=== PATIENT | female | born 1985 | race Caucasian/White ===

== ENCOUNTER 2023-02-14 18:57 | Outpatient (OUT) | payer OTHER, SELFPAY ==
--- NOTE | 2023-02-14 18:59 | US_ITS ---
[address] [address] Patient Name: HAYES MENCHACA MRN: [id number] date: 1985 Sex: F Assigned Patient Location: US Current Patient Location: Accession/Order Number: [id number] Exam Date: 02/14/2023 19:05 Report Date: 02/15/2023 17:46 At the request of: SUZIE ZEPEDA Procedure: US thyroid EXAMINATION: US thyroid HISTORY: THYROID NODULE E04.1 COMPARISON: 07/26/2022, 07/11/2021 TECHNIQUE: Sonographic images of the thyroid gland were obtained. FINDINGS: The right thyroid lobe measures 4.7 x 2.1 x 1.7 cm. Single nodule. Nodule 1:3.1 x 1.7 x 1.8 cm. Solid, isoechoic, wide, lobular margins, no calcifications. TR 4 The thyroid isthmus measures 2.9 mm. No focal nodule Left thyroid lobe measures 4.7 x 1.2 x 1.6 cm. Homogeneous echotexture with no focal nodule US/US thyroid IMPRESSION: Stable 3.1 cm right thyroid TR 4 nodule TI-RADS: The [employer] TI-RADS committee's white paper recommendations for thyroid lesions classified as TR4 (moderately suspicious) are listed below: > 1.0 cm. Follow-up ultrasound in 1, 2, 3, and 5 years. > 1.5 cm. FNA. J. Am Ayse Radiol 2017;14:[id number]. Electronically authenticated by: DIVYA COOL Date: 02/15/2023 17:46
== END 2023-02-14 18:58 | disposition home or self-care (01) ==
LOC: US 18:57
PROVIDERS: Visit Provider Otolaryngology
DX: E04.1 Nontoxic single thyroid nodule (principal)
CPT/HCPCS: 76536

== ENCOUNTER 2023-05-14 19:28 | Outpatient (REF) | payer OTHER, SELFPAY ==
[2023-05-20 15:08] LABS: Age Gdln ACOG Testing Note (.); HPV Aptima Negative (Negative); IGP, Aptima HPV, rfx 16/18,45 Note (.)
== END 2023-05-14 19:29 | disposition home or self-care (01) ==
LOC: LAB 19:28
PROVIDERS: Visit Provider Physician Assistant
DX: Z01.419 Encounter for gynecological examination (general) (routine) without abnormal findings (principal)
CPT/HCPCS: G0145

== ENCOUNTER 2023-08-19 18:45 | Outpatient (OUT) | payer OTHER, SELFPAY ==
--- OUTSIDE RECORDS SUMMARY | 2023-08-19 18:50 | XMS_ITS | CCD ---
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 Role Phone Sofia Salazar Unavailable ELVA ., DR DIEGO Attending Unavailable ELVA ., DR DIEGO Admitting Unavailable FURLONG, DR MANJU Garrett Primary Care Unavailable ELVA ., DR DIEGO Consulting Unavailable TIMMIS, DR LARSEN Admitting Unavailable TIMMIS, DR LARSEN Consulting Unavailable TIMMIS, DR LARSEN Attending Unavailable FURLONG, DR MANJU Garrett Primary Care Unavailable KIRVIN, DR DIVYA Tatum Consulting Unavailable KUNS, DR MELO Brown Consulting Unavailable KUNS, DR MELO Brown Attending Unavailable KUNS, DR MELO Brown Admitting Unavailable FURLONG, DR MANJU Garrett Primary Care Unavailable RADHA, MANUEL Admitting Unavailable RADHAGEORGEMANUEL Attending Unavailable FURLONG, DR MANJU Garrett Primary Care Unavailable TIMMIS, DR LARSEN Admitting Unavailable TIMMIS, DR LARSEN Consulting Unavailable TIMMIS, DR LARSEN Attending Unavailable FURLONG, DR MANJU Garrett Primary Care Unavailable NEFCYKIM Consulting Unavailable FURLONG, DR MANJU Garrett Primary Care Unavailable ELVA ., DR DIEGO Attending Unavailable ELVA ., DR DIEGO Admitting Unavailable PASQUALELITO Attending Unavailable Problems Active Problems Problem Classification Problem Date Documented Date Episodic/Chronic Genitourinary symptoms and ill-defined conditions (1 source) Dysuria; Translations: [Dysuria] Episodic Immunizations and screening for infectious disease (1 source) Encounter for screening for human papillomavirus (HPV); Translations: [ENC SCREENING HUMAN PAPILLOMAVIRUS] Onset: 05-17-2022 Episodic Other screening for suspected conditions (not mental disorders or infectious disease) (4 sources) Encounter for screening for malignant neoplasm of cervix; Translations: [ENC SCREENING MALIG NEOPLASM CERV] Onset: 05-14-2022 Episodic Thyroid disorders (4 sources) Nontoxic single thyroid nodule; Translations: [NONTOXIC SINGLE THYROID NODULE] Onset: 07-26-2022 Chronic Urinary tract infections (1 source) Lower urinary tract infectious disease; Translations: [UTI (lower urinary tract infection)] Episodic Past or Other Problems Problem Classification Problem Date Documented Da te Episodic/Chronic Other upper respiratory infections (2 sources) Acute pharyngitis, unspecified; Translations: [Acute upper respiratory infection, unspecified] Onset: 10-31-2021 Resolved: 10-31-2021 Episodic Results Test Name Value Interpretation Reference Range Facility LIPID PROFILEon 08-01-2022 CHOL-HDL RATIO NORM SEE BELOW Normal [facility] Comment on above: Result Comment: 3.3 - 4.4 LOW RISK 4.4 - 7.1 AVERAGE RISK 7.1 - 11.0 MODERATE RISK >11.0 HIGH RISK Performed By: #### L IPID, CMP #### [facility] [address] [address] [address] Kiarra Landry Cholesterol [Mass/Vol] 184 mg/dL Normal <=200 [facility] Comment on above: Performed By: #### L IPID, CMP #### [facility] [address] [address] [address] Kiarra Landry Cholesterol in HDL [Mass/Vol] 44 mg/dL Normal 40-60 [facility] Comment on above: Performed By: #### L IPID, CMP #### [facility] [address] [address] [address] Kiarra Landry Cholesterol in LDL [Mass/Vol] 115.0 mg/dL Normal [facility] Comment on above: Performed By: #### L IPID, CMP #### [facility] [address] [address] [address] Kiarra Landry Cholesterol.total/ Cholesterol in HDL [Mass ratio] 4.2 {ratio} Normal [facility] Comment on above: Performed By: #### L IPID, CMP #### [facility] [address] [address] [address] Kiarra Landry HDL NORMAL > or = 60 mg/dl - LO W CARDIOVASCULAR RISK <40 mg/dl - HIGH CARDIOVASCULAR RISK Normal [facility] Comment on above: Performed By: #### L IPID, CMP #### [facility] [address] [address] [address] Kiarra Landry LDL CALC NORMAL SEE BELOW Normal [facility] Comment on above: Result Comment: <100 mg/dl OPTIMAL 100 - 129 mg/dl NEAR OR ABOVE OPTIMAL 130 - 159 mg/dl BORDERLINE HIGH 160 - 189 mg/dl HIGH >190 mg/dl VERY HIGH Performed By: #### L IPID, CMP #### [facility] [address] [address] [address] Kiarra Landry Triglyceride [Mass/Vol] 125 mg/dL Normal <=150 [facility] Comment on above: Performed By: #### L IPID, CMP #### [facility] [address] [address] [address] Kiarra Landry VLDL CALC 25.0 mg/dL Normal [facility] Comment on above: Performed By: #### L IPID, CMP #### [facility] [address] [address] [address] Kiarra Landry PROF 14(COMP METB)on 023 Albumin [Mass/Vol] 4.0 g/dL Normal 3.4-5.0 [facility] Comment on above: Performed By: #### L IPID, CMP #### [facility] [address] [address] [address] Kiarra Landry Albumin/Globulin [Mass ratio] 1.2 {ratio} Normal [facility] Comment on above: Performed By: #### L IPID, CMP #### [facility] [address] [address] [address] Kiarra Landry ALP [Catalytic activity/Vol] 68 U/L Normal 46-116 [facility] Comment on above: Performed By: #### L IPID, CMP #### [facility] [address] [address] [address] Kiarra Landry ALT [Catalytic activity/Vol] 61 U/L Critically high 14-59 [facility] Comment on above: Performed By: #### L IPID, CMP #### [facility] [address] [address] [address] Kiarra Landry Anion gap [Moles/Vol] 10.6 mmol/L Normal [facility] Comment on above: Performed By: #### L IPID, CMP #### [facility] [address] [address] [address] Kiarra Landry AST [Catalytic activity/Vol] 28 U/L Normal 15-37 [facility] Comment on above: Performed By: #### L IPID, CMP #### [facility] [address] [address] [address] Kiarra Landry Bilirubin [Mass/Vol] 0.4 mg/dL Normal 0.2-1.0 [facility] Comment on above: Performed By: #### L IPID, CMP #### [facility] [address] [place] [address] Dr. Kiarra Landry Calcium [Mass/Vol] 8.6 mg/dL Normal 8.5-10.1 [facility] Comment on above: Performed By: #### L IPID, CMP #### [facility] [address] [address] [address] Kiarra Landry Chloride [Moles/Vol] 101 mmol/L Normal 98-107 [facility] Comment on above: Performed By: #### L IPID, CMP #### [facility] [address] [address] [address] Kiarra Landry CO2 [Moles/Vol] 27.9 mmol/L Normal 21.0-32.0 [facility] Comment on above: Performed By: #### L IPID, CMP #### [facility] [address] [address] [address] Kiarra Landry Creatinine [Mass/Vol] 0.80 mg/dL Normal 0.55-1.02 [facility] Comment on above: Performed By: #### L IPID, CMP #### [facility] [address] [address] [address] Kiarra Landry EGFR-AF CYPRIOT >60 Normal >=60 [facility] Comment on above: Performed By: #### L IPID, CMP #### [facility] [address] [address] [address] Kiarra Landry EGFR-NON AF CYPRIOT >60 Normal >=60 [facility] Comment on above: Performed By: #### L IPID, CMP #### [facility] [address] [address] [address] Kiarra Landry Globulin (S) [Mass/Vol] 3.3 g/dL Normal [facility] Comment on above: Performed By: #### L IPID, CMP #### [facility] [address] [address] [address] Kiarra Landry Glucose [Mass/Vol] 81 mg/dL Normal 74-106 [facility] Comment on above: Performed By: #### L IPID, CMP #### [facility] [address] [place] [address] Dr. Kiarra Landry Potassium [Moles/Vol] 3.5 mmol/L Normal 3.5-5.1 [facility] Comment on above: Performed By: #### L IPID, CMP #### [facility] [address] [address] [address] Kiarra Landry Protein [Mass/Vol] 7.3 g/dL Normal 6.4-8.2 [facility] Comment on above: Performed By: #### L IPID, CMP #### [facility] [address] [place] [address] Dr. Kiarra Landry Sodium [Moles/Vol] 136 mmol/L Normal 136-145 [facility] Comment on above: Performed By: #### L IPID, CMP #### [facility] [address] [address] [address] Kiarra Landry Urea nitrogen [Mass/Vol] 14.0 mg/dL Normal 7.0-18.0 [facility] Comment on above: Performed By: #### L IPID, CMP #### [facility] [address] [address] [address] Kiarra Landry Urea nitrogen/Creatinin e [Mass ratio] 17.5 mg/mg Normal [facility] Comment on above: Performed By: #### L IPID, CMP #### [facility] [address] [address] [address] Kiarra Landry US THYROIDon 07-26-2022 US THYROID EXAM: US THYROID HISTORY: Non-toxic uninodular goiter . Follow-up study. COMPARISON: 01/11/2022 TECHNIQUE: Multiple sonographic images of the thyroid gland were obtained, supplemented with Doppler. FINDINGS: The right lobe measures 4.6 x 1.9 x 1.7 cm. Homogeneous echoes are noted throughout. Along the inferior aspect there is a solid nodule measuring 3.0 x 1.7 x 1.6 cm. The left lobe measures 4.4 x 1.4 x 1.4 cm. Homogeneous echoes are noted throughout. No focal nodule is identified within. The isthmus measures 2 mm in thickness. There is no evidence of a focal mass or abnormal fluid collection. IMPRESSION: A nodule is seen in the inferior aspect of the right lobe. This is unchanged in size and appearance. No other nodule is identified. The nodule in the right lobe is considered TI RADS 4. Biopsy of this nodule was performed on 07/17/2021. A repeat biopsy is not recommended at this time. A follow-up study in 12 months recommended. Electronically authenticated by: KIM ENRIQUEZ Date: 2022-07-26 19:43 Normal [facility] PAP ACOG PANEL 2: 30 to 65on 05-21-2022 . . Normal [facility] Comment on above: Result Comment: Perf ormed at: WB Performed By: #### 4 [id number] #### [facility] [address] [place] [address] Dr. Kiarra Landry Age Gdln ACOG Testing 30-65 Normal [facility] Comment on above: Performed By: #### 4 [id number] #### [facility] [address] [address] [address] Kiarra Landry DIAGNOSIS: Comment Normal [facility] Comment on above: Result Comment: NEGA TIVE FOR INTRAEPITHELIAL LESION OR MALIGNANCY. Performed at: WB Performed By: #### 4 [id number] #### [facility] [address] [id number] Kiarra Landry HPV Aptima Negative Normal Negative [facility] Comment on above: Result Comment: This nucleic acid amplification test detects fourteen high-risk HPV types (16,18,31,33,35,39,45,51,52,56,58,59,66,68) without differentiation. Performed at: =G Performed By: #### 4 [id number] #### [facility] [address] [address] [address] Kiarra Landry HPV Genotype Reflex Comment Normal [facility] Comment on above: Result Comment: Crit eria not met, HPV Genotype not performed. Performed at: WB Performed By: #### 4 [id number] #### [facility] [address] [place] [address] Dr. Kiarra Landry Methodology: Comment Normal [facility] Comment on above: Result Comment: This liquid based ThinPrep(R) pap test was screened with the use of an image guided system. Performed at: WB Performed By: #### 4 [id number] #### [facility] [address] [place] [address] Dr. Kiarra Landry Note: Comment Normal [facility] Comment on above: Result Comment: The Pap smear is a screening test designed to aid in the detection of premalignant and malignant conditions of the uterine cervix. It is not a diagnostic procedure and should not be used as the sole means of detecting cervical cancer. Both false-positive and false-negative reports do occur. . Performed at: WB Performed By: #### 4 [id number] #### [facility] [address] [place] [address] Dr. Kiarra Landry Performed by: Comment Normal [facility] Comment on above: Result Comment: Norma Smith, Mortgage Banker (ASCP) Performed at: WB Performed By: #### 4 [id number] #### [facility] [address] [place] [address] Dr. Kiarra Landry Specimen adequacy: Comment Normal [facility] Comment on above: Result Comment: Sati sfactory for evaluation. Endocervical and/or squamous metaplastic cells (endocervical component) are present. Performed at: WB Performed By: #### 4 [id number] #### [facility] [address] [place] [address] Dr. Kiarra Landry US THYROIDon 01-12-2022 US THYROID EXAMINATION: US THYROID HISTORY: Non-toxic uninodular goiter COMPARISON: 07/17/2021, 07/11/2021 TECHNIQUE: Sonographic images of the thyroid gland were obtained. FINDINGS: The right thyroid lobe is stable in size, contour and echotexture measuring 4.8 x 2.0 x 1.8 cm. Single nodule. Nodule 1:2.8 x 1.7 x 1.7 cm. Solid, isoechoic, wide, lobular margins, no calcifications. TR 4 The thyroid isthmus measures 2 mm, normal. No focal nodule Left thyroid lobe is normal in size, contour and echotexture measuring 4.6 x 1.3 x 1.6 cm IMPRESSION: Stable 2.8 cm right TR 4 nodule, previously biopsied TI-RADS: The [employer] TI-RADS committee's white paper recommendations for thyroid lesions classified as TR4 (moderately suspicious) are listed below: > 1.0 cm. Follow-up ultrasound in 1, 2, 3, and 5 years. > 1.5 cm. FNA. J. Am Ayse Radiol 2017;14:587-595. Electronically authenticated by: DIVYA COOL Date: 2022-01-12 07:11 Normal [facility] Quick Strepon 10-31-2021 S. pyogenes Org specific cx Ql (Throat) Negative Skimbl Other Quick Strep Skimbl Other COMPREHENSIVE METABOLIC PANE [place] 07-05-2021 Albumin [Mass/Vol] 4.5 g/dL Normal 3.6-5.1 [facility] Comment on above: Performed By: #### 7 215, 19393, 58833 #### [facility] [address], [address] [place] [id number] Floral Arranger: Goyo Ivory MD Albumin/Globulin [Mass ratio] 1.8 {ratio} Normal 1.0-2.5 [facility] Comment on above: Performed By: #### 7 600, 14724, 10651 #### [facility] [address] [place], [place] [address] , [address] [place] [id number] Floral Arranger: Goyo Ivory MD ALP [Catalytic activity/Vol] 76 U/L Normal 31-125 [facility] Comment on above: Performed By: #### 7 600, 15185, 66146 #### [facility] of [address] [address] Floral Arranger: Goyo Ivory MD ALT [Catalytic activity/Vol] 41 U/L High 6-29 [facility] Comment on above: Performed By: #### 7 600, 67547, 66399 #### [facility] of [address] [address] Floral Arranger: Goyo Ivory MD AST [Catalytic activity/Vol] 24 U/L Normal 10-30 [facility] Comment on above: Performed By: #### 7 600, 38475, 97529 #### [facility] [address] [address] Floral Arranger: Goyo Ivory MD Bilirubin [Mass/Vol] 0.3 mg/dL Normal 0.2-1.2 [facility] Comment on above: Performed By: #### 7 600, 53906, 84299 #### [facility] [address] [address] Floral Arranger: Goyo Ivory MD BUN/CREATININE RATIO NOT APPLICABLE Normal 6-22 [facility] Comment on above: Performed By: #### 7 600, 55782, 04551 #### [facility] [address] [address] Floral Arranger: Goyo Ivory MD Calcium [Mass/Vol] 9.0 mg/dL Normal 8.6-10.2 [facility] Comment on above: Performed By: #### 7 600, 29186, 81674 #### [facility] of [address] [address] Floral Arranger: Goyo Ivory MD Chloride [Moles/Vol] 105 mmol/L Normal 98-110 [facility] Comment on above: Performed By: #### 7 600, 02881, 98357 #### [facility] of [address], [address] [place] [address] Floral Arranger: Goyo Ivory MD CO2 [Moles/Vol] 25 mmol/L Normal 20-32 [facility] Comment on above: Performed By: #### 7 600, 98145, 60120 #### [facility] [address], [address] [place] [address] Floral Arranger: Goyo Ivory MD Creatinine [Mass/Vol] 0.89 mg/dL Normal 0.50-1.10 [facility] Comment on above: Performed By: #### 7 600, 94622, 84399 #### [facility] [address], [address] [place] [address] Floral Arranger: Goyo Ivory MD eGFR NON-AFR. CYPRIOT 83 mL/min/1.73m2 Normal > OR = 60 [facility] Comment on above: Performed By: #### 7 600, 34659, 14542 #### [facility] [address], [address] [place] [address] Floral Arranger: Goyo Ivory MD GFR/1.73 sq M.predicted among blacks MDRD (S/P/Bld) [Vol rate/Area] 96 mL/min/{1.73_m2} Normal > OR = 60 [facility] Comment on above: Performed By: #### 7 600, 22984, 63365 #### [facility] [address], [address] [place] [address] Floral Arranger: Goyo Ivory MD Globulin (S) [Mass/Vol] 2.5 g/dL Normal 1.9-3.7 [facility] Comment on above: Performed By: #### 7 600, 63300, 63183 #### [facility] of [address] [address] Floral Arranger: Goyo Ivory MD Glucose [Mass/Vol] 77 mg/dL Normal 65-99 [facility] Comment on above: Result Comment: Fasting reference interval Performed By: #### 7 600, 35329, 41191 #### [facility] of [address], [address] [place] [address] Floral Arranger: Goyo Ivory MD Potassium [Moles/Vol] 4.0 mmol/L Normal 3.5-5.3 [facility] Comment on above: Performed By: #### 7 600, 85579, 83475 #### [facility] [address] [address] Floral Arranger: Goyo Ivory MD Protein [Mass/Vol] 7.0 g/dL Normal 6.1-8.1 [facility] Comment on above: Performed By: #### 7 600, 31083, 34923 #### [facility] [address] [place] [address] Floral Arranger: Goyo Ivory MD Sodium [Moles/Vol] 139 mmol/L Normal 135-146 [facility] Comment on above: Performed By: #### 7 600, 80389, 99251 #### [facility] [address] [place] [address] Floral Arranger: Goyo Ivory MD Urea nitrogen [Mass/Vol] 18 mg/dL Normal 7-25 [facility] Comment on above: Performed By: #### 7 600, 07609, 03019 #### [facility] [address] [place] [address] Floral Arranger: Goyo Ivory MD LIPID PANEL, [facility] 0 Cholesterol [Mass/Vol] 206 mg/dL High <200 [facility] Comment on above: Order Comment: FASTI NG:YES FASTING: YES Performed By: #### 7 600, 86732, 41699 #### [facility] of [address] [place] [address] Floral Arranger: Goyo Ivory MD Cholesterol in HDL [Mass/Vol] 45 mg/dL Low > OR = 50 [facility] Comment on above: Order Comment: FASTI NG:YES FASTING: YES Performed By: #### 7 600, 67803, 56886 #### [facility] [address] [address], [address] [place] [address] Floral Arranger: Goyo Ivory MD Cholesterol in LDL [Mass/Vol] 130 mg/dL High [facility] Comment on above: Order Comment: FASTI NG:YES FASTING: YES Result Comment: Refe rence range: <100 Desirable range <100 mg/dL for primary prevention; <70 mg/dL for patients with CHD or diabetic patients with > or = 2 CHD risk factors. LDL-C is now calculated using the Bessie calculation, which is a validated novel method providing better accuracy than the Friedewald equation in the estimation of LDL-C. Milton SS et al. CLARA. 2013;310(19): 5155-8696 (http://education.NOZA/faq/KMT297) Performed By: #### 7 600, 00731, 55472 #### [facility] [place] [address] Floral Arranger: Goyo Ivory MD Cholesterol.total/ Cholesterol in HDL [Mass ratio] 4.6 {ratio} Normal <5.0 [facility] Comment on above: Order Comment: FASTI NG:YES FASTING: YES Performed By: #### 7 600, 66221, 35799 #### [facility] [address] [place] [address] Floral Arranger: Goyo Ivory MD NON HDL CHOLESTEROL 161 mg/dL (calc) High <130 [facility] Comment on above: Order Comment: FASTI NG:YES FASTING: YES Result Comment: For patients with diabetes plus 1 major ASCVD risk factor, treating to a non-HDL-C goal of <100 mg/dL (LDL-C of <70 mg/dL) is considered a therapeutic option. Performed By: #### 7 600, 84905, 96470 #### [facility] [address] [place] [address] Floral Arranger: Goyo Ivory MD Triglyceride [Mass/Vol] 170 mg/dL High <150 [facility] Comment on above: Order Comment: FASTI NG:YES FASTING: YES Performed By: #### 7 600, 48828, 37546 #### [facility] [address], [address] [place] [address] Floral Arranger: Goyo Ivory MD TSH+FREE T4on 07-05-2021 Free T4 [Mass/Vol] 0.9 ng/dL Normal 0.8-1.8 [facility] Comment on above: Performed By: #### 7 600, 54503, 85434 #### [facility] [address], [address] [place] [address] Floral Arranger: Goyo Ivory MD TSH Qn 1.38 m[IU]/L Normal [facility] Comment on above: Result Comment: Refe rence Range > or = 20 Years 0.40-4.50 Ranges First trimester 0.26-2.66 Second trimester 0.55-2.73 Third trimester 0.43-2.91 Performed By: #### 7 600, 10775, 68039 #### [facility] [address], [address] [place] [address] Floral Arranger: Goyo Ivory MD Formson 05-08-2021 Forms [id number] .[id number]:127 Normal [facility] Formson 05-05-2021 Forms [id number] .[id number]:127 Normal [facility] Operative Reporton Operative Report [id number] .[id number]:127 Normal [facility] Ambulatory Clinical Summaryo n 05-03-2021 Ambulatory Clinical Summary {[id number]}CD:[id number] Normal [facility] General Surgery Office/Clini c Noteon 05-03-2021 General Surgery Office/Clinic Note Chief Complaint post operative follow up HPI Staff 7 day post operative follow up post lap cholecystectomy. Minimal discomfort, taking 600mg-800mg Ibuprofen daily. Denies bleeding or drainage from incision sites. History of Present Illness 1 week s/p LS cholecystectomy, doing well, mild soreness, no N/V; normal bms; no fevers; no drainage from incisions; pathology with chronic calculus cholecystitis; Review of Systems ROS - Provider Constitutional: no fever, no sweats, no weight loss. Eyes: no glasses, no blurred vision, no visual loss. ENMT: no dentures, no hoarseness, no swallowing difficulties, no hearing loss, no ear infection(s), no nose bleeds. Cardiovascular: normal blood pressure, no chest pain, regular heartbeat, no heart murmur. Respiratory: no shortness of breath, no cough, no asthma, no wheezing. Gastrointestinal: no nausea, no vomiting, no diarrhea, no constipation, no blood in stool, no change in bowel habits, no abdominal pain, no hepatitis. Genitourinary: no kidney stones, no urine infection, no dysuria. Musculoskeletal: no pain, no weakness. Skin: no changing moles, no rash, no skin lumps. Neurologic: no seizures, no epilepsy, no headache. Psychiatric: no emotional or psychiatric problem. Heme/Lymph: no bleeding problems, no anemia, no blood clots, no transfusions. Allergy/Immunologic: no swollen lymph nodes/glands, no IV drug abuse. Other: Additional ROS info: Except as noted in the above Review of Systems and in the History of Present Illness, all other systems have been reviewed and are negative or noncontributory. Physical Exam Vitals & Measurements T: 36.4 ?C(Temporal Artery) abd: obese, soft, normal bs, incisions healing well, no erythema or drainage. minimal resolving ecchymoses. Assessment/Plan 1. Chronic cholecystitis with calculus (K80.10: Calculus of gallbladder with chronic cholecystitis without obstruction) doing well, continue no lifting > 10 lbs for 3 weeks, call with problems/questions. Follow-up With When Contact Information MARCUS FOSS, DIVINA Araujo Only if needed [address] [place] [address]- Additional Instructions: Problem List/Past Medical History Ongoing Biliary colic BMI 38.0-38.9,adult Chronic cholecystitis with calculus Symptomatic cholelithiasis Historical No qualifying data Procedure/Surgical History Laparoscopic cholecystectomy (04/26/2021), Dilatation and curettage, Repair of left inguinal hernia, Repair of right inguinal hernia. Medications Multivitamins and Minerals, 1 tab(s), Oral, Daily Allergies No Known Allergies No Known Medication Allergies Social History Alcohol - Denies Alcohol Use, 02/07/2021 Substance Abuse - Denies Substance Abuse, 02/07/2021 Tobacco Never (less than 100 in lifetime) Tobacco Use:. Never Smokeless Tobacco Use:., 03/28/2021 Family History Family history is negative Normal [facility] Comment on above: Result Comment: Elec tronically Signed By: MARCUS FOSS, Chris Olguin\Date and Time Signed: 05/03/21 21:19 EST Pathology Noteon 05-02-2021 Pathology Note [id number] .00CD:127 Normal [facility] Lab Reportson 04-25-2021 Lab Reports [id number] .00CD:127 Normal [facility] Lab Reportson 04-19-2021 Lab Reports [id number] .00CD:127 Normal [facility] Consent for Procedure/Surger yon 04-10-2021 Consent for Procedure/Surgery [id number] .[id number]:127 Normal [facility] General Surgery Office/Clini c Noteon 04-02-2021 General Surgery Office/Clinic Note Chief Complaint re-evaluate RUQ pain HPI Staff Presents to follow up on RUQ pain. Last evaluation 02/07/21. Since last visit, she experienced two day episode of RUQ pain without nausea, vomiting or diarrhea. After pain resolved, she has been experiencing constant dull ache. History of Present Illness f/u for recurrent RUQ pain; last seen beginning of February; one episode of biliary colic at that time, was 9 weeks , wanted to hold off on surgery; now reports several episodes within last several weeks, as well as more constant ache; no N/V or bowel changes; no fevers or jaundice; only abdominal operations bilateral inguinal hernia repairs; no asa or NSAID use;no tobacco use. Review of Systems ROS - Provider Constitutional: no fever, no sweats, no weight loss. Eyes: no glasses, no blurred vision, no visual loss. ENMT: no dentures, no hoarseness, no swallowing difficulties, no hearing loss, no ear infection(s), no nose bleeds. Cardiovascular: normal blood pressure, no chest pain, regular heartbeat, no heart murmur. Respiratory: no shortness of breath, no cough, no asthma, no wheezing. Gastrointestinal: no nausea, no vomiting, no diarrhea, no constipation, no blood in stool, no change in bowel habits, no abdominal pain, no hepatitis. Genitourinary: no kidney stones, no urine infection, no dysuria. Musculoskeletal: no pain, no weakness. Skin: no changing moles, no rash, no skin lumps. Neurologic: no seizures, no epilepsy, no headache. Psychiatric: no emotional or psychiatric problem. Heme/Lymph: no bleeding problems, no anemia, no blood clots, no transfusions. Allergy/Immunologic: no swollen lymph nodes/glands, no IV drug abuse. Other: Additional ROS info: Except as noted in the above Review of Systems and in the History of Present Illness, all other systems have been reviewed and are negative or noncontributory. Physical Exam Vitals & Measurements T: 36.4 ?C (Temporal Artery) HR: 80(Peripheral) RR: 16 BP: 120/80 HT: 162.6 cm HT: 162.6 cm WT: 102.2 kg WT: 102.2 kg BMI: 38.66 HEENT: normal conjunctiva, sclera clear, no scleral icterus, EOM intact, PERRLA, oral mucosa moist without lesions. Neck: trachea midline, no mass, symmetric, no thyromegaly or nodules, no adenopathy Respiratory: lungs CTA, respirations non labored. Cardiovascular: regular rate and rhythm, no murmur, no pedal edema or varicosities. Gastrointestinal: obese, soft, non distended, mild tenderness, epigastrium and RUQ, no masses, no palpable hernias, diastasis recti no, no hepatosplenomegaly; normal bs Lymphatic: no cervical adenopathy, no axillary adenopathy, no inguinal adenopathy. Musculoskeletal: normal gait, digits and nails without infection, nodes, cyanosis, clubbing. Skin: no rashes, no lesions, no ulcers, no subcutaneous nodules, induration. Psychiatric/Neuro: oriented to time, place, person, judgement normal, affect appropriate for age, insight intact, no focal deficits. Tests: labs reviewed, x-rays reviewed, review of old records completed, _ surgical options, risks, and possible complications with patient. Assessment/Plan 1. Symptomatic cholelithiasis (K80.20: Calculus of gallbladder without cholecystitis without obstruction) plan laparoscopic cholecystectomy, possible intraoperative cholangiogram; informed consent obtained. unasyn 3 gms IV prior to OR SCDs 2. BMI 38.0-38.9,adult (Z68.38: Body mass index [BMI] 38.0-38.9, adult) recommend low fat diet and exercise. Follow-up No qualifying data available Problem List/Past Medical History Ongoing Biliary colic BMI 38.0-38.9,adult Symptomatic cholelithiasis Historical No qualifying data Procedure/Surgical History Dilatation and curettage, Repair of left inguinal hernia, Repair of right inguinal hernia. Medications Multivitamins and Minerals, 1 tab(s), Oral, Daily Allergies No Known Allergies No Known Medication Allergies Social History Alcohol - Denies Alcohol Use, 02/07/2021 Substance Abuse - Denies Substance Abuse, 02/07/2021 Tobacco Never (less than 100 in lifetime) Tobacco Use:. Never Smokeless Tobacco Use:., 03/28/2021 Family History Family history is negative Normal [facility] Comment on above: Result Comment: Elec tronically Signed By: MARCUS FOSS, Chris Cabral.george\Date and Time Signed: 04/02/21 20:40 EDT Patient Educationon 03-17-20 Patient Education Gastroenterology Laparoscopic Cholecystectomy Laparoscopic cholecystectomy is surgery to remove the gallbladder. The gallbladder is a pear-shaped organ that lies beneath the liver on the right side of the body. The gallbladder stores bile, which is a fluid that helps the body to digest fats. Cholecystectomy is often done for inflammation of the gallbladder (cholecystitis). This condition is usually caused by a buildup of gallstones (cholelithiasis) in the gallbladder. Gallstones can block the flow of bile, which can result in inflammation and pain. In severe cases, emergency surgery may be required. This procedure is done though small incisions in your abdomen (laparoscopic surgery). A thin scope with a camera (laparoscope) is inserted through one incision. Thin surgical instruments are inserted through the other incisions. In some cases, a laparoscopic procedure may be turned into a type of surgery that is done through a larger incision (open surgery). Tell a health care provider about: ? Any allergies you have. ? All medicines you are taking, including vitamins, herbs, eye drops, creams, and zubo-ynd-lkhcrkz medicines. ? Any problems you or family members have had with anesthetic medicines. ? Any blood disorders you have. ? Any surgeries you have had. ? Any medical conditions you have. ? Whether you are or may be . What are the risks? Generally, this is a safe procedure. However, problems may occur, including: ? Infection. ? Bleeding. ? Allergic reactions to medicines. ? Damage to other structures or organs. ? A stone remaining in the common bile duct. The common bile duct carries bile from the gallbladder into the small intestine. ? A bile leak from the cyst duct that is clipped when your gallbladder is removed. What happens before the procedure? Staying hydrated Follow instructions from your health care provider about hydration, which may include: ? Up to 2 hours before the procedure ? you may continue to drink clear liquids, such as water, clear fruit juice, black coffee, and plain tea. Eating and drinking restrictions Follow instructions from your health care provider about eating and drinking, which may include: ? 8 hours before the procedure ? stop eating heavy meals or foods such as meat, fried foods, or fatty foods. ? 6 hours before the procedure ? stop eating light meals or foods, such as toast or cereal. ? 6 hours before the procedure ? stop drinking milk or drinks that contain milk. ? 2 hours before the procedure ? stop drinking clear liquids. Medicines ? Ask your health care provider about: ? Changing or stopping your regular medicines. This is especially important if you are taking diabetes medicines or blood thinners. ? Taking medicines such as aspirin and ibuprofen. These medicines can thin your blood. Do not take these medicines before your procedure if your health care provider instructs you not to. ? You may be given antibiotic medicine to help prevent infection. General instructions ? Let your health care provider know if you develop a cold or an infection before surgery. ? Plan to have someone take you home from the hospital or clinic. ? Ask your health care provider how your surgical site will be marked or identified. What happens during the procedure? ? To reduce your risk of infection: ? Your health care team will wash or sanitize their hands. ? Your skin will be washed with soap. ? Hair may be removed from the surgical area. ? An IV tube may be inserted into one of your veins. ? You will be given one or more of the following: ? A medicine to help you relax (sedative). ? A medicine to make you fall asleep (general anesthetic). ? A breathing tube will be placed in your mouth. ? Your surgeon will make several small cuts (incisions) in your abdomen. ? The laparoscope will be inserted through one of the small incisions. The camera on the laparoscope will send images to a TV screen (monitor) in the operating room. This lets your surgeon see inside your abdomen. ? Air-like gas will be pumped into your abdomen. This will expand your abdomen to give the surgeon more room to perform the surgery. ? Other tools that are needed for the procedure will be inserted through the other incisions. The gallbladder will be removed through one of the incisions. ? Your common bile duct may be examined. If stones are found in the common bile duct, they may be removed. ? After your gallbladder has been removed, the incisions will be closed with stitches (sutures), silvestre, or skin glue. ? Your incisions may be covered with a bandage (dressing). The procedure may vary among health care providers and hospitals. What happens after the procedure? ? Your blood pressure, heart rate, breathing rate, and blood oxygen level will be monitored until the medicines you were given have worn off. ? You will be given medicines as needed to control your (more content not included)... Normal [facility] RAD - Ultrasound Reporton RAD - Ultrasound Report [id number] .00CD:127 Normal [facility] Ambulatory Clinical Summaryo n 02-07-2021 Ambulatory Clinical Summary {[id number]}CD:[id number] Normal [facility] ED Note-Physicianon 02-08-20 ED Note-Physician [id number] .00CD:127 Normal [facility] Vital Signs Date Time Vital Sign Value Performing Clinician Facility 10-31-2021 18:40-0400 Body height 162.56 cm Sofia Salazar Other [facility] Other 10-31-2021 18:40-0400 Body mass index (BMI) [Ratio] 39.48 kg/m2 Sofia Steelmond Other [facility] Other 10-31-2021 18:40-0400 Body temperature 98.2 [degF] Sofia Salazar Other [facility] Other 10-31-2021 18:40-0400 Body weight 104.33 kg Sofia Salazar Other [facility] Other 10-31-2021 18:40-0400 Respiratory rate 18 /min Sofia Salazar Other [facility] Other 10-31-2021 18:40-0400 SaO2% (BldA) [Mass fraction] 97 % Sofia Salazar Other [facility] Other Encounters Encounter Date Encounter Type Care Provider Facility Start: 05-14-2023 End: 05-14-2023 ambulatory LITO GIORDANO Not Available Start: 08-05-2022 Encounter for genera l adult medical examination with abnormal findings DR MELO YE [facility] Start: 08-01-2022 End: 08-02-[address] MELO YE Facility:[facility] Start: 08-01-2022 End: 08-02-2022 Encounter for general adult medical examination with abnormal findings DR MELO YE Facility:[facility] Start: 07-26-2022 End: 07-27-[address] SUZIE ZEPEDA Facility:[facility] Start: 05-14-2022 End: 05-14-[address] MANJU JONES Facility:[facility] Start: 05-10-2022 End: 05-10-[address] JOHNATHON STEVENSON . Facility:[facility] Start: 03-09-2022 ambulatory MANUEL RADHA Facility:[facility] Start: 01-11-2022 End: 01-12-[address] SUZIE ZEPEDA Facility:[facility] Start: 10-31-2021 End: 10-31-2021 ambulatory Sofia Salazar Other [facility] Other Start: 10-31-2021 Office outpatient vi sit 25 minutes Sofia Salazar [facility] Payers Date Payer Category Payer Unknown [id number] 2.16.84 [id number] 1985 Unknown [id number] 2.16.84 [id number] 1983 Unknown [id number] 2.16.84 [id number] 1983 Unknown [id number] 2.16.84 [id number] 1983 Unknown [id number] 2.16.84 [id number] 1983 Unknown [id number] 2.16.84 [id number] 1983 Unknown [id number] 1961 Self-pay 1961 Unknown [id number] 2.16.8 [id number] Social History Date Type Detail Facility Unknown if ever smoked [facility] Other Sex Assigned At Sex Assigned At Bir th [facility] Other Evaluation note 10-31-2021 Note Date & Type Note Facility 10-31-2021 Evaluation note Encounter Date Diagnosis Assessment Notes October, Sore throat (ICD-10 - J02.9) October, Viral upper respiratory infection (ICD-10 - J06.9) Drink plenty fluids, get plenty of rest. Take Tylenol or Motrin for aches pains or fevers. Consider taking Mucinex or Sudafed for your drainage. Follow-up with your family physician if no improvement in 2 to 3 days [facility] Other Clinical Note 03-17-2021 Note Date & Type Note Facility 03-17-2021 Note Chief Complaint consultation for abdominal pain HPI Staff 35 year old female presents on consultation from [facility] for abdominal pain. History of Present Illness 35 yo female, 9 weeks ; referred from ED for episode of upper abd pain; seen 2 days ago in ED at [facility] for sudden onset of upper abdominal pain, radiating to shoulder and back, some nausea, no emesis; occurred several hours after eating fatty food; seen in ED and pain gradually resolved with medications; no previous episodes or problems during the ; has been on low fat diet; recent US as outpatient with 1 stone, no gb wall thickening, normal cbd; no h/o jaundice or pancreatitis; abdominal operations significant for bilateral inguinal hernias; denies change in bms or blood in stools; no asa or NSAID use; no fmhx of biliary disease, GI malignancy or IBD. no tobacco use. Review of Systems PHQ Score Initial Depression Screen Score: 0 ROS - Provider Constitutional: no fever, no sweats, no weight loss. Eyes: no glasses, no blurred vision, no visual loss. ENMT: no dentures, no hoarseness, no swallowing difficulties, no hearing loss, no ear infection(s), no nose bleeds. Cardiovascular: normal blood pressure, no chest pain, regular heartbeat, no heart murmur. Respiratory: no shortness of breath, no cough, no asthma, no wheezing. Gastrointestinal: yes nausea, no vomiting, no diarrhea, no constipation, no blood in stool, no change in bowel habits, yes abdominal pain, no hepatitis. Genitourinary: no kidney stones, no urine infection, no dysuria. Musculoskeletal: no pain, no weakness. Skin: no changing moles, no rash, no skin lumps. Neurologic: no seizures, no epilepsy, no headache. Psychiatric: no emotional or psychiatric problem. Heme/Lymph: no bleeding problems, no anemia, no blood clots, no transfusions. Allergy/Immunologic: no swollen lymph nodes/glands, no IV drug abuse. Other: Additional ROS info: Except as noted in the above Review of Systems and in the History of Present Illness, all other systems have been reviewed and are negative or noncontributory. Physical Exam Vitals & Measurements T: 36.6 ?C (Temporal Artery) HR: 72(Peripheral) RR: 16 BP: 122/78 HT: 162.6 cm HT: 162.56 cm WT: 101.0 kg WT: 101 kg BMI: 38.22 HEENT: normal conjunctiva, sclera clear, no scleral icterus, EOM intact, PERRLA, oral mucosa moist without lesions. Neck: trachea midline, no mass, symmetric, no thyromegaly or nodules, no adenopathy Respiratory: lungs CTA, respirations non labored. Cardiovascular: regular rate and rhythm, no murmur, no pedal edema or varicosities. Gastrointestinal:obese, soft, non distended, no tenderness, no masses, no palpable hernias, diastasis recti no, no hepatosplenomegaly; normal bs Lymphatic: no cervical adenopathy, Musculoskeletal: normal gait, digits and nails without infection, nodes, cyanosis, clubbing. Skin: no rashes, no lesions, no ulcers, no subcutaneous nodules, induration. Psychiatric/Neuro: oriented to time, place, person, judgement normal, affect appropriate for age, insight intact, no focal deficits. Tests: labs reviewed, x-rays reviewed, review of old records completed, Discussed surgical options, risks, and possible complications with patient. Assessment/Plan 1. Biliary colic (K80.50: Calculus of bile duct without cholangitis or cholecystitis without obstruction) discussed possible development of cholecystitis or gallstone pancreatitis with subsequent attacks; with just one attack, patient wants to hold off on surgery at this time, will call if recurrent symptoms, or problems/questions. Follow-up No qualifying data available Patient Education Laparoscopic Cholecystectomy Cholelithiasis, Vyzj-kf-Wudy Problem List/Past Medical History Ongoing Biliary colic BMI 38.0-38.9,adult Historical No qualifying data Procedure/Surgical History Dilatation and curettage, Repair of left inguinal hernia, Repair of right inguinal hernia. Medications Multivitamins and Minerals, 1 tab(s), Oral, Daily Allergies No Known Allergies No Known Medication Allergies Social History Alcohol - Denies Alcohol Use, 02/07/2021 Substance Abuse - Denies Substance Abuse, 02/07/2021 Tobacco Never (less than 100 in lifetime) Tobacco Use:. Never Smokeless Tobacco Use:., 02/07/2021 Family History Family history is negative [facility] Comment on above: Result Comment: Elec tronically Signed By: MARCUS FOSS, Chris Olguin\Date and Time Signed: 03/17/21 15:37 EDT History general Narrative - Reported Note Date & Type Note Facility History general Narrative - Reported Type Surgical History hernia repair Surgical History t and a Surgical History D&C Surgical History cholecystectomy 04/23 Hospitalization History childbirth 2017 [facility] Other Summary Purpose Family History No Family History Records FoundNo Family History Records FoundNo Family History Records FoundNo Family History Records Found Advance Directives No Advanced Directives Records FoundNo Advanced Directives Records FoundNo Advanced Directives Records FoundNo Advanced Directives Records Found Additional Source Comments INFORMATION SOURCE (unrecogn ized section and content) DATE CREATED AUTHOR 07/05/2021 [facility] DATE CREATED AUTHOR AUTHOR'S ORGANIZ ATION 07/28/2021 [facility] DATE CREATED AUTHOR AUTHOR'S ORGANIZ ATION 08/07/2022 [facility] DATE CREATED AUTHOR AUTHOR'S ORGANIZ ATION 05/16/2023 [facility] EPIC REASON FOR VISIT (unrecogniz ed section and content) BLACK VAN, SORE THROAT X 5 D AYS FOR RECORDS PERTAINING TO PATIENTS WHO ARE OR HAVE BEEN ENROLLED IN A CHEMICAL DEPENDENCY/SUBSTANCEABUSE PROGRAM, SOME INFORMATION MAY BE OMITTED. This clinical summary was aggregated from multiple sources. Caution should be exercised in using it in the provision of clinical care. This summary normalizes information from multiple sources, and as a consequence, information in this document may materially change the coding, format and clinical context of patient data. In addition, data may be omitted in some cases. CLINICAL DECISIONS SHOULD BE BASED ON THE PRIMARY CLINICAL RECORDS. [email or web address] provides no warranty or guarantee of the accuracy or completeness of information in this document.
--- NOTE | 2023-08-19 18:53 | US_ITS ---
The [address] [address] Patient Name: HAYES MENCHACA MRN: [id number] date: 1985 Sex: F Assigned Patient Location: US Current Patient Location: US Accession/Order Number: [id number] Exam Date: 08/19/2023 19:00 Report Date: 08/19/2023 19:42 At the request of: SUZIE ZEPEDA Procedure: US thyroid EXAM: US thyroid HISTORY: THYROID NODULE E04.1 . Follow-up study. COMPARISON: 02/14/2023 TECHNIQUE: Multiple sonographic images of the thyroid gland were obtained, supplemented with Doppler. FINDINGS: The right lobe measures 4.9 x 2.1 x 1.9 cm. In the mid aspect there is a solid slightly hypoechoic lobulated nodule. This remains unchanged. No other nodule is identified on the right side. The left lobe measures 4.7 x 1.2 x 1.6 cm. No focal nodule is identified within. The isthmus measures 2 mm in thickness. There is no evidence of a focal mass or abnormal fluid collection surrounding the gland. Incidentally noted are nodules along the right side of the soft tissues of the neck, typical of lymph nodes, the largest measuring 2.3 x 0.9 x 1.6 cm. US/US thyroid IMPRESSION: The thyroid gland is not significantly enlarged. There is a stable appearance of the nodule seen in the mid right lobe. This nodule was biopsied on 07/17/2021. No new nodule is identified. TI RADS 4. Biopsy is not recommended at this time. A follow-up study in 2 years is recommended. Electronically authenticated by: KIM ENRIQUEZ Date: 08/19/2023 19:42
== END 2023-08-19 18:46 | disposition home or self-care (01) ==
LOC: US 18:46
PROVIDERS: Visit Provider Otolaryngology
DX: E04.1 Nontoxic single thyroid nodule (principal)
CPT/HCPCS: 76536

== ENCOUNTER 2024-02-20 20:38 | Outpatient (OUT) | payer OTHER, SELFPAY ==
--- NOTE | 2024-02-20 20:40 | US_ITS ---
The [address] [address] Patient Name: HAYES MENCHACA MRN: [id number] date: 1985 Sex: F Assigned Patient Location: US Current Patient Location: Accession/Order Number: [id number] Exam Date: 02/20/2024 20:45 Report Date: 02/24/2024 07:42 At the request of: SUZIE ZEPEDA Procedure: US thyroid EXAMINATION: US thyroid HISTORY: THYROID NODULE E04.1 COMPARISON: 08/19/2023, 01/11/2022 TECHNIQUE: Sonographic images of the thyroid gland were obtained. FINDINGS: The right thyroid lobe measures 4.7 x 2.0 x 2.1 cm. Single dominant nodule. Nodule 1:3.0 x 1.7 x 1.9 cm. Solid, hypoechoic, wide, smooth margins, no calcifications. TR 4 The thyroid isthmus measures 1.4 mm. No focal nodule. The left thyroid lobe measures 4.6 x 1.2 x 1.4 cm. Normal size, contour and echotexture with no focal nodules US/US thyroid IMPRESSION: Stable 3 cm right thyroid TR 4 nodule TI-RADS: The [place] TI-RADS committee's white paper recommendations for thyroid lesions classified as TR4 (moderately suspicious) are listed below: > 1.0 cm. Follow-up ultrasound in 1, 2, 3, and 5 years. > 1.5 cm. FNA. J. Am Ayse Radiol 2017;14:587-595. Electronically authenticated by: DIVYA COOL Date: 02/24/2024 07:42
--- OUTSIDE RECORDS SUMMARY | 2024-02-20 20:40 | XMS_ITS | CCD ---
Author Organization [facility] CliniSyar Care Team Providers Care Wet Room Worker Name Role Phone Sofia Salazar Unavailable ELVA ., DR DIEGO Attending Unavailable ELVA ., DR DIEGO Admitting Unavailable FURLONG, DR VINNY Garrett Primary Care Unavailable ELVA ., DR DIEGO Consulting Unavailable TIMMIS, DR LARSEN Admitting Unavailable TIMMIS, DR LARSEN Consulting Unavailable TIMMIS, DR LARSEN Attending Unavailable FURLONG, DR VINNY Garrett Primary Care Unavailable ASHVILLE, DR DIVYA Tatum Consulting Unavailable KUNS, DR MELO Brown Consulting Unavailable KUNS, DR MELO Brown Attending Unavailable KUNS, DR MELO Brown Admitting Unavailable FURLONG, DR VINNY Garrett Primary Care Unavailable RADHA, MANUEL Admitting Unavailable RADHAMANUEL Attending Unavailable FURLONG, DR VINNY Garrett Primary Care Unavailable TIMMIS, DR LARSEN Admitting Unavailable TIMMIS, DR LARSEN Consulting Unavailable TIMMIS, DR LARSEN Attending Unavailable FURLONG, DR VINNY Garrett Primary Care Unavailable NEFCYKIM Consulting Unavailable FURLONG, DR VINNY Garrett Primary Care Unavailable ELVA ., DR DIEGO Attending Unavailable ELVA ., DR DIEGO Admitting Unavailable TIMMIS, SUZIE H Attending Unavailable LITO GIORDANO Attending Unavailable Furlong Vinny LOZANO Primary Care Provider DO Vinny Schwab Primary Care Provider KATEY Prakash Attending Provider Shelli Prakash Attending Unavailable Shelli Prakash Admitting Unavailable Vinny Schwab Primary Care Unavailable Allergies Allergy Classification Reported Allergen(s) Allergy Type Date of Onset Reaction(s) Facility (1 source) Ciprofloxacin Drug Allergy 04-25-2022 [facility] Medications Current Medications Medication Drug Class(es) Dates Sig (Normalized) Sig (Original) calcipotriene 0.05 mg/ml topical cream (1 source) Vitamin D Analog Start: 04-25-20 calcipotriene (DOVONEX) 0.005 % cream Indications: Psoriasis Apply 1 application topically in the morning and 1 application before bedtime. 60 g 1 04/25/2022 Active ibuprofen 800 mg oral tablet (1 source) Nonsteroidal Anti-inflammatory Drug Start: 12-23-19 24 take 800 mg by mouth every eight hours Ibuprofen Active 800 MG PO Every 8 hours 15 5 December 23, 2023 12:00am omeprazole 20 mg delayed release oral capsule (1 source) Proton Pump Inhibitor Start: 07-11-19 take 1 capsule by mouth in the morning omeprazole (PriLOSEC) 20 mg capsule Indications: Gastroesophageal reflux disease without esophagitis Take 1 capsule (20 mg total) by mouth in the morning. 30 capsule 1 07/11/2022 Active Perfluorohexyloctane (Pf) (1 source) Start: 12-23-19 Perfluorohexyloctane (Pf) (Miebo) 100 % drops Active DROPS OPHTHALMIC December 23, 2023 12:00am triamcinolone acetonide 1 mg/ml topical cream (1 source) Corticosteroid Start: 03-25-20 triamcinolone (KENALOG) 0.1 % cream APPLY TO AFFECTED AREAS TOPICALLY TWICE DAILY NEEDED FOR ITCHING 0 03/25/2022 Active Completed/Discontinued Medications Medication Drug Class(es) Dates Sig (Normalized) Sig (Original) amoxicillin 875 mg / clavulanate 125 mg oral tablet (1 source) Penicillin-class Antibacterial Start: 08-20-2023 End: 12-23-2023 take 1 tablet by mouth twice daily Amoxicillin-Pot Clavulanate Discontinued 1 TAB PO Twice daily 22 03August 20, 2023 12:00am December 23, 2023 11:53am Problems Active Problems Problem Classification Problem Date Documented Date Episodic/Chronic Anxiety disorders (1 source) Anxiety; Translations: [Anxiety disorder, unspecified] Onset: 03-08-2022 03-08-2022 Chronic Genitourinary symptoms and ill-defined conditions (1 source) Dysuria; Translations: [Dysuria] Episodic Immunizations and screening for infectious disease (1 source) Encounter for screening for human papillomavirus (HPV); Translations: [ENC SCREENING HUMAN PAPILLOMAVIRUS] Onset: 05-17-2022 Episodic Other connective tissue disease (1 source) Foot pain; Translations: [Pain in left foot] 12-23-2023 Episodic Other connective tissue disease (2 sources) Pain in left foot; Translations: [Pain in limb] Onset: 12-23-2023 12-23-2023 Episodic Other inflammatory condition of skin (1 source) Psoriasis; Translations: [Psoriasis, unspecified] Onset: 07-11-2022 07-11-2022 Chronic Other nutritional; endocrine; and metabolic disorders (1 source) Obesity; Translations: [Obesity, unspecified] Onset: 03-08-2022 03-08-2022 Chronic Other nutritional; endocrine; and metabolic disorders (1 source) Body mass index 30+ - obesity; Translations: [Obesity, unspecified] Onset: 04-25-2022 04-25-2022 Chronic Other screening for suspected conditions (not mental disorders or infectious disease) (4 sources) Encounter for screening for malignant neoplasm of cervix; Translations: [ENC SCREENING MALIG NEOPLASM CERV] Onset: 05-14-2022 Episodic Thyroid disorders (6 sources) Nontoxic single thyroid nodule; Translations: [Thyroid nodule] Onset: 03-08-2022 Chronic Urinary tract infections (1 source) Lower urinary tract infectious disease; Translations: [UTI (lower urinary tract infection)] Episodic Past or Other Problems Problem Classification Problem Date Documented Date Episodic/Chronic Biliary tract disease (3 sources) Biliary colic; Translations: [Calculus of bile duct without cholangitis or cholecystitis without obstruction] Onset: 03-08-2022 03-08-2022 Episodic Mood disorders (1 source) Mood disorders Onset: 07-11-2022 07-11-2022 Other upper respiratory infections (2 sources) Acute pharyngitis, unspecified; Translations: [Acute upper respiratory infection, unspecified] Onset: 10-31-2021 Resolved: 10-31-2021 Episodic Sprains and strains (1 source) Strain of neck muscle; Translations: [Strain of muscle, fascia and tendon at neck level, initial encounter] Onset: 03-08-2022 03-08-2022 Episodic Results Test Name Value Interpretation Reference Range Facility XR foot LT min 3V*on 024 XR foot LT min 3V* [facility] [place] [address] XRay Report Signed Patient: Steph Rizo MR#: [id number] 22 : 1985 Acct:[id number] Age/Sex: 38 / F ADM Date: 12/23/23 Loc: [facility] Room: Type: [facility] Attending Dr: Shelli Prakash APRN Copies to: Shelli Prakash APRN Ordering Provider: Shelli Prakash APRN Date of Service: 12/23/23 XR/XR foot LT min 3V*: M79.672 - Pain in left foot LEFT FOOT - 3 views CLINICAL HISTORY: Patient rolled her left foot 2 months ago. Persistent pain. COMPARISON: None FINDINGS: No focal soft tissue abnormality or acute bony process. Plantar spurring. Joint spaces appear maintained. No bony erosions. XR/XR foot LT min 3V* IMPRESSION: NO ACUTE BONY PROCESS. PLANTAR SPURRING. Impression dictated by: Miguel Valdez Jr., CristhianOSamuel12/23/2023 12:27 PM Dictation Location: [place] [address] Transcribed By: [facility] 12/23/23 1227 Dictated By: Miguel Valdez Jr, DO 12/23/23 1225 Signed By: 12/23/23 1227 Normal [facility] LIPID PROFILEon 08-01-2022 CHOL-HDL RATIO NORM SEE BELOW Normal [facility] Comment on above: Result Comment: 3.3 - 4.4 LOW RISK 4.4 - 7.1 AVERAGE RISK 7.1 - 11.0 MODERATE RISK >11.0 HIGH RISK Performed By: #### L IPID, CMP #### [facility] [address] [address] [address] Kiarra Landry Cholesterol [Mass/Vol] 184 mg/dL Normal <=200 [facility] Comment on above: Performed By: #### L IPID, CMP #### [facility] [address] [address] [address] Kiarra Landry Cholesterol in HDL [Mass/Vol] 44 mg/dL Normal 40-60 [facility] Comment on above: Performed By: #### L IPID, CMP #### [facility] [address] [address] [address] Kiarra Landry Cholesterol in LDL [Mass/Vol] 115.0 mg/dL Normal [facility] Comment on above: Performed By: #### L IPID, CMP #### [facility] [address] [address] [address] Kiarra Landry Cholesterol.total/ Cholesterol in HDL [Mass ratio] 4.2 {ratio} Normal [facility] Comment on above: Performed By: #### L IPID, CMP #### [facility] [address] [place] [address] [address] Kiarra Landry HDL NORMAL > or = 60 mg/dl - LO W CARDIOVASCULAR RISK <40 mg/dl - HIGH CARDIOVASCULAR RISK Normal [facility] Comment on above: Performed By: #### L IPID, CMP #### [facility] [address] [place] [address] Dr. Kiarra Landry LDL CALC NORMAL SEE BELOW Normal [facility] Comment on above: Result Comment: <100 mg/dl OPTIMAL 100 - 129 mg/dl NEAR OR ABOVE OPTIMAL 130 - 159 mg/dl BORDERLINE HIGH 160 - 189 mg/dl HIGH >190 mg/dl VERY HIGH Performed By: #### L IPID, CMP #### [facility] [address] [place] [address] Dr. Kiarra Landry Triglyceride [Mass/Vol] 125 mg/dL Normal <=150 [facility] Comment on above: Performed By: #### L IPID, CMP #### [facility] [address] [place] [address] [address] Kiarra Landry VLDL CALC 25.0 mg/dL Normal [facility] Comment on above: Performed By: #### L IPID, CMP #### [facility] [address] [address] [address] Kiarra Landry PROF 14(COMP METB)on 023 Albumin [Mass/Vol] 4.0 g/dL Normal 3.4-5.0 [facility] Comment on above: Performed By: #### L IPID, CMP #### [facility] [address] [place] [address] Dr. Kiarra Landry Albumin/Globulin [Mass ratio] 1.2 {ratio} Normal [facility] Comment on above: Performed By: #### L IPID, CMP #### [facility] [address] [address] [address] Kiarra Landry ALP [Catalytic activity/Vol] 68 U/L Normal 46-116 [facility] Comment on above: Performed By: #### L IPID, CMP #### [facility] [address] [address] [address] Kiarra Landry ALT [Catalytic activity/Vol] 61 U/L Critically high 14-59 [facility] Comment on above: Performed By: #### L IPID, CMP #### [facility] [address] [address] [address] Kiarra Landry Anion gap [Moles/Vol] 10.6 mmol/L Normal [facility] Comment on above: Performed By: #### L IPID, CMP #### [facility] [address] [address] [address] Kiarra Landry AST [Catalytic activity/Vol] 28 U/L Normal 15-37 [facility] Comment on above: Performed By: #### L IPID, CMP #### [facility] [address] [address] [address] Kiarra Landry Bilirubin [Mass/Vol] 0.4 mg/dL Normal 0.2-1.0 [facility] Comment on above: Performed By: #### L IPID, CMP #### [facility] [address] [address] [address] Kiarra Landry Calcium [Mass/Vol] 8.6 mg/dL Normal 8.5-10.1 [facility] Comment on above: Performed By: #### L IPID, CMP #### [facility] [address] [address] [address] Kiarra Landry Chloride [Moles/Vol] 101 mmol/L Normal 98-107 [facility] Comment on above: Performed By: #### L IPID, CMP #### [facility] [address] [place] [address] Dr. Kiarra Landry CO2 [Moles/Vol] 27.9 mmol/L Normal 21.0-32.0 [facility] Comment on above: Performed By: #### L IPID, CMP #### [facility] [address] [address] [address] Kiarra Landry Creatinine [Mass/Vol] 0.80 mg/dL Normal 0.55-1.02 [facility] Comment on above: Performed By: #### L IPID, CMP #### [facility] [address] [place] [address] Dr. Kiarra Landry EGFR-AF FINNISH >60 Normal >=60 [facility] Comment on above: Performed By: #### L IPID, CMP #### [facility] [address] [place] [address] Dr. Kiarra Landry EGFR-NON AF FINNISH >60 Normal >=60 [facility] Comment on above: Performed By: #### L IPID, CMP #### [facility] [address] [address] [address] Kiarra Landry Globulin (S) [Mass/Vol] 3.3 g/dL Normal [facility] Comment on above: Performed By: #### L IPID, CMP #### [facility] [address] [place] [address] [address] Kiarra Landry Glucose [Mass/Vol] 81 mg/dL Normal 74-106 [facility] Comment on above: Performed By: #### L IPID, CMP #### [facility] [address] [address] [address] Kiarra Landry Potassium [Moles/Vol] 3.5 mmol/L Normal 3.5-5.1 [facility] Comment on above: Performed By: #### L IPID, CMP #### [facility] [address] [address] [address] Kiarra Landry Protein [Mass/Vol] 7.3 g/dL Normal 6.4-8.2 [facility] Comment on above: Performed By: #### L IPID, CMP #### [facility] [address] [address] [address] Kiarra Landry Sodium [Moles/Vol] 136 mmol/L Normal 136-145 [facility] Comment on above: Performed By: #### L IPID, CMP #### [facility] [address] [address] [address] Kiarra Landry Urea nitrogen [Mass/Vol] 14.0 mg/dL Normal 7.0-18.0 [facility] Comment on above: Performed By: #### L IPID, CMP #### [facility] [address] [address] [address] Kiarra Landry Urea nitrogen/Creatinin e [Mass ratio] 17.5 mg/mg Normal [facility] Comment on above: Performed By: #### L IPID, CMP #### [facility] [address] [place] [address] Dr. Kiarra Landry US THYROIDon 07-26-2022 US [...] by: KIM ENRIQUEZ Date: 2022-07-26 19:43 Normal [facility] PAP ACOG PANEL 2: 30 to 65on 05-21-2022 . . Normal [facility] Comment on above: Result Comment: Perf ormed at: WB Performed By: #### [id number] #### [facility] [address] [address] [address] Kiarra Landry Age Gdln ACOG Testing 30-65 Normal [facility] Comment on above: Performed By: #### [id number] #### [facility] [address] [address] [address] Kiarra Landry DIAGNOSIS: Comment Normal [facility] Comment on above: Result Comment: NEGA TIVE FOR INTRAEPITHELIAL LESION OR MALIGNANCY. Performed at: WB Performed By: #### [id number] #### [facility] [address] [address] [address] Kiarra Landry HPV Aptima Negative Normal Negative [facility] Comment on above: Result Comment: This nucleic acid amplification test detects fourteen high-risk HPV types (16,18,31,33,35,39,45,51,52,56,58,59,66,68) without differentiation. Performed at: =G Performed By: #### [id number] #### [facility] [address] [address] [address] Kiarra Landry HPV Genotype Reflex Comment Normal [facility] Comment on above: Result Comment: Crit eria not met, HPV Genotype not performed. Performed at: WB Performed By: #### [id number] #### [facility] [address] [place] [address] Dr. Kiarra Landry Methodology: Comment Normal [facility] Comment on above: Result Comment: This liquid based ThinPrep(R) pap test was screened with the use of an image guided system. Performed at: WB Performed By: #### [id number] #### [facility] [address] [address] [address] Kiarra Landry Note: Comment Normal [facility] Comment on above: Result Comment: The Pap smear is a screening test designed to aid in the detection of premalignant and malignant conditions of the uterine cervix. It is not a diagnostic procedure and should not be used as the sole means of detecting cervical cancer. Both false-positive and false-negative reports do occur. . Performed at: WB Performed By: #### [id number] #### [facility] [address] [place], [place] [address] Dr. Kiarra Landry Performed by: Comment Normal [facility] Comment on above: Result Comment: Norma Smith, Licensed Midwife (ASCP) Performed at: WB Performed By: #### [id number] #### [facility] [address] [place], [place] [address] Dr. Kiarra Landry Specimen adequacy: Comment Normal [facility] Comment on above: Result Comment: Sati sfactory for evaluation. Endocervical and/or squamous metaplastic cells (endocervical component) are present. Performed at: WB Performed By: #### [id number] #### [facility] [address] [address] [address] Kiarra Landry US THYROIDon 01-12-2022 US [...] TR 4 nodule, previously biopsied TI-RADS: [employer] TI-RADS committee's white paper recommendations for thyroid lesions classified as TR4 (moderately suspicious) are listed below: > 1.0 cm. Follow-up ultrasound in 1, 2, 3, and 5 years. > 1.5 cm. FNA. J. Am Ayse Radiol 2017;14:587-595. Electronically authenticated by: DIVYA COOL Date: 2022-01-12 07:11 Normal [facility] Quick Strepon 10-31-2021 S. pyogenes Org specific cx Ql (Throat) Negative [facility] Other Quick Strep [facility] Other [facility] 07-05-2021 Albumin [Mass/Vol] 4.5 g/dL Normal 3.6-5.1 [facility] Comment on above: Performed By: #### 7 600, 23616, [id number] #### [facility] of [address], [address] [place] [address] Master Carpenter: Goyo Ivory MD Albumin/Globulin [Mass ratio] 1.8 {ratio} Normal 1.0-2.5 [facility] Comment on above: Performed By: #### 7 600, 04588, [id number] #### [facility] of [address], [address] [place] [address] Master Carpenter: Goyo Ivory MD ALP [Catalytic activity/Vol] 76 U/L Normal 31-125 [facility] Comment on above: Performed By: #### 7 600, 19306, 96588 #### [facility] of [address], [address] [place] [address] Master Carpenter: Goyo Ivory MD ALT [Catalytic activity/Vol] 41 U/L High 6-29 [facility] Comment on above: Performed By: #### 7 600, 95355, 46074 #### [facility] of [place] [address] Master Carpenter: Goyo Ivory MD AST [Catalytic activity/Vol] 24 U/L Normal 10-30 [facility] Comment on above: Performed By: #### 7 600, 98210, 59539 #### [facility] of [place] [address] Master Carpenter: Goyo Ivory MD Bilirubin [Mass/Vol] 0.3 mg/dL Normal 0.2-1.2 [facility] Comment on above: Performed By: #### 7 600, 02054, 15527 #### [facility] of [place] [address] Master Carpenter: Goyo Ivory MD BUN/CREATININE RATIO NOT APPLICABLE Normal 6-22 [facility] Comment on above: Performed By: #### 7 600, 40277, 25968 #### [facility] of [address], [address] [place] [address] Master Carpenter: Goyo Ivory MD Calcium [Mass/Vol] 9.0 mg/dL Normal 8.6-10.2 [facility] Comment on above: Performed By: #### 7 600, 32525, 61409 #### [facility] of [address], [address] [place] [address] Master Carpenter: Goyo Ivory MD Chloride [Moles/Vol] 105 mmol/L Normal 98-110 [facility] Comment on above: Performed By: #### 7 600, 52270, 70875 #### [facility] of [place] [address] Master Carpenter: Goyo Ivory MD CO2 [Moles/Vol] 25 mmol/L Normal 20-32 [facility] Comment on above: Performed By: #### 7 600, 16672, 48148 #### [facility] of [address], [address] [place] [address] Master Carpenter: Goyo Ivory MD Creatinine [Mass/Vol] 0.89 mg/dL Normal 0.50-1.10 [facility] Comment on above: Performed By: #### 7 600, 36117, 09258 #### [facility] of [place] [address] Master Carpenter: Goyo Ivory MD eGFR NON-AFR. FINNISH 83 mL/min/1.73m2 Normal > OR = 60 [facility] Comment on above: Performed By: #### 7 600, 51325, 92971 #### [facility] of [place] [address] Master Carpenter: Goyo Ivory MD GFR/1.73 sq M.predicted among blacks MDRD (S/P/Bld) [Vol rate/Area] 96 mL/min/{1.73_m2} Normal > OR = 60 [facility] Comment on above: Performed By: #### 7 600, 96811, 37530 #### [facility] of [address], [address] [place] [address] Master Carpenter: Goyo Ivory MD Globulin (S) [Mass/Vol] 2.5 g/dL Normal 1.9-3.7 [facility] Comment on above: Performed By: #### 7 600, 53654, 80327 #### [facility] of [address], [address] [place] [address] Master Carpenter: Goyo Ivory MD Glucose [Mass/Vol] 77 mg/dL Normal 65-99 [facility] Comment on above: Result Comment: Fasting reference interval Performed By: #### 7 600, 14026, 54197 #### [facility] of [place] [address] Master Carpenter: Goyo Ivory MD Potassium [Moles/Vol] 4.0 mmol/L Normal 3.5-5.3 [facility] Comment on above: Performed By: #### 7 600, 32172, 19032 #### [facility] of [place] [address] Master Carpenter: Goyo Ivory MD Protein [Mass/Vol] 7.0 g/dL Normal 6.1-8.1 [facility] Comment on above: Performed By: #### 7 600, 02160, 06673 #### [facility] of [place] [address] Master Carpenter: Goyo Ivory MD Sodium [Moles/Vol] 139 mmol/L Normal 135-146 [facility] Comment on above: Performed By: #### 7 600, 66309, 37238 #### [facility] of [place] [address] Master Carpenter: Goyo Ivory MD Urea nitrogen [Mass/Vol] 18 mg/dL Normal 7-25 [facility] Comment on above: Performed By: #### 7 600, 28367, 62540 #### [facility] of [address], [address] [place] [address] Master Carpenter: Goyo Ivory MD LIPID PANEL, [facility] Cholesterol [Mass/Vol] 206 mg/dL High <200 [facility] Comment on above: Order Comment: FASTI NG:YES FASTING: YES Performed By: #### 7 600, 82509, 74779 #### [facility] [address], [address] [place] [address] Master Carpenter: Goyo Ivory MD Cholesterol in HDL [Mass/Vol] 45 mg/dL Low > OR = 50 [facility] Comment on above: Order Comment: FASTI NG:YES FASTING: YES Performed By: #### 7 600, 33915, 39537 #### [facility] [address], [address] [place] [address] Master Carpenter: Goyo Ivory MD Cholesterol in LDL [Mass/Vol] 130 mg/dL High [facility] Comment on above: Order Comment: FASTI NG:YES FASTING: YES Result Comment: Refe rence range: <100 Desirable range <100 mg/dL for primary prevention; <70 mg/dL for patients with CHD or diabetic patients with > or = 2 CHD risk factors. LDL-C is now calculated using the Milton-Uma calculation, which is a validated novel method providing better accuracy than the Friedewald equation in the estimation of LDL-C. Milton INMAN et al. CLARA. 2013;310(19): 1675-1422 (http://education.[employer] [place].Zoodles/faq/XBY270) Performed By: #### 7 600, 40831, 81859 #### [facility] [address], [address] [place] [address] Master Carpenter: Goyo Ivory MD Cholesterol.total/ Cholesterol in HDL [Mass ratio] 4.6 {ratio} Normal <5.0 [facility] Comment on above: Order Comment: FASTI NG:YES FASTING: YES Performed By: #### 7 600, 98029, 45270 #### [facility] [address], [address] [place] [address] Master Carpenter: Goyo Ivory MD NON HDL CHOLESTEROL 161 mg/dL (calc) High <130 [facility] Comment on above: Order Comment: FASTI NG:YES FASTING: YES Result Comment: For patients with diabetes plus 1 major ASCVD risk factor, treating to a non-HDL-C goal of <100 mg/dL (LDL-C of <70 mg/dL) is considered a therapeutic option. Performed By: #### 7 600, 63112, 71265 #### [facility] [address], [address] [place] [address] Master Carpenter: Goyo Ivory MD Triglyceride [Mass/Vol] 170 mg/dL High <150 [facility] Comment on above: Order Comment: FASTI NG:YES FASTING: YES Performed By: #### 7 600, 71295, 27846 #### [facility] [place] [address] Master Carpenter: Goyo Ivory MD TSH+FREE T4on 07-05-2021 Free T4 [Mass/Vol] 0.9 ng/dL Normal 0.8-1.8 [facility] Comment on above: Performed By: #### 7 600, 99345, 06087 #### [facility] [place] [address] Master Carpenter: Goyo Ivory MD TSH Qn 1.38 m[IU]/L Normal [facility] Comment on above: Result Comment: Refe rence Range > or = 20 Years 0.40-4.50 Ranges First trimester 0.26-2.66 Second trimester 0.55-2.73 Third trimester 0.43-2.91 Performed By: #### 7 600, 07485, [id number] #### [facility] [address], [address] [place] [address] Master Carpenter: Goyo Ivory MD [employer] 05-08-2021 Forms [id number] .00CD:127 Normal [facility] [employer] 05-05-2021 Forms [id number] .00CD:127 Normal [facility] Operative Reporton Operative Report [id number] .00CD:127 Normal [facility] Ambulatory Clinical Summaryo n 05-03-2021 Ambulatory Clinical Summary {[id number]}CD:[id number] Normal [facility] General Surgery Office/Clini c Noteon 05-03-2021 General [...] Follow-up With When Contact Information MARCUS FOSS, Chris Brown, DIVINA Only if needed [address] [place] [address]- Additional Instructions: Problem List/Past Medical History Ongoing [...] 03/28/2021 Family History Family history is negative [facility] Comment on above: Result Comment: Elec tronically Signed By: MARCUS FOSS, Chris Brown\.br\Date and Time Signed: 05/03/21 21:19 EST Pathology Noteon 05-02-2021 Pathology Note [id number] .00CD:127 Normal [facility] Lab Reportson 04-25-2021 Lab Reports [id number] .00CD:127 Normal [facility] Lab Reportson 04-19-2021 Lab Reports [id number] .00CD:127 [facility] Consent for Procedure/Surger yon 04-10-2021 Consent for Procedure/Surgery [id number] .00CD:127 [facility] General Surgery Office/Clini c Noteon 04-02-2021 [...] Family History Family history is negative Normal [facility] Comment on above: Result Comment: Elec tronically Signed By: Chris VELAZQUEZ MD.george\Date and Time Signed: 04/02/21 20:40 EDT Patient [...] including vitamins, herbs, eye drops, creams, and wpiw-suz-jwsqwgw medicines. ? Any problems you or family [...] to control your (more content not included)... [facility] RAD - Ultrasound Reporton RAD - Ultrasound Report [id number] .00CD:127 [facility] Ambulatory Clinical Summaryo n 02-07-2021 Ambulatory Clinical Summary {[id number]}CD:[id number] [facility] ED Note-Physicianon 02-08-20 ED Note-Physician [id number] .00CD:127 [facility] Vital Signs Date Time Vital Sign Value Performing Clinician Facility 12-23-2023 11:55-0400 Body height 162.56 cm DO [facility]. Work Phone: [facility] 12-23-2023 11:55-0400 Body mass index (BMI) [Ratio] 41 kg/m2 DO Vinny NoFlolong Work Phone: [facility] 12-23-2023 11:55-0400 Body temperature 98 [degF] DO Vinny NoFlolong Work Phone: [facility] 12-23-2023 11:55-0400 Body weight 108.4 kg DO Vinny NoFlolong Work Phone: [facility] 12-23-2023 11:55-0400 Diastolic blood pressure 79 mm[Hg] DO Vinny Furlong Work Phone: [facility] 12-23-2023 11:55-0400 Heart rate 84 /min DO Vinny NoFlolong Work Phone: [facility] 12-23-2023 11:55-0400 Respiratory rate 18 /min DO Vinny NoFlolong Work Phone: [facility] 12-23-2023 11:55-0400 SaO2% (BldA) [Mass fraction] 97 % [facility]: [facility] 12-23-2023 11:55-0400 Systolic blood pressure 109 mm[Hg] DO Vinny Ayalang Work Phone: [facility] 10-31-2021 18:40-0400 Body height 162.56 cm Sofia Salazar Other [facility] Other 10-31-2021 18:40-0400 Body mass index (BMI) [Ratio] 39.48 kg/m2 Sofia Steelmond Other [facility] Other 10-31-2021 18:40-0400 Body temperature 98.2 [degF] Sofia Salazar Other [facility] Other 10-31-2021 18:40-0400 Body weight 104.33 kg Sofia Salazar Other [facility] Other 10-31-2021 18:40-0400 Respiratory rate 18 /min Sofia Salazar Other [facility] Other 10-31-2021 18:40-0400 SaO2% (BldA) [Mass fraction] 97 % Sofia Steelmond Other [facility] Other Encounters Encounter Date Encounter Type Care Provider Facility Start: 12-23-2023 End: 12-23-2023 ambulatory DO Vinny Schawb Work Phone: [facility] Work Phone: Start: 12-23-2023 End: 12-23-2023 Patient encounter procedure DO Vinny Ayalang Work Phone: [facility] Work Phone: Start: 08-28-2023 End: 08-28-2023 ambulatory SUZIE ZEPEDA Not Available Start: 08-26-2023 Telephone encounter Vinny Rao michaelamichelle DO Work Phone: [facility] Start: 05-14-2023 End: 05-14-2023 ambulatory LITO GIORDANO Not Available Start: 08-05-2022 Encounter for genera l adult medical examination with abnormal findings DR MELO YE [facility] Start: 08-01-2022 End: 08-02-[address] MELO YE Facility:[facility] Start: 08-01-2022 End: 08-02-2022 Encounter for general adult medical examination with abnormal findings DR MELO YE Facility:[facility] Start: 07-26-2022 End: 07-27-[address] SUZIE ZEPEDA Facility:[facility] Start: 05-14-2022 End: 05-14-[address] VINNY SCHWAB Facility:[facility] Start: 05-10-2022 End: 05-10-[address] JOHNATHON STEVENSON . Facility:[facility] Start: 03-09-2022 ambulatory MANUEL GARCIA Facility:[facility] Start: 01-11-2022 End: 01-12-[address] SUZIE ZEPEDA Facility:[facility] Start: 10-31-2021 End: 10-31-2021 ambulatory Sofia Salazar Other [facility] Other Start: 10-31-2021 Office outpatient vi sit 25 minutes Sofia Salazar [facility] Procedures Date Procedure Procedure Detail Performing Clinician Start: 12-23-2023 X-ray of left foot DO D keerthigaetano Schwab Work Phone: Start: 07-11-2022 Adult depression scr eening assessment Vinny Schwab DO Work Phone: Start: 05-03-2022 Microscopic observat ion [Identifier] in Cervix by Cyto stain Vinny Schwab [facility] Work Phone: Plan of Treatment Date Care Activity Detail Author Start: 05-03-2025 Screening for malign ant neoplasm of cervix Pap Smear [facility] Start: 02-02-2024 Influenza vaccination Influenza Vacc ine [facility] Start: 07-11-2023 Adult BMI Screening Adult BMI Screen ing [facility] Start: 07-11-2023 Depression Screening Depression Scre ening [facility] Start: 07-11-2023 Tobacco Screening Tobacco Screening [facility] Start: 12-20-2002 DTaP,Tdap and Td Vaccines (1 - Tdap) DTaP,Tdap and Td Vaccines (1 - Tdap) [facility] Immunizations Immunization Date Immunization Notes Care Provider Fa cili 03-15-2021 influenza, high dose seasonal, preservative-free Ivnny Furlong DO Work Phone: [facility] 03-15-2021 influenza virus vaccine, unspecified formulation Vinny Furlong DO Work Phone: [facility] 04-14-2020 influenza, high dose seasonal, preservative-free Vinny Furlong DO Work Phone: [facility] 05-15-2019 influenza, seasonal, injectable Vinny Furlong DO Work Phone: [facility] Payers Date Payer Category Payer Unknown [employer] [id number] 2020-Present [phone] [address] [place] [address] [id number] 1983 Unknown [id number] 1983 Unknown [id number] 1983 Unknown [id number] 1983 Unknown [id number] 1983 Unknown [id number] 1983 Unknown [id number] 1983 Unknown [id number] 9 1983 Unknown [id number] 9 1959 Self-pay 1961 Unknown [id number] Unknown [id number] Social History Date Type Detail Facility Unknown if ever smoked [facility] Other Start: 07-14-2020 End: 07-11-2022 Sex Assigned At [facility] [employer] Start: 04-25-2022 End: 12-23-2023 Tobacco smoking status NHIS Never smoked tobacco [facility] Start: 04-25-2022 Tobacco use and exposure Smokeless tobacco non-user [facility] Start: 07-11-2022 Alcohol intake Ex-drinker (finding) [facility] Start: 07-14-2020 End: 07-11-2022 History of Social function [facility] Adolescent depressio n screening assessment 0 [facility] Start: 1985 Sex Assigned At Not on file P [facility] Start: 1985 Sex Assigned At Female F [facility] Note 08-26-2023 Telephone Encounter - Sue Alves - 08/26/2023 11:11 AM EDT Note Date & Type Note Facility 08-26-2023 Miscellaneous Notes Formattin g of this note might be different from the original. ----- Message from Vinny Schwab DO sent at 08/22/2023 12:36 PM EDT ----- Regarding: Wellness Please set up. She usually sees [employer] documented in this encounter [facility] Telephone encounter Note 08-26-2023 Telephone Encounter - Sue Alves - 08/26/2023 11:11 AM EDT Note Date & Type Note Facility 08-26-2023 Telephone encount er Note ----- Message from Vinny Schwab DO sent at 08/22/2023 12:36 PM EDT ----- Regarding: Wellness Please set up. She usually sees [employer] Evaluation note 10-31-2021 Note Date & Type [...] no improvement in 2 to 3 days [facility] Other Clinical Note 03-17-2021 Note Date & Type Note Facility 03-17-2021 Note Chief Complaint consultation for abdominal pain HPI Staff 35 year old female presents on consultation from [facility] for abdominal pain. History of Present Illness 35 yo female, 9 weeks ; referred from ED for episode of upper abd pain; seen 2 days ago in ED at [facility] for sudden onset of upper abdominal [...] data available Patient Education Laparoscopic Cholecystectomy Cholelithiasis, [id number] Problem List/Past Medical History Ongoing Biliary colic [...] 02/07/2021 Family History Family history is negative [facility] Comment on above: Result Comment: Elec tronically Signed By: MARCUS FOSS, Chris Cabral.george\Date and Time Signed: 03/17/21 15:37 EDT Evaluation note Note Date & Type Note Facility Evaluation note Diagnosis Onset Date Left foot pain acute [facility] Work Phone: History general Narrative - Reported Note Date & Type Note Facility History general Narrative - Reported Type Surgical History hernia repair Surgical History t and a Surgical History D&C Surgical History cholecystectomy 04/23 Hospitalization History childbirth 2017 [facility] Other Instructions Note Date & Type Note Facility Instructions Not on filedocumented in this en counter [facility] Summary Purpose Family History No Family History Records FoundNo Family History Records FoundNo Family History Records FoundNo Family History Records FoundNo Family History Records Found Advance Directives No Advanced Directives Records Found Advance Directive Response Recorded Date/ Time Advance Directives No June 08, 2019 1:56pm Chief Complaint and Reason for Visit Chief Complaint left ankle/foot pain w fall from 1month M79.672 - Pain in left foot Reason for Visit Left foot pain Additional Source Comments INFORMATION SOURCE (unrecogn ized section and content) DATE CREATED AUTHOR 07/05/2021 [facility] DATE CREATED AUTHOR AUTHOR'S ORGANIZ ATION 07/28/2021 [facility] DATE CREATED AUTHOR AUTHOR'S ORGANIZ ATION 08/07/2022 [facility] DATE CREATED AUTHOR AUTHOR'S ORGANIZ ATION 08/30/2023 [facility] EPIC DATE CREATED AUTHOR AUTHOR'S ORGANIZ ATION 12/25/2023 [facility] REASON FOR VISIT (unrecogniz ed section and content) BLACK VAN, SORE THROAT X 5 D AYS Care Teams (unrecognized sec tion and content) 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 Specialty Start Date End Date Vinny Schwab DO [address] [facility], [place] [address] PCP - General Family Medicine 07/26/20 Team Status: Active Member Role Status Dates Vinny Schwab DO Primary Care Provider Active Team Status: Inactive Member Role Status Dates Vinny Schwab DO Primary Care Provider Active Start: December 23, 2023 End: December 23, 2023 Shelli Prakash APRN Attending Provider Active S tart: December 23, 2023 End: December 23, 2023 Goals (unrecognized section and content) Goals may be documented in a n alternate section FOR RECORDS PERTAINING TO PATIENTS WHO ARE [...] BE BASED ON THE PRIMARY CLINICAL RECORDS. [employer] [facility] provides no warranty or guarantee of the accuracy or completeness of information in this document.
== END 2024-02-20 20:39 | disposition home or self-care (01) ==
LOC: US 20:39
PROVIDERS: Visit Provider Otolaryngology
DX: E04.1 Nontoxic single thyroid nodule (principal)
CPT/HCPCS: 76536

== ENCOUNTER 2024-05-18 21:43 | Outpatient (REF) | payer OTHER, SELFPAY ==
--- OUTSIDE RECORDS SUMMARY | 2024-05-18 21:47 | XMS_ITS | CCD ---
Author Organization [facility] CliniSyar Care Team Providers Care Shank Piece Tacker Name Role Phone oSfia Salazar Unavailable ELVA ., DR DIEGO Attending Unavailable ELVA ., DR DIEGO Admitting Unavailable FURLONG, DR VINNY Garrett Primary Care Unavailable ELVA ., DR DIEGO Consulting Unavailable TIMMIS, DR LARSEN Admitting Unavailable TIMMIS, DR LARSEN Consulting Unavailable TIMMIS, DR LARSEN Attending Unavailable FURLONG, DR VINNY Garrett Primary Care Unavailable PARIS, DR DIVYA Tatum Consulting Unavailable KUNS, DR [...] Unavailable Furlong Vinny LOZANO Primary Care Provider [phone] DO Vinny Schwab Primary Care Provider KATEY Prakash Attending Provider Shelli Prakash Attending Unavailable Shelli Prakash Admitting Unavailable Vinny Schwab Primary Care Unavailable Allergies Allergy Classification Reported Allergen(s) Allergy Type Date of Onset Reaction(s) Facility (1 source) Ciprofloxacin Drug Allergy 04-25-2022 [facility] Medications Current Medications Medication Drug Class(es) Dates [...] 3V*on 024 XR foot LT min 3V* [facility] [place] [address] XRay Report Signed Patient: Steph Rizo MR#: [id number] 22 : 1985 Acct:[id number] Age/Sex: 38 / F ADM Date: 12/23/23 Loc: [facility] Room: Type: [facility] Attending Dr: Shelli Prakash APRN Copies to: [...] Valdez Jr., CristhianOSamuel12/23/2023 12:27 PM Dictation Location: [place] [address] Transcribed By: [facility] 12/23/23 1227 Dictated By: Miguel Valdez Jr, DO 12/23/23 1225 Signed By: 12/23/23 1227 Normal [facility] LIPID PROFILEon 08-01-2022 CHOL-HDL RATIO NORM SEE BELOW Normal [facility] Comment on above: Result Comment: 3.3 - 4.4 LOW RISK 4.4 - 7.1 AVERAGE RISK 7.1 - 11.0 MODERATE RISK >11.0 HIGH RISK Performed By: #### L IPID, CMP #### [facility] [address] [address] [address] Kiarra Landry Cholesterol [Mass/Vol] 184 mg/dL Normal <=200 [facility] Comment on above: Performed By: #### L IPID, CMP #### [facility] [address] [address] [address] Kiarra Landry Cholesterol in HDL [Mass/Vol] 44 mg/dL Normal 40-60 [facility] Comment on above: Performed By: #### L IPID, CMP #### [facility] [address] [address] [address] Kiarra Landry Cholesterol in LDL [Mass/Vol] 115.0 mg/dL Normal [facility] Comment on above: Performed By: #### L IPID, CMP #### [facility] [address] [address] [address] Kiarra Landry Cholesterol.total/ Cholesterol in HDL [Mass ratio] 4.2 {ratio} Normal [facility] Comment on above: Performed By: #### L IPID, CMP #### [facility] [address] [address] [address] Kiarra Landry HDL NORMAL > or = 60 mg/dl - LO W CARDIOVASCULAR RISK <40 mg/dl - HIGH CARDIOVASCULAR RISK Normal [facility] Comment on above: Performed By: #### L IPID, CMP #### [facility] [address] [place] [address] Dr. Kiarra Landry LDL CALC NORMAL SEE BELOW Normal [facility] Comment on above: Result Comment: <100 mg/dl OPTIMAL 100 - 129 mg/dl NEAR OR ABOVE OPTIMAL 130 - 159 mg/dl BORDERLINE HIGH 160 - 189 mg/dl HIGH >190 mg/dl VERY HIGH Performed By: #### L IPID, CMP #### [facility] [address] [place] [address] Dr. Kiarra Landry Triglyceride [Mass/Vol] 125 mg/dL Normal <=150 [facility] Comment on above: Performed By: #### L IPID, CMP #### [facility] [address] [address] [address] Kiarra Landry VLDL CALC 25.0 mg/dL Normal [facility] Comment on above: Performed By: #### L IPID, CMP #### [facility] [address] [address] [address] Kiarra Landry PROF 14(COMP METB)on 023 Albumin [Mass/Vol] 4.0 g/dL Normal 3.4-5.0 [facility] Comment on above: Performed By: #### L IPID, CMP #### [facility] [address] [place] [address] Dr. Kiarra Landry Albumin/Globulin [Mass ratio] 1.2 {ratio} Normal [facility] Comment on above: Performed By: #### L IPID, CMP #### [facility] [address] [address] [address] Kiarra Landry ALP [Catalytic activity/Vol] 68 U/L Normal 46-116 [facility] Comment on above: Performed By: #### L IPID, CMP #### [facility] [address] [address] [address] Kiarra Landry ALT [Catalytic activity/Vol] 61 U/L Critically high 14-59 [facility] Comment on above: Performed By: #### L IPID, CMP #### [facility] [address] [address] [address] Kiarra Landry Anion gap [Moles/Vol] 10.6 mmol/L Normal [facility] Comment on above: Performed By: #### L IPID, CMP #### [facility] [address] [address] [address] Kiarra Landry AST [Catalytic activity/Vol] 28 U/L Normal 15-37 [facility] Comment on above: Performed By: #### L IPID, CMP #### [facility] [address] [address] [address] Kiarra Landry Bilirubin [Mass/Vol] 0.4 mg/dL Normal 0.2-1.0 [facility] Comment on above: Performed By: #### L IPID, CMP #### [facility] [address] [address] [address] Kiarra Landry Calcium [Mass/Vol] 8.6 mg/dL Normal 8.5-10.1 [facility] Comment on above: Performed By: #### L IPID, CMP #### [facility] [address] [address] [address] Kiarra Landry Chloride [Moles/Vol] 101 mmol/L Normal 98-107 [facility] Comment on above: Performed By: #### L IPID, CMP #### [facility] [address] [place] [address] Dr. Kiarra Landry CO2 [Moles/Vol] 27.9 mmol/L Normal 21.0-32.[address] [facility] Comment on above: Performed By: #### L IPID, CMP #### [facility] [address] [address] [address] Kiarra Landry Creatinine [Mass/Vol] 0.80 mg/dL Normal 0.55-1.02 [facility] Comment on above: Performed By: #### L IPID, CMP #### [facility] [address] [place] [address] Dr. Kiarra Landry EGFR-AF CITIZEN OF [place] >60 Normal >=[address] [facility] Comment on above: Performed By: #### L IPID, CMP #### [facility] [address] [place] [address] Dr. Kiarra Landry EGFR-NON AF CITIZEN OF [place] >60 Normal >=60 [facility] Comment on above: Performed By: #### L IPID, CMP #### [facility] [address] [address] [address] Kiarra Landry Globulin (S) [Mass/Vol] 3.3 g/dL Normal [facility] Comment on above: Performed By: #### L IPID, CMP #### [facility] [address] [address] [address] Kiarra Landry Glucose [Mass/Vol] 81 mg/dL Normal 74-106 [facility] Comment on above: Performed By: #### L IPID, CMP #### [facility] [address] [address] [address] Kiarra Landry Potassium [Moles/Vol] 3.5 mmol/L Normal 3.5-5.1 [facility] Comment on above: Performed By: #### L IPID, CMP #### [facility] [address] [address] [address] Kiarra Landry Protein [Mass/Vol] 7.3 g/dL Normal 6.4-8.2 [facility] Comment on above: Performed By: #### L IPID, CMP #### [facility] [address] [address] [address] Kiarra Landry Sodium [Moles/Vol] 136 mmol/L Normal 136-145 [facility] Comment on above: Performed By: #### L IPID, CMP #### [facility] [address] [address] [address] Kiarra Landry Urea nitrogen [Mass/Vol] 14.0 mg/dL Normal 7.0-18.0 [facility] Comment on above: Performed By: #### L IPID, CMP #### [facility] [address] [address] [address] Kiarra Landry Urea nitrogen/Creatinin e [Mass ratio] 17.5 mg/mg Normal [facility] Comment on above: Performed By: #### L IPID, CMP #### [facility] [address] [place] [address] Dr. Kiarra Landry US THYROIDon 07-26-2022 US [...] by: KIM ENRIQUEZ Date: 2022-07-26 19:43 Normal [facility] PAP ACOG PANEL 2: 30 to 65on 05-21-2022 . . Normal [facility] Comment on above: Result Comment: Perf ormed at: WB Performed By: #### [id number] #### [facility] [address] [address] [address] Kiarra Landry Age Gdln ACOG Testing 30-65 Normal [facility] Comment on above: Performed By: #### 4 [id number] #### [facility] [address] [address] [address] Kiarra Landry DIAGNOSIS: Comment Normal [facility] Comment on above: Result Comment: NEGA TIVE FOR INTRAEPITHELIAL LESION OR MALIGNANCY. Performed at: WB Performed By: #### 4 [id number] #### [facility] [address] [address] [address] Kiarra Landry HPV Aptima Negative Normal Negative [facility] Comment on above: Result Comment: This nucleic acid amplification test detects fourteen high-risk HPV types (16,18,31,33,35,39,45,51,52,56,58,59,66,68) without differentiation. Performed at: =G Performed By: #### 4 [id number] #### [facility] [address] [address] [address] Kiarra Landry HPV Genotype Reflex Comment Normal [facility] Comment on above: Result Comment: Crit eria not met, HPV Genotype not performed. Performed at: WB Performed By: #### [id number] #### [facility] [address] [place] [address] Dr. Kiarra Landry Methodology: Comment Normal [facility] Comment on above: Result Comment: This liquid based ThinPrep(R) pap test was screened with the use of an image guided system. Performed at: WB Performed By: #### 4 [id number] #### [facility] [address] [address] [address] Kiarra Landry Note: Comment Normal [facility] Comment on above: Result Comment: The Pap smear is a screening test designed to aid in the detection of premalignant and malignant conditions of the uterine cervix. It is not a diagnostic procedure and should not be used as the sole means of detecting cervical cancer. Both false-positive and false-negative reports do occur. . Performed at: WB Performed By: #### 4 [id number] #### [facility] [address] [place], [place] [address] Dr. Kiarra Landry Performed by: Comment Normal [facility] Comment on above: Result Comment: Norma Smith, Escrow Officer (ASCP) Performed at: WB Performed By: #### 4 [id number] #### [facility] [address] [place], [place] [address] Dr. Kiarra Landry Specimen adequacy: Comment Normal [facility] Comment on above: Result Comment: Sati sfactory for evaluation. Endocervical and/or squamous metaplastic cells (endocervical component) are present. Performed at: WB Performed By: #### 4 [id number] #### [facility] [address] [address] [address] Kiarra Ladnry US THYROIDon 01-12-2022 US THYROID EXAMINATION: US [...] TR 4 nodule, previously biopsied TI-RADS: The [employer] TI-RADS committee's white paper recommendations for thyroid lesions classified as TR4 (moderately suspicious) are listed below: > 1.0 cm. Follow-up ultrasound in 1, 2, 3, and 5 years. > 1.5 cm. FNA. J. Am Ayse Radiol 2017;14:587-595. Electronically authenticated by: DIVYA COOL Date: 2022-01-12 07:11 Normal [facility] Quick Strepon 10-31-2021 S. pyogenes Org specific cx Ql (Throat) Negative [employer] Other Quick Strep [employer] Other [facility] 07-05-2021 Albumin [Mass/Vol] 4.5 g/dL Normal 3.6-5.1 [facility] Comment on above: Performed By: #### 7 600, 01148, 01656 #### [facility] of [address], [address] [place] [address] Blacksmith Apprentice: Goyo Ivory MD Albumin/Globulin [Mass ratio] 1.8 {ratio} Normal 1.0-2.5 [facility] Comment on above: Performed By: #### 7 600, 38410, 30538 #### [facility] of [address], [address] [place] [address] Blacksmith Apprentice: Goyo Ivory MD ALP [Catalytic activity/Vol] 76 U/L Normal 31-125 [facility] Comment on above: Performed By: #### 7 600, 31491, 65426 #### [facility] of [address], [address] [place] [address] Blacksmith Apprentice: Goyo Ivory MD ALT [Catalytic activity/Vol] 41 U/L High 6-29 [facility] Comment on above: Performed By: #### 7 600, 55186, 42082 #### [facility] of [place] [address] Blacksmith Apprentice: Goyo Ivory MD AST [Catalytic activity/Vol] 24 U/L Normal 10-30 [facility] Comment on above: Performed By: #### 7 600, 42947, 52170 #### [facility] of [place] [address] Blacksmith Apprentice: Goyo Ivory MD Bilirubin [Mass/Vol] 0.3 mg/dL Normal 0.2-1.2 [facility] Comment on above: Performed By: #### 7 600, 20197, 21024 #### [facility] of [place] [address] Blacksmith Apprentice: Goyo Ivory MD BUN/CREATININE RATIO NOT APPLICABLE Normal 6-22 [facility] Comment on above: Performed By: #### 7 600, 37217, 24148 #### [facility] of [address], [address] [place] [address] Blacksmith Apprentice: Goyo Ivory MD Calcium [Mass/Vol] 9.0 mg/dL Normal 8.6-10.2 [facility] Comment on above: Performed By: #### 7 600, 58747, 40419 #### [facility] of [address], [address] [place] [address] Blacksmith Apprentice: Goyo Ivory MD Chloride [Moles/Vol] 105 mmol/L Normal 98-110 [facility] Comment on above: Performed By: #### 7 600, 22348, 98733 #### [facility] of [place] [address] Blacksmith Apprentice: Goyo Ivory MD CO2 [Moles/Vol] 25 mmol/L Normal 20-32 [facility] Comment on above: Performed By: #### 7 600, 31732, 66551 #### [facility] of [address], [address] [place] [address] Blacksmith Apprentice: Goyo Ivory MD Creatinine [Mass/Vol] 0.89 mg/dL Normal 0.50-1.10 [facility] Comment on above: Performed By: #### 7 600, 05791, 79744 #### [facility] of [place] [address] Blacksmith Apprentice: Goyo Ivory MD eGFR NON-AFR. CITIZEN OF [place] 83 mL/min/1.73m2 Normal > OR = 60 [facility] Comment on above: Performed By: #### 7 600, 34574, 58143 #### [facility] of [place] [address] Blacksmith Apprentice: Goyo Ivory MD GFR/1.73 sq M.predicted among blacks MDRD (S/P/Bld) [Vol rate/Area] 96 mL/min/{1.73_m2} Normal > OR = 60 [facility] Comment on above: Performed By: #### 7 600, 43845, 33924 #### [facility] of [address], [address] [place] [address] Blacksmith Apprentice: Goyo Ivory MD Globulin (S) [Mass/Vol] 2.5 g/dL Normal 1.9-3.7 [facility] Comment on above: Performed By: #### 7 600, 90227, 46245 #### [facility] of [address], [address] [place] [address] Blacksmith Apprentice: Goyo Ivory MD Glucose [Mass/Vol] 77 mg/dL Normal 65-99 [facility] Comment on above: Result Comment: Fasting reference interval Performed By: #### 7 600, 67390, 05929 #### [facility] of [place] [address] Blacksmith Apprentice: Goyo Ivory MD Potassium [Moles/Vol] 4.0 mmol/L Normal 3.5-5.3 [facility] Comment on above: Performed By: #### 7 600, 82780, 35449 #### [facility] of [place] [address] Blacksmith Apprentice: Goyo Ivory MD Protein [Mass/Vol] 7.0 g/dL Normal 6.1-8.1 [facility] Comment on above: Performed By: #### 7 600, 18951, 76813 #### [facility] of [place] [address] Blacksmith Apprentice: Goyo Ivory MD Sodium [Moles/Vol] 139 mmol/L Normal 135-146 [facility] Comment on above: Performed By: #### 7 600, 63139, 15240 #### [facility] of [place] [address] Blacksmith Apprentice: Goyo Ivory MD Urea nitrogen [Mass/Vol] 18 mg/dL Normal 7-25 [facility] Comment on above: Performed By: #### 7 600, 96781, 66723 #### [facility] of [address], [address] [place] [address] Blacksmith Apprentice: Goyo Ivory MD LIPID PANEL, [facility] Cholesterol [Mass/Vol] 206 mg/dL High <200 [facility] Comment on above: Order Comment: FASTI NG:YES FASTING: YES Performed By: #### 7 600, 89175, 73727 #### [facility] [address], [address] [place] [address] Blacksmith Apprentice: Goyo Ivory MD Cholesterol in HDL [Mass/Vol] 45 mg/dL Low > OR = 50 [facility] Comment on above: Order Comment: FASTI NG:YES FASTING: YES Performed By: #### 7 600, 48119, 02990 #### [facility] [address], [address] [place] [address] Blacksmith Apprentice: Goyo Ivory MD Cholesterol in LDL [Mass/Vol] [...] LDL-C. Milton INMAN et al. CLARA. 2013;310(19): 9908-7156 (http://education.Superplayer.[employer]/faq/NNT234) Performed By: #### 7 600, 92208, 15104 #### [facility] [address], [address] [place] [address] Blacksmith Apprentice: Goyo Ivory MD Cholesterol.total/ Cholesterol in HDL [Mass ratio] 4.6 {ratio} Normal <5.0 [facility] Comment on above: Order Comment: FASTI NG:YES FASTING: YES Performed By: #### 7 600, 78016, 29542 #### [facility] [address], [address] [place] [address] Blacksmith Apprentice: Goyo Ivory MD NON HDL CHOLESTEROL 161 mg/dL (calc) High <130 [facility] Comment on above: Order Comment: FASTI NG:YES FASTING: YES Result Comment: For patients with diabetes plus 1 major ASCVD risk factor, treating to a non-HDL-C goal of <100 mg/dL (LDL-C of <70 mg/dL) is considered a therapeutic option. Performed By: #### 7 600, 96230, 97074 #### [facility] [address], [address] [place] [address] Blacksmith Apprentice: Goyo Ivory MD Triglyceride [Mass/Vol] 170 mg/dL High <150 [facility] Comment on above: Order Comment: FASTI NG:YES FASTING: YES Performed By: #### 7 600, 00858, 60121 #### [facility] [place] [address] Blacksmith Apprentice: Goyo Ivory MD TSH+FREE T4on 07-05-2021 Free T4 [Mass/Vol] 0.9 ng/dL Normal 0.8-1.8 [facility] Comment on above: Performed By: #### 7 600, 15357, 28951 #### [facility] [place] [address] Blacksmith Apprentice: Goyo Ivory MD TSH Qn 1.38 m[IU]/L Normal [facility] Comment on above: Result Comment: Refe rence Range > or = 20 Years 0.40-4.50 Ranges First trimester 0.26-2.66 Second trimester 0.55-2.73 Third trimester 0.43-2.91 Performed By: #### 7 600, 92006, 90084 #### [facility] [address], [address] [place] [address] Blacksmith Apprentice: Goyo Ivory MD [employer] 05-08-2021 Forms [id number] .00CD:127 Normal [facility] [employer] 05-05-2021 Forms [id number] .00CD:127 Normal [facility] Operative Reporton Operative Report [id number] .00CD:127 Normal [facility] Ambulatory Clinical Summaryo n 05-03-2021 Ambulatory Clinical Summary {[id number] Normal [facility] General Surgery Office/Clini c Noteon [...] DIVINA Only if needed [address] [place] [address]- Additional Instructions: Problem List/Past Medical History Ongoing [...] 03/28/2021 Family History Family history is negative [facility] Comment on above: Result Comment: Elec tronically Signed By: MARCUS FOSS, Chris Brown\.br\Date and Time Signed: 05/03/21 21:19 EST Pathology Noteon 05-02-2021 Pathology Note [id number] .00CD:127 Normal [facility] Lab Reportson 04-25-2021 Lab Reports [id number] .00CD:127 Normal [facility] Lab Reportson 04-19-2021 Lab Reports [id number] .00CD:127 [facility] Consent for Procedure/Surger yon 04-10-2021 Consent for Procedure/Surgery [id number] .00CD:127 [facility] General Surgery Office/Clini c Noteon 04-02-2021 [...] Family History Family history is negative Normal [facility] Comment on above: Result Comment: [...] including vitamins, herbs, eye drops, creams, and cslx-gjy-whatbqc medicines. ? Any problems you or family [...] to control your (more content not included)... [facility] RAD - Ultrasound Reporton RAD - Ultrasound Report [id number] .00CD:127 [facility] Ambulatory Clinical Summaryo n 02-07-2021 Ambulatory Clinical Summary {[id number] [facility] ED Note-Physicianon 02-08-20 ED Note-Physician [id number] .00CD:127 [facility] Vital Signs Date Time Vital Sign Value Performing Clinician Facility 12-23-2023 11:55-0400 Body height 162.56 cm DO tsumobi Work Phone: [facility] 12-23-2023 11:55-0400 Body mass index (BMI) [Ratio] 41 kg/m2 DO Vinny Sparq [employer] Work Phone: [facility] 12-23-2023 11:55-0400 Body temperature 98 [degF] DO Vinny Sparq [employer] Work Phone: [facility] 12-23-2023 11:55-0400 Body weight 108.4 kg DO Vinny Sparq [employer] Work Phone: [facility] 12-23-2023 11:55-0400 Diastolic blood pressure 79 mm[Hg] DO Vinny Furlong Work Phone: [facility] 12-23-2023 11:55-0400 Heart rate 84 /min DO Vinny Sparq [employer] Work Phone: [facility] 12-23-2023 11:55-0400 Respiratory rate 18 /min DO Vinny Sparq [employer] Work Phone: [facility] 12-23-2023 11:55-0400 SaO2% (BldA) [Mass fraction] 97 % DO Vinny Dupree[employer]TechPhoto Work Phone: [facility] 12-23-2023 11:55-0400 Systolic blood pressure 109 mm[Hg] DO Vinny Ayalang Work Phone: [facility] 10-31-2021 18:40-0400 Body height 162.56 cm Sofia Salazar Other [employer] Other 10-31-2021 18:40-0400 Body mass index (BMI) [Ratio] 39.48 kg/m2 Sofia Steelmond Other [employer] Other 10-31-2021 18:40-0400 Body temperature 98.2 [degF] Sofia Salazar Other [employer] Other 10-31-2021 18:40-0400 Body weight 104.33 kg Sofia Salazar Other [employer] Other 10-31-2021 18:40-0400 Respiratory rate 18 /min Sofia Salazar Other [employer] Other 10-31-2021 18:40-0400 SaO2% (BldA) [Mass fraction] 97 % Sofia Steelmond Other [employer] Other Encounters Encounter Date Encounter Type Care Provider Facility Start: 12-23-2023 End: 12-23-2023 ambulatory DO Vinny Schwab Work Phone: [facility] Work Phone: Start: 12-23-2023 End: 12-23-2023 Patient encounter procedure DO Vinny Ayalang Work Phone: [facility] Work Phone: Start: 08-28-2023 End: 08-28-2023 ambulatory SUZIE ZEPEDA Not Available Start: 08-26-2023 Telephone encounter Vinny Rao michaelamichelle DO Work Phone: [facility] Start: 05-14-2023 End: 05-14-2023 ambulatory LITO GIORDANO Not Available Start: 08-05-2022 Encounter for genera l adult medical examination with abnormal findings DR MELO YE [facility] Start: 08-01-2022 End: 08-02-[address] [...] 10-31-2021 End: 10-31-2021 ambulatory Sofia Salazar Other [employer] Other Start: 10-31-2021 Office outpatient vi sit 25 minutes Sofia Salazar [facility] Procedures Date Procedure Procedure Detail Performing Clinician Start: 12-23-2023 X-ray of left foot DO D keerthigaetano Schwab Work Phone: Start: 07-11-2022 Adult depression scr eening assessment Vinny Schwab DO Work Phone: Start: 05-03-2022 Microscopic observat ion [Identifier] in Cervix by Cyto stain Vinny Schwab [employer] Work Phone: Plan of Treatment Date Care Activity Detail Author Start: 05-03-2025 Screening for malign ant neoplasm of cervix Pap Smear [facility] Start: 02-02-2024 Influenza vaccination Influenza Vacc ine [facility] Start: 07-11-2023 Adult BMI Screening Adult BMI Screen ing [facility] Start: 07-11-2023 Depression Screening Depression Scre ening [facility] Start: 07-11-2023 Tobacco Screening Tobacco Screening [facility] Start: 12-20-2002 DTaP,Tdap and Td Vaccines (1 - Tdap) DTaP,Tdap and Td Vaccines (1 - Tdap) [facility] Immunizations Immunization Date Immunization Notes Care Provider Fa cili 03-15-2021 influenza, high dose seasonal, preservative-free Vinny Furlong DO Work Phone: [facility] 03-15-2021 influenza virus vaccine, unspecified formulation Vinny Furlong DO Work Phone: [facility] 04-14-2020 influenza, high dose seasonal, preservative-free Vinny Furlong DO Work Phone: [facility] 05-15-2019 influenza, seasonal, injectable Vinny Furlong DO Work Phone: [facility] Payers Date Payer Category Payer Unknown [employer] [id number] 2020-Present [phone] [address] [place] [address] [id number] 1983 Unknown [id number] 1983 Unknown [id number] 1983 Unknown [id number] 1983 Unknown [id number] 2..[id number] 1983 Unknown [id number] [id number] 1983 Unknown [id number] 1983 Unknown [id number] 9 1983 Unknown [id number] 9 1959 Self-pay 1961 Unknown [id number] Unknown [id number] Social History Date Type Detail Facility Unknown if ever smoked [employer] Other Start: 07-14-2020 End: 07-11-2022 Sex Assigned At [facility] [employer] Start: 04-25-2022 End: 12-23-2023 Tobacco smoking status NHIS Never smoked tobacco [facility] Start: 04-25-2022 Tobacco use and exposure Smokeless tobacco non-user [facility] Start: 07-11-2022 Alcohol intake Ex-drinker (finding) [facility] Start: 07-14-2020 End: 07-11-2022 History of Social function [facility] Adolescent depressio n screening assessment 0 [facility] Start: 1985 Sex Assigned At Not on file P [facility] Start: 1985 Sex Assigned At Female [facility] Note 08-26-2023 Telephone Encounter - Sue Alves - 08/26/2023 11:11 AM EDT Note Date & Type Note Facility 08-26-2023 Miscellaneous Notes Formattin g of this note might be different from the original. ----- Message from Vinny Schwab DO sent at 08/22/2023 12:36 PM EDT ----- Regarding: Wellness Please set up. She usually sees RADIOPHARMACIST documented in this encounter [facility] Telephone encounter Note 08-26-2023 Telephone Encounter - Sue Alves - 08/26/2023 11:11 AM EDT Note Date & Type Note Facility 08-26-2023 Telephone encount er Note ----- Message from Vinny Schwab DO sent at 08/22/2023 12:36 PM EDT ----- Regarding: Wellness Please set up. She usually sees RADIOPHARMACIST [facility] Evaluation note 10-31-2021 Note Date & Type [...] no improvement in 2 to 3 days [employer] [employer] Other Clinical Note 03-17-2021 Note Date & Type Note Facility 03-17-2021 Note Chief Complaint consultation for abdominal pain HPI Staff 35 year old female presents on consultation from [facility] for abdominal pain. History of Present Illness 35 yo female, 9 weeks ; referred from ED for episode of upper abd pain; seen 2 days ago in ED at [facility] for sudden onset of upper abdominal pain, [...] data available Patient Education Laparoscopic Cholecystectomy Cholelithiasis, [id number] Problem List/Past Medical History Ongoing Biliary colic [...] 02/07/2021 Family History Family history is negative [facility] Comment on above: Result Comment: Elec tronically Signed By: MARCUS FOSS, Chris Cabral.[email or web address]\Date and Time Signed: 03/17/21 15:37 EDT Evaluation note Note Date & Type Note Facility Evaluation note Diagnosis Onset Date Left foot pain acute [facility] Work Phone: History general Narrative - Reported Note Date & Type Note Facility History general Narrative - Reported Type Surgical History hernia repair Surgical History t and a Surgical History D&C Surgical History cholecystectomy 04/23 Hospitalization History childbirth 2017 [employer] [employer] Other Instructions Note Date & Type Note [...] CREATED AUTHOR AUTHOR'S ORGANIZ ATION 07/28/[address] [facility] DATE CREATED AUTHOR AUTHOR'S ORGANIZ ATION 08/07/2022 [facility] DATE CREATED AUTHOR AUTHOR'S ORGANIZ ATION 08/30/2023 [facility] EPIC DATE CREATED AUTHOR AUTHOR'S ORGANIZ ATION 12/25/2023 [facility] REASON FOR VISIT (unrecogniz ed section and content) BLACK VAN, SORE THROAT X 5 D AYS Care Teams (unrecognized sec tion and content) [employer] Relationship Specialty Start Date End Date Vinny Schwab DO [address] [facility], [place] [address] PCP - General Family Medicine 07/26/20 Team [...] BE BASED ON THE PRIMARY CLINICAL RECORDS. [facility]. provides no warranty or guarantee of the accuracy or completeness of information in this document.
== END 2024-05-18 21:44 | disposition home or self-care (01) ==
LOC: LAB 21:43
PROVIDERS: Visit Provider Obstetrics & Gynecology
DX: Z01.419 Encounter for gynecological examination (general) (routine) without abnormal findings (principal)
CPT/HCPCS: 87624; 88175

== ENCOUNTER 2024-06-17 08:48 | Outpatient (OUT) | payer OTHER, SELFPAY ==
--- NOTE | 2024-06-17 09:04 | MM_ITS ---
Patient Name: HAYES MENCHACA MR#: [id number] : 1985 Exam Date: 06/17/2024 Ordering Doctor: DR Harry Perez . RADIOLOGY REPORT PROCEDURE: MM TOMOSYNTHESIS SCREENING BI COMPARISON: None. INDICATIONS: Screening Calculator Name NCI Breast Cancer Risk Assessment Tool 5 Year Breast Cancer Risk 0.80% Lifetime Breast Cancer Risk 13.60% Personal Breast Cancer No Personal Ovarian Cancer No Treatments None Family Cancers None LOCATION: [facility] BREAST COMPOSITION: There are scattered areas of fibroglandular density. FINDINGS: DIAGNOSTIC CATEGORY 1--NEGATIVE. Scattered benign-appearing lymph nodes are present. RIGHT BREAST: No significant suspicious finding. LEFT BREAST: No significant suspicious finding. RECOMMENDATIONS: ROUTINE MAMMOGRAM AND CLINICAL EVALUATION IN 12 MONTHS. PLEASE NOTE: A NORMAL MAMMOGRAM DOES NOT EXCLUDE THE POSSIBILITY OF BREAST CANCER. A CLINICALLY SUSPICIOUS PALPABLE LUMP SHOULD BE BIOPSIED. Dictated by: Marlo Mckee MD on 06/17/2024 at 11:15 Approved by: Marlo Mckee MD on 06/17/2024 at 11:16
--- NOTE | 2024-06-17 09:04 | US_ITS ---
The [address] [address] Patient Name: HAYES MENCHACA MRN: [id number] date: 1985 Sex: F Assigned Patient Location: MAMMO Current Patient Location: MAMMO Accession/Order Number: [id number] Exam Date: 06/17/2024 09:08 Report Date: 06/17/2024 11:08 At the request of: JOHNATHON STEVENSON Procedure: US pelvis w/ transvaginal EXAMINATION: US pelvis w/ transvaginal HISTORY: Pelvic Pain, Menorrhagia COMPARISON: No relevant comparison available. FINDINGS: Transabdominal and transvaginal images The uterus is normal in size, contour and echotexture measuring 8.2 x 5.4 x 4.3 cm. Anteverted. No focal myometrial mass. Endometrium measures 8.1 mm, normal The right ovary is normal measuring 3.6 x 2.2 x 2.4 cm. Normal color Doppler flow The left ovary is normal measuring 3.3 x 2.0 x 2.0 cm. Normal color Doppler flow No free fluid US/US pelvis w/ transvaginal IMPRESSION: No acute abnormality Electronically authenticated by: DIVYA COOL Date: 06/17/2024 11:08
[2024-06-17 09:06] LABS: Basophils Percent Auto 0.7 % (0.2-2.0); Eosinophils Absolute Auto 0.1 10^3/uL (0.0-0.7); Eosinophils Percent Auto 1.7 % (0.9-7.0); Hematocrit 40.2 % (36.0-48.0); Hemoglobin 13.2 g/dL (12.0-16.0); Lymphocytes Absolute Auto 2.6 10^3/uL (1.2-3.8); Lymphocytes Percent Auto 47.4 % (20.5-60.0); Mean Corpuscular HGB Conc 32.8 g/dL (29.9-35.2); Mean Corpuscular Hemoglobin 29.1 pg (26.7-34.0); Mean Corpuscular Volume 88.5 fL (81.0-99.0); Monocytes Absolute Auto 0.2 10^3/uL (0.3-0.8); Monocytes Percent Auto 4.4 % (1.7-12.0); Neutrophils Absolute Auto 2.5 10^3/uL (1.4-6.5); Neutrophils Percent Auto 45.8 % (43.0-75.0); Platelet Count 268 10^3/uL (150-450); Red Blood Count 4.54 10^6/uL (4.20-5.40); Red Cell Distribution Width 12.4 % (11.0-15.0); White Blood Count 5.4 10^3/uL (4.0-11.0)
--- OUTSIDE RECORDS SUMMARY | 2024-06-17 09:07 | XMS_ITS | CCD ---
Author Organization [facility] CliniSyhi Care Team Providers Care Laborer Pipeline Name Role Phone Sofia Salazar Unavailable ANA ., DR DIEGO Attending Unavailable ANA ., DR DIEGO Admitting Unavailable FURLONG, DR VINNY Garrett Primary Care Unavailable ANA ., DR DIEGO Consulting Unavailable TIMMIS, DR LARSEN Admitting Unavailable TIMMIS, DR LARSEN Consulting Unavailable TIMMIS, DR LARSEN Attending Unavailable FURLONG, DR VINNY Garrett Primary Care Unavailable PITTSBUR[place], DR DIVYA Tatum Consulting Unavailable KUNS, DR MELO Brown Consulting Unavailable KUNS, DR MELO Brown Attending Unavailable KUNS, DR MELO Brown Admitting Unavailable FURLONG, DR VINNY Garrett Primary Care Unavailable RADHA, MANUEL Admitting Unavailable RADHA, MANUEL Attending Unavailable FURLONG, DR VINNY Garrett Primary Care Unavailable TIMMIS, DR LARSEN Admitting Unavailable TIMMIS, DR LARSEN Consulting Unavailable TIMMIS, DR LARSEN Attending Unavailable FURLONG, DR VINNY Garrett Primary Care Unavailable NEFCY, KIM Consulting Unavailable FURLONG, DR VINNY Garrett Primary Care Unavailable ANA ., DR DIEGO Attending Unavailable ANA ., DR DIEGO Admitting Unavailable Furlong Vinny LOZANO Primary Care Provider DO Vinny Schwab Primary Care Provider KATEY Prakash Attending Provider Shelli Prakash Attending Unavailable Shelli Prakash Admitting Unavailable Furlong, Vinny Primary Care Unavailable Furlong Vinny FOSS Primary Care Provider FLOWER ZEPEDA Attending Unavailable TIMMISFLOWER Attending Unavailable ANAJOHNATHON Attending Unavailable Allergies Allergy Classification Reported Allergen(s) Allergy Type Date of Onset Reaction(s) Facility (8 sources) Ciprofloxacin Drug Allergy 04-25-2022 [facility] Medications Current Medications Medication Drug Class(es) Dates Sig (Normalized) Sig (Original) calcipotriene 0.05 mg/ml topical cream (1 source) Vitamin D Analog Start: 04-25-20 calcipotriene (DOVONEX) 0.005 % cream Indications: Psoriasis Apply 1 application topically in the morning and 1 application before bedtime. 60 g 1 04/25/2022 Active ibuprofen 800 mg oral tablet (1 source) Nonsteroidal Anti-inflammato ry Drug Start: 12-23-19 take 800 mg by mouth every eight hours Ibuprofen Active 800 MG PO Every 8 hours 15 5 December 23, 2023 12:00am omeprazole 20 mg delayed release oral capsule (8 sources) Proton Pump Inhibitor Start: 07-11-19 take 1 capsule by mouth in the morning omeprazole (PriLOSEC) [address] capsule Take 20 mg by mouth in the morning. 07/11/2022 Active Perfluorohexyloctane (Pf) (1 source) Start: 12-23-19 Perfluorohexyloctane (Pf) (Miebo) 100 % drops Active DROPS OPHTHALMIC December 23, 2023 12:00am Completed/Discontinued Medications Medication Drug Class(es) Dates Sig (Normalized) Sig (Original) amoxicillin 875 mg / clavulanate 125 mg oral tablet (1 source) Penicillin-class Antibacterial Start: 08-20-2023 End: 12-23-2023 take 1 tablet by mouth twice daily Amoxicillin-Pot Clavulanate Discontinued 1 TAB PO Twice daily 22 03August 20, 2023 12:00am December 23, 2023 11:53am Ethinyl Estradiol / Ferrous fumarate / Norethindrone (6 sources) Estrogen Start: 05-14-2023 End: 05-18-2024 norethindrone-ethi nyl estradiol (06/22) 1-20 MG-MCG tablet Indications: control counseling Take 1 tablet by mouth in the morning. 28 tablet 11 05/14/2023 05/18/2024 Discontinued Start: 05-14-2023 norethindrone- ethinyl estradiol (06/22) 1-20 MG-MCG tablet Indications: control counseling Take 1 tablet by mouth in the morning. 28 tablet 11 05/14/2023 Active Start: 05-14-2023 End: 05-13-2024 norethindrone-ethinyl estrad iol (06/22) 1-20 MG-MCG tablet Indications: control counseling Take 1 tablet by mouth in the morning. 28 tablet 11 05/14/2023 05/13/2024 Active triamcinolone acetonide 1 mg/ml topical cream (7 sources) Corticosteroid Start: 07-02-2022 End: 05-18-2024 triamcinolone (Kenalog) 0.1 % cream Apply 1 application topically in the morning and 1 application before bedtime. 07/02/2022 05/18/2024 Discontinued Start: 03-25-2022 triamcinolone (KENALOG) 0.1 % cream APPLY TO AFFECTED AREAS TOPICALLY TWICE DAILY NEEDED FOR ITCHING 0 03/25/2022 Active Problems Active Problems Problem Classification Problem Date Documented Date Episodic/Chronic Anxiety disorders (1 source) Anxiety; Translations: [Anxiety disorder, unspecified] Onset: 03-08-2022 03-08-2022 Chronic Contraceptive and procreative management (2 sources) Sterilization requested; Translations: [Encounter for sterilization] 05-18-2024 Episodic Genitourinary symptoms and ill-defined conditions (3 sources) Dysuria; Translations: [Dysuria] 05-18-2024 Episodic Immunizations and screening for infectious disease (1 source) Encounter for screening for human papillomavirus (HPV); Translations: [ENC SCREENING HUMAN PAPILLOMAVIRUS] Onset: 05-17-2022 Episodic Menstrual disorders (2 sources) Menorrhagia; Translations: [Excessive and frequent menstruation with regular cycle] 05-18-2024 Chronic Other connective tissue disease (1 source) Foot pain; Translations: [Pain in left foot] 12-23-2023 Episodic Other connective tissue disease (2 sources) Pain in left foot; Translations: [Pain in limb] Onset: 12-23-2023 12-23-2023 Episodic Other endocrine disorders (2 sources) Polycystic ovary syndrome; Translations: [Polycystic ovarian syndrome] 05-18-2024 Chronic Other endocrine disorders (2 sources) Disorder of endocrine system; Translations: [Endocrine disorder, unspecified] 05-18-2024 Episodic Other inflammatory condition of skin (1 source) Psoriasis; Translations: [Psoriasis, unspecified] Onset: 07-11-2022 07-11-2022 Chronic Other inflammatory condition of skin (7 sources) Guttate psoriasis; 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 02-11-2023 Chronic Other nutritional; endocrine; and metabolic disorders (1 source) Obesity; Translations: [Obesity, unspecified] Onset: 03-08-2022 03-08-2022 Chronic Other nutritional; endocrine; and metabolic disorders (1 source) Body mass index 30+ - obesity; Translations: [Obesity, unspecified] Onset: 04-25-2022 04-25-2022 Chronic Other screening for suspected conditions (not mental disorders or infectious disease) (6 sources) Encounter for screening for malignant neoplasm of cervix; Translations: [Patient encounter status] Onset: 05-14-2022 Episodic Thyroid disorders (20 sources) Nontoxic single thyroid nodule; Translations: [Thyroid [...] source) Mood disorders Onset: 07-11-2022 07-11-2022 Other skin disorders (7 sources) Eruption; Translations: [Rash and other nonspecific skin eruption] Onset: 02-11-2023 02-11-2023 Episodic Other upper respiratory infections (2 sources) Acute pharyngitis, unspecified; Translations: [Acute upper respiratory infection, unspecified] Onset: 10-31-2021 Resolved: 10-31-2021 Episodic Sprains and strains (1 source) Strain of neck muscle; Translations: [Strain of muscle, fascia and tendon at neck level, initial encounter] Onset: 03-08-2022 03-08-2022 Episodic Results Test Name Value Interpretation Reference Range Facility IGP,APTIMA HPV,AGE GDLNon AGE GDLN ACOG TESTING Note . [facility] Comment on above: TESTS RESULT FLAG UN ITS REF RANGE LAB Clinician Provided Cytology Information Source.............Cervix;Endocervix No. of containers..01 ThinPrep Vial Age Angyo ACOG Olivia... FLAG LEGEND: L-Low Normal,H-High Normal,LL-Alert Low,HH-Alert High <-Panic Low,>-Panic High,A-Abnormal,AA-Critical Abnormal Performed at: 01 =G [address] [id number] Shanita Iqbal MD, HPV APTIMA Negative Negative [facility] e Comment on above: This nucleic acid am plification test detects fourteen high- risk HPV types (16,18,31,33,35,39,45,51,52,56,58,59,66,68) without differentiation. Performed at: = - [address] [id number] Lock Expert: Shanita Iqbal MD, Phone: [phone] Performed at: - [address] [id number] Lock Expert: Shanita Iqbal MD, Phone: [phone] IGP, APTIMA HPV, RFX 16/18,45 Note . [facility] Comment on above: TESTS RESULT FLAG ITS REF RANGE LAB DIAGNOSIS: 02 UNSATISFACTORY FOR EVALUATION. SPECIMEN REPROCESSED FOR INTERPRETATION USING GLACIAL ACETIC ACID (GAA). MENSTRUAL SMEAR PATTERN IS PRESENT. Recommendation: 02 Suggest follow up as clinically appropriate. Specimen adequacy: 02 Specimen processed and examined but unsatisfactory for evaluation of epithelial abnormality because of obscuring blood. Performed by: 02 Dakota Salazar, Financial Sales Professional ([facility]) QC reviewed by: 02 Meenu Rodriguez, Supervisory Financial Sales Professional ([facility]) . 02 Note: Note 02 The Pap smear is a screening test designed to aid in the detection of premalignant and malignant conditions of the uterine cervix. It is not a diagnostic procedure and should not be used as the sole means of detecting cervical cancer. Both false-positive and false-negative reports do occur. Test Methodology: Note 02 This liquid based ThinPrep(R) pap test was screened with the use of an image guided system. HPV Genotype Reflex Note 02 Criteria not met, HPV Genotype not performed. FLAG LEGEND: L-Low Normal,H-High Normal,LL-Alert Low,HH-Alert High <-Panic Low,>-Panic High,A-Abnormal,AA-Critical Abnormal Performed at: [address] [id number] Shanita Iqbal MD, BRUSH-SPATULA CERVIX ENDOCERVIX [facility] e Urinalysis macro (dipstick) panel (U)on 05-18-2024 Bilirubin, UA Negative Negative - 4(70) +++ mg/dL [facility] Blood, UA Positive Negative - 50 Darin/mcL [facility] Comment on above: large Clarity, UA Clear [facility] re Color, UA Yellow [facility] Glucose, UA Negative Negative - 1999(110) ++++ mg/dL [facility] Interpretation and review of laboratory results Abnormal [facility] Ketones, UA Negative Negative - 160(16) ++++ mg/dL [facility] Leukocytes, UA Negative Negative - 500+++ Ok/mcL [facility] Nitrite, UA Negative Negative - Positive [facility] pH, UA 6 5 - 9 [facility] Protein, UA Negative Negative - 1999(20) ++++ mg/dL [facility] Spec Grav, UA 1.02 1 - 1.[address] [facility] Urobilinogen, UA 0.2 0.2 - 12 mg/dL [facility] XR foot LT min 3V*on 024 XR foot LT min 3V* [facility] [place] [address] XRay Report Signed Patient: Steph Rizo MR#: [id number] 22 : 1985 Acct:[id number] Age/Sex: 38 / F ADM Date: 12/23/23 Loc: [facility] Room: Type: [facility] Attending Dr: Shelli Prakash APRN Copies to: [...] SPURRING. Impression dictated by: Miguel Valdez Jr., D.O.12/23/2023 12:27 PM Dictation Location: [place] [address] Transcribed By: [facility] 12/23/23 1227 Dictated By: Miguel Valdez Jr, DO 12/23/23 1225 Signed By: 12/23/23 1227 Normal [facility] Cytology Cervical or vaginal smear or scraping studyOrdered By: Carmela Vogel on 05-14-2023 [facility] e LIPID PROFILEon 08-01-2022 CHOL-HDL RATIO NORM SEE BELOW Normal [facility] Comment on above: Result Comment: 3.3 - 4.4 LOW RISK 4.4 - 7.1 AVERAGE RISK 7.1 - 11.0 MODERATE RISK >11.0 HIGH RISK Performed By: #### L IPID, CMP #### [facility] [address] [address] [address] Kiarra Landry Cholesterol [Mass/Vol] 184 mg/dL Normal <=200 [facility] Comment on above: Performed By: #### L IPID, CMP #### [facility] [address] [address] [address] Kiarra Landry Cholesterol in HDL [Mass/Vol] 44 mg/dL Normal 40-60 [facility] Comment on above: Performed By: #### L IPID, CMP #### [facility] [address] [address] [address] Kiarra Landry Cholesterol in LDL [Mass/Vol] 115.0 mg/dL Normal [facility] Comment on above: Performed By: #### L IPID, CMP #### [facility] [address] [address] [address] Kiarra Landry Cholesterol.total/C holesterol in HDL [Mass ratio] 4.2 {ratio} Normal [facility] Comment on above: Performed By: #### L IPID, CMP #### [facility] [address] [address] [address] Kiarra Landry HDL NORMAL > or = 60 mg/dl - LO W CARDIOVASCULAR RISK <40 mg/dl - HIGH CARDIOVASCULAR RISK Normal [facility] Comment on above: Performed By: #### L IPID, CMP #### [facility] [address] [address] [address] Kiarra Landry LDL CALC NORMAL SEE BELOW Normal [facility] Comment on above: Result Comment: <100 mg/dl OPTIMAL 100 - 129 mg/dl NEAR OR ABOVE OPTIMAL 130 - 159 mg/dl BORDERLINE HIGH 160 - 189 mg/dl HIGH >190 mg/dl VERY HIGH Performed By: #### L IPID, CMP #### [facility] [address] [place] [address] Dr. Kiarra Landry Triglyceride [Mass/Vol] 125 mg/dL Normal <=150 [facility] Comment on above: Performed By: #### L IPID, CMP #### [facility] [address] [place] [address] Dr. Kiarra Landry VLDL CALC 25.0 mg/dL Normal [facility] Comment on above: Performed By: #### L IPID, CMP #### [facility] [address] [place] [address] Dr. Kiarra Landry PROF 14(COMP METB)on 023 Albumin [Mass/Vol] 4.0 g/dL Normal 3.4-5.0 [facility] Comment on above: Performed By: #### L IPID, CMP #### [facility] [address] [place] [address] Dr. Kiarra Landry Albumin/Globulin [Mass ratio] 1.2 {ratio} Normal [facility] Comment on above: Performed By: #### L IPID, CMP #### [facility] [address] [place] [address] Dr. Kiarra Landry ALP [Catalytic activity/Vol] 68 U/L Normal 46-116 [facility] Comment on above: Performed By: #### L IPID, CMP #### [facility] [address] [place] [address] Dr. Kiarra Landry ALT [Catalytic activity/Vol] 61 U/L Critically high 14-59 [facility] Comment on above: Performed By: #### L IPID, CMP #### [facility] [address] [place] [address] Dr. Kiarra Landry Anion gap [Moles/Vol] 10.6 mmol/L Normal [facility] Comment on above: Performed By: #### L IPID, CMP #### [facility] [address] [place] [address] Dr. Kiarra Landry AST [Catalytic activity/Vol] 28 U/L Normal 15-37 [facility] Comment on above: Performed By: #### L IPID, CMP #### [facility] [address] [place] [address] Dr. Kiarra Landry Bilirubin [Mass/Vol] 0.4 mg/dL Normal 0.2-1.0 [facility] Comment on above: Performed By: #### L IPID, CMP #### [facility] [address] [place] [address] Dr. Kiarra Landry Calcium [Mass/Vol] 8.6 mg/dL Normal 8.5-10.1 [facility] Comment on above: Performed By: #### L IPID, CMP #### [facility] [address] [place] [address] Dr. Kiarra Landry Chloride [Moles/Vol] 101 mmol/L Normal 98-107 [facility] Comment on above: Performed By: #### L IPID, CMP #### [facility] [address] [place] [address] Dr. Kiarra Landry CO2 [Moles/Vol] 27.9 mmol/L Normal 21.0-32.0 [facility] Comment on above: Performed By: #### L IPID, CMP #### [facility] [address] [place] [address] Dr. Kiarra Landry Creatinine [Mass/Vol] 0.80 mg/dL Normal 0.55-1.02 [facility] Comment on above: Performed By: #### L IPID, CMP #### [facility] [address] [place] [address] Dr. Kiarra Landry EGFR-AF SINGAPOREAN >60 Normal >=60 [facility] Comment on above: Performed By: #### L IPID, CMP #### [facility] [address] [place] [address] Dr. Kiarra Landry EGFR-NON AF SINGAPOREAN >60 Normal >=60 [facility] Comment on above: Performed By: #### L IPID, CMP #### [facility] [address] [place] [address] Dr. Kiarra Landry Globulin (S) [Mass/Vol] 3.3 g/dL Normal [facility] Comment on above: Performed By: #### L IPID, CMP #### [facility] [address] [address] [address] Kiarra Landry Glucose [Mass/Vol] 81 mg/dL Normal 74-106 [facility] Comment on above: Performed By: #### L IPID, CMP #### [facility] [address] [place] [address] Dr. Kiarra Landry Potassium [Moles/Vol] 3.5 mmol/L Normal 3.5-5.1 [facility] Comment on above: Performed By: #### L IPID, CMP #### [facility] [address] [place] [address] Dr. Kiarra Landry Protein [Mass/Vol] 7.3 g/dL Normal 6.4-8.2 [facility] Comment on above: Performed By: #### L IPID, CMP #### [facility] [address] [place] [address] Dr. Kiarra Landry Sodium [Moles/Vol] 136 mmol/L Normal 136-145 [facility] Comment on above: Performed By: #### L IPID, CMP #### [facility] [address] [place] [address] Dr. Kiarra Landry Urea nitrogen [Mass/Vol] 14.0 mg/dL Normal 7.0-18.0 [facility] Comment on above: Performed By: #### L IPID, CMP #### [facility] [address] [place] [address] Dr. Kiarra Landry Urea nitrogen/Creatinine [Mass ratio] 17.5 mg/mg Normal [facility] Comment on above: Performed By: #### L IPID, CMP #### [facility] [address] [place] [address] Dr. Kiarra Landry US THYROIDon 07-26-2022 US [...] by: KIM ENRIQUEZ Date: 2022-07-26 19:43 Normal [facility] PAP ACOG PANEL 2: 30 to 65on 05-21-2022 . . Normal [facility] Comment on above: Result Comment: Perf ormed at: WB Performed By: #### [id number] #### [facility] [address] [address] [address] Kiarra Landry Age Gdln ACOG Testing 30-65 Normal [facility] Comment on above: Performed By: #### [id number] #### [facility] [address] [address] [address] Kiarra Landry DIAGNOSIS: Comment Normal [facility] Comment on above: Result Comment: NEGA TIVE FOR INTRAEPITHELIAL LESION OR MALIGNANCY. Performed at: WB Performed By: #### [id number] #### [facility] [address] [address] [address] Kiarra Landry HPV Aptima Negative Normal Negative [facility] Comment on above: Result Comment: This nucleic acid amplification test detects fourteen high-risk HPV types (16,18,31,33,35,39,45,51,52,56,58,59,66,68) without differentiation. Performed at: =G Performed By: #### [id number] #### [facility] [address] [place] [address] Dr. Kiarra Landry HPV Genotype Reflex Comment Normal [facility] Comment on above: Result Comment: Crit eria not met, HPV Genotype not performed. Performed at: WB Performed By: #### [id number] #### [facility] [address] [place] [address] Dr. Kiarra Landry Methodology: Comment Normal [facility] Comment on above: Result Comment: This liquid based ThinPrep(R) pap test was screened with the use of an image guided system. Performed at: WB Performed By: #### [id number] #### [facility] [address] [place] [address] Dr. Kiarra Landry Note: Comment Normal [facility] Comment on above: Result Comment: The Pap smear is a screening test designed to aid in the detection of premalignant and malignant conditions of the uterine cervix. It is not a diagnostic procedure and should not be used as the sole means of detecting cervical cancer. Both false-positive and false-negative reports do occur. . Performed at: WB Performed By: #### [id number] #### [facility] [address] [place] [address] Dr. Kiarra Landry Performed by: Comment Normal [facility] Comment on above: Result Comment: Norma Smith, Financial Sales Professional (ASCP) Performed at: WB Performed By: #### [id number] #### [facility] [address] [place] [address] Dr. Kiarra Landry Specimen adequacy: Comment Normal [facility] Comment on above: Result Comment: Sati sfactory for evaluation. Endocervical and/or squamous metaplastic cells (endocervical component) are present. Performed at: WB Performed By: #### [id number] #### [facility] [address] [place] [address] Dr. Kiarra Landry US THYROIDon 01-12-2022 US [...] TR 4 nodule, previously biopsied TI-RADS: The [employer] TI-RADS committee's white paper recommendations for thyroid lesions classified as TR4 (moderately suspicious) are listed below: > 1.0 cm. Follow-up ultrasound in 1, 2, 3, and 5 years. > 1.5 cm. FNA. J. Am Ayse Radiol 2017;14:587-595. Electronically authenticated by: DIVYA COOL Date: 2022-01-12 07:11 Normal [facility] Quick Strepon 10-31-2021 S. pyogenes Org specific cx Ql (Throat) Negative [employer] Other Quick Strep [employer] Other COMPREHENSIVE METABOLIC PANE [place] 07-05-2021 Albumin [Mass/Vol] 4.5 g/dL Normal 3.6-5.1 [facility] Comment on above: Performed By: #### 7 600, 32524, [id number] #### [facility] [address], [address] [place] [address] Distribution Analyst: Goyo Ivory MD Albumin/Globulin [Mass ratio] 1.8 {ratio} Normal 1.0-2.5 [facility] Comment on above: Performed By: #### 7 600, 10300, 18378 #### [facility] [address], [address] [place] [address] Distribution Analyst: Goyo Ivory MD ALP [Catalytic activity/Vol] 76 U/L Normal 31-125 [facility] Comment on above: Performed By: #### 7 600, 48039, 39009 #### [facility] [address], [address] [place] [address] Distribution Analyst: Goyo Ivory MD ALT [Catalytic activity/Vol] 41 U/L High 6-29 [facility] Comment on above: Performed By: #### 7 600, 69391, 09342 #### [facility] of [place] [address] Distribution Analyst: Goyo Ivory MD AST [Catalytic activity/Vol] 24 U/L Normal 10-30 [facility] Comment on above: Performed By: #### 7 600, 21166, 17421 #### [facility] of [address], [address] [place] [address] Distribution Analyst: Goyo Ivory MD Bilirubin [Mass/Vol] 0.3 mg/dL Normal 0.2-1.2 [facility] Comment on above: Performed By: #### 7 600, 81845, 36805 #### [facility] of [place] [address] Distribution Analyst: Goyo Ivory MD BUN/CREATININE RATIO NOT APPLICABLE Normal 6-22 [facility] Comment on above: Performed By: #### 7 600, 36284, 71193 #### [facility] of [place] [address] Distribution Analyst: Goyo Ivory MD Calcium [Mass/Vol] 9.0 mg/dL Normal 8.6-10.2 [facility] Comment on above: Performed By: #### 7 600, 24567, 21934 #### [facility] [place] [address] Distribution Analyst: Goyo Ivory MD Chloride [Moles/Vol] 105 mmol/L Normal 98-110 [facility] Comment on above: Performed By: #### 7 600, 24565, 70090 #### [facility] [place] [address] Distribution Analyst: Goyo Ivory MD CO2 [Moles/Vol] 25 mmol/L Normal 20-32 [facility] Comment on above: Performed By: #### 7 600, 67717, 95539 #### [facility] [place] [address] Distribution Analyst: Goyo Ivory MD Creatinine [Mass/Vol] 0.89 mg/dL Normal 0.50-1.10 [facility] Comment on above: Performed By: #### 7 600, 65513, 53374 #### [facility] [place] [address] Distribution Analyst: Goyo Ivory MD eGFR NON-AFR. SINGAPOREAN 83 mL/min/1.73m2 Normal > OR = 60 [facility] Comment on above: Performed By: #### 7 600, 57340, 77549 #### [facility] of [place] [address] Distribution Analyst: Goyo Ivory MD GFR/1.73 sq M.predicted among blacks MDRD (S/P/Bld) [Vol rate/Area] 96 mL/min/{1.73_m2} Normal > OR = 60 [facility] Comment on above: Performed By: #### 7 600, 02273, 17038 #### [facility] [place] [address] Distribution Analyst: Goyo Ivory MD Globulin (S) [Mass/Vol] 2.5 g/dL Normal 1.9-3.7 [facility] Comment on above: Performed By: #### 7 600, 39895, 08325 #### [facility] [place] [address] Distribution Analyst: Goyo Ivory MD Glucose [Mass/Vol] 77 mg/dL Normal 65-99 [facility] Comment on above: Result Comment: Fasting reference interval Performed By: #### 7 600, 55027, 77304 #### [facility] of [place] [address] Distribution Analyst: Goyo Ivory MD Potassium [Moles/Vol] 4.0 mmol/L Normal 3.5-5.3 [facility] Comment on above: Performed By: #### 7 600, 81712, 38826 #### [facility] of [address], [address] [place] [address] Distribution Analyst: Goyo Ivory MD Protein [Mass/Vol] 7.0 g/dL Normal 6.1-8.1 [facility] Comment on above: Performed By: #### 7 600, 22952, 33960 #### [facility] of [address], [address] [place] [address] Distribution Analyst: Goyo Ivory MD Sodium [Moles/Vol] 139 mmol/L Normal 135-146 [facility] Comment on above: Performed By: #### 7 600, 51355, 29586 #### [facility] [place] [address] Distribution Analyst: Goyo Ivory MD Urea nitrogen [Mass/Vol] 18 mg/dL Normal 7-25 [facility] Comment on above: Performed By: #### 7 600, 31242, 20408 #### [facility] [place] [address] Distribution Analyst: Goyo Ivory MD LIPID PANEL, [facility] 0 Cholesterol [Mass/Vol] 206 mg/dL High <200 [facility] Comment on above: Order Comment: FASTI NG:YES FASTING: YES Performed By: #### 7 600, 97206, 88671 #### [facility] [place] [address] Distribution Analyst: Goyo Ivory MD Cholesterol in HDL [Mass/Vol] 45 mg/dL Low > OR = 50 [facility] Comment on above: Order Comment: FASTI NG:YES FASTING: YES Performed By: #### 7 600, 42642, 48300 #### [facility] [place] [address] Distribution Analyst: Goyo Ivory MD Cholesterol in LDL [Mass/Vol] [...] LDL-C. Milton INMAN et al. CLARA. 2013;310(19): 2516-8298 (http://[email or web address].[email or web address]/faq/[email or web address]) Performed By: #### 7 600, 72629, 16373 #### [facility] [address], [address] [place] [address] Distribution Analyst: Goyo Ivory MD Cholesterol.total/C holesterol in HDL [Mass ratio] 4.6 {ratio} Normal <5.0 [facility] Comment on above: Order Comment: FASTI NG:YES FASTING: YES Performed By: #### 7 600, 67232, 14166 #### [facility] [address], [address] [place] [address] Distribution Analyst: Goyo Ivory MD NON HDL CHOLESTEROL 161 mg/dL (calc) High <130 [facility] Comment on above: Order Comment: FASTI NG:YES FASTING: YES Result Comment: For patients with diabetes plus 1 major ASCVD risk factor, treating to a non-HDL-C goal of <100 mg/dL (LDL-C of <70 mg/dL) is considered a therapeutic option. Performed By: #### 7 600, 31834, 81047 #### [facility] [address], [address] [place] [address] Distribution Analyst: Goyo Ivory MD Triglyceride [Mass/Vol] 170 mg/dL High <150 [facility] Comment on above: Order Comment: FASTI NG:YES FASTING: YES Performed By: #### 7 600, 06625, 93004 #### [facility] [place] [address] Distribution Analyst: Goyo Ivory MD TSH+FREE T4on 07-05-2021 Free T4 [Mass/Vol] 0.9 ng/dL Normal 0.8-1.8 [facility] Comment on above: Performed By: #### 7 600, 45339, 08250 #### [facility] [place] [address]25 [facility], [address] [place], [place] [id number] Distribution Analyst: Goyo Ivory MD TSH Qn 1.38 m[IU]/L Normal [facility] Comment on above: Result Comment: Refe rence Range > or = 20 Years 0.40-4.50 Ranges First trimester 0.26-2.66 Second trimester 0.55-2.73 Third trimester 0.43-2.91 Performed By: #### 7 600, 01836, 05135 #### [facility] [place] [address] [facility], [address] [place], [place] [id number] Distribution Analyst: Goyo Ivory MD [employer] 05-08-2021 Forms [id number] .00CD:127 Normal [facility] Formson 05-05-2021 Forms [id number] .00CD:127 Normal [facility] Operative Reporton Operative Report [id number] .00CD:127 Normal [facility] Ambulatory Clinical Summaryo n 05-03-2021 Ambulatory Clinical Summary {[id number]}CD:[id number] Normal [facility] General Surgery [...] MARCUS FOSS, DIVINA Araujo Only if [place] [address]- Additional Instructions: Problem List/Past Medical [...] [facility] Comment on above: Result Comment: Marcy rosenbergally Signed By: MARCUS FOSS, Chris Olguin\Date and Time Signed: 05/03/21 21:19 EST Pathology Noteon 05-02-2021 Pathology Note [id number] .00CD:127 Normal [facility] Lab Reportson 04-25-2021 Lab Reports [id number] .00CD:127 Normal [facility] Lab Reportson 04-19-2021 Lab Reports [id number] .00CD:127 Normal [facility] Consent for Procedure/Surger yon 04-10-2021 Consent for Procedure/Surgery [id number] .00CD:127 Normal [facility] General Surgery [...] including vitamins, herbs, eye drops, creams, and vhdj-cro-sronodg medicines. ? Any problems you or family [...] control your (more content not included)... Normal [facility] RAD - Ultrasound Reporton RAD - Ultrasound Report [id number] .00CD:127 [facility] Ambulatory Clinical Summaryo 02-07-2021 Ambulatory Clinical Summary {[id number]}CD:[id number] [facility] ED Note-Physicianon 02-08-20 ED Note-Physician [id number] .00CD:127 [facility] Vital Signs Date Time Vital Sign Value Performing Clinician Facility 05-18-2024 08:48-0500 Body mass index (BMI) [Ratio] 41.26 kg/m2 Johnathon Ana DO Work Phone: [facility] 05-18-2024 08:48-0500 Body weight 109.05 kg Johnathon Ana DO Work Phone: [facility] 05-18-2024 08:48-0500 Diastolic blood pressure 82 mm[Hg] Johnathon Ana DO Work Phone: [facility] 05-18-2024 08:48-0500 Systolic blood pressure 120 mm[Hg] Johnathon Ana DO Work Phone: [facility] 02-26-2024 16:00-0400 Body height 162.6 cm Flower Zepeda MD Work Phone: [facility] 02-26-2024 16:00-0400 Body mass index (BMI) [Ratio] 41.71 kg/m2 Flower Zepeda MD Work Phone: [facility] 02-26-2024 16:00-0400 Body weight 110.22 kg Flower Zepeda MD Work Phone: [facility] 02-26-2024 16:00-0400 Diastolic blood pressure 74 mm[Hg] Flower Zpeeda MD Work Phone: [facility] 02-26-2024 16:00-0400 Systolic blood pressure 129 mm[Hg] Flower Zepeda MD Work Phone: [facility] 12-23-2023 11:55-0400 Body height 162.56 cm DO Vinny Furlong Work Phone: [facility] 12-23-2023 11:55-0400 Body mass index (BMI) [Ratio] 41 kg/m2 DO Vinny Furlong Work Phone: [facility] 12-23-2023 11:55-0400 Body temperature 98 [degF] DO Vinny Furlong Work Phone: [facility] 12-23-2023 11:55-0400 Body weight 108.4 kg DO Vinny Furlong Work Phone: [facility] 12-23-2023 11:55-0400 Diastolic blood pressure 79 mm[Hg] DO Vinny Furlong Work Phone: [facility] 12-23-2023 11:55-0400 Heart rate 84 /min DO Vinny Furlong Work Phone: [facility] 12-23-2023 11:55-0400 Respiratory rate 18 /min DO Vinny Furlong Work Phone: [facility] 12-23-2023 11:55-0400 SaO2% (BldA) [Mass fraction] 97 % DO Vinny Furlong Work Phone: [facility] 12-23-2023 11:55-0400 Systolic blood pressure 109 mm[Hg] DO Vinny Furlong Work Phone: [facility] 10-31-2021 18:40-0400 Body height 162.56 cm Sofia Marie Other [facility] Other 10-31-2021 18:40-0400 Body mass index (BMI) [Ratio] 39.48 kg/m2 Sofia Marie Other [facility] Other 10-31-2021 18:40-0400 Body temperature 98.2 [degF] Sofia Marie Other [facility] Other 10-31-2021 18:40-0400 Body weight 104.33 kg Sofia Marie Other [facility] Other 10-31-2021 18:40-0400 Respiratory rate 18 /min Sofia Marie Other [facility] Other 10-31-2021 18:40-0400 SaO2% (BldA) [Mass fraction] 97 % Sofia Marie Other [facility] Other Encounters Encounter Date Encounter Type Care Provider Facility Start: 05-18-2024 End: 05-18-2024 Bamboo flowsheet Johnathon Ana DO Work Phone: [facility] Start: 05-18-2024 End: 05-29-2024 Bamboo flowsheet Johnathon Ana DO Work Phone: [facility] Start: 05-18-2024 End: 05-29-2024 Clinisync Result Encounter Johnathon Ana DO Work Phone: [facility] Unsolicited Start: 05-18-2024 End: 05-18-2024 Patient encounter procedure Johnathon Ana DO Work Phone: [facility] Work Phone: Start: 05-18-2024 End: 05-18-2024 Periodic preventive med est patient 40-64yrs Johnathon Ana DO Work Phone: [facility] Comment on above: Well woman exam with routine gynecological exam; Breast cancer screening by mammogram; UTI symptoms; Menorrhagia with regular cycle; Request for sterilization; PCOS (polycystic ovarian syndrome); Hormone imbalance Start: 05-18-2024 End: 05-18-2024 ambulatory JOHNATHON ANA Not Available Start: 02-26-2024 End: 02-26-2024 ambulatory FLOWER ZEPEDA Not Available Start: 02-26-2024 End: 02-26-2024 Office outpatient visit 15 minutes Flower Zepeda MD Work Phone: [facility] Comment on above: Nontoxic single thyr oid nodule (CMS/HCC) (Primary Dx) Start: 02-26-2024 End: 02-26-2024 Bamboo flowsheet Flower Zepeda MD Work Phone: [facility] Start: 02-26-2024 End: 02-26-2024 Bamboo flowsheet Flower Zepeda MD Work Phone: [facility] Start: 12-23-2023 End: 12-23-2023 ambulatory DO Vinny Schwab Work Phone: [facility] Work Phone: Start: 12-23-2023 End: 12-23-2023 Patient encounter procedure DO Vinny Schwab Work Phone: [facility] Work Phone: Start: 08-28-2023 End: 08-28-2023 ambulatory FLOWER ZEPEDA Not Available Start: 08-26-2023 Telephone encounter Vinny Gerry jenningsmichelle DO Work Phone: [facility] Start: 08-05-2022 Encounter for genera l adult medical examination with abnormal findings DR MELO YE [facility] Start: 08-01-2022 End: 08-02-[address] MELO YE Facility:[facility] Start: 08-01-2022 End: 08-02-2022 Encounter for general adult medical examination with abnormal findings DR MELO YE Facility:[facility] Start: 07-26-2022 End: 07-27-[address] FLOWER ZEPEDA Facility:[facility] Start: 05-14-2022 End: 05-14-[address] VINNY SCHWAB Facility:[facility] Start: 05-10-2022 End: 05-10-[address] JOHNATHON PEREZ . Facility:[facility] Start: 03-09-2022 ambulatory MANUEL GARCIA Facility:[facility] Start: 01-11-2022 End: 01-12-[address] FLOWER ZEPEDA Facility:[facility] Start: 10-31-2021 End: 10-31-2021 ambulatory Sofia Salazar Other [facility] Other Start: 10-31-2021 Office outpatient vi sit 25 minutes Sofia Salazar [facility] Procedures Date Procedure Procedure Detail Performing Clinician Start: 05-18-2024 Urnls dip stick/tabl et rgnt non-auto w/o micrscp Johnathon Perez DO Work Phone: Start: 05-18-2024 IGP,APTIMA HPV,AGE GDLN Johnathon Perez DO Work Phone: Start: 12-23-2023 X-ray of left foot DO D keerthi [employer] Phone: Start: 05-14-2023 Cytp cerv/vag auto t hin layer prep mnl screen Brooke Simpson PA Work Phone: Start: 07-11-2022 Adult depression scr eening assessment Vinyn Schwab Behalf Work Phone: Start: 05-03-2022 Microscopic observat ion [Identifier] in Cervix by Cyto stain Vinny Schwab Behalf Work Phone: Plan of Treatment Date Care Activity Detail Author Start: 05-03-2025 Screening for malign ant neoplasm of cervix Pap Smear [facility] Start: 06-24-2024 End: 06-24-2024 Patient encounter procedure 06/24/2024 3:30 PM EST Procedure Visit [facility] [address] [place] [id number] Ana, Johnathon, DO [address] [place] [address] [facility] Start: 05-18-2024 End: 05-18-2025 aPTT in Blood by Coagulation assay APTT Lab Routine Menorrhagia with regular cycle Expected: 05/18/2024 (Approximate), Expires: 05/18/2025 [facility] Comment on above: Expected: 05/18/2024 (Approximate), Expires: 05/18/2025 Start: 05-18-2024 End: 05-18-2025 DHEA DHEA Lab Routine PCOS (polycystic ovarian syndrome) Expected: 05/18/2024 (Approximate), Expires: 05/18/2025 [facility] Comment on above: Expected: 05/18/2024 (Approximate), Expires: 05/18/2025 Start: 05-18-2024 End: 07-19-2025 MG Breast - bilateral Screening Bilateral screening mammogram Imaging Routine Breast cancer screening by mammogram Expected: 05/18/2024 (Approximate), Expires: 07/19/2025 [facility] Work Phone: Comment on above: Expected: 05/18/2024 (Approximate), Expires: 07/19/2025 Start: 05-18-2024 End: 05-18-2025 US for US PELVIS-TRANSVAG IF INDICATED Imaging Routine Menorrhagia with regular cycle Expected: 05/18/2024 (Approximate), Expires: 05/18/2025 [facility] Comment on above: Expected: 05/18/2024 (Approximate), Expires: 05/18/2025 Start: 05-18-2024 End: 05-18-2024 Patient encounter procedure [facility] Comment on above: Arrived Start: 02-02-2024 Influenza vaccination Influenza Vacc ine [facility] Start: 07-11-2023 Adult BMI Screening Adult BMI Screen ing [facility] Start: 07-11-2023 Depression Screening Depression Scre ening [facility] Start: 07-11-2023 Tobacco Screening Tobacco Screening [facility] Start: 12-20-2002 DTaP,Tdap and Td Vaccines (1 - Tdap) DTaP,Tdap and Td Vaccines (1 - Tdap) [facility] CBC W Auto Different ial panel - Blood CBC and differential Lab Routine Menorrhagia with regular cycle Ordered: 05/18/2024 [facility] Comment on above: Ordered: 05/18/2024 DHEA-sulfate DHEA-sulfate Lab Routine PCOS (polycystic ovarian syndrome) Ordered: 05/18/2024 [facility] Comment on above: Ordered: 05/18/2024 Estradiol Estradiol Lab Ro utine Menorrhagia with regular cycle Hormone imbalance Ordered: 05/18/2024 [facility] Comment on above: Ordered: 05/18/2024 Follicle stimulating hormone Follicle stimulating hormone Lab Routine PCOS (polycystic ovarian syndrome) Ordered: 05/18/2024 [facility] Comment on above: Ordered: 05/18/2024 hCG, quantitative, hCG, quantitative, Lab Routine Menorrhagia with regular cycle Ordered: 05/18/2024 [facility] Comment on above: Ordered: 05/18/2024 Hemoglobin A1c/Hemoglobin.total in Blood Hemoglobin A1c Lab Routine Menorrhagia with regular cycle Ordered: 05/18/2024 [facility] Comment on above: Ordered: 05/18/2024 Luteinizing hormone Luteinizing hormone Lab Routine PCOS (polycystic ovarian syndrome) Ordered: 05/18/2024 [facility] Comment on above: Ordered: 05/18/2024 Progesterone Progesterone Lab Routine Menorrhagia with regular cycle Hormone imbalance Ordered: 05/18/2024 [facility] Comment on above: Ordered: 05/18/2024 Prothrombin time (PT ) in Blood by Coagulation assay Protime-INR Lab Routine Menorrhagia with regular cycle Ordered: 05/18/2024 [facility] Comment on above: Ordered: 05/18/2024 THIN PREP TIS PAP AN D HR HPV DNA THIN PREP TIS PAP AND HR HPV DNA Pathology and Cytology Routine Well woman exam with routine gynecological exam Ordered: 05/18/2024 [facility] Comment on above: Ordered: 05/18/2024 Thyrotropin [Units/volume] in Serum or Plasma TSH Lab Routine Menorrhagia with regular cycle Ordered: 05/18/2024 [facility] Comment on above: Ordered: 05/18/2024 Thyroxine (T4) free [Mass/volume] in Serum or Plasma T4, free Lab Routine Menorrhagia with regular cycle Ordered: 05/18/2024 [facility] Comment on above: Ordered: 05/18/2024 Immunizations Immunization Date Immunization Notes Care Provider Manny andrews 03-15-2021 influenza, high dose seasonal, preservative-free Vinny Furlong DO Work Phone: [facility] 03-15-2021 influenza virus vaccine, unspecified formulation Vinny Furlong DO Work Phone: [facility] 04-14-2020 influenza, high dose seasonal, preservative-free Vinny Furlong DO Work Phone: [facility] 05-15-2019 influenza, seasonal, injectable Vinny Furlong DO Work Phone: [facility] Payers Date Payer Category Payer Private Health Insurance [employer] [id number] 2020 Unknown [id number] 1983 Unknown [id number] .2.593 1983 Unknown [id number] .2.593 1983 Unknown [id number] [id number] .2.593 1983 Unknown [id number] .2.593 1983 Unknown [id number] [id number] .2.593 1983 Unknown [id number] [id number] .2.593 1983 Unknown [id number] [id number] .2.1259 1983 Unknown [id number] [id number] .2.1259 1983 Unknown [id number] [id number] .2.1259 1959 Self-pay 1961 Unknown [id number] Unknown [id number] [id number] .2.531 Social History Date Type Detail Facility Unknown if ever smoked [facility] Other Start: 07-11-2022 End: 02-26-2024 [facility] Start: 04-25-2022 End: 02-11-2023 Tobacco smoking status NHIS [facility] Start: 04-25-2022 End: 02-11-2023 Tobacco use and exposure Smokeless tobacco [facility]-user [facility] Start: 07-11-2022 End: 05-18-2024 Alcohol intake [facility]-drinker (finding) [facility] Start: 07-11-2022 End: 02-26-2024 History of [facility] function [facility] Adolescent depressio n screening assessment 0 [facility] Start: 1985 [facility] Start: 1985 Sex Assigned At Female F [facility] How often to you hav e a drink containing alcohol? Monthly or less [facility] How many standard drinks containing alcohol do you have on a typical day? 1 or 2 [facility] How often do you hav e 6 or more drinks on 1 occasion? Never [facility] Start: 08-27-2023 Alcohol Comment caffeine intak e: 1-2 cups per day [facility] Clinical Notes 03-17-2021 to 05-18-2024 Dolores Mobley LPN - 05/18/2024 8:30 AM Karla Zepeda MD - 02/26/2024 3:50 PM EDTTelephone Encounter - Sue Alves - 08/26/2023 11:11 AM EDT Note Date & Type Note Facility 05-18-2024 History of Presen t illness Narrative Reason for Appointment: Patient ID: Steph Rizo is a 38 y.o. female who presents for Well Women Visit Patient presents today for Annual Exam. 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 Nontoxic single thyroid nodule (CMS/HCC) 02/11/2023 Rash 02/11/2023 Thyroid nodule (CMS/HCC) 02/11/2023 Resolved Ambulatory Problems Diagnosis Date Noted No Resolved Ambulatory Problems Past Medical History: Diagnosis Date Anxiety COVID-19 PCOS (polycystic ovarian syndrome) Psoriasis (CMS/HCC) HISTORY PAST MEDICAL HISTORY SOCIAL HISTORY Past Medical History: Diagnosis Date Anxiety COVID-19 2019 and Jul 2021 Nontoxic single thyroid nodule (CMS/HCC) PCOS (polycystic ovarian syndrome) Psoriasis (CMS/HCC) since the age of 28, mostly on the elbows Social History Tobacco Use Smoking status: Never Smokeless tobacco: Never Substance Use Topics Alcohol use: Not Currently Comment: caffeine intake: 1-2 cups per day Drug use: Never FAMILY HISTORY Family History Problem Relation Name Age of Onset No Known Problems Mother No Known Problems Father Diabetes Maternal Grandmother Cancer Maternal Grandfather skin Psoriasis Neg Hx SURGICAL HISTORY Past Surgical History: Procedure Laterality Date ADENOIDECTOMY DILATION AND CURETTAGE OF UTERUS 2019 FNA W IMAGING GUIDANCE 07/17/2021 thyroid HERNIA REPAIR 1998 TONSILLECTOMY REVIEW OF SYSTEMS Review of Systems: Review of Systems Constitutional: Negative. HENT: Negative. Eyes: Negative. Respiratory: Negative. Cardiovascular: Negative. Gastrointestinal: Negative. Genitourinary: Negative. Musculoskeletal: Negative. Skin: Negative. Neurological: Negative. All other systems reviewed and are negative. Hematological: Negative. Endocrine: Negative. Allergic/Immunologic: Negative. OBJECTIVE Objective: Physical Exam Constitutional: Appearance: Normal appearance. She is well-developed. Genitourinary: Vulva normal. Breasts: Breasts are soft. Right: Normal. Left: Normal. Cardiovascular: Rate and Rhythm: Normal rate and regular rhythm. Pulmonary: Effort: Pulmonary effort is normal. Breath sounds: Normal breath sounds. Abdominal: General: Bowel sounds are normal. There is no distension. Palpations: Abdomen is soft. Tenderness: There is no abdominal tenderness. There is no guarding or rebound. Musculoskeletal: General: No swelling. Normal range of motion. Right lower leg: No edema. Left lower leg: No edema. Neurological: Mental Status: She is alert and oriented to person, place, and time. Skin: General: Skin is warm and dry. Psychiatric: Mood and Affect: Mood normal. Behavior: Behavior normal. Vitals and nursing note reviewed. Exam conducted with a puttier present. Vitals: Estimated body mass index is 41.26 kg/m as calculated from the following: Height as of 02/26/24: 5' 4 . Weight as of this encounter: 240 lb 6.4 oz. BP: 120/82 Patient's last menstrual period was 05/16/2024. ASSESSMENT & PLAN ICD-10-CM 1. Well woman exam with routine gynecological exam Z01.419 THIN PREP TIS PAP AND HR HPV DNA 2. Breast cancer screening by mammogram Z12.31 Bilateral screening mammogram Bilateral screening mammogram 3. UTI symptoms R39.9 POCT urinalysis dipstick manually resulted 4. Menorrhagia with regular cycle N92.0 5. Request for sterilization Z30.2 Annual: Patient presents today for an annual exam. Patient states she is doing well and has complaints of heavy periods and request for sterilization. Pt given labs and ultrasound orders to have obtained. Pt has shoulder pain and indentations from bra from large breasts. Pap was obtained without difficulty and patient given mammogram order to have scheduled/obtained. Orders Placed This Encounter Procedures Bilateral screening mammogram POCT urinalysis dipstick manually resulted Follow Up: Patient is to return in one year for annual. Pt to return for preop/embx for endometrial ablation with bilateral salpingectomy. Documented by Dolores Mobley LPN on behalf of: Johnathon Perez DO documented in this encounter [facility] 02-26-2024 History of Presen t illness Narrative Subjective Patient ID: Steph Rizo is a 38 y.o. 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 Nontoxic single thyroid nodule (CMS/HCC) 02/11/2023 Rash 02/11/2023 Thyroid nodule (CMS/HCC) 02/11/2023 Resolved Ambulatory Problems Diagnosis Date Noted No Resolved Ambulatory Problems Past Medical History: Diagnosis Date Anxiety COVID-19 PCOS (polycystic ovarian syndrome) Psoriasis (CMS/HCC) Past Surgical History: Procedure Laterality Date ADENOIDECTOMY DILATION AND CURETTAGE OF UTERUS 2019 FNA W IMAGING GUIDANCE 07/17/2021 thyroid HERNIA REPAIR 1998 TONSILLECTOMY Allergies Allergen Reactions Ciprofloxacin Headache Other reaction(s): headaches Current Outpatient Medications on File Prior to Visit Medication Sig Dispense Refill norethindrone-ethinyl estradiol (06/22) 1-20 MG-MCG tablet Take 1 tablet by mouth in the morning. 28 tablet 11 omeprazole (PriLOSEC) [address] capsule Take 20 mg by mouth in the morning. triamcinolone (Kenalog) 0.1 % cream Apply 1 application topically in the morning and 1 application before bedtime. No current facility-administered medications on file prior to visit. Objective Last Recorded Vitals Vitals: 02/26/24 1600 BP: 129/74 ENT Physical Exam Constitutional Appearance: patient appears well-developed, well-nourished and well-groomed, Communication/Voice: communication appropriate for developmental age; vocal quality normal; Assessment/Plan Diagnoses and all orders for this visit: Nontoxic single thyroid nodule (CMS/HCC) Stable thyroid nodule for almost 3 years. FNA in 2021 benign. Repeat US one year and then PRN if still stable documented in this encounter [facility] 08-26-2023 Miscellaneous Notes Formattin g of this note might be different from the original. ----- Message from Vinny Schwab DO sent at 08/22/2023 12:36 PM EDT ----- Regarding: Wellness Please set up. She usually sees PAEDIATRIC THORACIC PHYSICIAN documented in this encounter [facility] 08-26-2023 Telephone encount er Note ----- Message from Vinny Schwab DO sent at 08/22/2023 12:36 PM EDT ----- Regarding: Wellness Please set up. She usually sees PAEDIATRIC THORACIC PHYSICIAN [facility] 10-31-2021 Evaluation note Encounter Date Diagnosis Assessment Notes October, Sore throat (ICD-10 - J02.9) October, Viral upper respiratory infection (ICD-10 - J06.9) Drink plenty fluids, get plenty of rest. Take Tylenol or Motrin for aches pains or fevers. Consider taking Mucinex or Sudafed for your drainage. Follow-up with your family physician if no improvement in 2 to 3 days [facility] Other 10-15-2021 NoteChief Complaint consultation for abdominal pain HPI Staff 35 year old female presents on consultation from [facility] for abdominal pain. History of Present Illness 35 yo female, 9 weeks ; referred from ED for episode of upper abd pain; seen 2 days ago in ED at [facility] for sudden onset of upper abdominal [...] swallowing difficulties, no hearing loss, no ear infection(s),no nose bleeds. Cardiovascular: normal blood pressure, no [...] data available Patient Education Laparoscopic Cholecystectomy Cholelithiasis, [id number] Problem List/Past Medical History Ongoing Biliary colic [...] Use:., 02/07/2021 Family History [facility] history is [facility] HospitalComment on above:Result Comment: Electronically Signed By: MARCUS FOSS, Chris Olguin\Date and Time Signed: 03/17/21 15:37 EDTEvaluation note* Diagnosis Onset Date Resolution Status Left foot pain acute [facility] Work Phone: Evaluation note* Diagnosis Well woman exam with routine gynecological exam Routine gynecological examination Breast cancer screening by mammogram UTI symptoms Menorrhagia with regular cycle Request for sterilization PCOS (polycystic ovarian syndrome) Polycystic ovaries Hormone imbalance [facility] Diagnosis Nontoxic single thyroid nodule (CMS/HCC)- Primary Nontoxic uninodular goiter [facility] N[facility]ative - Reported* Type Description Date Surgical History hernia repair Surgical History t and a Surgical History D&C Surgical History cholecystectomy 04/23 Hospitalization History childbirth 2017 [facility] Other InstructionsNot on filedocumented in this encounter [facility] Summary Purpose Family History No Family History Records FoundNo Family History Records FoundNo Family History Records FoundNo Family History Records FoundNo Family History Records Found Advance Directives Advance Directive Response Recorded Date/ Time Advance [...] DATE CREATED AUTHOR AUTHOR'S ORGANIZ ATION 07/28/2021 [facility] DATE CREATED AUTHOR AUTHOR'S ORGANIZ ATION 08/07/2022 [facility] DATE CREATED AUTHOR AUTHOR'S ORGANIZ ATION 12/25/2023 [facility] DATE CREATED AUTHOR AUTHOR'S ORGANIZ ATION 05/19/2024 [facility] EPIC REASON FOR VISIT (unrecogniz ed section and content) Reason Comments Well Women Visit Reason Comments Thyroid Nodule 6 mo follow up with ultrasound, [facility] 02/20/24 Care Teams (unrecognized sec tion and content) [employer] Relationship Specialty Start Date End Date Vinny Schwab DO [address] [place] [address] PCP - General Family Medicine 07/26/20 Team Status: Active Member Role Status Dates Vinny Schwab DO Primary Care Provider Active Team Status: Inactive Member Role Status Dates Vinny Schwab DO Primary Care Provider Active Start: December 23, 2023 End: December 23, 2023 Shelli Prakash APRN Attending Provider Active S tart: December 23, 2023 End: December 23, 2023 [employer] Relationship Specialty Start Date End Date Vinny Schwab MD [address] [place] [address] PCP - General Family Medicine 01/11/23 [employer] Relationship Specialty Start Date End Date Vinny Schwab MD [address] [place] [address] PCP - General Family Medicine 01/11/23 [employer] Relationship Specialty Start Date End Date Vinny Schwab MD [address] [place] [address] PCP - General Family Medicine 01/11/23 [employer] Relationship Specialty Start Date End Date Vinny Schwab MD [address] [place] [address] PCP - General Family Medicine 01/11/23 Goals (unrecognized section and content) Goals may [...] BE BASED ON THE PRIMARY CLINICAL RECORDS. [facility] [employer] [facility]. provides no warranty or guarantee of the accuracy or completeness of information in this document.
[2024-06-17 09:19] LABS: Estimated Average Glucose 117 mg/dL; Glycohemoglobin A1C 5.7 % (4.5-6.2)
[2024-06-17 09:32] LABS: INR 0.99; Partial Thromboplastin Time 37.5 sec (22.3-36.2); Prothrombin Time 10.5 sec (9.0-11.6)
[2024-06-17 09:36] LABS: Free T4 0.89 ng/dL (0.76-1.46)
[2024-06-17 09:41] LABS: HCG Quantitative <1 mIU/mL; Thyroid Stimulating Hormone 2.002 uIU/mL (0.358-3.740)
[2024-06-18 08:12] LABS: FSH 5.9 mIU/mL (.); Luteinizing Hormone(LH) 6.6 mIU/mL (.)
[2024-06-22 05:10] LABS: DHEA, Serum 180 ng/dL (31-701)
== END 2024-06-17 08:49 | disposition home or self-care (01) ==
LOC: MAMMO 08:48
PROVIDERS: Visit Provider Obstetrics & Gynecology
DX: E28.2 Polycystic ovarian syndrome (principal); N92.0 Excessive and frequent menstruation with regular cycle; Z12.31 Encounter for screening mammogram for malignant neoplasm of breast
CPT/HCPCS: 36415; 76830; 76856; 77063; 77067; 82626; 82627; 83001; 83002; 83036; 84439; 84443; 84702; 85025; 85610; 85730

== ENCOUNTER 2024-06-24 15:34 | Outpatient (REF) | payer OTHER, SELFPAY ==
--- OUTSIDE RECORDS SUMMARY | 2024-07-06 15:42 | XMS_ITS | CCD ---
Author Organization [facility] Care Team Providers Care Skidder Loader Name Role Phone Sofia Salazar Unavailable ANA ., DR DIEGO Attending Unavailable ANA ., DR DIEGO Admitting Unavailable FURLONG, DR VINNY Garrett Primary Care Unavailable ANA ., DR DIEGO Consulting Unavailable TIMMIS, DR LARSEN Admitting Unavailable TIMMIS, DR LARSEN Consulting Unavailable TIMMIS, DR LARSEN Attending Unavailable FURLONG, DR VINNY Garrett Primary Care Unavailable STUART, DR DIVYA Tatum Consulting Unavailable KUNS, DR [...] DR VINNY Garrett Primary Care Unavailable NEFCY, PETER Consulting Unavailable FURLONG, DR VINNY Garrett Primary Care Unavailable ANA ., DR DIEGO Attending Unavailable ANA ., DR DIEGO Admitting Unavailable Furlong Vinny LOZANO Primary Care Provider DO Vinny Schwab Primary Care Provider KATEY Prakash Attending Provider Vinny Schwab MD Primary Care Provider [phone] JOHNATHON PEREZ Attending Unavailable TIMMISFLOWER Attending Unavailable TIMMIS, FLOWER Conner Attending Unavailable JOHNATHON PEREZ Attending Unavailable Furlong Vinny LOZANO Primary Care Provider Johnathon Perez DO Attending Provider Johnathon Perez Admitting Unavailable Vinny Schwab Primary Care Unavailable Johnathon Perez Attending Unavailable Shelli Prakash Attending Unavailable Shelli Prakash Admitting Unavailable Vinny Schwab Primary Care Unavailable Allergies Allergy Classification Reported Allergen(s) Allergy Type Date of Onset Reaction(s) Facility (10 sources) Ciprofloxacin Drug Allergy 04-25-2022 Headache [facility] Medications Current Medications Medication Drug Class(es) Dates Sig (Normalized) Sig (Original) calcipotriene 0.05 mg/ml topical cream (1 source) Vitamin D Analog Start: 04-25-20 calcipotriene (DOVONEX) 0.005 % cream Indications: Psoriasis Apply 1 application topically in the morning and 1 application before bedtime. 60 g 1 04/25/2022 Active ibuprofen 800 mg oral tablet (2 sources) Nonsteroidal Anti-inflammato ry Drug Start: 12-23-19 24 take 1 tablet by mouth every eight hours as needed for pain Ibuprofen 800 mg tablet Active 800 MG PO Every 8 hours as needed for pain 15 December 22, 2023 11:00pm omeprazole 20 mg delayed release oral capsule (10 sources) Proton Pump Inhibitor Start: 07-11-19 take 1 capsule by mouth in the morning omeprazole (PriLOSEC) [address] capsule Take 20 mg by mouth in the morning. 07/11/2022 Active Perfluorohexyloctane (Pf) (2 sources) Start: 12-23-19 Perfluorohexyloctane (Pf) (Miebo) 100 % drops Active DROPS OPHTHALMIC December 22, 2023 11:00pm Start: 12-23-2023 Perfluorohexyl octane (Pf) (Miebo) 100 % drops Active DROPS OPHTHALMIC December 23, 2023 12:00am Completed/Discontinued Medications Medication Drug Class(es) Dates Sig (Normalized) Sig (Original) amoxicillin 875 mg / clavulanate 125 mg oral tablet (2 sources) Penicillin-class Antibacterial Start: 08-20-2023 End: 12-23-2023 take 1 tablet by mouth twice daily Amoxicillin-Pot Clavulanate 875-125 mg tablet Discontinued 1 TAB PO Twice daily 20 August 19, 2023 11:00pm December 23, 2023 10:53am Ethinyl Estradiol / Ferrous fumarate / Norethindrone [...] by mouth in the morning. 28 tablet 05/14/2023 05/13/2024 Active triamcinolone acetonide 1 mg/ml [...] Problem Classification Problem Date Documented Date Episodic/Chronic Abdominal pain (2 sources) Pain in female pelvis; Translations: [Pelvic and perineal pain] Onset: 06-24-2024 06-24-2024 Episodic Anxiety disorders (1 source) Anxiety; Translations: [Anxiety disorder, unspecified] Onset: 03-08-2022 03-08-2022 Chronic Contraceptive and procreative management (4 sources) Sterilization requested; Translations: [Encounter for sterilization] Onset: 06-24-2024 05-18-2024 Episodic Genitourinary symptoms and ill-defined conditions (3 sources) Dysuria; Translations: [Dysuria] 05-18-2024 Episodic Immunizations and screening for infectious disease (1 source) Encounter for screening for human papillomavirus (HPV); Translations: [ENC SCREENING HUMAN PAPILLOMAVIRUS] Onset: 05-17-2022 Episodic Menstrual disorders (4 sources) Menorrhagia; Translations: [Excessive and frequent menstruation with regular cycle] Onset: 06-24-2024 05-18-2024 Chronic Other connective tissue disease (2 sources) Foot pain; Translations: [Pain in left foot] 12-23-2023 Episodic Other endocrine disorders (2 sources) Polycystic ovary syndrome; Translations: [Polycystic ovarian syndrome] 05-18-2024 Chronic Other endocrine disorders (2 sources) Disorder of endocrine system; Translations: [Endocrine disorder, unspecified] 05-18-2024 Episodic Other female genital disorders (2 sources) Abnormal uterine bleeding; Translations: [Abnormal uterine and vaginal bleeding, unspecified] Onset: 06-24-2024 06-24-2024 Chronic Other inflammatory condition of skin (1 source) Psoriasis; Translations: [Psoriasis, unspecified] Onset: 07-11-2022 07-11-2022 Chronic Other inflammatory condition of skin (9 sources) Guttate psoriasis; 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0 % [facility] Eosinophils/100 WBC (Bld) 1.7 % 0.9 - 7.0 % [facility] Erythrocyte distribution width (RBC) [Ratio] 12.4 % 11.0 - 15.0 % [facility] Hematocrit (Bld) [Volume fraction] 40.2 % 36.0 - 48.0 % [facility] e Hemoglobin (Bld) [Mass/Vol] 13.2 g/dL 12.0 - 16.0 g/dL [facility] IMMATURE GRANULOCYTES ABS AUTO 0 [facility] Immature granulocytes/100 WBC (Bld) 0 % 0.0 - 0.5 % [facility] Interpretation and review of laboratory results Abnormal [facility] re LYMPHOCYTES ABSOLUTE AUTO 2.6 [facility] Lymphocytes/100 WBC (Bld) 47.4 % 20.5 - 60.0 % [facility] MCH (RBC) [Entitic mass] 29.1 pg 26.7 - 34.0 pg [facility] MCHC (RBC) [Mass/Vol] 32.8 g/dL 29.9 - 35.2 g/dL [facility] MCV (RBC) [Entitic vol] 88.5 fL 81.0 - 99.0 fL [facility] MONOCYTES ABSOLUTE AUTO 0.2 Low [facility] Monocytes/100 WBC (Bld) 4.4 % 1.7 - 12.0 % [facility] NEUTROPHILS ABSOLUTE AUTO 2.5 [facility] Neutrophils/100 WBC (Bld) 45.8 % 43.0 - 75.0 % [facility] Platelet mean volume (Bld) [Entitic vol] 9 fL Low 9.5 - 13.5 fL [facility] TBH EO # 0.1 [facility] PLT 268 [facility] RBC 4.54 [facility] WBC 5.4 [facility] IGP,APTIMA HPV,AGE GDLNon AGE GDLN ACOG TESTING Note . [facility] Comment on above: TESTS RESULT FLAG UN ITS REF RANGE LAB Clinician Provided Cytology Information Source.............Cervix;Endocervix No. of containers..01 ThinPrep Vial Age Algo ACOG Olivia... 30-65 01 FLAG LEGEND: L-Low Normal,H-High Normal,LL-Alert Low,HH-Alert High <-Panic Low,>-Panic High,A-Abnormal,AA-Critical Abnormal Performed at: 01 =[facility] [place] [address] Shanita Iqbal MD, HPV APTIMA Negative Negative [facility] Comment on above: This nucleic acid am plification test detects fourteen high- risk HPV types (16,18,31,33,35,39,45,51,52,56,58,59,66,68) without differentiation. Performed at: =G - [facility] [id number] Raker Buffing Wheel: Shanita Iqbal MD, Phone: [phone] Performed at: - [facility], [place] [id number] [employer] Wheel: Shanita Iqbal MD, Phone: [phone] IGP, APTIMA HPV, RFX 16/18,45 Note . [facility] Comment on above: TESTS RESULT FLAG UN ITS REF RANGE LAB DIAGNOSIS: 02 UNSATISFACTORY FOR EVALUATION. SPECIMEN REPROCESSED FOR INTERPRETATION USING GLACIAL ACETIC ACID (GAA). MENSTRUAL SMEAR PATTERN IS PRESENT. Recommendation: 02 Suggest follow up as clinically appropriate. Specimen adequacy: 02 Specimen processed and examined but unsatisfactory for evaluation of epithelial abnormality because of obscuring blood. Performed by: 02 Dakota Salazar, Child Protective Services Specialist (ASC) QC reviewed by: 02 Meenu Rodriguez, Supervisory Child Protective Services Specialist (ASCP) . 02 Note: Note 02 The Pap [...] <-Panic Low,>-Panic High,A-Abnormal,AA-Critical Abnormal Performed at: [address] [facility] [address] [address] Shanita Iqbal MD, BRUSH-SPATULA CERVIX ENDOCERVIX [facility] Urinalysis macro (dipstick) panel (U)on 05-18-2024 Bilirubin, UA Negative Negative - 4(70) +++ mg/dL [facility] Blood, UA Positive Negative - 50 Darin/mcL [facility] Comment on above: large Clarity, UA Clear [facility] Color, UA Yellow [facility] Glucose, UA Negative Negative - 1999(110) ++++ mg/dL [facility] Interpretation and review of laboratory results Abnormal [facility] Ketones, UA Negative Negative - 160(16) ++++ mg/dL [facility] Leukocytes, UA Negative Negative - 500+++ Ok/mcL [facility] Nitrite, UA Negative Negative - Positive [facility] pH, UA 6 5 - 9 [facility] Protein, UA Negative Negative - 1999(20) ++++ mg/dL [facility] Spec Grav, UA 1.02 1 - 1.03 [facility] Urobilinogen, UA 0.2 0.2 - 12 mg/dL [facility] XR foot LT min 3V*on 024 XR foot LT min 3V* [facility] [address] [place] [id number] XRay Report Signed Patient: Steph Rizo MR#: [id number] 22 : 1985 Acct:[id number] Age/Sex: 38 / F ADM Date: 12/23/23 Loc: XDUCLY Room: Type: [facility] CLI Attending Dr: Shellizen Prakash APRN Copies to: Shelli Prakash APRN [...] SPURRING. Impression dictated by: Miguel Valdez Jr., D.OSamuel12/23/2023 12:27 PM Dictation Location: [place] [address] Transcribed By: [facility] 12/23/23 1227 Dictated By: Miguel Valdez Jr, DO 12/23/23 1225 Signed By: 12/23/23 1227 Normal [facility] Cytology Cervical or vaginal smear or scraping studyOrdered By: Carmela Vogel on 05-14-2023 [facility] LIPID PROFILEon 08-01-2022 CHOL-HDL RATIO NORM SEE BELOW Normal [facility] Comment on above: Result Comment: 3.3 - 4.4 LOW RISK 4.4 - 7.1 AVERAGE RISK 7.1 - 11.0 MODERATE RISK >11.0 HIGH RISK Performed By: #### L IPID, CMP #### [facility] [address] [place] [address] [address] Kiarra Landry Cholesterol [Mass/Vol] 184 mg/dL Normal <=200 [facility] Comment on above: Performed By: #### L IPID, CMP #### [facility] [address] [place], [place] [address] Dr. Kiarra Landry Cholesterol in HDL [Mass/Vol] 44 mg/dL Normal 40-60 [facility] Comment on above: Performed By: #### L IPID, CMP #### [facility] [address] [place], [place] [address] Dr. Kiarra Landry Cholesterol in LDL [Mass/Vol] 115.0 mg/dL Normal [facility] Comment on above: Performed By: #### L IPID, CMP #### [facility] [address] [place] [address] [address] Kiarra Landry Cholesterol.total/C holesterol in HDL [Mass ratio] 4.2 {ratio} Normal [facility] Comment on above: Performed By: #### L IPID, CMP #### [facility] [address] [place] [address] [address] Kiarra Landry HDL NORMAL > or = 60 mg/dl - LO W CARDIOVASCULAR RISK <40 mg/dl - HIGH CARDIOVASCULAR RISK Normal [facility] Comment on above: Performed By: #### L IPID, CMP #### [facility] [address] [place] [address] [address] Kiarra Landry LDL CALC NORMAL SEE BELOW Normal [facility] Comment on above: Result Comment: <100 mg/dl OPTIMAL 100 - 129 mg/dl NEAR OR ABOVE OPTIMAL 130 - 159 mg/dl BORDERLINE HIGH 160 - 189 mg/dl HIGH >190 mg/dl VERY HIGH Performed By: #### L IPID, CMP #### [facility] [address] [place] [address] Dr. Kiarra Landry Triglyceride [Mass/Vol] 125 mg/dL Normal <=150 [facility] Comment on above: Performed By: #### L IPID, CMP #### [facility] [address] [place] [address] Dr. Kiarra Landry VLDL CALC 25.0 mg/dL Normal [facility] Comment on above: Performed By: #### L IPID, CMP #### [facility] [address] [place] [address] [address] Kiarra Landry PROF 14(COMP METB)on 023 Albumin [Mass/Vol] 4.0 g/dL Normal 3.4-5.0 [facility] Comment on above: Performed By: #### L IPID, CMP #### [facility] [address] [place] [address] Dr. Kiarra Landry Albumin/Globulin [Mass ratio] 1.2 {ratio} Normal [facility] Comment on above: Performed By: #### L IPID, CMP #### [facility] [address] [place] [address] [address] Kiarra Landry ALP [Catalytic activity/Vol] 68 U/L Normal 46-116 [facility] Comment on above: Performed By: #### L IPID, CMP #### [facility] [address] [place] [address] [address] Kiarra Landry ALT [Catalytic activity/Vol] 61 U/L Critically high 14-59 [facility] Comment on above: Performed By: #### L IPID, CMP #### [facility] [address] [place] [address] [address] Kiarra Landry Anion gap [Moles/Vol] 10.6 mmol/L Normal [facility] Comment on above: Performed By: #### L IPID, CMP #### [facility] [address] [place] [address] [address] Kiarra Landry AST [Catalytic activity/Vol] 28 U/L Normal 15-37 [facility] Comment on above: Performed By: #### L IPID, CMP #### [facility] [address] [place] [address] [address] Kiarra Landry Bilirubin [Mass/Vol] 0.4 mg/dL Normal 0.2-1.0 [facility] Comment on above: Performed By: #### L IPID, CMP #### [facility] [address] [place] [address] [address] Kiarra Landry Calcium [Mass/Vol] 8.6 mg/dL Normal 8.5-10.1 [facility] Comment on above: Performed By: #### L IPID, CMP #### [facility] [address] [place] [address] [address] Kiarra Landry Chloride [Moles/Vol] 101 mmol/L Normal 98-107 [facility] Comment on above: Performed By: #### L IPID, CMP #### [facility] [address] [place] [address] [address] Kiarra Landry CO2 [Moles/Vol] 27.9 mmol/L Normal 21.0-32.0 [facility] Comment on above: Performed By: #### L IPID, CMP #### [facility] [address] [place] [address] [address] Kiarra Landry Creatinine [Mass/Vol] 0.80 mg/dL Normal 0.55-1.02 [facility] Comment on above: Performed By: #### L IPID, CMP #### [facility] [address] [place] [address] [address] Kiarra Landry EGFR-AF BURMESE >60 Normal >=60 [facility] Comment on above: Performed By: #### L IPID, CMP #### [facility] [address] [place] [address] [address] Kiarra Landry EGFR-NON AF BURMESE >60 Normal >=60 [facility] Comment on above: Performed By: #### L IPID, CMP #### [facility] [address] [place] [address] [address] Kiarra Landry Globulin (S) [Mass/Vol] 3.3 g/dL Normal [facility] Comment on above: Performed By: #### L IPID, CMP #### [facility] [address] [place] [address] [address] Kiarra Landry Glucose [Mass/Vol] 81 mg/dL Normal 74-106 [facility] Comment on above: Performed By: #### L IPID, CMP #### [facility] [address] [place] [address] [address] Kiarra Landry Potassium [Moles/Vol] 3.5 mmol/L Normal 3.5-5.1 [facility] Comment on above: Performed By: #### L IPID, CMP #### [facility] [address] [place] [address] [address] Kiarra Landry Protein [Mass/Vol] 7.3 g/dL Normal 6.4-8.2 [facility] Comment on above: Performed By: #### L IPID, CMP #### [facility] [address] [place] [address] [address] Kiarra Landry Sodium [Moles/Vol] 136 mmol/L Normal 136-145 [facility] Comment on above: Performed By: #### L IPID, CMP #### [facility] [address] [place], [place] [address] Dr. Kiarra Landry Urea nitrogen [Mass/Vol] 14.0 mg/dL Normal 7.0-18.0 [facility] Comment on above: Performed By: #### L IPID, CMP #### [facility] [address] [place], [place] [address] Dr. Kiarra Landry Urea nitrogen/Creatinine [Mass ratio] 17.5 mg/mg Normal [facility] Comment on above: Performed By: #### L IPID, CMP #### [facility] [address] [place], [place] [address] Dr. Kiarra Landry US THYROIDon 07-26-2022 US [...] by: KIM ENRIQUEZ Date: 2022-07-26 19:43 Normal [facility] PAP ACOG PANEL 2: 30 to 65on 05-21-2022 . . Normal [facility] Comment on above: Result Comment: Perf ormed at: WB Performed By: #### [id number] #### [facility] [address] [place] [address] [address] Kiarra Landry Age Gdln ACOG Testing 30-65 Normal [facility] Comment on above: Performed By: #### [id number] #### [facility] [address] [place] [address] [address] Kiarra Landry DIAGNOSIS: Comment Normal [facility] Comment on above: Result Comment: NEGA TIVE FOR INTRAEPITHELIAL LESION OR MALIGNANCY. Performed at: WB Performed By: #### [id number] #### [facility] [address] [place] [address] [address] Kiarra Landry HPV Aptima Negative Normal Negative [facility] Comment on above: Result Comment: This nucleic acid amplification test detects fourteen high-risk HPV types (16,18,31,33,35,39,45,51,52,56,58,59,66,68) without differentiation. Performed at: =G Performed By: #### [id number] #### [facility] [address] [place] [address] Dr. Kiarra Landry HPV Genotype Reflex Comment Normal [facility] Comment on above: Result Comment: Crit eria not met, HPV Genotype not performed. Performed at: WB Performed By: #### [id number] #### [facility] [address] [place] [address] Dr. Kiarra Landry Methodology: Comment Normal [facility] Comment on above: Result Comment: This liquid based ThinPrep(R) pap test was screened with the use of an image guided system. Performed at: WB Performed By: #### [id number] #### [facility] [address] [place] [address] Dr. Kiarra Landry Note: Comment Normal [facility] Comment on above: Result Comment: The Pap smear is a screening test designed to aid in the detection of premalignant and malignant conditions of the uterine cervix. It is not a diagnostic procedure and should not be used as the sole means of detecting cervical cancer. Both false-positive and false-negative reports do occur. . Performed at: WB Performed By: #### [id number] #### [facility] [address] [place] [address] Dr. Kiarra Landry Performed by: Comment Normal [facility] Comment on above: Result Comment: Norma Smith, Child Protective Services Specialist (ASCP) Performed at: WB Performed By: #### [id number] #### [facility] [address] [place] [address] [address] Kiarra Landry Specimen adequacy: Comment Normal [facility] Comment on above: Result Comment: Sati sfactory for evaluation. Endocervical and/or squamous metaplastic cells (endocervical component) are present. Performed at: WB Performed By: #### [id number] #### [facility] [address] [place] [address] [address] Kiarra Landry US THYROIDon 01-12-2022 US [...] TR 4 nodule, previously biopsied TI-RADS: The [employer] TI-RADS committee's white paper recommendations for thyroid lesions classified as TR4 (moderately suspicious) are listed below: > 1.0 cm. Follow-up ultrasound in 1, 2, 3, and 5 years. > 1.5 cm. FNA. J. Am Ayse Radiol 2017;14:587-595. Electronically authenticated by: DIVYA COOL Date: 2022-01-12 07:11 Normal [facility] Quick Strepon 10-31-2021 S. pyogenes Org specific cx Ql (Throat) Negative [employer] Other Quick Strep [employer] Other COMPREHENSIVE METABOLIC PANE Soto 07-05-2021 Albumin [Mass/Vol] 4.5 g/dL Normal 3.6-5.1 [facility] Comment on above: Performed By: #### 7 600, [id number], [id number] #### [facility] of [address], [address] [place] [address] Heat Treatment Technician: Goyo Ivory MD Albumin/Globulin [Mass ratio] 1.8 {ratio} Normal 1.0-2.5 [facility] Comment on above: Performed By: #### 7 600, 20122, 57510 #### [facility] of [address], [address] [place] [address] Heat Treatment Technician: Goyo Ivory MD ALP [Catalytic activity/Vol] 76 U/L Normal 31-125 [facility] Comment on above: Performed By: #### 7 600, 28461, 16757 #### [facility] of [address], [address] [place] [address] Heat Treatment Technician: Goyo Ivory MD ALT [Catalytic activity/Vol] 41 U/L High 6-29 [facility] Comment on above: Performed By: #### 7 600, 51729, 90531 #### [facility] of [address], [address] [place] [address] Heat Treatment Technician: Goyo Ivory MD AST [Catalytic activity/Vol] 24 U/L Normal 10-30 [facility] Comment on above: Performed By: #### 7 600, 12380, 13938 #### [facility] of [address], [address] [place] [address] Heat Treatment Technician: Goyo Ivory MD Bilirubin [Mass/Vol] 0.3 mg/dL Normal 0.2-1.2 [facility] Comment on above: Performed By: #### 7 600, 95211, 72617 #### [facility] of [address], [address] [place] [address] Heat Treatment Technician: Goyo Ivory MD BUN/CREATININE RATIO NOT APPLICABLE Normal 6-22 [facility] Comment on above: Performed By: #### 7 600, 27497, 62628 #### [facility] of [address], [address] [place] [address] Heat Treatment Technician: Goyo Ivory MD Calcium [Mass/Vol] 9.0 mg/dL Normal 8.6-10.2 [facility] Comment on above: Performed By: #### 7 600, 15107, 87325 #### [facility] [place] [address] Heat Treatment Technician: Goyo Ivory MD Chloride [Moles/Vol] 105 mmol/L Normal 98-110 [facility] Comment on above: Performed By: #### 7 600, 88215, 49336 #### [facility] of [place] [address] Heat Treatment Technician: Goyo Ivory MD CO2 [Moles/Vol] 25 mmol/L Normal 20-32 [facility] Comment on above: Performed By: #### 7 600, 40036, 62197 #### [facility] [place] [address] Heat Treatment Technician: Goyo Ivory MD Creatinine [Mass/Vol] 0.89 mg/dL Normal 0.50-1.10 [facility] Comment on above: Performed By: #### 7 600, 13539, 02321 #### [facility] [place] [address] Heat Treatment Technician: Goyo Ivory MD eGFR NON-AFR. BURMESE 83 mL/min/1.73m2 Normal > OR = 60 [facility] Comment on above: Performed By: #### 7 600, 87538, 39051 #### [facility] of [place] [address] Heat Treatment Technician: Goyo Ivory MD GFR/1.73 sq M.predicted among blacks MDRD (S/P/Bld) [Vol rate/Area] 96 mL/min/{1.73_m2} Normal > OR = 60 [facility] Comment on above: Performed By: #### 7 600, 94726, 11228 #### [facility] of [place] [address] Heat Treatment Technician: Goyo Ivory MD Globulin (S) [Mass/Vol] 2.5 g/dL Normal 1.9-3.7 [facility] Comment on above: Performed By: #### 7 600, 88247, 40269 #### [facility] [place] [address] Heat Treatment Technician: Goyo Ivory MD Glucose [Mass/Vol] 77 mg/dL Normal 65-99 [facility] Diagnostics Comment on above: Result Comment: Fasting reference interval Performed By: #### 7 600, 37978, 77481 #### [facility] [place] [address] Heat Treatment Technician: Goyo Ivory MD Potassium [Moles/Vol] 4.0 mmol/L Normal 3.5-5.3 [facility] Comment on above: Performed By: #### 7 600, 41151, 71614 #### [facility] [place] [address] Heat Treatment Technician: Goyo Ivory MD Protein [Mass/Vol] 7.0 g/dL Normal 6.1-8.1 [facility] Comment on above: Performed By: #### 7 600, 50770, 36780 #### [facility] [place] [address] Heat Treatment Technician: Goyo Ivory MD Sodium [Moles/Vol] 139 mmol/L Normal 135-146 [facility] Comment on above: Performed By: #### 7 600, 55940, 78912 #### [facility] [place] [address] Heat Treatment Technician: Goyo Ivory MD Urea nitrogen [Mass/Vol] 18 mg/dL Normal 7-25 [facility] Comment on above: Performed By: #### 7 600, 63882, 73791 #### [facility] [place] [address] Heat Treatment Technician: Goyo Ivory MD LIPID PANEL, STANDARD Cholesterol [Mass/Vol] 206 mg/dL High <200 [facility] Comment on above: Order Comment: FASTI NG:YES FASTING: YES Performed By: #### 7 600, 05237, 72692 #### [facility] [address], [address] [place] [address] Heat Treatment Technician: Goyo Ivory MD Cholesterol in HDL [Mass/Vol] 45 mg/dL Low > OR = 50 [facility] Comment on above: Order Comment: FASTI NG:YES FASTING: YES Performed By: #### 7 600, 72365, 36161 #### [facility] [address], [address] [place] [address] Heat Treatment Technician: Goyo Ivory MD Cholesterol in LDL [Mass/Vol] [...] LDL-C. Milton INMAN et al. CLARA. 2013;310(19): 2354-6341 (http://education.[employer]/faq/RDR884) Performed By: #### 7 600, 51828, 89508 #### [facility] [address], [address] [place] [address] Heat Treatment Technician: Goyo Ivory MD Cholesterol.total/C holesterol in HDL [Mass ratio] 4.6 {ratio} Normal <5.0 [facility] Comment on above: Order Comment: FASTI NG:YES FASTING: YES Performed By: #### 7 600, 48920, 86121 #### [facility] [address], [address] [place] [address] Heat Treatment Technician: Goyo Ivory MD NON HDL CHOLESTEROL 161 mg/dL (calc) High <130 [facility] Comment on above: Order Comment: FASTI NG:YES FASTING: YES Result Comment: For patients with diabetes plus 1 major ASCVD risk factor, treating to a non-HDL-C goal of <100 mg/dL (LDL-C of <70 mg/dL) is considered a therapeutic option. Performed By: #### 7 600, 06112, 46404 #### [facility] [place] [address] Heat Treatment Technician: Goyo Ivory MD Triglyceride [Mass/Vol] 170 mg/dL High <150 [facility] Comment on above: Order Comment: FASTI NG:YES FASTING: YES Performed By: #### 7 600, 28025, 20498 #### [facility] [address], [address] [place] [address] Heat Treatment Technician: Goyo Ivory MD TSH+FREE T4on 07-05-2021 Free T4 [Mass/Vol] 0.9 ng/dL Normal 0.8-1.8 [facility] Comment on above: Performed By: #### 7 600, 79008, 62632 #### [facility] [place] [address] Heat Treatment Technician: Goyo Ivory MD TSH Qn 1.38 m[IU]/L Normal [facility] Comment on above: Result Comment: Refe rence Range > or = 20 Years 0.40-4.50 Ranges First trimester 0.26-2.66 Second trimester 0.55-2.73 Third trimester 0.43-2.91 Performed By: #### 7 600, 12677, 38270 #### [facility] [place] [address] Heat Treatment Technician: Goyo Ivory MD [employer] 05-08-2021 Forms [id number] .[id number]:127 Normal [facility] [employer] 05-05-2021 Forms [id number] .[id number]:127 Normal [facility] Operative Reporton Operative Report [id number] .00CD:127 Normal [facility] Ambulatory Clinical Summaryo n 05-03-2021 Ambulatory Clinical Summary {[id number] Normal [facility] General Surgery Office/Clini c Noteon 05-03-2021 General [...] DIVINA Only if needed [address] [place] [address]- Additional Instructions: Problem List/Past Medical History Ongoing [...] 03/28/2021 Family History Family history is negative [facility] Comment on above: Result Comment: Elec tronically Signed By: MARCUS FOSS, Chris Brown\.br\Date and Time Signed: 05/03/21 21:19 EST Pathology Noteon 05-02-2021 Pathology Note [id number] .[id number]:127 Normal [facility] Lab Reportson 04-25-2021 Lab Reports [id number] .00CD:127 Normal [facility] Lab Reportson 04-19-2021 Lab Reports [id number] .[id number]:127 Normal [facility] Consent for Procedure/Surger yon 04-10-2021 Consent for Procedure/Surgery [id number] .[id number]:127 Normal [facility] General Surgery Office/Clini c Noteon 04-02-2021 General [...] Family History Family history is negative Normal [facility] Comment on above: Result Comment: Elec tronically Signed By: MARCUS FOSS, Chris Olguin\Date and Time Signed: 04/02/21 20:40 EDT Patient [...] including vitamins, herbs, eye drops, creams, and jlag-urm-uekguoa medicines. ? Any problems you or family [...] control your (more content not included)... Normal [facility] RAD - Ultrasound Reporton RAD - Ultrasound Report [id number] .00CD:127 Normal [facility] Ambulatory Clinical Summaryo n 02-07-2021 Ambulatory Clinical Summary {[id number]}CD:[id number] Normal [facility] ED Note-Physicianon 02-08-20 ED Note-Physician [id number] .00CD:127 [facility] Vital Signs Date Time Vital Sign Value Performing Clinician Facility 06-24-2024 16:32-0500 Body mass index (BMI) [Ratio] 41.02 kg/m2 Johnathon Ana DO Work Phone: [facility] 06-24-2024 16:32-0500 Body weight 108.41 kg Johnathon Ana DO Work Phone: [facility] 06-24-2024 16:32-0500 Diastolic blood pressure 84 mm[Hg] Johnathon Ana DO Work Phone: [facility] 06-24-2024 16:32-0500 Systolic blood pressure 124 mm[Hg] Johnathon Ana DO Work Phone: [facility] 05-18-2024 08:48-0500 Body mass index (BMI) [Ratio] 41.26 kg/m2 Johnathon Ana DO Work Phone: [facility] 05-18-2024 08:48-0500 Body weight 109.05 kg Johnathon Ana DO Work Phone: [facility] 05-18-2024 08:48-0500 Diastolic blood pressure 82 mm[Hg] Johnathon Ana DO Work Phone: [facility] 05-18-2024 08:48-0500 Systolic blood pressure 120 mm[Hg] Johnathon Ana DO Work Phone: [facility] 02-26-2024 16:00-0400 Body height 162.6 cm Flower Zepeda MD Work Phone: [facility] 02-26-2024 16:00-0400 Body mass index (BMI) [Ratio] 41.71 kg/m2 Flower Zepeda MD Work Phone: [facility] 02-26-2024 16:00-0400 Body weight 110.22 kg Flower Zepeda MD Work Phone: [facility] 02-26-2024 16:00-0400 Diastolic blood pressure 74 mm[Hg] Flower Zepeda MD Work Phone: [facility] 02-26-2024 16:00-0400 Systolic blood pressure 129 mm[Hg] Flower Zepeda MD Work Phone: [facility] 12-23-2023 11:55-0400 Body height 162.56 cm DO Vinny Curislong Work Phone: [facility] 12-23-2023 11:55-0400 Body mass index (BMI) [Ratio] 41 kg/m2 DO Vinny Furlong Work Phone: [facility] 12-23-2023 11:55-0400 Body temperature 98 [degF] DO Vinny Curislong Work Phone: [facility] 12-23-2023 11:55-0400 Body weight 108.4 kg DO Vinny Furlong Work Phone: [facility] 12-23-2023 11:55-0400 Diastolic blood pressure 79 mm[Hg] DO Vinny Furlong Work Phone: [facility] 12-23-2023 11:55-0400 Heart rate 84 /min DO Vinny Furlong Work Phone: [facility] 12-23-2023 11:55-0400 Respiratory rate 18 /min DO Vinny Furlong Work Phone: [facility] 12-23-2023 11:55-0400 SaO2% (BldA) [Mass fraction] 97 % DO Vinny Furlong Work Phone: [facility] 12-23-2023 11:55-0400 Systolic blood pressure 109 mm[Hg] DO Vinny Schwab Work Phone: [facility] 10-31-2021 18:40-0400 Body height 162.56 cm Sofia Salazar Other [employer] Other 10-31-2021 18:40-0400 Body mass index (BMI) [Ratio] 39.48 kg/m2 Sofia Salazar Other [employer] Other 10-31-2021 18:40-0400 Body temperature 98.2 [degF] Sofia Salazar Other [employer] Other 10-31-2021 18:40-0400 Body weight 104.33 kg Sofia Salazar Other [employer] Other 10-31-2021 18:40-0400 Respiratory rate 18 /min Sofia Salazar Other [employer] Other 10-31-2021 18:40-0400 SaO2% (BldA) [Mass fraction] 97 % Sofia Steelmond Other [employer] Other Encounters Encounter Date Encounter Type Care Provider Facility Start: 06-24-2024 End: 06-24-2024 Departed Referred Vinny Schwab DO Work Phone: [facility] Start: 06-24-2024 End: 06-24-2024 ambulatory JOHNATHON [facility] Work Phone: Start: 06-24-2024 End: 06-24-2024 Patient encounter procedure Johnathon Ana DO Work Phone: [facility] Comment on above: Pre-op examination; Request for sterilization; Menorrhagia with regular cycle; Abnormal uterine bleeding; Pelvic pain in female Start: 06-24-2024 End: 06-24-2024 Preprocedural examination done Johnathon Ana DO Work Phone: [facility] Start: 06-17-2024 End: 06-17-2024 Clinisync Result Encounter Johnathon Ana DO Work Phone: [facility] External Department Unsolicited Start: 06-17-2024 End: 06-17-2024 Clinisync Result Encounter Johnathon Ana DO Work Phone: [facility] External Department Unsolicited Start: 05-18-2024 End: 05-18-2024 Bamboo flowsheet Johnathon Ana DO Work Phone: [facility] Start: 05-18-2024 End: 05-29-2024 Bamboo flowsheet Johnathon Ana DO Work Phone: [facility] Start: 05-18-2024 End: 05-29-2024 Clinisync Result Encounter Johnathon Ana DO Work Phone: [facility] External Department Unsolicited Start: 05-18-2024 End: 05-18-2024 Patient encounter procedure Johnathon Ana DO Work Phone: [facility] Work Phone: Start: 05-18-2024 End: 05-18-2024 Periodic preventive med est patient 40-64yrs Johnathon Ana DO Work Phone: [facility] Comment on above: Well woman exam with routine gynecological exam; Breast cancer screening by mammogram; UTI symptoms; Menorrhagia with regular cycle; Request for sterilization; PCOS (polycystic ovarian syndrome); Hormone imbalance Start: 05-18-2024 End: 05-18-2024 ambulatory JOHNATHON ANA Not Available Start: 02-26-2024 End: 02-26-2024 ambulatory FLOWER CHOUS Not Available Start: 02-26-2024 End: 02-26-2024 Office [...] 12-23-2023 ambulatory DO Vinny Schwab Work Phone: [facility] Work Phone: Start: 12-23-2023 End: 12-23-2023 Patient encounter procedure DO Vinny Ayalang Work Phone: [facility] Work Phone: Start: 08-28-2023 End: 08-28-2023 ambulatory FLOWER ZEPEDA Not Available Start: 08-26-2023 Telephone encounter Vinny roberson DO Work Phone: [facility] Start: 08-05-2022 Encounter for genera l adult medical examination with abnormal findings DR MELO YE [facility] Start: 08-01-2022 End: 08-02-[address] MELO [...] 10-31-2021 End: 10-31-2021 ambulatory Sofia Salazar Other [place] [email or web address] Other Start: 10-31-2021 Office outpatient vi sit 25 minutes Sofia Salazar [facility] Procedures Date Procedure Procedure Detail Performing Clinician Start: 06-24-2024 Urine test visual color cmprsn meths [employer] Work Phone: Start: 06-17-2024 ALL CBC WITH AUTO DIFF [employer] Work Phone: Start: 05-18-2024 Urnls dip stick/tabl et rgnt non-auto w/o micrscp [employer] Work Phone: Start: 05-18-2024 IGP,APTIMA HPV,AGE GDLN [employer] Work Phone: Start: 12-23-2023 X-ray of left foot DO D [facility] [employer] Work Phone: Start: 05-14-2023 Cytp cerv/vag auto t hin layer prep mnl screen Brooke MARTIN Work Phone: Start: 07-11-2022 Adult depression scr eening assessment [employer] Phone: Start: 05-03-2022 Microscopic observat ion [Identifier] in Cervix by Cyto stain [employer] Work Phone: Plan of Treatment Date Care Activity Detail Author Start: 05-03-2025 Screening for malign ant neoplasm of cervix [facility] Start: 06-24-2024 End: 06-24-2024 Patient encounter procedure 06/24/2024 3:30 PM EST Procedure Visit [facility] [address] [place] [address] Johnathon Perez, DO [address] [place] [address] [facility] Start: 05-18-2024 End: 05-18-2025 aPTT in Blood by Coagulation assay APTT Lab Routine Menorrhagia with regular cycle Expected: 05/18/2024 (Approximate), Expires: 05/18/2025 [facility] Comment on above: Expected: 05/18/2024 (Approximate), Expires: 05/18/2025 Start: 05-18-2024 End: 05-18-2025 DHEA DHEA Lab Routine PCOS (polycystic ovarian syndrome) Expected: 05/18/2024 (Approximate), Expires: 05/18/2025 [facility] Comment on above: Expected: 05/18/2024 (Approximate), Expires: 05/18/2025 Start: 05-18-2024 End: 07-19-2025 MG Breast - bilateral Screening Bilateral screening mammogram Imaging Routine Breast cancer screening by mammogram Expected: 05/18/2024 (Approximate), Expires: 07/19/2025 [facility] Work Phone: Comment on above: Expected: 05/18/2024 (Approximate), Expires: 07/19/2025 Start: 05-18-2024 End: 05-18-2025 US for US PELVIS-TRANSVAG IF INDICATED Imaging Routine Menorrhagia with regular cycle Expected: 05/18/2024 (Approximate), Expires: 05/18/2025 [facility] Comment on above: Expected: 05/18/2024 (Approximate), Expires: 05/18/2025 Start: 05-18-2024 End: 05-18-2024 Patient encounter procedure [facility] Comment on above: Arrived Start: 02-02-2024 Influenza vaccination Influenza Vacc ine [facility] Start: 07-11-2023 Adult BMI Screening Adult BMI Screen ing [facility] Start: 07-11-2023 Depression Screening Depression Scre ening [facility] Start: 07-11-2023 Tobacco Screening Tobacco Screening [facility] Start: 12-20-2002 DTaP,Tdap and Td Vaccines (1 - Tdap) DTaP,Tdap and Td Vaccines (1 - Tdap) [facility] CBC W Auto Different ial panel - Blood CBC and differential Lab Routine Menorrhagia with regular cycle Ordered: 05/18/2024 [facility] Comment on above: Ordered: 05/18/2024 DHEA-sulfate DHEA-sulfate Lab Routine PCOS (polycystic ovarian syndrome) Ordered: 05/18/2024 [facility] Comment on above: Ordered: 05/18/2024 Estradiol Estradiol Lab Ro utine Menorrhagia with regular cycle Hormone imbalance Ordered: 05/18/2024 [facility] Comment on above: Ordered: 05/18/2024 Follicle stimulating hormone Follicle stimulating hormone Lab Routine PCOS (polycystic ovarian syndrome) Ordered: 05/18/2024 [facility] Comment on above: Ordered: 05/18/2024 hCG, quantitative, hCG, quantitative, Lab Routine Menorrhagia with regular cycle Ordered: 05/18/2024 [facility] Comment on above: Ordered: 05/18/2024 Hemoglobin A1c/Hemoglobin.total in Blood Hemoglobin A1c Lab Routine Menorrhagia with regular cycle Ordered: 05/18/2024 [facility] Comment on above: Ordered: 05/18/2024 Luteinizing hormone Luteinizing hormone Lab Routine PCOS (polycystic ovarian syndrome) Ordered: 05/18/2024 [facility] Comment on above: Ordered: 05/18/2024 Progesterone Progesterone Lab Routine Menorrhagia with regular cycle Hormone imbalance Ordered: 05/18/2024 [facility] Comment on above: Ordered: 05/18/2024 Prothrombin time (PT ) in Blood by Coagulation assay Protime-INR Lab Routine Menorrhagia with regular cycle Ordered: 05/18/2024 [facility] Comment on above: Ordered: 05/18/2024 THIN PREP TIS PAP AN D HR HPV DNA THIN PREP TIS PAP AND HR HPV DNA Pathology and Cytology Routine Well woman exam with routine gynecological exam Ordered: 05/18/2024 [facility] Comment on above: Ordered: 05/18/2024 Thyrotropin [Units/volume] in Serum or Plasma TSH Lab Routine Menorrhagia with regular cycle Ordered: 05/18/2024 [facility] Comment on above: Ordered: 05/18/2024 Thyroxine (T4) free [Mass/volume] in Serum or Plasma T4, free Lab Routine Menorrhagia with regular cycle Ordered: 05/18/2024 [facility] Comment on above: Ordered: 05/18/2024 Tissue exam Tissue exam Path ology and Cytology Routine Menorrhagia with regular cycle Ordered: 06/24/2024 [facility] Work Phone: Comment on above: Ordered: 06/24/2024 Immunizations Immunization Date Immunization Notes Care Provider Manny andrews 03-15-2021 influenza, high dose seasonal, preservative-free Vinny Furlong DO Work Phone: [facility] [employer] [facility] 03-15-2021 influenza virus vaccine, unspecified formulation Vinny Furlong DO Work Phone: [facility] [employer] [facility] 04-14-2020 influenza, high dose seasonal, preservative-free Vinny Furlong DO Work Phone: [facility] [employer] [facility] 05-15-2019 influenza, seasonal, injectable Vinny Furlong DO Work Phone: [facility] Payers Date Payer Category Payer Private Health Insurance [employer] [id number] 2020 Unknown [id number] 1983 Unknown [id number] [id number] .2.593 1983 Unknown [id number] 2.16.840.1.885233.3.579 .2.593 1983 Unknown [id number] 2.16.840.1.396050.3.579 .2.593 1983 Unknown [id number] 2.16.840.1.257045.3.579 .2.593 1983 Unknown [id number] 2.16.840.1.663845.3.579 .2.593 1983 Unknown [id number] 2.16.840.1.043721.3.579 .2.593 1983 Unknown [id number] 2.16.840.1.183965.3.579 .2.1259 1983 Unknown [id number] 2.16.840.1.886229.3.579 .2.1259 1983 Unknown [id number] 2.16.840.1.063077.3.579 .2.9 1983 Unknown [id number] 2.16.840.1.710849.3.579 .2.1259 1959 Self-pay 1959 Unknown [id number] Unknown [id number] 2.16.840.1.374282.3.579 .2.531 Unknown [id number] 2.16.840.1.386240.3.579 .2.531 Social History Date Type Detail Facility Unknown if ever smoked [employer] Other Start: 07-11-2022 End: 02-26-2024 Sex Assigned At [facility] [employer] [facility] Start: 04-25-2022 End: 02-11-2023 Tobacco smoking status NHIS Never smoked tobacco [facility] Start: 04-25-2022 End: 02-11-2023 Tobacco use and exposure Smokeless tobacco non-user [facility] Start: 07-11-2022 End: 05-18-2024 Alcohol intake Ex-drinker (finding) [facility] [employer] [facility] Start: 07-11-2022 End: 02-26-2024 History of Social function [facility] Adolescent depressio n screening assessment 0 [facility] Start: 1985 Sex Assigned At Not on file [facility] [employer] Start: 1985 Sex Assigned At Female F [facility] How often to you hav [...] e: 1-2 cups per day [facility] Start: 06-26-2024 Sex Patient sex un known (finding) [facility] Clinical Notes 03-17-2021 to 06-24-2024 Laney Trevinowilver - 06/24/2024 3:30 PM Gurpreet Mobley LPN - 05/18/2024 8:30 AM Karla Zepeda MD - 02/26/2024 3:50 PM EDTTelephone Encounter - Sue Alves - 08/26/2023 11:11 AM EDT Note Date & Type Note Facility 06-24-2024 History of Presen t illness Narrative Reason for Appointment: Patient ID: Steph Rizo is a 38 y.o. female who presents for Pre-op Visit and EMBX Patient presents today for Pre Op/Endometrial Biopsy appointment. Patient is scheduled to undergo Da Kadie assisted Bilateral Laparoscopic Salpingectomy and Endometrial Ablation with Liana on 07/24/[address] Perez at [facility]. MEDICATIONS Current Outpatient Medications Medication Instructions omeprazole [...] W IMAGING GUIDANCE 07/17/2021 thyroid HERNIA REPAIR 1999 TONSILLECTOMY REVIEW OF SYSTEMS Review of Systems: Review of Systems Constitutional: Negative. HENT: Negative. Eyes: Negative. Respiratory: Negative. Cardiovascular: Negative. Gastrointestinal: Negative. Genitourinary: Positive for menstrual problem and pelvic pain. Musculoskeletal: Negative. Skin: Negative. Neurological: Negative. All other systems reviewed and are negative. Hematological: Negative. Endocrine: Negative. Allergic/Immunologic: Negative. OBJECTIVE Objective: Physical Exam Constitutional: Appearance: Normal appearance. She is well-developed. Genitourinary: Vulva normal. Cardiovascular: Rate and Rhythm: Normal rate and [...] nursing note reviewed. Exam conducted with a textile artist present. Vitals: Estimated body mass index is 41.26 kg/m as calculated from the following: Height as of 02/26/24: 5' 4 . Weight as of 05/18/24: 240 lb 6.4 oz. BP: No LMP recorded. ASSESSMENT & PLAN ICD-10-CM 1. Pre-op examination Z01.818 2. Request for sterilization Z30.2 3. Menorrhagia with regular cycle N92.0 POCT , urine manually resulted Tissue exam 4. Abnormal uterine bleeding N93.9 5. Pelvic pain in female R10.2 EMBX: Patient was placed in dorsal lithotomy position with feet in stirrups. A sterile speculum was placed into the vagina and the cervix was visualized. The cervix was grasped with a single tooth tenaculum. The endometrial pipette was placed through the cervix into the uterus, endometrial curettage was performed and sampling was obtained, endometrial curettings were placed in formalin, and single tooth tenaculum was removed. Excellent hemostasis was assured. All instruments were removed from vagina. Pre Op: Patient is doing well but has desire for sterilization and has complaints of bleeding and pelvic pain. Patient has tried hormone therapy in the past but all attempts to subside patients issues of bleeding have failed. I have discussed conservative management vs. surgical management with the patient in detail and patient desires surgical management at this time. Patient has voiced understanding that a Bilateral Salpingectomy is considered to be permanent and patient will undergo Da Kadie assisted Bilateral Laparoscopic Salpingectomy & Endometrial Ablation with Liana on 07/24/2024. Surgical consents were signed, mmc was reviewed, and patient is to proceed to [facility] OR. Follow Up: Patient is to follow up between 1-2 weeks post op to assess proper healing and recovery from procedure. Documented by Laney Lamar on behalf of: Johnathon Perez DO documented in this encounter [facility] 05-18-2024 History of Presen t illness Narrative [...] nursing note reviewed. Exam conducted with a textile artist present. Vitals: Estimated body mass index is [...] Johnathon Perez DO documented in this encounter [facility] 02-26-2024 History of Presen t illness Narrative Subjective Patient ID: Steph Rizo is a 38 y.o. female who presents for Thyroid Nodule (6 mo follow up with ultrasound, [facility] 02/20/24) Thyroid US shows a [id number] RT TR4 nodule compared to [id number] in early 2021 Family History Problem Relation [...] if still stable [facility] Systems 08-26-2023 Miscellaneous Notes Formattin g of this note might be different from the original. ----- Message from Vinny Schwab DO sent at 08/22/2023 12:36 PM EDT ----- Regarding: Wellness Please set up. She usually sees [facility] documented in this encounter [facility] 08-26-2023 Telephone encount er Note ----- Message from Vinny Schwab DO sent at 08/22/2023 12:36 PM EDT ----- Regarding: Wellness Please set up. She usually sees [facility] 10-31-2021 Evaluation note Encounter Date Diagnosis Assessment Notes October, Sore throat (ICD-10 - J02.9) October, Viral upper respiratory infection (ICD-10 - J06.9) Drink plenty fluids, get plenty of rest. Take Tylenol or Motrin for aches pains or fevers. Consider taking Mucinex or Sudafed for your drainage. Follow-up with your family physician if no improvement in 2 to 3 days [facility] Other 10-15-2021 NoteChief Complaint consultation for abdominal pain HPI Staff 35 year old female presents on consultation from [facility] for abdominal pain. History of Present Illness 35 yo female, 9 weeks ; referred from ED for episode of upper abd pain; seen 2 days ago in ED at [facility] for sudden onset of upper abdominal [...] data available Patient Education Laparoscopic Cholecystectomy Cholelithiasis, [id number] Problem List/Past Medical History Ongoing Biliary colic [...] Use:., 02/07/2021 Family History Family history is negativeBlanch[facility] SystemComment on above:Result Comment: Electronically Signed By: MARCUS FOSS, Chris Olguin\Date and Time Signed: 03/17/21 15:37 EDTEvaluation note* Diagnosis Onset Date Resolution Status Left foot pain acute [facility] Work Phone: Evaluation note* Diagnosis Well woman exam with routine gynecological exam Routine gynecological examination Breast cancer screening by mammogram UTI symptoms Menorrhagia with regular cycle Request for sterilization PCOS (polycystic ovarian syndrome) Polycystic ovaries Hormone imbalance [facility]* Diagnosis Nontoxic single thyroid nodule (CMS/HCC)- Primary Nontoxic uninodular goiter documented [facility] noteNo assessment information [facility] Work Phone: Evaluation note* Diagnosis Pre-op examination Request for sterilization Menorrhagia with regular cycle Abnormal uterine bleeding Unspecified disorder of menstruation and other abnormal bleeding from female genital tract Pelvic pain in female Unspecified symptom associated with female genital organs documented [facility] this [facility] Narrative - Reported* Type Description Date Surgical History hernia repair Surgical History t and a Surgical History D&C Surgical History cholecystectomy 04/23 Hospitalization History childbirth 2017 [facility] Other InstructionsNot on filedocumented in this encounter [facility] Summary Purpose Family History No Family History Records FoundNo Family History Records FoundNo Family History Records FoundNo Family History Records FoundNo Family History Records Found Advance Directives Advance Directive Response Recorded Date/ Time Advance Directives No June 08, 2019 1:56pm Advance Directive Response Recorded Date/ Time Advance Directives No June 08, 2019 12:56pm Chief Complaint and Reason for Visit Chief Complaint left ankle/foot pain w fall from 1month M79.672 - Pain in left foot Reason for Visit Left foot pain Chief Complaint Admit Date Unknown June 24, 2024 4 :06pm Additional Source Comments INFORMATION SOURCE (unrecogn ized section and content) DATE CREATED AUTHOR 07/05/2021 [facility] DATE CREATED AUTHOR AUTHOR'S ORGANIZ ATION 07/28/2021 [facility] DATE CREATED AUTHOR AUTHOR'S ORGANIZ ATION 08/07/2022 [facility] DATE CREATED AUTHOR AUTHOR'S ORGANIZ ATION 06/26/2024 [facility] DATE CREATED AUTHOR AUTHOR'S ORGANIZ ATION 06/27/2024 [facility] REASON FOR VISIT (unrecogniz ed section and content) Reason Comments Well Women Visit Reason Comments Thyroid Nodule 6 mo follow up with ultrasound, [facility] 02/20/24 Reason Comments Pre-op Visit [facility] Care Teams (unrecognized sec tion and content) Skidder Loader Relationship Specialty Start Date End Date Vinny Schwab DO [address] [place] [address] PCP - General Family Medicine 07/26/20 Team Status: Active Member Role Status Dates Vinny Schwab DO Primary Care Provider Active Team Status: Inactive Member Role Status Dates Vinny Schwab DO Primary Care Provider Active Start: December 23, 2023 End: December 23, 2023 Shelli Prakash APRN Attending Provider Active S tart: December 23, 2023 End: December 23, 2023 Skidder Loader Relationship Specialty Start Date End Date Vinny Schwab MD [address], [place] [address] PCP - General Family Medicine 01/11/23 Skidder Loader Relationship Specialty Start Date End Date Vinny Schwab MD [address], [place] [address] PCP - General Family Medicine 01/11/23 Skidder Loader Relationship Specialty Start Date End Date Vinny Schwab MD [address], [place] [address] PCP - General Family Medicine 01/11/23 Skidder Loader Relationship Specialty Start Date End Date Vinny Schwab MD [address], [facility] [address] PCP - General Family Medicine 01/11/23 Team Status: Inactive Member Role Status Dates Vinny Schwab DO Primary Care Provider Active Start: June 24, 2024 End: June 24, 2024 Johnathon Perez DO Attending Provider Active Start : June 24, 2024 End: June 24, 2024 Skidder Loader Relationship Specialty Start Date End Date Vinny Schwab MD [address], [facility] [address] PCP - General Family Medicine 01/11/23 Goals [...] BE BASED ON THE PRIMARY CLINICAL RECORDS. [employer] [facility]. provides no warranty or guarantee of the accuracy or completeness of information in this document.
== END 2024-06-24 15:35 | disposition home or self-care (01) ==
LOC: LAB 15:34
PROVIDERS: Visit Provider Obstetrics & Gynecology
DX: N92.0 Excessive and frequent menstruation with regular cycle (principal)
CPT/HCPCS: 88305

== ENCOUNTER 2024-07-28 14:26 | Outpatient (OUT) | payer OTHER, SELFPAY ==
--- NOTE | 2024-07-28 14:51 | PM.PRESUREVA ---
History of Present Illness History of Present Illness Chief complaint: Request sterilization, menorrhagia, AUB, Pelvic Pa Narrative: Patient presents for presurgical testing. The patient requests sterilization and also complains of heavy painful periods. The patient denies any fever, dysuria, hematuria, or any other complaints. Review of Systems ROS Narrative REVIEW OF SYSTEMS: Negative except as stated in HPI, ten or more systems reviewed. Constitutional: No fever, chills, weakness ENT: No sore throat or epistaxis Cardiovascular: No edema, chest pain, palpitations, or activity intolerance Respiratory: No shortness of breath, cough, or wheezing Musculoskeletal: No joint pain or swelling Gastrointestinal: No constipation, diarrhea, or vomiting Genitourinary: No dysuria or hematuria Neurological: No numbness, tingling, weakness, or headache Psychiatric: No mood changes PFSH PFS Medical History (Updated 07/28/24 @ 14:41 by Adry Felix NP) Low iron ?E61.1 - Iron deficiency (ICD-10) Headache ?R51.9 - Headache, unspecified (ICD-10) PCOS (polycystic ovarian syndrome) ?E28.2 - Polycystic ovarian syndrome (ICD-10) COVID-19 ?U07.1 - COVID-19 (ICD-10) Anxiety ?F41.9 - Anxiety disorder, unspecified (ICD-10) Thyroid nodule ?E04.1 - Nontoxic single thyroid nodule (ICD-10) Psoriasis ?L40.9 - Psoriasis, unspecified (ICD-10) Pelvic pain ?R10.2 - Pelvic and perineal pain (ICD-10) Abnormal uterine bleeding (AUB) ?N93.9 - Abnormal uterine and vaginal bleeding, unspecified (ICD-10) Menorrhagia ?N92.0 - Excessive and frequent menstruation with regular cycle (ICD-10) Request for sterilization ?Z30.2 - Encounter for sterilization (ICD-10) Surgical History (Updated 07/28/24 @ 14:38 by Adry Felix NP) History of cholecystectomy ?Z90.49 - Acquired absence of other specified parts of digestive tract (ICD-10) S/P tonsillectomy and adenoidectomy ?Z90.89 - Acquired absence of other organs (ICD-10) History of hernia repair ?Z98.890 - Other specified postprocedural states (ICD-10) ?Z87.19 - Personal history of other diseases of the digestive system (ICD-10) S/P thyroid biopsy ?Z98.890 - Other specified postprocedural states (ICD-10) H/O dilation and curettage ?Z98.890 - Other specified postprocedural states (ICD-10) Family History (Updated 07/28/24 @ 14:41 by Adry Felix NP) Other Family history of diabetes mellitus Family history of skin cancer Family history of stroke Social History (Updated 07/28/24 @ 14:37 by Adry Felix NP) Within the past year, how often did you have a drink containing alcohol: monthly or less Smoking status: Never smoker Non-prescribed substance use: denies use 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 Highest level of school completed/degree received: Bachelor's degree Meds Home Medications and Allergies Home Medications ?Medication ?Instructions ?Recorded ?Confirmed ?Type perfluorohexyloctane (PF) 100 % 1 drp ophthalmic (eye) DAILY 07/28/24 07/28/24 History eye drops (Miebo (PF)) Allergies Allergy/AdvReac Type Severity Reaction Status Date / Time ciprofloxacin AdvReac Headache Verified 07/28/24 14:35 Exam Narrative Exam Narrative: Constitutional: Awake, alert, comfortable, well-appearing, nontoxic, interactive, vital signs as charted Head: Normocephalic, atraumatic Neck: Supple, normal appearance, normal range of motion, no meningeal signs, no lymphadenopathy Respiratory: No respiratory distress, breath sounds clear Cardiovascular: Regular rate and rhythm, strong and regular heart tones Abdomen: Nontender, normal bowel sounds, soft, no CVA tenderness Musculoskeletal: Normal gait, no swelling or edema Skin: No rashes or induration, no lesions, only visible skin inspected Neuro: No neurological deficits, normal sensation Psychiatric: Oriented ?3, normal affect Assessment and Plan Assessment and Plan (1) Request for sterilization: (2) Menorrhagia: (3) Abnormal uterine bleeding (AUB): (4) Pelvic pain: Plan Robot-assisted bilateral laparoscopic salpingectomy and endometrial ablation/Liana scheduled with Dr. Perez August 07, 2024.
== END 2024-07-28 14:27 | disposition home or self-care (01) ==
LOC: PST 14:26
PROVIDERS: Visit Provider Obstetrics & Gynecology
DX: Z01.818 Encounter for other preprocedural examination (principal); N92.0 Excessive and frequent menstruation with regular cycle; N93.9 Abnormal uterine and vaginal bleeding, unspecified; R10.2 Pelvic and perineal pain
CPT/HCPCS: G0463

== ENCOUNTER 2024-08-07 06:56 | Day surgery (SDC) | payer OTHER, SELFPAY ==
[2024-07-28 14:49] VITALS: BP 122/86; PULSE 92; TEMP 36.4; O2SAT 98; BMI 41.3
[2024-08-07] VITALS (12 sets, daily range): BP systolic 115–134; BP diastolic 68–81; PULSE 73–109; TEMP 36–36.3; O2SAT 97–100; BMI 40.3
--- OUTSIDE RECORDS SUMMARY | 2024-08-07 06:59 | XMS_ITS | CCD ---
Author Organization [facility] Care Team Providers Care Professional Tutor Name Role Phone Sofia Salazar Unavailable ANA ., DR DIEGO Attending Unavailable ANA ., DR DIEGO Admitting Unavailable FURLONG, DR VINNY Garrett Primary Care Unavailable ANA ., DR DIEGO Consulting Unavailable TIMMIS, DR LARSEN Admitting Unavailable TIMMIS, DR LARSEN Consulting Unavailable TIMMIS, DR LARSEN Attending Unavailable FURLONG, DR VINNY Garrett Primary Care Unavailable APULIA STATION, DR DIVYA Tatum Consulting Unavailable KUNS, DR [...] Unavailable ANA ., DR DIEGO Admitting Unavailable Furlong, DO Casillas Primary Care Provider KATEY Prakash Attending Provider [phone] Vinny Schwab MD Primary Care Provider JOHNATHON PEREZ Attending Unavailable TIMMISFLOWER Attending Unavailable TIMMISFLOWER Attending Unavailable JOHNATHON PEREZ Attending Unavailable Furlong Vinny LOZANO Primary Care Provider [phone] Johnathon Perez DO Attending Provider [phone] Johnathon Perez Admitting Unavailable FurloVinny william Primary Care Unavailable Johnathon Perez Attending Unavailable Shelli Prakash Attending Unavailable Shelli Prakash Admitting Unavailable Vinny Schwab Primary Care Unavailable Vinny Schwab DO Primary Care Provider Allergies Allergy Classification Reported Allergen(s) Allergy Type Date of Onset Reaction(s) Facility (11 sources) Ciprofloxacin Drug Allergy 04-25-2022 Headache [facility] Work Phone: Medications Current Medications Medication Drug Class(es) Dates Sig (Normalized) Sig (Original) calcipotriene 0.05 mg/ml topical cream (2 sources) Vitamin D Analog Start: 04-25-20 calcipotriene (DOVONEX) [...] omeprazole 20 mg delayed release oral capsule (11 sources) Proton Pump Inhibitor Start: 07-11-19 23 take 1 capsule by mouth in the morning omeprazole (PriLOSEC) [address] capsule Take 20 mg by mouth in the morning. 07/11/2022 Active Perfluorohexyloctane (Pf) (2 sources) Start: 12-23-19 24 Perfluorohexyloctane (Pf) (Miebo) 100 % drops Active [...] tablet Discontinued 1 TAB PO Twice daily 22 03August 19, 2023 11:00pm December 23, 2023 10:53am [...] Active triamcinolone acetonide 1 mg/ml topical cream (8 sources) Corticosteroid Start: 07-02-2022 End: 05-18-2024 triamcinolone (Kenalog) 0.1 % cream Apply 1 application topically in the morning and 1 application before bedtime. 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 02-11-2023 Chronic Other inflammatory condition of skin (2 sources) Psoriasis; Translations: [Psoriasis, unspecified] Onset: 07-11-2022 07-11-2022 Chronic Other nutritional; endocrine; and metabolic disorders (2 sources) Obesity; Translations: [Obesity, unspecified] Onset: 03-08-2022 03-08-2022 Chronic Other nutritional; endocrine; and metabolic disorders (2 sources) Body mass index 30+ - obesity; Translations: [Obesity, unspecified] Onset: 04-25-2022 04-25-2022 Chronic Other screening for suspected conditions (not mental disorders or infectious disease) (6 sources) Encounter for screening for malignant neoplasm of cervix; Translations: [Patient encounter status] Onset: 05-14-2022 Episodic Thyroid disorders (20 sources) Nontoxic single thyroid nodule; Translations: [Non-toxic uninodular goiter] Onset: 03-08-2022 Chronic Urinary tract infections (1 source) Lower urinary tract infectious disease; Translations: [UTI (lower urinary tract infection)] Episodic Past or Other Problems Problem Classification Problem Date Documented Date Episodic/Chronic Biliary tract disease (6 sources) Biliary colic; Translations: [Calculus of bile duct without cholangitis or cholecystitis without obstruction] Onset: 03-08-2022 03-08-2022 Episodic Mood disorders (2 sources) Mood disorders Onset: 07-11-2022 07-11-2022 Other connective tissue disease (2 sources) Pain in left foot; Translations: [Pain in limb] Onset: 12-23-2023 12-23-2023 Episodic Other skin disorders (9 sources) Eruption; Translations: [Rash and other nonspecific skin eruption] Onset: 02-11-2023 02-11-2023 Episodic Other upper respiratory infections (2 sources) Acute pharyngitis, unspecified; Translations: [Acute upper respiratory infection, unspecified] Onset: 10-31-2021 Resolved: 10-31-2021 Episodic Sprains and strains (2 sources) Strain of neck muscle; Translations: [Strain of muscle, fascia and tendon at neck level, initial encounter] Onset: 03-08-2022 03-08-2022 Episodic Results Test Name Value Interpretation Reference Range Facility HCG ( test) Ql (U)o n 06-24-2024 Interpretation and review of laboratory results Normal [facility] re Preg Test, Ur Negative Negative [facility] e ALL CBC WITH AUTO DIFFon BASOPHILS ABSOLUTE AUTO 0 [facility] Basophils/100 WBC (Bld) 0.7 % 0.2 - 2.0 % [facility] Eosinophils/100 WBC (Bld) 1.7 % 0.9 - 7.0 % [facility] Erythrocyte distribution width (RBC) [Ratio] 12.4 % 11.0 - 15.0 % [facility] Hematocrit (Bld) [Volume fraction] 40.2 % 36.0 - 48.0 % Located within [facility] e Hemoglobin (Bld) [Mass/Vol] 13.2 g/dL 12.0 - 16.0 g/dL [facility] IMMATURE GRANULOCYTES ABS AUTO 0 [facility] Immature granulocytes/100 WBC (Bld) 0 % 0.0 - 0.5 % [facility] Interpretation and review of laboratory results Abnormal [facility] re LYMPHOCYTES ABSOLUTE AUTO 2.6 [facility] Lymphocytes/100 WBC (Bld) 47.4 % 20.5 - 60.0 % [facility] MCH (RBC) [Entitic mass] 29.1 pg 26.7 - 34.0 pg [facility] MCHC (RBC) [Mass/Vol] 32.8 g/dL 29.9 - 35.2 g/dL [facility] MCV (RBC) [Entitic vol] 88.5 fL 81.0 - 99.0 fL [facility] MONOCYTES ABSOLUTE AUTO 0.2 Low [facility] Monocytes/100 WBC (Bld) 4.4 % 1.7 - 12.0 % [facility] NEUTROPHILS ABSOLUTE AUTO 2.5 [facility] Neutrophils/100 WBC (Bld) 45.8 % 43.0 - 75.0 % [facility] Platelet mean volume (Bld) [Entitic vol] 9 fL Low 9.5 - 13.5 fL [facility] TBH EO # 0.1 [facility] Health[facility] TBH PLT 268 [facility] RBC 4.54 [facility] WBC 5.4 [facility] [employer]car e IGP,APTIMA HPV,AGE GDLNon AGE GDLN ACOG TESTING Note . [facility] Comment on above: TESTS RESULT FLAG UN ITS REF RANGE LAB Clinician Provided Cytology Information Source.............Cervix;Endocervix No. of containers..01 ThinPrep Vial Age Algo ACOG Olivia... 30-65 01 FLAG LEGEND: L-Low Normal,H-High Normal,LL-Alert Low,HH-Alert High <-Panic Low,>-Panic High,A-Abnormal,AA-Critical Abnormal Performed at: 01 =G [address] [address] Shanita Iqbal MD, HPV APTIMA Negative Negative Located within [facility] e Comment on above: This nucleic acid am plification test detects fourteen high- risk HPV types (16,18,31,33,35,39,45,51,52,56,58,59,66,68) without differentiation. Performed at: =G - [facility] [id number] [employer] Driver: Shanita Iqbal MD, Phone: [phone] Performed at: - [facility] [address] [facility], [place] [id number] [employer] Driver: Shanita Iqbal MD, Phone: [phone] IGP, APTIMA HPV, RFX 16/18,45 Note . [facility] Comment on above: TESTS RESULT FLAG U NITS REF RANGE LAB DIAGNOSIS: 02 UNSATISFACTORY FOR EVALUATION. SPECIMEN REPROCESSED FOR INTERPRETATION USING GLACIAL ACETIC ACID (GAA). MENSTRUAL SMEAR PATTERN IS PRESENT. Recommendation: 02 Suggest follow up as clinically appropriate. Specimen adequacy: 02 Specimen processed and examined but unsatisfactory for evaluation of epithelial abnormality because of obscuring blood. Performed by: 02 Dakota Salazar, Final Inspection Supervisor (ASC) QC reviewed by: 02 Meenu Rodriguez, Supervisory Final Inspection Supervisor (ASC) . 02 Note: Note 02 The Pap [...] Low,>-Panic High,A-Abnormal,AA-Critical Abnormal Performed at: 02 WB [facility] [address] [place] [address] Shanita Iqbal MD, BRUSH-SPATULA CERVIX ENDOCERVIX [facility] Urinalysis macro (dipstick) panel (U)on 05-18-2024 Bilirubin, UA Negative Negative - 4(70) +++ mg/dL [facility] Blood, UA Positive Negative - 50 Darin/mcL [facility] Comment on above: large Clarity, UA Clear [facility] Color, UA Yellow [facility] [employer] Glucose, UA Negative Negative - 1999(110) ++++ mg/dL [facility] Interpretation and review of laboratory results Abnormal [facility] Ketones, UA Negative Negative - 160(16) ++++ mg/dL [facility] Leukocytes, UA Negative Negative - 500+++ Ok/mcL [facility] Nitrite, UA Negative Negative - Positive [facility] pH, UA 6 5 - 9 [facility] Protein, UA Negative Negative - 1999(20) ++++ mg/dL [facility] Spec Grav, UA 1.02 1 - 1.03 [facility] care Urobilinogen, UA 0.2 0.2 - 12 mg/dL [facility] XR foot LT min 3V*on 024 XR foot LT min 3V* [facility] Main [address] [address] XRay Report Signed Patient: Steph Rizo MR#: [id number] 22 : 1985 Acct:[id number] Age/Sex: 38 / F ADM Date: 12/23/23 Loc: XDUCLY Room: Type: [facility] Attending Dr: Shelli Prakash APRN Copies to: [...] SPURRING. Impression dictated by: Miguel Valdez Jr., DSamuelOSamuel12/23/2023 12:27 PM Dictation Location: [place] [address] Transcribed By: [facility] 12/23/23 1227 Dictated By: Miguel Valdez Jr, DO 12/23/23 1225 Signed By: 12/23/23 1227 Normal [facility] Cytology Cervical or vaginal smear or scraping studyOrdered By: Carmela Vogel on 05-14-2023 [facility] LIPID PROFILEon 08-01-2022 CHOL-HDL RATIO NORM SEE BELOW Normal [facility] Comment on above: Result Comment: 3.3 - 4.4 LOW RISK 4.4 - 7.1 AVERAGE RISK 7.1 - 11.0 MODERATE RISK >11.0 HIGH RISK Performed By: #### L IPID, CMP #### [facility] [address] [address] [address] Kiarra Landry Cholesterol [Mass/Vol] 184 mg/dL Normal <=200 [facility] Comment on above: Performed By: #### L IPID, CMP #### [facility] [address] [address] [address] Kiarra Landry Cholesterol in HDL [Mass/Vol] 44 mg/dL Normal 40-60 [facility] Comment on above: Performed By: #### L IPID, CMP #### [facility] [address] [place] [address] [address] Kiarra Landry Cholesterol in LDL [Mass/Vol] 115.0 mg/dL Normal [facility] Comment on above: Performed By: #### L IPID, CMP #### [facility] [address] [address] [address] Kiarra Landry Cholesterol.total/C holesterol in HDL [Mass ratio] 4.2 {ratio} Normal [facility] Comment on above: Performed By: #### L IPID, CMP #### [facility] [address] [address] [address] Kiarra Landry HDL NORMAL > or = 60 mg/dl - LO W CARDIOVASCULAR RISK <40 mg/dl - HIGH CARDIOVASCULAR RISK Normal [facility] Comment on above: Performed By: #### L IPID, CMP #### [facility] [address] [place] [address] Dr. Kiarra Landry LDL CALC NORMAL SEE BELOW Normal [facility] Comment on above: Result Comment: <100 mg/dl OPTIMAL 100 - 129 mg/dl NEAR OR ABOVE OPTIMAL 130 - 159 mg/dl BORDERLINE HIGH 160 - 189 mg/dl HIGH >190 mg/dl VERY HIGH Performed By: #### L IPID, CMP #### [facility] [address] [place] [address] Dr. Kiarra Landry Triglyceride [Mass/Vol] 125 mg/dL Normal <=150 [facility] Comment on above: Performed By: #### L IPID, CMP #### [facility] [address] [place] [address] Dr. Kiarra Landry VLDL CALC 25.0 mg/dL Normal [facility] Comment on above: Performed By: #### L IPID, CMP #### [facility] [address] [place] [address] Dr. Kiarra Landry PROF 14(COMP METB)on 023 Albumin [Mass/Vol] 4.0 g/dL Normal 3.4-5.0 [facility] Comment on above: Performed By: #### L IPID, CMP #### [facility] [address] [place] [address] Dr. Kiarra Landry Albumin/Globulin [Mass ratio] 1.2 {ratio} Normal [facility] Comment on above: Performed By: #### L IPID, CMP #### [facility] [address] [address] [address] Kiarra Landry ALP [Catalytic activity/Vol] 68 U/L Normal 46-116 [facility] Comment on above: Performed By: #### L IPID, CMP #### [facility] [address] [place] [address] [address] Kiarra Landry ALT [Catalytic activity/Vol] 61 U/L Critically high 14-59 [facility] Comment on above: Performed By: #### L IPID, CMP #### [facility] [address] [place] [address] [address] Kiarra Landry Anion gap [Moles/Vol] 10.6 mmol/L Normal [facility] Comment on above: Performed By: #### L IPID, CMP #### [facility] [address] [place] [address] Dr. Kiarra Landry AST [Catalytic activity/Vol] 28 U/L Normal 15-37 [facility] Comment on above: Performed By: #### L IPID, CMP #### [facility] [address] [address] [address] Kiarra Landry Bilirubin [Mass/Vol] 0.4 mg/dL Normal 0.2-1.0 [facility] Comment on above: Performed By: #### L IPID, CMP #### [facility] [address] [place] [address] [address] Kiarra Landry Calcium [Mass/Vol] 8.6 mg/dL Normal 8.5-10.1 [facility] Comment on above: Performed By: #### L IPID, CMP #### [facility] [address] [place] [address] [address] Kiarra Landry Chloride [Moles/Vol] 101 mmol/L Normal 98-107 [facility] Comment on above: Performed By: #### L IPID, CMP #### [facility] [address] [place] [address] [address] Kiarra Landry CO2 [Moles/Vol] 27.9 mmol/L Normal 21.0-32.0 [facility] Comment on above: Performed By: #### L IPID, CMP #### [facility] [address] [address] [address] Kiarra Landry Creatinine [Mass/Vol] 0.80 mg/dL Normal 0.55-1.02 [facility] Comment on above: Performed By: #### L IPID, CMP #### [facility] [address] [address] [address] Kiarra Landry EGFR-AF [place] >60 Normal >=60 [facility] Comment on above: Performed By: #### L IPID, CMP #### [facility] [address] [address] [address] Kiarra Landry EGFR-NON AF [place] >60 Normal >=60 [facility] Comment on above: Performed By: #### L IPID, CMP #### [facility] [address] [address] [address] Kiarra Landry Globulin (S) [Mass/Vol] 3.3 g/dL Normal [facility] Comment on above: Performed By: #### L IPID, CMP #### [facility] [address] [place] [address] [address] Kiarra Landry Glucose [Mass/Vol] 81 mg/dL Normal 74-106 [facility] Comment on above: Performed By: #### L IPID, CMP #### [facility] [address] [place] [address] [address] Kiarra Landry Potassium [Moles/Vol] 3.5 mmol/L Normal 3.5-5.1 [facility] Comment on above: Performed By: #### L IPID, CMP #### [facility] [address] [place] [address] [address] Kiarra Landry Protein [Mass/Vol] 7.3 g/dL Normal 6.4-8.2 [facility] Comment on above: Performed By: #### L IPID, CMP #### [facility] [address] [address] [address] Kiarra Landry Sodium [Moles/Vol] 136 mmol/L Normal 136-145 [facility] Comment on above: Performed By: #### L IPID, CMP #### [facility] [address] [place], [place] [address] Dr. Kiarra Landry Urea nitrogen [Mass/Vol] 14.0 mg/dL Normal 7.0-18.0 [facility] Comment on above: Performed By: #### L IPID, CMP #### [facility] [address] [id number] [address] Kiarra Landry Urea nitrogen/Creatinine [Mass ratio] 17.5 mg/mg Normal [facility] Comment on above: Performed By: #### L IPID, CMP #### [facility] [address] [id number] [address] Kiarra Landry US THYROIDon 07-26-2022 US [...] by: KIM ENRIQUEZ Date: 2022-07-26 19:43 Normal [facility] PAP ACOG PANEL 2: 30 to 65on 05-21-2022 . . Normal [facility] Comment on above: Result Comment: Perf ormed at: WB Performed By: #### [id number] #### [facility] [address] [address] [address] Kiarra Landry Age Gdln ACOG Testing 30-65 Normal [facility] Comment on above: Performed By: #### [id number] #### [facility] [address] [place] [address] Dr. Kiarra Landry DIAGNOSIS: Comment Normal [facility] Comment on above: Result Comment: NEGA TIVE FOR INTRAEPITHELIAL LESION OR MALIGNANCY. Performed at: WB Performed By: #### 4 [id number] #### [facility] [address] [place] [address] [address] Kiarra Landry HPV Aptima Negative Normal Negative [facility] Comment on above: Result Comment: This nucleic acid amplification test detects fourteen high-risk HPV types (16,18,31,33,35,39,45,51,52,56,58,59,66,68) without differentiation. Performed at: =G Performed By: #### 4 [id number] #### [facility] [address] [place] [address] Dr. Kiarra Landry HPV Genotype Reflex Comment Normal [facility] Comment on above: Result Comment: Crit eria not met, HPV Genotype not performed. Performed at: WB Performed By: #### 4 [id number] #### [facility] [address] [place] [address] Dr. Kiarra Landry Methodology: Comment Normal [facility] Comment on above: Result Comment: This liquid based ThinPrep(R) pap test was screened with the use of an image guided system. Performed at: WB Performed By: #### 4 [id number] #### [facility] [address] [place] [address] Dr. Kiarra Landry Note: Comment Normal [facility] Comment on above: Result Comment: The Pap smear is a screening test designed to aid in the detection of premalignant and malignant conditions of the uterine cervix. It is not a diagnostic procedure and should not be used as the sole means of detecting cervical cancer. Both false-positive and false-negative reports do occur. . Performed at: WB Performed By: #### 4 [id number] #### [facility] [address] [place] [address] Dr. Kiarra Landry Performed by: Comment Normal [facility] Comment on above: Result Comment: Norma Smith, Final Inspection Supervisor (ASCP) Performed at: WB Performed By: #### 4 [id number] #### [facility] [address] [address] [address] Kiarra Landry Specimen adequacy: Comment Normal [facility] Comment on above: Result Comment: Sati sfactory for evaluation. Endocervical and/or squamous metaplastic cells (endocervical component) are present. Performed at: WB Performed By: #### 4 [id number] #### [facility] [address] [address] [address] Kiarra Landry US THYROIDon 01-12-2022 US [...] TR 4 nodule, previously biopsied TI-RADS: The [employer] [place] [employer] TI-RADS committee's white paper recommendations for thyroid lesions classified as TR4 (moderately suspicious) are listed below: > 1.0 cm. Follow-up ultrasound in 1, 2, 3, and 5 years. > 1.5 cm. FNA. J. Am Ayse Radiol 2017;14:587-595. Electronically authenticated by: DIVYA COOL Date: 2022-01-12 07:11 Normal [facility] Quick Strepon 10-31-2021 S. pyogenes Org specific cx Ql (Throat) Negative [employer] Other Quick Strep [employer] Other COMPREHENSIVE METABOLIC PANE [place] 07-05-2021 Albumin [Mass/Vol] 4.5 g/dL Normal 3.6-5.1 [facility] Comment on above: Performed By: #### 7 600, 86017, 22051 #### [facility] of [address], [address] [place] [address] Digital Media Designer: Goyo Ivory MD Albumin/Globulin [Mass ratio] 1.8 {ratio} Normal 1.0-2.5 [facility] Comment on above: Performed By: #### 7 600, 93802, 37096 #### [facility] of [address], [address] [place] [address] Digital Media Designer: Goyo Ivory MD ALP [Catalytic activity/Vol] 76 U/L Normal 31-125 [facility] Comment on above: Performed By: #### 7 600, 40754, 57908 #### [facility] of [address], [address] [place] [address] Digital Media Designer: Goyo Ivory MD ALT [Catalytic activity/Vol] 41 U/L High 6-29 [facility] Comment on above: Performed By: #### 7 600, 30616, 63788 #### [facility] of [address], [address] [place] [address] Digital Media Designer: Goyo Ivory MD AST [Catalytic activity/Vol] 24 U/L Normal 10-30 [facility] Comment on above: Performed By: #### 7 600, 32381, 91175 #### [facility] of [address], [address] [place] [address] Digital Media Designer: Goyo Ivory MD Bilirubin [Mass/Vol] 0.3 mg/dL Normal 0.2-1.2 [facility] Comment on above: Performed By: #### 7 600, 04100, 36792 #### [facility] of [place] [address] Digital Media Designer: Goyo Ivory MD BUN/CREATININE RATIO NOT APPLICABLE Normal 6-22 [facility] Comment on above: Performed By: #### 7 600, 54964, 78965 #### [facility] of [address], [address] [place] [address] Digital Media Designer: Goyo Ivory MD Calcium [Mass/Vol] 9.0 mg/dL Normal 8.6-10.2 [facility] Comment on above: Performed By: #### 7 600, 70711, 02231 #### [facility] of [address], [address] [place] [address] Digital Media Designer: Goyo Ivory MD Chloride [Moles/Vol] 105 mmol/L Normal 98-110 [facility] Comment on above: Performed By: #### 7 600, 84804, 80097 #### [facility] of [address], [address] [place] [address] Digital Media Designer: Goyo Ivory MD CO2 [Moles/Vol] 25 mmol/L Normal 20-32 [facility] Comment on above: Performed By: #### 7 600, 49313, 21121 #### [facility] of [place] [address] Digital Media Designer: Goyo Ivory MD Creatinine [Mass/Vol] 0.89 mg/dL Normal 0.50-1.10 [facility] Comment on above: Performed By: #### 7 600, 80018, 41032 #### [facility] of [place] [address] Digital Media Designer: Goyo Ivory MD eGFR NON-AFR. [place] 83 mL/min/1.73m2 Normal > OR = 60 [facility] Comment on above: Performed By: #### 7 600, 26443, 05414 #### [facility] of [place] [address] Digital Media Designer: Goyo Ivory MD GFR/1.73 sq M.predicted among blacks MDRD (S/P/Bld) [Vol rate/Area] 96 mL/min/{1.73_m2} Normal > OR = 60 [facility] Comment on above: Performed By: #### 7 600, 22770, 09519 #### [facility] of [address], [address] [place] [address] Digital Media Designer: Goyo Ivory MD Globulin (S) [Mass/Vol] 2.5 g/dL Normal 1.9-3.7 [facility] Comment on above: Performed By: #### 7 600, 45192, 57356 #### [facility] [place] [address] Digital Media Designer: Goyo Ivory MD Glucose [Mass/Vol] 77 mg/dL Normal 65-99 [facility] Comment on above: Result Comment: Fasting reference interval Performed By: #### 7 600, 98591, 86205 #### [facility] [place] [address] Digital Media Designer: Goyo Ivory MD Potassium [Moles/Vol] 4.0 mmol/L Normal 3.5-5.3 [facility] Comment on above: Performed By: #### 7 600, 57829, 48200 #### [facility] [place] [address] Digital Media Designer: Goyo Ivory MD Protein [Mass/Vol] 7.0 g/dL Normal 6.1-8.1 [facility] Comment on above: Performed By: #### 7 600, 27645, 28017 #### [facility] [place] [address] Digital Media Designer: Goyo Ivory MD Sodium [Moles/Vol] 139 mmol/L Normal 135-146 [facility] Comment on above: Performed By: #### 7 600, 22766, 33709 #### [facility] [place] [address] Digital Media Designer: Goyo Ivory MD Urea nitrogen [Mass/Vol] 18 mg/dL Normal 7-25 [facility] Comment on above: Performed By: #### 7 600, 99078, 30502 #### [facility] [place] [address] Digital Media Designer: Goyo Ivory MD LIPID PANEL, [facility] Cholesterol [Mass/Vol] 206 mg/dL High <200 [facility] Comment on above: Order Comment: FASTI NG:YES FASTING: YES Performed By: #### 7 600, 78884, 65561 #### [facility] [address], [address] [place] [address] Digital Media Designer: Goyo Ivory MD Cholesterol in HDL [Mass/Vol] 45 mg/dL Low > OR = 50 [facility] Comment on above: Order Comment: FASTI NG:YES FASTING: YES Performed By: #### 7 600, 77329, 04133 #### [facility] [address], [address] [place] [address] Digital Media Designer: Goyo Ivory MD Cholesterol in LDL [Mass/Vol] [...] LDL-C. Milton SS et al. CLARA. 2013;310(19): 8825-5856 (http://education.Rise Art/faq/AUN296) Performed By: #### 7 600, 70238, 26244 #### [facility] [address], [address] [place] [address] Digital Media Designer: Goyo Ivory MD Cholesterol.total/C holesterol in HDL [Mass ratio] 4.6 {ratio} Normal <5.0 [facility] Comment on above: Order Comment: FASTI NG:YES FASTING: YES Performed By: #### 7 600, 16634, 08782 #### [facility] [address], [address] [place] [address] Digital Media Designer: Goyo Ivory MD NON HDL CHOLESTEROL 161 mg/dL (calc) High <130 [facility] Comment on above: Order Comment: FASTI NG:YES FASTING: YES Result Comment: For patients with diabetes plus 1 major ASCVD risk factor, treating to a non-HDL-C goal of <100 mg/dL (LDL-C of <70 mg/dL) is considered a therapeutic option. Performed By: #### 7 600, 03579, 60796 #### [facility] [address], [address] [place] [address] Digital Media Designer: Goyo Ivory MD Triglyceride [Mass/Vol] 170 mg/dL High <150 [facility] Comment on above: Order Comment: FASTI NG:YES FASTING: YES Performed By: #### 7 600, 92546, 71177 #### [facility] [address], [address] [place] [address] Digital Media Designer: Goyo Ivory MD TSH+FREE T4on 07-05-2021 Free T4 [Mass/Vol] 0.9 ng/dL Normal 0.8-1.8 [facility] Comment on above: Performed By: #### 7 600, 61267, 05863 #### [facility] [address], [address] [place] [address] Digital Media Designer: Goyo Ivory MD TSH Qn 1.38 m[IU]/L Normal [facility] Comment on above: Result Comment: Refe rence Range > or = 20 Years 0.40-4.50 Ranges First trimester 0.26-2.66 Second trimester 0.55-2.73 Third trimester 0.43-2.91 Performed By: #### 7 600, 86363, 61850 #### [facility] [address], [address] [place] [address] Digital Media Designer: Goyo Ivory MD [employer] 05-08-2021 Forms [id number] .00CD:127 Normal [facility] [employer] 05-05-2021 Forms [id number] .[id number]:127 Normal [facility] Operative Reporton Operative Report [id number] .00CD:127 Normal [facility] Ambulatory Clinical Summaryo n 05-03-2021 Ambulatory Clinical Summary {[id number]}CD:[id number] Normal [facility] General Surgery Office/Clini c Noteon [...] Chris Brown, DIVINA Only if needed [address] [place] [address]- Additional Instructions: Problem List/Past Medical History Ongoing [...] 03/28/2021 Family History Family history is negative [facility] Comment on above: Result Comment: Elec tronically Signed By: MARCUS FOSS, Chris Brown\.br\Date and Time Signed: 05/03/21 21:19 EST Pathology Noteon 05-02-2021 Pathology Note [id number] .00CD:127 Normal [facility] Lab Reportson 04-25-2021 Lab Reports [id number] .00CD:127 [facility] Lab Reportson 04-19-2021 Lab Reports [id number] .00CD:127 [facility] Consent for Procedure/Surger yon 04-10-2021 Consent for Procedure/Surgery [id number] .00CD:127 [facility] General Surgery Office/Clini c Noteon 04-02-2021 [...] Family History Family history is negative Normal [facility] Comment on above: Result Comment: [...] including vitamins, herbs, eye drops, creams, and incq-iwl-dpnwjyx medicines. ? Any problems you or family [...] to control your (more content not included)... [facility] RAD - Ultrasound Reporton RAD - Ultrasound Report [id number] .00CD:127 [facility] Ambulatory Clinical Summaryo n 02-07-2021 Ambulatory Clinical Summary {[id number]}CD:[id number] [facility] ED Note-Physicianon 02-08-20 ED Note-Physician [id number] .00CD:127 [facility] Vital Signs Date Time Vital Sign Value Performing Clinician Facility 06-24-2024 16:32-0500 Body mass index (BMI) [Ratio] 41.02 kg/m2 Johnathon Ana DO Work Phone: [facility] 06-24-2024 16:32-0500 Body weight 108.41 kg Johnathon Ana DO Work Phone: [facility] 06-24-2024 16:32-0500 Diastolic blood pressure 84 mm[Hg] Johnathon Ana DO Work Phone: [facility] 06-24-2024 16:32-0500 Systolic blood pressure 124 mm[Hg] Johnathon Ana DO Work Phone: [facility] 05-18-2024 08:48-0500 Body mass index (BMI) [Ratio] 41.26 kg/m2 Johnathon Ana DO Work Phone: [facility] 05-18-2024 08:48-0500 Body weight 109.05 kg Johnathon Ana DO Work Phone: [facility] 05-18-2024 08:48-0500 Diastolic blood pressure 82 mm[Hg] Johnathon Ana DO Work Phone: [facility] 05-18-2024 08:48-0500 Systolic blood pressure 120 mm[Hg] Johnathon Ana DO Work Phone: [facility] 02-26-2024 16:00-0400 Body height 162.6 cm Flower Zepeda MD Work Phone: [facility] 02-26-2024 16:00-0400 Body mass index (BMI) [Ratio] 41.71 kg/m2 Flower Zepeda MD Work Phone: [facility] 02-26-2024 16:00-0400 Body weight 110.22 kg Flower Zepeda MD Work Phone: [facility] 02-26-2024 16:00-0400 Diastolic blood pressure 74 mm[Hg] Flower Zepeda MD Work Phone: [facility] 02-26-2024 16:00-0400 Systolic blood pressure 129 mm[Hg] Flower Zepeda MD Work Phone: [facility] 12-23-2023 11:55-0400 Body height 162.56 cm DO Vinny Furlong Work Phone: [facility] 12-23-2023 11:55-0400 Body mass index (BMI) [Ratio] 41 kg/m2 DO Vinny Furlong Work Phone: [facility] 12-23-2023 11:55-0400 Body temperature 98 [degF] DO Vinny Furlong Work Phone: [facility] 12-23-2023 11:55-0400 Body weight 108.4 kg DO Vinny Furlong Work Phone: [facility] 12-23-2023 11:55-0400 Diastolic blood pressure 79 mm[Hg] DO Vinny Furlong Work Phone: [facility] 12-23-2023 11:55-0400 Heart rate 84 /min DO Vinny Furlong Work Phone: [facility] 12-23-2023 11:55-0400 Respiratory rate 18 /min DO Vinny Furlong Work Phone: [facility] 12-23-2023 11:55-0400 SaO2% (BldA) [Mass fraction] 97 % DO Vinny Schwab Work Phone: [facility] 12-23-2023 11:55-0400 Systolic blood pressure 109 mm[Hg] DO Vinny Schwab Work Phone: [facility] 10-31-2021 18:40-0400 Body height 162.56 cm Sofia Salazar Other [employer] [facility] [employer] Other 10-31-2021 18:40-0400 Body mass index (BMI) [Ratio] 39.48 kg/m2 Sofia Steelmond Other [employer] Other 10-31-2021 18:40-0400 Body temperature 98.2 [degF] Sofia Steelmond Other [employer] Other 10-31-2021 18:40-0400 Body weight 104.33 kg Sofia Salazar Other [employer] Other 10-31-2021 18:40-0400 Respiratory rate 18 /min Sofia Salazar Other [employer] Other 10-31-2021 18:40-0400 SaO2% (BldA) [Mass fraction] 97 % Sofia Steelmond Other [employer] Other Encounters Encounter Date Encounter Type Care Provider Facility Start: 06-24-2024 End: 06-24-2024 Departed Referred Vinny Schwab DO Work Phone: [facility] Start: 06-24-2024 End: 06-24-2024 ambulatory JOHNATHON [facility] Work Phone: Start: 06-24-2024 End: 06-24-2024 Patient encounter procedure Johnathon Ana DO Work Phone: [facility] Comment on above: Pre-op examination; Request for sterilization; Menorrhagia with regular cycle; Abnormal uterine bleeding; Pelvic pain in female Start: 06-24-2024 End: 06-24-2024 Preprocedural examination done Johnathon Ana DO Work Phone: [facility] Start: 06-17-2024 End: 06-17-2024 Clinisync Result Encounter Johnathon Ana DO Work Phone: [facility] Unsolicited Start: 06-17-2024 End: 06-17-2024 [...] Available Start: 02-26-2024 End: 02-26-2024 ambulatory FLOWER H TIMMIS Not Available Start: 02-26-2024 End: 02-26-2024 Office [...] Start: 12-23-2023 End: 12-23-2023 ambulatory DO Vinny Dupreelong Work Phone: [facility] Work Phone: Start: 12-23-2023 End: 12-23-2023 Patient encounter procedure DO Vinny Dupreelong Work Phone: [facility] Work Phone: Start: 12-02-2023 End: 12-11-2023 Telephone encounter Vinny Schwab DO Work Phone: [facility] Start: 08-28-2023 End: 08-28-2023 ambulatory FLOWER ZEPEDA Not Available Start: 08-26-2023 Telephone encounter Vinny roberson DO Work Phone: [facility] Start: 08-05-2022 Encounter for genera l adult medical examination with abnormal findings DR MELO YE [facility] Start: 08-01-2022 End: 08-02-[address] [...] 10-31-2021 End: 10-31-2021 ambulatory Sofia Salazar Other [employer] Other Start: 10-31-2021 Office outpatient vi sit 25 minutes Sofia Salazar [facility] Procedures Date Procedure Procedure Detail Performing Clinician Start: 06-24-2024 Urine test visual color cmprsn meths Johnathon Ana DO Work Phone: Start: 06-17-2024 ALL CBC WITH AUTO DIFF Telensiuso DO Work Phone: Start: 05-18-2024 Urnls dip stick/tabl et rgnt non-auto w/o micrscp Johnathon Ana DO Work Phone: Start: 05-18-2024 IGP,APTIMA HPV,AGE GDLN [employer] DO Work Phone: Start: 12-23-2023 X-ray of left foot DO D keerthigaetano Schwab Work Phone: Start: 05-14-2023 Cytp cerv/vag auto t hin layer prep mnl screen Brooke MARTIN Work Phone: Start: 07-11-2022 Adult depression scr eening assessment Vinny Joonmichelle [employer] Work Phone: Start: 05-03-2022 Microscopic observat ion [Identifier] in Cervix by Cyto stain Vinny Schwab DO Work Phone: Plan of Treatment Date Care Activity Detail Author Start: 05-03-2025 Screening for malign ant neoplasm of cervix Pap Smear [facility] [employer] [facility] Start: 06-24-2024 End: 06-24-2024 Patient encounter procedure 06/24/2024 3:30 PM EST Procedure Visit [facility] [address] [place] [address] Johnathon Perez DO [address] [place] [address] [facility] Start: 05-18-2024 End: 05-18-2025 aPTT in Blood by Coagulation assay APTT Lab Routine Menorrhagia with regular cycle Expected: 05/18/2024 (Approximate), Expires: 05/18/2025 [facility] Comment on above: Expected: 05/18/2024 (Approximate), Expires: 05/18/2025 Start: 05-18-2024 End: 05-18-2025 DHEA DHEA Lab Routine PCOS (polycystic ovarian syndrome) Expected: 05/18/2024 (Approximate), Expires: 05/18/2025 [facility] Comment on above: Expected: 05/18/2024 (Approximate), Expires: 05/18/2025 Start: 05-18-2024 End: 07-19-2025 MG Breast - bilateral Screening Bilateral screening mammogram Imaging Routine Breast cancer screening by mammogram Expected: 05/18/2024 (Approximate), Expires: 07/19/2025 [facility] Work Phone: Comment on above: Expected: 05/18/2024 (Approximate), Expires: 07/19/2025 Start: 05-18-2024 End: 05-18-2025 US for US PELVIS-TRANSVAG IF INDICATED Imaging Routine Menorrhagia with regular cycle Expected: 05/18/2024 (Approximate), Expires: 05/18/2025 [facility] Comment on above: Expected: 05/18/2024 (Approximate), Expires: 05/18/2025 Start: 05-18-2024 End: 05-18-2024 Patient encounter procedure [facility] Comment on above: Arrived Start: 02-02-2024 Influenza vaccination Influenza Vacc ine [facility] Start: 07-11-2023 Adult BMI Screening Adult BMI Screen ing [facility] Start: 07-11-2023 Depression Screening Depression Scre ening [facility] Start: 07-11-2023 Tobacco Screening Tobacco Screening [facility] Start: 12-20-2002 DTaP,Tdap and Td Vaccines (1 - Tdap) DTaP,Tdap and Td Vaccines (1 - Tdap) [facility] CBC W Auto Different ial panel - Blood CBC and differential Lab Routine Menorrhagia with regular cycle Ordered: 05/18/2024 [facility] Comment on above: Ordered: 05/18/2024 DHEA-sulfate DHEA-sulfate Lab Routine PCOS (polycystic ovarian syndrome) Ordered: 05/18/2024 [facility] Comment on above: Ordered: 05/18/2024 Estradiol Estradiol Lab Ro utine Menorrhagia with regular cycle Hormone imbalance Ordered: 05/18/2024 [facility] Comment on above: Ordered: 05/18/2024 Follicle stimulating hormone Follicle stimulating hormone Lab Routine PCOS (polycystic ovarian syndrome) Ordered: 05/18/2024 [facility] Comment on above: Ordered: 05/18/2024 hCG, quantitative, hCG, quantitative, Lab Routine Menorrhagia with regular cycle Ordered: 05/18/2024 [facility] Comment on above: Ordered: 05/18/2024 Hemoglobin A1c/Hemoglobin.total in Blood Hemoglobin A1c Lab Routine Menorrhagia with regular cycle Ordered: 05/18/2024 [facility] Comment on above: Ordered: 05/18/2024 Luteinizing hormone Luteinizing hormone Lab Routine PCOS (polycystic ovarian syndrome) Ordered: 05/18/2024 [facility] Comment on above: Ordered: 05/18/2024 Progesterone Progesterone Lab Routine Menorrhagia with regular cycle Hormone imbalance Ordered: 05/18/2024 [facility] Comment on above: Ordered: 05/18/2024 Prothrombin time (PT ) in Blood by Coagulation assay Protime-INR Lab Routine Menorrhagia with regular cycle Ordered: 05/18/2024 [facility] Comment on above: Ordered: 05/18/2024 THIN PREP TIS PAP AN D HR HPV DNA THIN PREP TIS PAP AND HR HPV DNA Pathology and Cytology Routine Well woman exam with routine gynecological exam Ordered: 05/18/2024 [facility] Comment on above: Ordered: 05/18/2024 Thyrotropin [Units/volume] in Serum or Plasma TSH Lab Routine Menorrhagia with regular cycle Ordered: 05/18/2024 [facility] Comment on above: Ordered: 05/18/2024 Thyroxine (T4) free [Mass/volume] in Serum or Plasma T4, free Lab Routine Menorrhagia with regular cycle Ordered: 05/18/2024 [facility] Comment on above: Ordered: 05/18/2024 Tissue exam Tissue exam Path ology and Cytology Routine Menorrhagia with regular cycle Ordered: 06/24/2024 [facility] Work Phone: Comment on above: Ordered: 06/24/2024 Immunizations Immunization Date Immunization Notes Care Provider [facility] 03-15-2021 influenza, high dose seasonal, preservative-free Vinny Furlong DO Work Phone: [facility] [employer] [facility] 03-15-2021 influenza virus vaccine, unspecified formulation Vinny Furlong DO Work Phone: [facility] [employer] 04-14-2020 influenza, high dose seasonal, preservative-free Vinny Furlong DO Work Phone: [facility] [employer] [facility] 05-15-2019 influenza, seasonal, injectable Vinny Furlong DO Work Phone: [facility] [employer] [facility] Payers Date Payer Category Payer Private Health Insurance [employer] [id number] 2020 Unknown [id number] 1983 Unknown [id number] [id number] .2.593 1983 Unknown [id number] [id number] .2.593 1983 Unknown [id number] [id number] .2.593 1983 Unknown [id number] [id number] .2.593 1983 Unknown [id number] [id number] .2.593 1983 Unknown [id number] [id number] .2.593 1983 Unknown [id number] 2.16.840.1.645158.3.579 .2.1259 1983 Unknown [id number] [id number] .2.1259 1983 Unknown [id number] [id number] .2.1259 1983 Unknown [id number] [id number] .2.1259 1959 Self-pay 1959 Unknown [id number] [id number] Unknown [id number] [id number] .2.531 Unknown [id number] .2.531 Social History Date Type Detail Facility Unknown if ever smoked [employer] Other Start: 07-14-2020 End: 08-27-2023 Sex Assigned At [facility] Start: 04-25-2022 End: 12-23-2023 Tobacco smoking status NHIS Never smoked tobacco (finding) [facility] Start: 1985 Sex Assigned At Female F [facility] Start: 04-25-2022 End: 02-11-2023 Tobacco use and exposure Smokeless tobacco non-user [facility] Start: 07-11-2022 End: 02-26-2024 Alcoholic beverage intake Ex-drinker (finding) [facility] Start: 07-14-2020 End: 08-27-2023 History of Social function [facility] How often to you hav e a drink containing alcohol? Monthly or less [facility] How many standard drinks containing alcohol do you have on a typical day? 1 or 2 [facility] How often do you hav e 6 or more drinks on 1 occasion? Never [facility] Start: 08-27-2023 Alcohol Comment caffeine intak e: 1-2 cups per day [facility] Start: 1985 Sex assigned at [facility] Start: 06-26-2024 Sex Patient sex un known (finding) [facility] Adolescent depressio n screening assessment 0 [facility] Clinical Notes 03-17-2021 to 06-24-2024 Laney Lamar - 06/24/2024 3:30 PM Gurpreet Mobley LPN - 05/18/2024 8:30 AM Karla Zepeda MD - 02/26/2024 3:50 PM EDTTelephone Encounter - Priscila Fatou - 12/02/2023 3:31 PM EDT Note Date & Type Note Facility [...] on 07/24/[address] Perez at [facility]. MEDICATIONS Current Outpatient Medications Medication Instructions omeprazole [...] nursing note reviewed. Exam conducted with a wood calker present. Vitals: Estimated body mass index is [...] reviewed, and patient is to proceed to [facility] OR. Follow Up: Patient is to follow up between 1-2 weeks post op to assess proper healing and recovery from procedure. Documented by Laney Lamar on behalf of: Johnathon Perez DO documented in this encounter [facility] 05-18-2024 History of Presen t illness Narrative [...] nursing note reviewed. Exam conducted with a wood calker present. Vitals: Estimated body mass index is [...] Johnathon Perez DO documented in this encounter [facility] 02-26-2024 History of Presen t illness Narrative Subjective Patient ID: Steph Rizo is a 38 y.o. female who presents for Thyroid Nodule (6 mo follow up with ultrasound, [facility] 02/20/24) Thyroid US shows a [id number] RT TR4 nodule compared to [id number] in early 2021 Family History Problem Relation [...] if still stable documented in this encounter [facility] 12-02-2023 Miscellaneous Notes Formattin g of this note might be different from the original. ----- Message from Dr. Vinny Schwab DO sent at 11/29/2023 7:48 PM EDT ----- Regarding: FW: wellness ----- Message ----- From: Vinny Schwab DO Sent: 11/27/2023 12:00 AM EDT To: Vinny Schwab DO Subject: wellness Please set up at her convenience after age 38 Lm on VM LM on VM Sending letter documented in this encounter [facility] 12-02-2023 Telephone encount er Note ----- Message from Dr. Vinny Schwab DO sent at 11/29/2023 7:48 PM EDT ----- Regarding: FW: wellness ----- Message ----- From: Vinny Schwab DO Sent: 11/27/2023 12:00 AM EDT To: Vinny Schwab DO Subject: wellness Please set up at her convenience after age 38 [facility] 12-02-2023 Telephone encount er Note Lm on VM [facility] 12-02-2023 Telephone encount er Note LM on VM [facility] 12-02-2023 Telephone encount er Note Sending letter [facility] 08-26-2023 Miscellaneous Notes Formattin g of this note might be different from the original. ----- Message from Vinny Schwab DO sent at 08/22/2023 12:36 PM EDT ----- Regarding: Wellness Please set up. She usually sees ENVIRONMENTAL REMEDIATION SPECIALIST documented in this encounter [facility] 08-26-2023 Telephone encount er Note ----- Message from Vinny Schwab DO sent at 08/22/2023 12:36 PM EDT ----- Regarding: Wellness Please set up. She usually sees ENVIRONMENTAL REMEDIATION SPECIALIST [employer] 10-31-2021 Evaluation note Encounter Date Diagnosis Assessment Notes October, Sore throat (ICD-10 - J02.9) October, Viral upper respiratory infection (ICD-10 - J06.9) Drink plenty fluids, get plenty of rest. Take Tylenol or Motrin for aches pains or fevers. Consider taking Mucinex or Sudafed for your drainage. Follow-up with your family physician if no improvement in 2 to 3 days [employer] Other 10-15-2021 NoteChief Complaint consultation for abdominal pain HPI Staff 35 year old female presents on consultation from [facility] for abdominal pain. History of Present Illness 35 yo female, 9 weeks ; referred from ED for episode of upper abd pain; seen 2 days ago in ED at [facility] for sudden onset of upper abdominal pain, [...] data available Patient Education Laparoscopic Cholecystectomy Cholelithiasis, Rwvr-[id number]-[id number] Problem List/Past Medical History Ongoing Biliary colic [...] Use:., 02/07/2021 Family History [facility]:Result Comment: Electronically Signed By: MARCUS FOSS, Chris Olguin\Date and Time Signed: 03/17/21 15:37 EDTEvaluation note* Diagnosis Onset Date Resolution Status Left foot pain [facility] Work Phone: Evaluation note* Diagnosis [...] this [facility] noteNo assessment [facility] Work Phone: Evaluation note* Diagnosis Pre-op [...] History cholecystectomy 04/23 Hospitalization History childbirth 2017 [employer] Other InstructionsNot on filedocumented in this encounter [facility] SystemInstructionsNot on filedocumented in this encounter [facility] Summary Purpose Family History No Family [...] DATE CREATED AUTHOR AUTHOR'S ORGANIZ ATION 07/28/2021 [facility] DATE CREATED AUTHOR AUTHOR'S ORGANIZ ATION 08/07/2022 [facility] DATE CREATED AUTHOR AUTHOR'S ORGANIZ ATION 06/26/2024 [facility] EPIC DATE CREATED AUTHOR AUTHOR'S ORGANIZ ATION 06/27/2024 [facility] REASON FOR VISIT (unrecogniz ed section and content) Reason Comments Well Women Visit Reason Comments Thyroid Nodule 6 mo follow up with ultrasound, [facility] 02/20/24 Reason Comments Pre-op Visit [facility] Care Teams (unrecognized sec tion and content) Team Status: Active Member Role Status Dates Vinny Schwab DO Primary Care Provider Active Team Status: Inactive Member Role Status Dates Vinny Schwab DO Primary Care Provider Active Start: December 23, 2023 End: December 23, 2023 Shelli Prakash APRN Attending Provider Active S tart: December 23, 2023 End: December 23, 2023 Professional Tutor Relationship Specialty Start Date End Date Vinny Schwab MD [address], [facility] [place] [address] PCP - General Family Medicine 01/11/23 Professional Tutor Relationship Specialty Start Date End Date Vinny Schwab MD [address], [facility] [place] [address] PCP - General Family Medicine 01/11/23 Professional Tutor Relationship Specialty Start Date End Date Vinny Schwab MD [address], [place] [address] PCP - General Family Medicine 01/11/23 Professional Tutor Relationship Specialty Start Date End Date Vinny Schwab MD [address], [place] [address] PCP - General Family Medicine 01/11/23 Team Status: Inactive Member Role Status Dates Vinny Schwab DO Primary Care Provider Active Start: June 24, 2024 End: June 24, 2024 Johnathon Perez DO Attending Provider Active Start : June 24, 2024 End: June 24, 2024 Professional Tutor Relationship Specialty Start Date End Date Vinny Schwab MD [address], [place] [address] PCP - General Family Medicine 01/11/23 Professional Tutor Relationship Specialty Start Date End Date Vinny Schwab DO [address], [place] [address] PCP - General Family Medicine 07/26/20 Professional Tutor Relationship Specialty Start Date End Date Vinny Schwab DO [address], [place] [address] PCP - General Family Medicine 07/26/20 Goals (unrecognized section and content) Goals may [...] BE BASED ON THE PRIMARY CLINICAL RECORDS. [facility] [employer] [facility]. provides no warranty or guarantee of the accuracy or completeness of information in this document.
[2024-08-07 07:07] LABS: Basophils Percent Auto 0.4 % (0.2-2.0); Eosinophils Absolute Auto 0.1 10^3/uL (0.0-0.7); Eosinophils Percent Auto 1.3 % (0.9-7.0); Hematocrit 40.3 % (36.0-48.0); Hemoglobin 13.5 g/dL (12.0-16.0); Immature Granulocytes Abs Auto 0.01 10^3/uL (0.00-0.03); Immature Granulocytes Pct Auto 0.1 % (0.0-0.5); Lymphocytes Absolute Auto 2.8 10^3/uL (1.2-3.8); Lymphocytes Percent Auto 39.1 % (20.5-60.0); Mean Corpuscular HGB Conc 33.5 g/dL (29.9-35.2); Mean Corpuscular Hemoglobin 29.5 pg (26.7-34.0); Mean Corpuscular Volume 88.2 fL (81.0-99.0); Mean Platelet Volume 9.1 fL (9.5-13.5); Monocytes Absolute Auto 0.3 10^3/uL (0.3-0.8); Monocytes Percent Auto 4.5 % (1.7-12.0); Neutrophils Absolute Auto 3.9 10^3/uL (1.4-6.5); Neutrophils Percent Auto 54.6 % (43.0-75.0); Platelet Count 266 10^3/uL (150-450); Red Blood Count 4.57 10^6/uL (4.20-5.40); Red Cell Distribution Width 12.6 % (11.0-15.0); White Blood Count 7.2 10^3/uL (4.0-11.0)
[2024-08-07] MEDS: LACTATED RINGER'S SOLUTION 1,000 ML 50 ML IV ×2 (07:30→11:35)
[2024-08-07 07:31] LABS: HCG Quantitative <1 mIU/mL
--- NOTE | 2024-08-07 09:25 | PM.ONB ---
Brief Operative Note Date of procedure: 08/07/24 Pre-op diagnosis general: desires permanent sterilization Post-op diagnosis: same as pre-op Procedure: NAME OF PROCEDURE: robotic assisted bilateral laparoscopic salpingectomy PROCEDURE: The patient was taken back to the Operating Room where she was given general anesthesia without difficulty. She was then prepped and draped in the normal sterile fashion after being placed in a dorsal lithotomy position. A wet sponge stick was placed into the patient's vagina. Attention was then turned to the patient's abdomen, where a scalpel was used to make a small infraumbilical incision. The S retractors were then used to dissect the underlying layers until the fascia could be seen. The fascia was then grasped with Fabricio clamps and tented up. A knife was then used to make a small incision to the fascia. The muscle was identified, at that time two sutures of #0 Vicryl on a GI needle was then used and placed through the fascia. the peritoneum was then identified and entered bluntly. The 10-4 Wisam was then placed into the patient's abdomen. This was confirmed with direct visualization of the bowel, using the laparoscope. The patient's abdomen was then insufflated using approximately 4 liters of CO2 gas. Survey of the patient's abdomen demonstrated ovaries were normal in appearance as well as both tubes and uterus. A second and third rt and lt lateral robotic ports which were 8 mm in size, was then placed after the skin incision was made under direct visualization . the robotic arms were engaged. The patient's tube on the patient's right side was identified and tented up using a grasper, the ligasure apparatus was then used to come across the mesosalpingx from the fimbriated end to the insertion site at the uterus, the tube was then amputated and removed in its entirety. This was done on the contralateral side. The tubes were the removed from the patients abdomen. Excellent hemostasis was noted. The lateral ports were then moved under direct visualization with excellent hemostasis. All instruments were removed from the patient's abdomen. The fascia was closed using the #0 Vicryl on GI needle. The skin was closed using 4-0 Vicryl subcuticularly. All instruments were removed from the patient's vagina as well. The patient was taken out of the dorsal lithotomy position and placed in the supine position and taken to recovery in stable condition. Sponge, lap and needle counts were correct x2. Anesthesia: SAMANTA Surgeon: Harry Perez Produce Assistant: Renata Wyman Estimated blood loss (mL): 5 Pathology: other (bilateral tubes) Condition: stable Disposition: PACU Urinary Catheter Management Urinary Catheter Management Urethral: Cath placed during this visit: no
[2024-08-07] MEDS: LACTATED RINGER'S SOLUTION 1,000 ML 1000 ML IV (09:56)
[2024-08-07] MEDS: HYDROMORPHONE HCL 0.5 MG/0.5 ML SYRINGE IV (10:28)
--- NOTE | 2024-08-07 10:35 | PC.NURSE ---
Medicated with Dilaudid for pain; peripad dry
--- NOTE | 2024-08-07 10:57 | PC.NURSE ---
Peripad dry; denies SOB; SKIN WARM, DRY AND PINK
== END 2024-08-07 12:21 | disposition home or self-care (01) ==
PROVIDERS: PCP Family Medicine; Visit Provider Obstetrics & Gynecology
PROC: (CPT 840; principal; 2024-08-07 08:25)
DX: Z30.2 Encounter for sterilization (principal); N92.0 Excessive and frequent menstruation with regular cycle; N93.9 Abnormal uterine and vaginal bleeding, unspecified; R10.2 Pelvic and perineal pain; Z90.49 Acquired absence of other specified parts of digestive tract; E66.01 Morbid (severe) obesity due to excess calories; Z68.41 Body mass index [BMI] 40.0-44.9, adult
CPT/HCPCS: 58661; 36415; 84702; 85025; 88302; J1100; J1171; J1885; J2250; J2371; J2405; J2704; J3010

== ENCOUNTER 2025-02-20 13:00 | Outpatient (OUT) | payer OTHER, SELFPAY ==
--- NOTE | 2025-02-20 13:01 | US_ITS ---
[address] [address] Patient Name: HAYES MENCHACA MRN: [id number] date: 1985 Sex: F Assigned Patient Location: [place] Current Patient Location: [place] Accession/Order Number: [id number] Exam Date: 02/20/2025 13:08 Report Date: 02/20/2025 15:35 At the request of: SUZIE ZEPEDA MD Procedure: US thyroid Ultrasound thyroid gland INDICATION: Follow-up nodule Comparison 02/20/2024 FINDINGS: Right thyroid lobe 4.2 x 1.7 x 1.7 cm. Left thyroid lobe 4.4 x 1.0 x 1.2 cm in size. Thyroid isthmus measures 1.3 cm. Redemonstration of the dominant nodule within the right thyroid lobe there is 3.0 x 1.5 x 2.4 cm size with TI-RADS score of 4 US/US thyroid IMPRESSION: Stable appearance of the moderately suspicious TI-RADS 4 nodule right lower lobe 3 cm in size. Impression dictated by: Bolivar Workman M.D. 02/20/2025 3:35 PM Dictation Location: [place] [address] Electronically authenticated by: [id number] Y Date: 02/20/2025 15:35
--- OUTSIDE RECORDS SUMMARY | 2025-02-20 13:02 | XMS_ITS | CCD ---
Author Organization [facility] Care Team Providers Care Cuff Knitter Name Role Phone Sofia Salazar Unavailable ANA ., DR DIEGO Attending Unavailable ANA ., DR DIEGO Admitting Unavailable FURLONG, DR VINNY Garrett Primary Care Unavailable ANA ., DR DIEGO Consulting Unavailable TIMMIS, DR LARSEN Admitting Unavailable TIMMIS, DR LARSEN Consulting Unavailable TIMMIS, DR LARSEN Attending Unavailable FURLONG, DR VINNY Garrett Primary Care Unavailable AVON, DR DIVYA Tatum Consulting Unavailable KUNS, DR [...] Unavailable Furlong, DO Casillas Primary Care Provider [phone] KATEY Prakash Attending Provider Vinny Schwab MD Primary Care Provider Vinny Schwab DO Primary Care Provider [phone] Johnathon Perez DO Attending Provider [phone] Vinny Schwab DO Primary Care Provider [phone] Johnathon Perez Admitting Unavailable Johnathon Perez Attending Unavailable Josselin, Vinny Primary Care Unavailable Johnathon Perez Admitting Unavailable Johnathon Perez Attending Unavailable Vinny Schwab Primary Care Unavailable Shelli Prakash Admitting Unavailable Shelli Prakash Attending Unavailable Vinny Schwab DO Primary Care Provider [phone] Johnathon Perez DO Attending Provider [phone] JOHNATHON PEREZ Attending Unavailable BROOKE GIORDANO Attending Unavailable FLOWER ZEPEDA Attending Unavailable FLOWER ZEPEDA Attending Unavailable JOHNATHON PEREZ Attending Unavailable Allergies Allergy Classification Reported Allergen(s) Allergy Type Date of Onset Reaction(s) Facility (14 sources) Ciprofloxacin Drug Allergy 04-25-2022 Headache [facility] Work Phone: Medications Current Medications Medication Drug Class(es) Dates Sig (Normalized) Sig (Original) acetaminophen 325 mg / HYDROcodone bitartrate 5 mg oral tablet (2 sources) Opioid Agonist Start: 08-08-19 25 take 1 tablet by mouth every four hours HYDROcodone-acetaminoph en ([place]) 5-325 MG tablet TAKE 1 TABLET BY MOUTH EVERY 4 HOURS 08/07/2024 Active calcipotriene 0.05 mg/ml topical cream (2 sources) Vitamin D Analog Start: 04-25-20 22 calcipotriene (DOVONEX) 0.005 % cream Indications: Psoriasis Apply 1 application topically in the morning and 1 application before bedtime. 60 g 1 04/25/2022 Active cycloSPORINE (Restasis) 0.05 % ophthalmic emulsion (2 sources) Start: 07-31-19 25 take 1 drop(s) into the eye(s) twice daily cycloSPORINE (Restasis) 0.05 % ophthalmic emulsion instill 1 DROP IN BOTH EYES TWICE DAILY 07/31/2024 Active ibuprofen 800 mg oral tablet (5 sources) Nonsteroidal Anti-inflammato ry Drug Start: 12-23-19 24 take 1 tablet by mouth every eight hours ibuprofen 800 MG tablet Take 800 mg by mouth every 8 (eight) hours 08/07/2024 Active Miebo 1.338 GM/ML solution (2 sources) Start: 08-03-19 25 Miebo 1.338 GM/ML solution 08/02/2024 Active omeprazole 20 mg delayed release oral capsule (14 sources) Proton Pump Inhibitor Start: 07-11-19 23 take 1 capsule by mouth in the morning omeprazole (PriLOSEC) [address] capsule Take 20 mg by mouth in the morning. 07/11/2022 Active Perfluorohexyloctane (Pf) (3 sources) Start: 12-23-19 Perfluorohexyloctane (Pf) (Miebo) 100 % drops Active DROPS OPHTHALMIC December 22, 2023 11:00pm Start: 12-23-2023 Perfluorohexyl octane (Pf) (Miebo) 100 % drops Active DROPS OPHTHALMIC December 23, 2023 12:00am Completed/Discontinued Medications Medication Drug Class(es) Dates Sig (Normalized) Sig (Original) amoxicillin 875 mg / clavulanate 125 mg oral tablet (3 sources) Penicillin-class Antibacterial Start: 08-20-2023 End: 12-23-2023 [...] mouth in the morning. 28 tablet 05/14/2023 05/18/2024 Discontinued Start: 05-14-2023 norethindrone- ethinyl estradiol (06/22) 1-20 MG-MCG tablet Indications: control counseling Take 1 tablet by mouth in the morning. 28 tablet 05/14/2023 Active Start: 05-14-2023 End: 05-13-2024 norethindrone-ethinyl [...] Problem Date Documented Date Episodic/Chronic Abdominal pain (5 sources) Pain in female pelvis; Translations: [Pelvic and perineal pain] Onset: 06-24-2024 06-24-2024 Episodic Anxiety disorders (2 sources) Anxiety; Translations: [Anxiety disorder, unspecified] Onset: 03-08-2022 03-08-2022 Chronic Contraceptive and procreative management (7 sources) Sterilization requested; Translations: [Encounter for sterilization] Onset: 06-24-2024 05-18-2024 Episodic Genitourinary symptoms and ill-defined conditions (3 sources) Dysuria; Translations: [Dysuria] 05-18-2024 Episodic Immunizations and screening for infectious disease (1 source) Encounter for screening for human papillomavirus (HPV); Translations: [ENC SCREENING HUMAN PAPILLOMAVIRUS] Onset: 05-17-2022 Episodic Menstrual disorders (7 sources) Menorrhagia; Translations: [Excessive and frequent menstruation with regular cycle] Onset: 06-24-2024 05-18-2024 Chronic Other aftercare (2 sources) Postoperative visit; Translations: [Encounter for other specified surgical aftercare] 08-13-2024 Episodic Other connective tissue disease (3 sources) Foot pain; Translations: [Pain in left foot] 12-23-2023 Episodic Other endocrine disorders (2 sources) Polycystic ovary syndrome; Translations: [Polycystic ovarian syndrome] 05-18-2024 Chronic Other endocrine disorders (2 sources) Disorder of endocrine system; Translations: [Endocrine disorder, unspecified] 05-18-2024 Episodic Other female genital disorders (5 sources) Abnormal uterine bleeding; Translations: [Abnormal uterine and vaginal bleeding, unspecified] Onset: 06-24-2024 06-24-2024 Chronic Other inflammatory condition of skin (12 sources) Guttate psoriasis; 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 02-11-2023 Chronic Other inflammatory condition of skin (2 sources) Psoriasis; Translations: [Psoriasis, unspecified] Onset: 07-11-2022 3 Chronic Other nutritional; endocrine; and metabolic disorders [...] Onset: 12-23-2023 12-23-2023 Episodic Other skin disorders (12 sources) Eruption; Translations: [Rash and other nonspecific [...] Test Name Value Interpretation Reference Range Facility Pathology study report docum entOrdered By: Zahira Landry on 08-10-2024 Pathology study [facility] Other [place] 08-07-2024 L - -------- Specimen: [id number] Received: 08/07/24 Status: LAUAR Henley Num: [id number] Spec Type: Surgical Subm Dr: Johnathon Perez Tissues: A Fallopian Tube - Sterilization (BILATERAL FALLOPIAN TUBES) Procedures: HE/2, Yasmin/[place] L2 -------- Age/ Patient Sex Location Account Attending Physician -------- Steph Rizo 38/F [facility] [id number] Johnathon Perez -------- SPEC NUM: [id number] RECD: 08/07/24 STATUS: LAURA HENLEY NUM: [id number] NED: 08/07/24- SUBM : Johnathon Perez ENTERED: 08/07/[address] [facility] DR: Donnie,Lab SPEC TYPE: Surgical DEPT: BRENDAN MURCIA ORDERED: HE/2, Gross/Micro L2 ORDERED: HE/2, Gross/Micro L2 Pathological Diagnosis Bilateral fallopian tubes, bilateral salpingectomy: -Bilateral fimbriated fallopian tubes without significant histopathological changes, except occasional intermediate sized paratubal cysts in both tubes without atypia Clinical Information Request for sterilization, menorrhagia, pelvic pain Gross Description Part A is received in formalin labeled with the patients name, date of , and bilateral fallopian tubes are bilateral, unoriented fallopian tubes with fimbriated distal ends, 7.7 x 0.7 cm, and 8 x 0.7 cm. The serosa is silvestre-purple, smooth and glistening with paratubal cysts, 0.8 cm in greatest dimension. Serial sections reveal pinpoint lumen within each segment. Cassettes: A1 Longitudinally bisected distal end and credit resolution representative cross-sections from shorter tube (to include paratubal cysts) A2 Longitudinally bisected distal end and credit resolution representative cross-sections from longer tube (to include paratubal cysts) (2, , [id number] A)JG -------- Specimen: [id number] Received: 08/07/24 Status: LAURA Henley Num: [id number] Spec Type: Surgical Subm Dr: Johnathon Perez Tissues: A Fallopian Tube - Sterilization (BILATERAL FALLOPIAN TUBES) Procedures: HE/2, Gross/Micro L2 -------- Patient: Steph Rizo [id number] (Continued) -------- Specimen: [id number] Received: 08/07/24 (Continued) Signed (signature on file) Zahira Landry MD 08/10/24 1606 -------- Specimen: [id number] Received: 08/07/24 Status: LAURA Henley Num: [id number] Spec Type: Surgical Subm Dr: Johnathon Perez Tissues: A Fallopian Tube - Sterilization (BILATERAL FALLOPIAN TUBES) Procedures: MATTIE/Yasmin Lara/[place] L2 -------- Patient: Steph Rizo [id number] (Continued) -------- Specimen: [id number] Received: 08/07/24 (Continued) Microscopic Description Microscopic examinations are performed supporting the above interpretation CPT Codes 18856 -------- -------- Specimen: [id number] Received: 08/07/24 Status: LAURA Lory Num: [id number] Spec Type: Surgical Subm Dr: Johnathon Perez Tissues: A Fallopian Tube - Sterilization (BILATERAL FALLOPIAN TUBES) Procedures: MATTIE/Yasmin Lara/[place] L2 -------- Patient: Steph Rizo [id number] (Continued) -------- Signed (signature on file) Zahira Landry MD 08/10/24 1606 Normal [facility] HCG ( test) Ql (U)o n 06-24-2024 Interpretation and review of laboratory results Normal [facility] Test, Ur Negative Negative [facility] [place] 06-24-2024 L - -------- Specimen: [id number] Received: 06/25/24 Status: LAURA Henley Num: [id number] Spec Type: Surgical Subm Dr: Johnathon Perez Tissues: A Endometrium - Biopsy (ENDOMETRIAL) Procedures: MATTIE/Yasmin Lara/[place] Torres -------- Age/ Patient Sex Location Account Attending Physician -------- Steph Rizo 38/F [facility] [id number] Johnathon Perez -------- SPEC NUM: [id number] RECD: 06/25/24 STATUS: LAURA HENLEY NUM: [id number] NED: 06/24/24- SUBM DR: Johnathon Perez ENTERED: 06/25/[address] [facility] [address]: SPEC TYPE: Surgical DEPT: S ENTERED BY: [id number] RECV BY: [id number] ORDERED: HE/2, Gross/Micro L4 ORDERED: HE/2, Gross/Micro L4 Pathological Diagnosis Endometrial biopsy: = Multiple strips of slightly disordered proliferative endometrium of the early to mid phase type, including rare foci of slightly enlarged and / or slightly irregularly crowded glands in at least 2 separate strips, otherwise without hyperplasia or atypia identified Clinical Information Menorrhagia Gross Description Part A is received in formalin labeled with the patients name, and date of are devi- pink, focally erythematous, delicate tissue fragments, 1.7 x 1.1 x 0.2 cm in aggregate. The specimen is filtered and entirely submitted in a single cassette. (1, ns, [id number]) Microscopic Description Microscopic examinations are performed supporting the above interpretation -------- Specimen: [id number] Received: 06/25/24 Status: LAURA Henley Num: [id number] Spec Type: Surgical Subm Dr: Johnathon Perez Tissues: A Endometrium - Biopsy (ENDOMETRIAL) Procedures: HE/2, Gross/Micro L4 -------- Patient: Steph Rizo [id number] (Continued) -------- Specimen: [id number] Received: 06/25/24 (Continued) Signed (signature on file) Zahira Landry MD 06/27/24 1429 -------- Specimen: [id number] Received: 06/25/24 Status: LAURA Henley Num: [id number] Spec Type: Surgical Subm Dr: Johnathon Perez Tissues: A Endometrium - Biopsy (ENDOMETRIAL) Procedures: Yasmin HAMILTON/[place] L4 -------- Patient: Steph Rizo [id number] (Continued) -------- Specimen: [id number] Received: 06/25/24 (Continued) CPT Codes 30655 -------- -------- Specimen: [id number] Received: 06/25/24 Status: LAURA Henley Num: [id number] Spec Type: Surgical Subm Dr: Johnathon Perez Tissues: A Endometrium - Biopsy (ENDOMETRIAL) Procedures: MATTIE/Yasmin Lara/[place] L4 -------- Patient: Steph Rizo [id number] (Continued) -------- Signed (signature on file) Walt-Ian Landry MD 06/27/24 1429 Normal [facility] ALL CBC WITH AUTO DIFFon BASOPHILS ABSOLUTE AUTO 0 [facility] Basophils/100 WBC (Bld) 0.7 % 0.2 - 2.0 % [facility] Eosinophils/100 WBC (Bld) 1.7 % 0.9 - 7.0 % [facility] Erythrocyte distribution width (RBC) [Ratio] 12.4 % 11.0 - 15.0 % [facility] Hematocrit (Bld) [Volume fraction] 40.2 % 36.0 - 48.0 % [facility] Hemoglobin (Bld) [Mass/Vol] 13.2 g/dL 12.0 - 16.0 g/dL [facility] IMMATURE GRANULOCYTES ABS AUTO 0 [facility] Immature granulocytes/100 WBC (Bld) 0 % 0.0 - 0.5 % [facility] Interpretation and review of laboratory results Abnormal [facility] LYMPHOCYTES ABSOLUTE AUTO 2.6 [facility] Lymphocytes/100 WBC (Bld) 47.4 % 20.5 - 60.0 % [facility] MCH (RBC) [Entitic mass] 29.1 pg 26.7 - 34.0 pg [facility] MCHC (RBC) [Mass/Vol] 32.8 g/dL 29.9 - 35.2 g/dL [facility] MCV (RBC) [Entitic vol] 88.5 fL 81.0 - 99.0 fL [facility] MONOCYTES ABSOLUTE AUTO 0.2 Low [facility] Monocytes/100 WBC (Bld) 4.4 % 1.7 - 12.0 % [facility] NEUTROPHILS ABSOLUTE AUTO 2.5 [facility] Neutrophils/100 WBC (Bld) 45.8 % 43.0 - 75.0 % [facility] Platelet mean volume (Bld) [Entitic vol] 9 fL Low 9.5 - 13.5 fL [facility] TBH EO # 0.1 [facility] PLT 268 [facility] RBC 4.54 [facility] WBC 5.4 [facility] IGP,APTIMA HPV,AGE GDLNon AGE GDLN ACOG TESTING Note . [facility] Comment on above: TESTS RESULT FLAG UN ITS REF RANGE LAB Clinician Provided Cytology Information Source.............Cervix;Endocervix No. of containers..01 ThinPrep Vial Age Algo ACOG Olivia... 28 FLAG LEGEND: L-Low Normal,H-High Normal,LL-Alert Low,HH-Alert High <-Panic Low,>-Panic High,A-Abnormal,AA-Critical Abnormal Performed at: 01 =[address] [address] Shanita Iqbal MD, HPV APTIMA Negative Negative [facility] [employer] Comment on above: This nucleic acid am plification test detects fourteen high- risk HPV types (16,18,31,33,35,39,45,51,52,56,58,59,66,68) without differentiation. Performed at: =[address] [id number] Lead Application Architect: Shanita Iqbal MD, Phone: [phone] Performed at: [address] [id number] Lead Application Architect: Shanita Iqbal MD, Phone: [phone] IGP, APTIMA HPV, RFX 16/18,45 Note . [facility] Comment on above: TESTS RESULT FLAG U NITS REF RANGE LAB DIAGNOSIS: 02 UNSATISFACTORY FOR EVALUATION. SPECIMEN REPROCESSED FOR INTERPRETATION USING GLACIAL ACETIC ACID (GAA). MENSTRUAL SMEAR PATTERN IS PRESENT. Recommendation: 02 Suggest follow up as clinically appropriate. Specimen adequacy: 02 Specimen processed and examined but unsatisfactory for evaluation of epithelial abnormality because of obscuring blood. Performed by: 02 Dakota Salazar, Handbag Frames Inspector ([facility]) QC reviewed by: 02 Meenu Rodriguez, Supervisory Handbag Frames Inspector ([facility]) . 02 Note: Note 02 The Pap [...] High,A-Abnormal,AA-Critical Abnormal Performed at: 02 [facility] [address] [place] [address] Shanita Iqbal MD, BRUSH-SPATULA CERVIX ENDOCERVIX [facility] Urinalysis macro (dipstick) panel (U)on 05-18-2024 Bilirubin, UA Negative Negative - 4(70) +++ mg/dL [facility] Blood, UA Positive Negative - 50 Darin/mcL [facility] Comment on above: large Clarity, UA Clear [facility] Color, UA Yellow [facility] Glucose, UA Negative Negative - 1999(110) ++++ mg/dL [facility] Interpretation and review of laboratory results Abnormal [facility] [employer] Ketones, UA Negative Negative - 160(16) ++++ mg/dL [facility] Leukocytes, UA Negative Negative - 500+++ Ok/mcL [facility] Nitrite, UA Negative Negative - Positive [facility] pH, UA 6 5 - [address] [facility] [employer] Protein, UA Negative Negative - 1999(20) ++++ mg/dL [facility] Spec Grav, UA 1.02 1 - 1.03 [facility] Urobilinogen, UA 0.2 0.2 - 12 mg/dL [facility] XR foot LT min 3V*on 024 XR foot LT min 3V* [facility] [place] [address] XRay Report Signed Patient: Steph Rizo MR#: [id number] [birth year] : 1985 Acct:[id number] Age/Sex: 38 / F ADM Date: 12/23/23 Loc: [facility] Room: Type: [facility] [address] Attending Dr: Shelli Prakash APRN Copies to: [...] Valdez Jr., D.OSamuel12/23/2023 12:27 PM Dictation Location: [facility]-15 Transcribed By: [facility] 12/23/23 1227 Dictated By: Miguel Valdez Jr, DO 12/23/23 1225 Signed By: 12/23/23 1227 Normal [facility] Cytology Cervical or vaginal smear or scraping studyOrdered By: Carmela Vogel on 05-14-2023 [facility] LIPID PROFILEon 08-01-2022 CHOL-HDL RATIO NORM SEE BELOW Normal [facility] Comment on above: Result Comment: 3.3 - 4.4 LOW RISK 4.4 - 7.1 AVERAGE RISK 7.1 - 11.0 MODERATE RISK >11.0 HIGH RISK Performed By: #### L IPID, CMP #### [facility] [address] [address] [address] Kiarra Landry Cholesterol [Mass/Vol] 184 mg/dL Normal <=200 [facility] Comment on above: Performed By: #### L IPID, CMP #### [facility] [address] [address] [address] Kiarra Landry Cholesterol in HDL [Mass/Vol] 44 mg/dL Normal 40-60 [facility] Comment on above: Performed By: #### L IPID, CMP #### [facility] [address] [address] [address] Kiarra Landry Cholesterol in LDL [Mass/Vol] 115.0 mg/dL Normal [facility] Comment on above: Performed By: #### L IPID, CMP #### [facility] [address] [address] [address] Kiarra Landry Cholesterol.total/C holesterol in HDL [Mass ratio] 4.2 {ratio} Normal [facility] Comment on above: Performed By: #### L IPID, CMP #### [facility] [address] [address] [address] Kiarra Landry HDL NORMAL > or = 60 mg/dl - LO W CARDIOVASCULAR RISK <40 mg/dl - HIGH CARDIOVASCULAR RISK Normal [facility] Comment on above: Performed By: #### L IPID, CMP #### [facility] [address] [address] [address] Kiarra Landry LDL CALC NORMAL SEE BELOW Normal [facility] Comment on above: Result Comment: <100 mg/dl OPTIMAL 100 - 129 mg/dl NEAR OR ABOVE OPTIMAL 130 - 159 mg/dl BORDERLINE HIGH 160 - 189 mg/dl HIGH >190 mg/dl VERY HIGH Performed By: #### L IPID, CMP #### [facility] [address] [address] [address] Kiarra Landry Triglyceride [Mass/Vol] 125 mg/dL Normal <=150 [facility] Comment on above: Performed By: #### L IPID, CMP #### [facility] [address] [address] [address] Kiarra Landry VLDL CALC 25.0 mg/dL Normal [facility] Comment on above: Performed By: #### L IPID, CMP #### [facility] [address] [place] [address] Dr. Kiarra Landry PROF 14(COMP METB)on 023 Albumin [Mass/Vol] 4.0 g/dL Normal 3.4-5.0 [facility] Comment on above: Performed By: #### L IPID, CMP #### [facility] [address] [address] [address] Kiarra Landry Albumin/Globulin [Mass ratio] 1.2 {ratio} Normal [facility] Comment on above: Performed By: #### L IPID, CMP #### [facility] [address] [address] [address] Kiarra Landry ALP [Catalytic activity/Vol] 68 U/L Normal 46-116 [facility] Comment on above: Performed By: #### L IPID, CMP #### [facility] [address] [address] [address] Kiarra Landry ALT [Catalytic activity/Vol] 61 U/L Critically high 14-59 [facility] Comment on above: Performed By: #### L IPID, CMP #### [facility] [address] [address] [address] Kiarra Landry Anion gap [Moles/Vol] 10.6 mmol/L Normal [facility] Comment on above: Performed By: #### L IPID, CMP #### [facility] [address] [address] [address] Kiarra aLndry AST [Catalytic activity/Vol] 28 U/L Normal 15-37 [facility] Comment on above: Performed By: #### L IPID, CMP #### [facility] [address] [place] [address] Dr. Kiarra Landry Bilirubin [Mass/Vol] 0.4 mg/dL Normal 0.2-1.0 [facility] Comment on above: Performed By: #### L IPID, CMP #### [facility] [address] [place] [address] Dr. Kiarra Landry Calcium [Mass/Vol] 8.6 mg/dL Normal 8.5-10.1 [facility] Comment on above: Performed By: #### L IPID, CMP #### [facility] [address] [place] [address] Dr. Kiarra Landry Chloride [Moles/Vol] 101 mmol/L Normal 98-107 [facility] Comment on above: Performed By: #### L IPID, CMP #### [facility] [address] [place] [address] Dr. Kiarra Landry CO2 [Moles/Vol] 27.9 mmol/L Normal 21.0-32.0 [facility] Comment on above: Performed By: #### L IPID, CMP #### [facility] [address] [place] [address] Dr. Kiarra Landry Creatinine [Mass/Vol] 0.80 mg/dL Normal 0.55-1.02 [facility] Comment on above: Performed By: #### L IPID, CMP #### [facility] [address] [place] [address] Dr. Kiarra Landry EGFR-AF SWISS >60 Normal >=60 [facility] Comment on above: Performed By: #### L IPID, CMP #### [facility] [address] [place] [address] Dr. Kiarra Landry EGFR-NON AF SWISS >60 Normal >=60 [facility] Comment on above: Performed By: #### L IPID, CMP #### [facility] [address] [address] [address] Kiarra Landry Globulin (S) [Mass/Vol] 3.3 g/dL Normal [facility] Comment on above: Performed By: #### L IPID, CMP #### [facility] [address] [place] [address] Dr. Kiarra Landry Glucose [Mass/Vol] 81 mg/dL Normal 74-106 [facility] Comment on above: Performed By: #### L IPID, CMP #### [facility] [address] [place] [address] Dr. Kiarra Landry Potassium [Moles/Vol] 3.5 mmol/L Normal 3.5-5.1 [facility] Comment on above: Performed By: #### L IPID, CMP #### [facility] [address] [place] [address] Dr. Kiarra Landry Protein [Mass/Vol] 7.3 g/dL Normal 6.4-8.2 [facility] Comment on above: Performed By: #### L IPID, CMP #### [facility] [address] [place] [address] Dr. Kiarra Landry Sodium [Moles/Vol] 136 mmol/L Normal 136-145 [facility] Comment on above: Performed By: #### L IPID, CMP #### [facility] [address] [place] [address] Dr. Kiarra Landry Urea nitrogen [Mass/Vol] 14.0 mg/dL Normal 7.0-18.0 [facility] Comment on above: Performed By: #### L IPID, CMP #### [facility] [address] [place] [address] Dr. Kiarra Landry Urea nitrogen/Creatinine [Mass ratio] 17.5 mg/mg Normal [facility] Comment on above: Performed By: #### L IPID, CMP #### [facility] [address] [place] [address] Dr. Kiarra Landry US THYROIDon 07-26-2022 US [...] by: KIM ENRIQUEZ Date: 2022-07-26 19:43 Normal [facility] PAP ACOG PANEL 2: 30 to 65on 05-21-2022 . . Normal [facility] Comment on above: Result Comment: Perf ormed at: WB Performed By: #### [id number] #### [facility] [address] [place] [address] Dr. Kiarra Landry Age Gdln ACOG Testing 30-65 Normal [facility] Comment on above: Performed By: #### [id number] #### [facility] [address] [place] [address] Dr. Kiarra Landry DIAGNOSIS: Comment Normal [facility] Comment on above: Result Comment: NEGA TIVE FOR INTRAEPITHELIAL LESION OR MALIGNANCY. Performed at: [facility] Performed By: #### [id number] #### [facility] [address] [place] [address] Dr. Kiarra Landry HPV Aptima Negative Normal Negative [facility] Comment on above: Result Comment: This nucleic acid amplification test detects fourteen high-risk HPV types (16,18,31,33,35,39,45,51,52,56,58,59,66,68) without differentiation. Performed at: =G Performed By: #### [id number] #### [facility] [address] [place] [address] Dr. Kiarra Landry HPV Genotype Reflex Comment Normal [facility] Comment on above: Result Comment: Crit erlance not met, HPV Genotype not performed. Performed at: WB Performed By: #### [id number] #### [facility] [address] [place] [address] Dr. Kiarra Landry Methodology: Comment Normal [facility] Comment on above: Result Comment: This liquid based ThinPrep(R) pap test was screened with the use of an image guided system. Performed at: WB Performed By: #### [id number] #### [facility] [address] [place] [address] Dr. Kiarra Landry Note: Comment Normal [facility] Comment on above: Result Comment: The Pap smear is a screening test designed to aid in the detection of premalignant and malignant conditions of the uterine cervix. It is not a diagnostic procedure and should not be used as the sole means of detecting cervical cancer. Both false-positive and false-negative reports do occur. . Performed at: WB Performed By: #### [id number] #### [facility] [address] [place] [address] Dr. Kiarra Landry Performed by: Comment Normal [facility] Comment on above: Result Comment: Norma Smith, Handbag Frames Inspector (ASCP) Performed at: WB Performed By: #### [id number] #### [facility] [address] [place] [address] Dr. Kiarra Landry Specimen adequacy: Comment Normal [facility] Comment on above: Result Comment: Sati sfactory for evaluation. Endocervical and/or squamous metaplastic cells (endocervical component) are present. Performed at: WB Performed By: #### [id number] #### [facility] [address] [place] [address] Dr. Kiarra Landry US THYROIDon 01-12-2022 US [...] TR 4 nodule, previously biopsied TI-RADS: [employer] TI-RADS committee's white paper recommendations for thyroid lesions classified as TR4 (moderately suspicious) are listed below: > 1.0 cm. Follow-up ultrasound in 1, 2, 3, and 5 years. > 1.5 cm. FNA. J. Am Ned Radiol 2017;14:587-595. Electronically authenticated by: DIVYA COOL Date: 2022-01-12 07:11 Normal [facility] Quick Strepon 10-31-2021 S. pyogenes Org specific cx Ql (Throat) Negative [facility] Other Quick Strep [facility] Other COMPREHENSIVE METABOLIC PANE [place] 07-05-2021 Albumin [Mass/Vol] 4.5 g/dL Normal 3.6-5.1 [facility] Comment on above: Performed By: #### 7 981, 27487, 42076 #### [facility] [address] [address] Deliverer Outside: Goyo Ivory MD Albumin/Globulin [Mass ratio] 1.8 {ratio} Normal 1.0-2.5 [facility] Comment on above: Performed By: #### 7 600, 54247, 68010 #### [facility] [address] [address] Deliverer Outside: Goyo Ivory MD ALP [Catalytic activity/Vol] 76 U/L Normal 31-125 [facility] Comment on above: Performed By: #### 7 600, 60611, 07877 #### [facility] of [address], [address] [place] [address] Deliverer Outside: Goyo Ivory MD ALT [Catalytic activity/Vol] 41 U/L High 6-29 [facility] Comment on above: Performed By: #### 7 600, 63904, 09896 #### [facility] of [address], [address] [place] [address] Deliverer Outside: Goyo Ivory MD AST [Catalytic activity/Vol] 24 U/L Normal 10-30 [facility] Comment on above: Performed By: #### 7 600, 17068, 78402 #### [facility] of [address], [address] [place] [address] Deliverer Outside: Goyo Ivory MD Bilirubin [Mass/Vol] 0.3 mg/dL Normal 0.2-1.2 [facility] Comment on above: Performed By: #### 7 600, 98196, 92872 #### [facility] of [place] [address] Deliverer Outside: Goyo Ivory MD BUN/CREATININE RATIO NOT APPLICABLE Normal 6- [facility] Comment on above: Performed By: #### 7 600, 59404, 93174 #### [facility] of [place] [address] Deliverer Outside: Goyo Ivory MD Calcium [Mass/Vol] 9.0 mg/dL Normal 8.6-10.2 [facility] Comment on above: Performed By: #### 7 600, 93790, 14673 #### [facility] of [place] [address] Deliverer Outside: Goyo Ivory MD Chloride [Moles/Vol] 105 mmol/L Normal 98-110 [facility] Comment on above: Performed By: #### 7 600, 82685, 73683 #### [facility] of [place] [address] Deliverer Outside: Goyo Ivory MD CO2 [Moles/Vol] 25 mmol/L Normal 20-32 [facility] Comment on above: Performed By: #### 7 600, 78833, 42484 #### [facility] of [address], [address] [place] [address] Deliverer Outside: Goyo Ivory MD Creatinine [Mass/Vol] 0.89 mg/dL Normal 0.50-1.10 [facility] Comment on above: Performed By: #### 7 600, 18978, 99365 #### [facility] of [address], [address] [place] [address] Deliverer Outside: Goyo Ivory MD eGFR NON-AFR. SWISS 83 mL/min/1.73m2 Normal > OR = 60 [facility] Comment on above: Performed By: #### 7 600, 47324, 58920 #### [facility] of [address], [address] [place] [address] Deliverer Outside: Goyo Ivory MD GFR/1.73 sq M.predicted among blacks MDRD (S/P/Bld) [Vol rate/Area] 96 mL/min/{1.73_m2} Normal > OR = 60 [facility] Comment on above: Performed By: #### 7 600, 65181, 53033 #### [facility] [address], [address] [place] [address] Deliverer Outside: Goyo Ivory MD Globulin (S) [Mass/Vol] 2.5 g/dL Normal 1.9-3.7 [facility] Comment on above: Performed By: #### 7 600, 69701, 50534 #### [facility] of [address], [address] [place] [address] Deliverer Outside: Goyo Ivory MD Glucose [Mass/Vol] 77 mg/dL Normal 65-99 [facility] Comment on above: Result Comment: Fasting reference interval Performed By: #### 7 600, 33511, 76301 #### [facility] of [address], [address] [place] [address] Deliverer Outside: Goyo Ivory MD Potassium [Moles/Vol] 4.0 mmol/L Normal 3.5-5.3 [facility] Comment on above: Performed By: #### 7 600, 90793, 29353 #### [facility] of [address], [address] [place] [address] Deliverer Outside: Goyo Ivory MD Protein [Mass/Vol] 7.0 g/dL Normal 6.1-8.1 [facility] Comment on above: Performed By: #### 7 600, 31028, 42427 #### [facility] of [address], [address] [place] [address] Deliverer Outside: Goyo Ivory MD Sodium [Moles/Vol] 139 mmol/L Normal 135-146 [facility] Comment on above: Performed By: #### 7 600, 10529, 64094 #### [facility] of [address], [address] [place] [address] Deliverer Outside: Goyo Ivory MD Urea nitrogen [Mass/Vol] 18 mg/dL Normal 7-25 [facility] Comment on above: Performed By: #### 7 600, 72128, 05280 #### [facility] of [place] [address] Deliverer Outside: Goyo Ivory MD LIPID PANEL, STANDARD 02-0 Cholesterol [Mass/Vol] 206 mg/dL High <200 [facility] Comment on above: Order Comment: FASTI NG:YES FASTING: YES Performed By: #### 7 600, 19808, 14657 #### [facility] of [address], [address] [place] [address] Deliverer Outside: Goyo Ivory MD Cholesterol in HDL [Mass/Vol] 45 mg/dL Low > OR = 50 [facility] Comment on above: Order Comment: FASTI NG:YES FASTING: YES Performed By: #### 7 600, 56592, 41047 #### [facility] of [place] [address] Deliverer Outside: Goyo Ivory MD Cholesterol in LDL [Mass/Vol] [...] LDL-C. Milton SS et al. CLARA. 2013;310(19): 9512-6669 (http://education.[employer]/faq/HVM211) Performed By: #### 7 600, 08995, 10067 #### [facility] [address], [address] [place] [address] Deliverer Outside: Goyo Ivory MD Cholesterol.total/C holesterol in HDL [Mass ratio] 4.6 {ratio} Normal <5.0 [facility] Comment on above: Order Comment: FASTI NG:YES FASTING: YES Performed By: #### 7 600, 17260, 00401 #### [facility] [address], [address] [place] [address] Deliverer Outside: Goyo Ivory MD NON HDL CHOLESTEROL 161 mg/dL (calc) High <130 [facility] Comment on above: Order Comment: FASTI NG:YES FASTING: YES Result Comment: For patients with diabetes plus 1 major ASCVD risk factor, treating to a non-HDL-C goal of <100 mg/dL (LDL-C of <70 mg/dL) is considered a therapeutic option. Performed By: #### 7 600, 15801, 82055 #### [facility] [address], [address] [place] [address] Deliverer Outside: Gyoo Ivory MD Triglyceride [Mass/Vol] 170 mg/dL High <150 [facility] Comment on above: Order Comment: FASTI NG:YES FASTING: YES Performed By: #### 7 600, 41644, 22875 #### [facility] [address], [address] [place] [address] Deliverer Outside: Goyo Ivory MD TSH+FREE T4on 07-05-2021 Free T4 [Mass/Vol] 0.9 ng/dL Normal 0.8-1.8 [facility] Comment on above: Performed By: #### 7 600, 16923, 76426 #### [facility] [address], [address] [place], [place] [address] Deliverer Outside: Goyo Ivory MD TSH Qn 1.38 m[IU]/L Normal [facility] Comment on above: Result Comment: Refe rence Range > or = 20 Years 0.40-4.50 Ranges First trimester 0.26-2.66 Second trimester 0.55-2.73 Third trimester 0.43-2.91 Performed By: #### 7 600, 47824, 59019 #### [facility] [address], [address] [place], [place] [address] Deliverer Outside: Goyo Ivory MD [employer] 05-08-2021 Forms [id number] .[id number]:127 Normal [facility] Formson 05-05-2021 Forms [id number] .[id number]:127 Normal [facility] Operative Reporton Operative Report [id number] .[id number]:127 Normal [facility] Ambulatory Clinical Summaryo n 05-03-2021 Ambulatory Clinical Summary {[id number] Normal [facility] General Surgery Office/Clini c Noteon 05-03-2021 [...] problems/questions. Follow-up With When Contact Information MARCUS OFSS, DIVINA Araujo Only if needed [address] [place] [address]- Additional Instructions: Problem List/Past Medical [...] Family History Family history is negative Normal [facility] Comment on above: Result Comment: Elec tronically Signed By: MARCUS FOSS, Chris Olguin\Date and Time Signed: 05/03/21 21:19 EST Pathology Noteon 05-02-2021 Pathology Note [id number] .00CD:127 Normal [facility] Lab Reportson 04-25-2021 Lab Reports [id number] .[id number]:127 Normal [facility] Lab Reportson 04-19-2021 Lab Reports [id number] .[id number]:127 Normal [facility] Consent for Procedure/Surger yon 04-10-2021 Consent for Procedure/Surgery [id number] .[id number]:127 Normal [facility] General Surgery Office/Clini c Noteon 04-02-2021 [...] Family History Family history is negative Normal [facility] Comment on above: Result Comment: Elec [...] including vitamins, herbs, eye drops, creams, and malv-rbw-ctrfwhw medicines. ? Any problems you or family [...] control your (more content not included)... Normal [facility] RAD - Ultrasound Reporton RAD - Ultrasound Report [id number] .[id number]:127 [facility] Ambulatory Clinical Summaryo n 02-07-2021 Ambulatory Clinical Summary {[id number]}CD:[id number] [facility] ED Note-Physicianon 02-08-20 ED Note-Physician [id number] .[id number]:127 [facility] Vital Signs Date Time Vital Sign Value Performing Clinician Facility 08-13-2024 09:13-0400 Body mass index (BMI) [Ratio] 40.51 kg/m2 Brooke Burlington PA Work Phone: [facility] 08-13-2024 09:13-0400 Body weight 107.05 kg Brooke Hilley PA Work Phone: [facility] 08-13-2024 09:13-0400 Diastolic blood pressure 74 mm[Hg] Brooke Hilley PA Work Phone: [facility] 08-13-2024 09:13-0400 Systolic blood pressure 122 mm[Hg] Brooke Giordano PA Work Phone: [facility] 06-24-2024 16:32-0500 Body mass index (BMI) [Ratio] 41.02 kg/m2 Johnathon Ana DO Work Phone: [facility] 06-24-2024 16:32-0500 Body weight 108.41 kg Johnathon Ana DO Work Phone: [facility] 06-24-2024 16:32-0500 Diastolic blood pressure 84 mm[Hg] Johnathon Ana DO Work Phone: [facility] 06-24-2024 16:32-0500 Systolic blood pressure 124 mm[Hg] Johnathon Ana DO Work Phone: [facility] 05-18-2024 08:48-0500 Body mass index (BMI) [Ratio] 41.26 kg/m2 Johnathon Ana DO Work Phone: [facility] 05-18-2024 08:48-0500 Body weight 109.05 kg Johnathon Ana DO Work Phone: [facility] 05-18-2024 08:48-0500 Diastolic blood pressure 82 mm[Hg] Johnathon Ana DO Work Phone: [facility] 05-18-2024 08:48-0500 Systolic blood pressure 120 mm[Hg] Johnathon Ana DO Work Phone: [facility] 02-26-2024 16:00-0400 Body height 162.6 cm Flower Zepeda MD Work Phone: [facility] 02-26-2024 16:00-0400 Body mass index (BMI) [Ratio] 41.71 kg/m2 Flower Zepeda MD Work Phone: [facility] 02-26-2024 16:00-0400 Body weight 110.22 kg Flower Zepeda MD Work Phone: [facility] 02-26-2024 16:00-0400 Diastolic blood pressure 74 mm[Hg] Flower Zepeda MD Work Phone: [facility] 02-26-2024 16:00-0400 Systolic blood pressure 129 mm[Hg] Flower Zepeda MD Work Phone: [facility] 12-23-2023 11:55-0400 Body height 162.56 cm DO Vinny Intenselong Work Phone: [facility] 12-23-2023 11:55-0400 Body mass index (BMI) [Ratio] 41 kg/m2 DO Vinny Furlong Work Phone: [facility] 12-23-2023 11:55-0400 Body temperature 98 [degF] DO Vinny Intenselong Work Phone: [facility] 12-23-2023 11:55-0400 Body weight 108.4 kg DO Vinny Furlong Work Phone: [facility] 12-23-2023 11:55-0400 Diastolic blood pressure 79 mm[Hg] DO Vinny Furlong Work Phone: [facility] 12-23-2023 11:55-0400 Heart rate 84 /min DO Vinny Intenselong Work Phone: [facility] 12-23-2023 11:55-0400 Respiratory rate 18 /min DO Vinny Intenselong Work Phone: [facility] 12-23-2023 11:55-0400 SaO2% (BldA) [Mass fraction] 97 % DO Vinny Schwab Work Phone: [facility] 12-23-2023 11:55-0400 Systolic blood pressure 109 mm[Hg] DO Vinny Schwab Work Phone: [facility] 10-31-2021 18:40-0400 Body height 162.56 cm Sofia Steelmond Other [facility] Other 10-31-2021 18:40-0400 Body mass index (BMI) [Ratio] 39.48 kg/m2 Sofia Steelmond Other [facility] Other 10-31-2021 18:40-0400 Body temperature 98.2 [degF] Sofia Steelmond Other [facility] Other 10-31-2021 18:40-0400 Body weight 104.33 kg Sofia Salazar Other [facility] Other 10-31-2021 18:40-0400 Respiratory rate 18 /min Sofia Salazar Other [facility] Other 10-31-2021 18:40-0400 SaO2% (BldA) [Mass fraction] 97 % Sofia Steelmond Other [facility] Other Encounters Encounter Date Encounter Type Care Provider Facility Start: 08-13-2024 End: 08-13-2024 Bamboo flowsheet Brooke MARTIN Work Phone: [facility] Start: 08-13-2024 End: 08-13-2024 Bamboo flowsheet Brooke MARTIN Work Phone: [facility] Start: 08-13-2024 End: 08-13-2024 Postop follow up visit related to original px Brooke MARTIN Work Phone: [facility] Comment on above: Postoperative visit; Status post bilateral salpingectomy Start: 08-13-2024 End: 08-13-2024 ambulatory BROOKE GIORDANO Not Available Start: 08-07-2024 End: 08-07-2024 ambulatory Johnathon Ana Facility:[facility] Start: 08-07-2024 End: 08-07-2024 Departed Referred Vinny Furlong DO Work Phone: [facility] Start: 06-24-2024 End: 06-24-2024 Departed Referred Vinny Furlong DO Work Phone: [facility] Start: 06-24-2024 End: 06-24-2024 ambulatory Vinny Furlong DO Work Phone: [facility] Work Phone: Start: 06-24-2024 End: 06-24-2024 Patient encounter procedure Johnathon Ana DO Work Phone: [facility] Comment on above: Pre-op examination; Request for sterilization; Menorrhagia with regular cycle; Abnormal uterine bleeding; Pelvic pain in female Start: 06-24-2024 End: 06-24-2024 Preprocedural examination done Johnathon Ana DO Work Phone: [facility] Start: 06-17-2024 End: 06-17-2024 Clinisync Result [...] 05-18-2024 End: 05-29-2024 Clinisync Result Encounter Johnathon Perez DO Work Phone: [facility] Unsolicited Start: 05-18-2024 End: 05-18-2024 Patient encounter procedure Johnathon Vorao DO Work Phone: [facility] Work Phone: Start: 05-18-2024 End: 05-18-2024 Periodic preventive med est patient 40-64yrs Johnathon Vorao DO Work Phone: [facility] Comment on above: Well woman exam with routine gynecological exam; Breast cancer screening by mammogram; UTI symptoms; Menorrhagia with regular cycle; Request for sterilization; PCOS (polycystic ovarian syndrome); Hormone imbalance Start: 05-18-2024 End: 05-18-2024 ambulatory JOHNATHON PEREZ Not Available Start: 02-26-2024 End: 02-26-2024 ambulatory [...] Start: 12-23-2023 End: 12-23-2023 ambulatory DO Vinny Furlong Work Phone: [facility] Work Phone: Start: 12-23-2023 End: 12-23-2023 Patient encounter procedure DO Vinny Furlong Work Phone: [facility] Work Phone: Start: 12-02-2023 End: 12-11-2023 Telephone encounter Vinny Schwab DO Work Phone: [facility] Start: 08-28-2023 End: 08-28-2023 ambulatory FLOWER ZEPEDA Not Available Start: 08-26-2023 Telephone encounter Vinny roberson DO Work Phone: [facility] Start: 08-05-2022 Encounter for genera l adult medical examination with abnormal findings DR MELO YE [facility] Start: 08-01-2022 End: 08-02-[address] [...] 10-31-2021 End: 10-31-2021 ambulatory Sofia Salazar Other [facility] Other Start: 10-31-2021 Office outpatient vi sit 25 minutes Sofia Salazar [facility] Procedures Date Procedure Procedure Detail Performing Clinician Start: 08-13-2024 H/O: surgery Status post bilateral salpingectomy Brooke Giordano PA Work Phone: Start: 06-24-2024 Urine test visual color cmprsn meths Johnathon Ana DO Work Phone: Start: 06-17-2024 ALL CBC WITH AUTO DIFF Johnathon Ana DO Work Phone: Start: 05-18-2024 Urnls dip stick/tablet rgnt non-auto w/o micrscp Johnathon Perez DO Work Phone: Start: 05-18-2024 IGP,APTIMA HPV,AGE GDLN Johnathon Perez DO Work Phone: Start: 12-23-2023 X-ray of left foot DO Vinny Schwab Work Phone: Start: 05-14-2023 Cytp cerv/vag auto thin layer prep mnl screen Brooke MARTIN Work Phone: Start: 07-11-2022 Adult depression screening assessment Vinny Schwab [employer] Work Phone: Start: 05-03-2022 Microscopic observation [Identifier] in Cervix by Cyto stain Vinny Schwab [employer] Work Phone: Plan of Treatment Date Care Activity Detail Author Start: 05-03-2025 Screening for malign ant neoplasm of cervix Pap Smear [facility] Start: 08-13-2024 End: 08-13-2024 Patient encounter procedure 08/13/2024 9:20 AM EDT Office Visit [facility] [address] [place] [address] Brooke Giordano PA [address] [place], [place] [id number] Arrived [facility] Comment on above: Arrived Start: 06-24-2024 End: 06-24-2024 Patient encounter procedure 06/24/2024 3:30 PM EST Procedure Visit [facility] [address] [place] [address] Johnathon Perez DO [address], [place] [id number] [facility] Start: 05-18-2024 End: 05-18-2025 aPTT in Blood by Coagulation assay APTT Lab Routine Menorrhagia with regular cycle Expected: 05/18/2024 (Approximate), Expires: 05/18/2025 [facility] Comment on above: Expected: 05/18/2024 (Approximate), Expires: 05/18/2025 Start: 05-18-2024 End: 05-18-2025 DHEA DHEA Lab Routine PCOS (polycystic ovarian syndrome) Expected: 05/18/2024 (Approximate), Expires: 05/18/2025 [facility] Comment on above: Expected: 05/18/2024 (Approximate), Expires: 05/18/2025 Start: 05-18-2024 End: 07-19-2025 MG Breast - bilateral Screening Bilateral screening mammogram Imaging Routine Breast cancer screening by mammogram Expected: 05/18/2024 (Approximate), Expires: 07/19/2025 [facility] Work Phone: Comment on above: Expected: 05/18/2024 (Approximate), Expires: 07/19/2025 Start: 05-18-2024 End: 05-18-2025 US for US PELVIS-TRANSVAG IF INDICATED Imaging Routine Menorrhagia with regular cycle Expected: 05/18/2024 (Approximate), Expires: 05/18/2025 [facility] Comment on above: Expected: 05/18/2024 (Approximate), Expires: 05/18/2025 Start: 05-18-2024 End: 05-18-2024 Patient encounter procedure [facility] Comment on above: Arrived Start: 02-02-2024 Influenza vaccination Influenza Vacc ine [facility] Start: 07-11-2023 Adult BMI Screening Adult BMI Screen ing [facility] Start: 07-11-2023 Depression Screening Depression Scre ening [facility] Start: 07-11-2023 Tobacco Screening Tobacco Screening [facility] Start: 12-20-2002 DTaP,Tdap and Td Vaccines (1 - Tdap) DTaP,Tdap and Td Vaccines (1 - Tdap) [facility] CBC W Auto Different ial panel - Blood CBC and differential Lab Routine Menorrhagia with regular cycle Ordered: 05/18/2024 [facility] Comment on above: Ordered: 05/18/2024 DHEA-sulfate DHEA-sulfate Lab Routine PCOS (polycystic ovarian syndrome) Ordered: 05/18/2024 [facility] Comment on above: Ordered: 05/18/2024 Estradiol Estradiol Lab Ro utine Menorrhagia with regular cycle Hormone imbalance Ordered: 05/18/2024 [facility] Comment on above: Ordered: 05/18/2024 Follicle stimulating hormone Follicle stimulating hormone Lab Routine PCOS (polycystic ovarian syndrome) Ordered: 05/18/2024 [facility] Comment on above: Ordered: 05/18/2024 hCG, quantitative, hCG, quantitative, Lab Routine Menorrhagia with regular cycle Ordered: 05/18/2024 [facility] Comment on above: Ordered: 05/18/2024 Hemoglobin A1c/Hemoglobin.total in Blood Hemoglobin A1c Lab Routine Menorrhagia with regular cycle Ordered: 05/18/2024 [facility] Comment on above: Ordered: 05/18/2024 Luteinizing hormone Luteinizing hormone Lab Routine PCOS (polycystic ovarian syndrome) Ordered: 05/18/2024 [facility] Comment on above: Ordered: 05/18/2024 Progesterone Progesterone Lab Routine Menorrhagia with regular cycle Hormone imbalance Ordered: 05/18/2024 [facility] Comment on above: Ordered: 05/18/2024 Prothrombin time (PT ) in Blood by Coagulation assay Protime-INR Lab Routine Menorrhagia with regular cycle Ordered: 05/18/2024 [facility] Comment on above: Ordered: 05/18/2024 THIN PREP TIS PAP AN D HR HPV DNA THIN PREP TIS PAP AND HR HPV DNA Pathology and Cytology Routine Well woman exam with routine gynecological exam Ordered: 05/18/2024 [facility] Comment on above: Ordered: 05/18/2024 Thyrotropin [Units/volume] in Serum or Plasma TSH Lab Routine Menorrhagia with regular cycle Ordered: 05/18/2024 [facility] Comment on above: Ordered: 05/18/2024 Thyroxine (T4) free [Mass/volume] in Serum or Plasma T4, free Lab Routine Menorrhagia with regular cycle Ordered: 05/18/2024 [facility] Comment on above: Ordered: 05/18/2024 Tissue exam Tissue exam Path ology and Cytology Routine Menorrhagia with regular cycle Ordered: 06/24/2024 [facility] Work Phone: Comment on above: Ordered: 06/24/2024 Immunizations Immunization Date Immunization Notes Care Provider Manny andrews 10-13-2021 influenza, high dose seasonal, preservative-free Vinnygaetano Dupreelong DO Work Phone: [facility] 03-15-2021 influenza virus vaccine, unspecified formulation Vinnygaetano Ayalang DO Work Phone: [facility] 04-14-2020 influenza, high dose seasonal, preservative-free Vinnygaetano Dupreelong DO Work Phone: [facility] 05-15-2019 influenza, seasonal, injectable Vinnygaetano Ayalang DO Work Phone: [facility] Payers Date Payer Category Payer Private Health Insurance [employer] [id number] 2020 Unknown [id number] 1983 Unknown [id number] 2.16.840.1.342260.3.579 .2.593 1983 Unknown [id number] 2.16.840.1.496438.3.579 .2.593 1983 Unknown [id number] 2.16.840.1.388435.3.579 .2.593 1983 Unknown [id number] 2.16.840.1.864022.3.579 .2.593 1983 Unknown [id number] 2.16.840.1.627811.3.579 .2.593 1983 Unknown [id number] 2.16.840.1.883566.3.579 .2.593 1983 Unknown [id number] 2.16.840.1.641786.3.579 .2.9 1983 Unknown [id number] 2.16.840.1.859725.3.579 .2.9 1983 Unknown [id number] 2.16.840.1.530519.3.579 .2.9 1983 Unknown [id number] 2.16.840.1.065309.3.579 .2.1258 1983 Unknown [id number] 2.16.840.1.489122.3.579 .2.1259 1959 Self-pay 1959 Unknown [id number] 2.16.840.1.097309.19 Unknown [id number] 2.16.840.1.316959.3.579 .2.531 Unknown [id number] 2.16.840.1.078416.3.579 .2.531 Unknown [id number] 2.16.840.1.908416.3.579 .2.531 Social History Date Type Detail Facility Unknown if ever smoked [facility] Other Start: 08-27-2023 End: 02-26-2024 Sex Assigned At [facility] Start: 02-11-2023 End: 12-23-2023 Tobacco smoking status NHIS Never smoked tobacco (finding) [facility] Start: 1985 Sex Assigned At Female [facility] Start: 04-25-2022 End: 02-11-2023 Tobacco use and exposure Smokeless tobacco non-user [facility] Start: 02-26-2024 End: 08-13-2024 Alcoholic beverage intake Ex-drinker (finding) [facility] Start: 08-27-2023 End: 02-26-2024 History of Social function [facility] How [...] [facility] Start: 06-26-2024 Sex Patient sex un known (finding) [facility] Adolescent depressio n screening assessment 0 [facility] Start: 08-07-2024 Sex Female (finding) [facility] Clinical Notes 03-17-2021 to 08-13-2024 VERONICA Dillon - 08/13/2024 9:20 AM EDSelene Lamar - 06/24/2024 3:30 PM Gurpreet Mobley LPN - 05/18/2024 8:30 AM Karla Zepeda MD - 02/26/2024 3:50 PM EDT Note Date & Type Note Facility 08-13-2024 History of Presen t illness Narrative Reason for Appointment: Patient ID: Steph Rizo is a 38 y.o. female who presents for Post-op Visit (Patient present today for a post operative visit. Pt had a bilateral salpingectomy/bilateral fallopian tubes removed on 08/07/2024.) Patient presents today for 1 Week Post Op Follow Up appointment. 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 HENT: Negative. Eyes: Negative. Respiratory: Negative. Cardiovascular: Negative. Gastrointestinal: Negative. Genitourinary: Negative. Musculoskeletal: Negative. Skin: Negative. Neurological: Negative. All other systems reviewed and are negative. Hematological: Negative. Endocrine: Negative. Allergic/Immunologic: Negative. OBJECTIVE Objective: Physical Exam Constitutional: Appearance: Normal appearance. She is normal weight. HENT: Head: Normocephalic. Cardiovascular: Rate and Rhythm: Normal rate. Pulses: Normal pulses. Pulmonary: Effort: Pulmonary effort is normal. Breath sounds: Normal breath sounds. Abdominal: Palpations: Abdomen is soft. Comments: Incisions are clean and dry, steri strips in place Musculoskeletal: General: Normal range of motion. Neurological: General: No focal deficit present. Mental Status: She is alert and oriented to person, place, and time. Psychiatric: Mood and Affect: Mood normal. Behavior: Behavior normal. Thought Content: Thought content normal. Judgment: Judgment normal. Vitals and nursing note reviewed. Vitals: Estimated body mass index is 41.02 kg/m as calculated from the following: Height as of 02/26/24: 5' 4 . Weight as of 06/24/24: 239 lb. BP: No LMP recorded. ASSESSMENT & PLAN ICD-10-CM 1. Postoperative visit Z48.89 2. Status post bilateral salpingectomy Z90.79 Post Op Follow Up: Patient presents today for a postop follow up after having a Bilateral Laparoscopic Salpingectomy performed at [facility] with Dr. Perez. Patient is healing well and shows no signs or symptoms of infection. Pathology results was reviewed with the patient in great detail and all restrictions have been lifted. Follow Up: Patient is to return to the office for annual exam unless needed otherwise. Documented by Carmela Vogel MA on behalf of: VERONICA Dillon documented in this encounter [facility] 06-24-2024 History of Presen t illness Narrative Reason for Appointment: Patient ID: Steph Rizo is a 38 y.o. female who presents for Pre-op Visit and EMBX Patient presents today for Pre Op/Endometrial Biopsy appointment. Patient is scheduled to undergo Da Kadie assisted Bilateral Laparoscopic Salpingectomy and Endometrial Ablation with Liana on 07/24/[address] Perez at [facility]. MEDICATIONS Current Outpatient Medications Medication Instructions omeprazole [...] nursing note reviewed. Exam conducted with a environmental science instructor present. Vitals: Estimated body mass index is [...] reviewed, and patient is to proceed to [facility] OR. Follow Up: Patient is to follow up between 1-2 weeks post op to assess proper healing and recovery from procedure. Documented by Laney Lamar on behalf of: Johnathon Perez DO documented in this encounter [facility] 05-18-2024 History of Presen t illness Narrative [...] nursing note reviewed. Exam conducted with a environmental science instructor present. Vitals: Estimated body mass index is [...] Johnathon Perez DO documented in this encounter [facility] 02-26-2024 History of Presen t illness Narrative Subjective Patient ID: Steph Rizo is a 38 y.o. female who presents for Thyroid Nodule (6 mo follow up with ultrasound, [facility] 02/20/24) Thyroid US shows a 04g16l44 RT TR4 nodule compared to 30m25h00fc in early 2021 Family History Problem Relation [...] if still stable documented in this encounter [facility] 12-02-2023 Miscellaneous Notes Formattin g of this [...] VM Sending letter documented in this encounter [facility] 12-02-2023 Telephone encount er Note ----- Message from Dr. Vinny Schwab DO sent at 11/29/2023 7:48 PM EDT ----- Regarding: FW: wellness ----- Message ----- From: Vinny Schwab DO Sent: 11/27/2023 12:00 AM EDT To: Vinny Schwab DO Subject: wellness Please set up at her convenience after age 38 [facility] 12-02-2023 Telephone encount er Note Lm on VM [facility] 12-02-2023 Telephone encount er Note LM on VM [facility] 12-02-2023 Telephone encount er Note Sending letter [facility] 08-26-2023 Miscellaneous Notes Formattin g of this note might be different from the original. ----- Message from Vinny Schwab DO sent at 08/22/2023 12:36 PM EDT ----- Regarding: Wellness Please set up. She usually sees WORK[employer] COMPENSATION LEGAL SECRETARY documented in this encounter [facility] 08-26-2023 Telephone encount er Note ----- Message from Vinny Schwab DO sent at 08/22/2023 12:36 PM EDT ----- Regarding: Wellness Please set up. She usually sees WORK[employer] COMPENSATION LEGAL SECRETARY [facility] 10-31-2021 Evaluation note Encounter Date Diagnosis Assessment Notes October, Sore throat (ICD-10 - J02.9) October, Viral upper respiratory infection (ICD-10 - J06.9) Drink plenty fluids, get plenty of rest. Take Tylenol or Motrin for aches pains or fevers. Consider taking Mucinex or Sudafed for your drainage. Follow-up with your family physician if no improvement in 2 to 3 days [facility] Other 10-15-2021 NoteChief Complaint consultation for abdominal pain HPI Staff 35 year old female presents on consultation from [facility] for abdominal pain. History of Present Illness 35 yo female, 9 weeks ; referred from ED for episode of upper abd pain; seen 2 days ago in ED at [facility] for sudden onset of upper abdominal [...] data available Patient Education Laparoscopic Cholecystectomy Cholelithiasis, Gymi-bv-Hbyt Problem List/Past Medical History Ongoing Biliary colic [...] Use:., 02/07/2021 Family History Family history is negativeC[facility] HospitalComment on above:Result Comment: Electronically Signed By: MARCUS FOSS, Chris Olguin\Date and Time Signed: 03/17/21 15:37 EDTEvaluation note* Diagnosis Onset Date Resolution Status Left foot pain [facility] Work Phone: Evaluation note* Diagnosis [...] [facility] noteNo assessment information availableVan [facility] Work [facility]: Evaluation note* Diagnosis Pre-op examination Request for sterilization Menorrhagia with regular cycle Abnormal uterine bleeding Unspecified disorder of menstruation and other abnormal bleeding from female genital tract Pelvic pain in female Unspecified symptom associated with female genital organs [facility]* Diagnosis Postoperative visit Status post bilateral salpingectomy documented [facility] Narrative - Reported* Type Description Date Surgical History hernia repair Surgical History t and a Surgical History D&C Surgical History cholecystectomy 04/23 Hospitalization History childbirth 2017 [facility] Other InstructionsNot on filedocumented in this encounter [facility] SystemInstructionsNot on filedocumented in this encounter [facility] Summary Purpose Family History No Family [...] Date Unknown June 24, 2024 4 :06pm Chief Complaint Admit Date Unknown June 24, 2024 4 :06pm Unknown August 07, 2024 9:36 am Additional Source Comments INFORMATION SOURCE (unrecogn ized section and content) DATE CREATED AUTHOR 07/05/2021 [facility] DATE CREATED AUTHOR AUTHOR'S ORGANIZ ATION 07/28/2021 [facility] DATE CREATED AUTHOR AUTHOR'S ORGANIZ ATION 08/07/2022 [facility] DATE CREATED AUTHOR AUTHOR'S ORGANIZ ATION 08/12/2024 [facility] DATE CREATED AUTHOR AUTHOR'S ORGANIZ ATION 08/16/[address] [facility] EPIC REASON FOR VISIT (unrecogniz ed section and content) Reason Comments Well Women Visit Reason Comments Thyroid Nodule 6 mo follow up with ultrasound, [facility] 02/20/24 Reason Comments Pre-op Visit EMBX Reason Comments [facility]. Pt had a bilateral salpingectomy/bilateral fallopian tubes removed on 08/07/2024. Care Teams (unrecognized sec tion and content) Team Status: Active Member Role Status Dates Vinny Schwab DO Primary Care Provider Active Team Status: Inactive Member Role Status Dates Vinny Schwab DO Primary Care Provider Active Start: December 23, 2023 End: December 23, 2023 Shelli Prakash APRN Attending Provider Active S tart: December 23, 2023 End: December 23, 2023 Cuff Knitter Relationship Specialty Start Date End Date Vinny Schwab MD [address], [facility] [place] [address] PCP - General Family Medicine 01/11/23 Cuff Knitter Relationship Specialty Start Date End Date Vinny Schwab MD [address], [facility] [address] PCP - General Family Medicine 01/11/23 Cuff Knitter Relationship Specialty Start Date End Date Vinny Schwab MD [address], [place] [address] PCP - General Family Medicine 01/11/23 Cuff Knitter Relationship Specialty Start Date End Date Vinny Schwab MD [address], [place] [address] PCP - General Family Medicine 01/11/23 Team Status: Inactive Member Role Status Dates Vinny Schwab DO Primary Care Provider Active Start: June 24, 2024 End: June 24, 2024 Johnathon Perez DO Attending Provider Active Start : June 24, 2024 End: June 24, 2024 Cuff Knitter Relationship Specialty Start Date End Date Vinny Schwab MD [address], [place] [address] PCP - General Family Medicine 01/11/23 Cuff Knitter Relationship Specialty Start Date End Date Vinny Schwab DO [address], [place] [address] PCP - General Family Medicine 07/26/20 Cuff Knitter Relationship Specialty Start Date End Date Vinny Schwab DO [address], [place] [address] PCP - General Family Medicine 07/26/20 Team Status: Inactive Member Role Status Dates Johnathon Perez DO Attending Provider Active Start : August 07, 2024 End: August 07, 2024 Cuff Knitter Relationship Specialty Start Date End Date Vinny Schwab MD [address], [place] [address] PCP - General Family Medicine 01/11/23 Goals [...] BE BASED ON THE PRIMARY CLINICAL RECORDS. [facility] [employer] [facility]. provides no warranty or guarantee of the accuracy or completeness of information in this document.
== END 2025-02-20 13:01 | disposition home or self-care (01) ==
LOC: US 13:00
PROVIDERS: PCP Family Medicine; Visit Provider Otolaryngology
DX: E04.1 Nontoxic single thyroid nodule (principal)
CPT/HCPCS: 76536

== ENCOUNTER 2025-05-31 12:37 | Outpatient (OUT) | payer OTHER, SELFPAY ==
--- OUTSIDE RECORDS SUMMARY | 2025-05-31 12:39 | XMS_ITS | Clinical Summary ---
Author Organization [facility] Address [address] [place] [id number] Care Team Providers Care Boiler Blower Name Role Phone Unavailable Primary Care Provider Unavailabl e Social History Tobacco UseTypesPacks/DayYears UsedDateSmoking Tobacco: Never Assessed CommentsUnknownSex and Gender InformationValueDate RecordedSex Assigned at Not on fileLegal BiyKazaih82/02/2012 10:11 AM ESTGender IdentityNot on file Sexual OrientationNot on file Plan of Treatment Not on file
--- OUTSIDE RECORDS SUMMARY | 2025-05-31 12:39 | XMS_ITS | Clinical Summary ---
Author Organization [facility] Address [address] [place] [address] Care Team Providers Care Oracle Engineer Name Role Phone Vinny Schwab MD Primary Care Provider [phone] [phone] Allergies Active AllergyReactionsCriticalityNoted DateCommentsCiprofloxacinHeadache 04/25/2022 Other reaction(s): headaches Medications MedicationSigDispense QuantityRefillsLast FilledStart DateEnd DateStatus omeprazole (PriLOSEC) [address] capsule Take 20 mg by mouth in the morning.3Active cycloSPORINE (Restasis) 0.05 % ophthalmic emulsion 5Active HYDROcodone-acetaminophen ([place]) 5-325 MG tablet TAKE 1 TABLET BY MOUTH EVERY 4 HOURS5Active ibuprofen 800 MG tablet Take 800 mg by mouth every 8 (eight) hours5Active Miebo 1.338 GM/ML solution 5Active prednisoLONE acetate (Pred-Forte) 1 % ophthalmic suspension instill 1 DROP IN BOTH EYES FOUR TIMES DAILY FOR 7 DAYS then instill 1 DROP IN BOTH EYES THREE TIMES DAILY FOR 7 DAYS then instill 1 DROP IN BOTH EYES TWICE DAILY FOR 7 DAYS then instill 1 DROP IN BOTH EYES EVERY DAY FOR 7 DAYS06/23/2024 Active Active Problems ProblemNoted DateDiagnosed DateObesity with body mass index 30 or greater 03/01/2025Status post bilateral dxvpztvekauve58/13/2025Pre-op examination 06/24/2024Request for lfcoknmeqnhvo21/22/2025bnormal uterine aueoregy99/22/2025 Menorrhagia with regular cycle06/24/2024Pelvic pain in ctnbos3406/24/2024Guttate nncakrnke57/11/2023Nontoxic single thyroid fudauy5702/11/2023Rash02/11/2023Thyroid mvyujz3702/11/20231318Pvejehb83/06/2022iliary colic18414Hjttbhpkfamcck02/06/2022 Chronic cholecystitis with dvrmvwdi98/06/2022 Encounters DateTypeDepartmentCare RirbSgyhucizxvq29/30/2025 3:20 PM EDTOffice Visit [facility] [address] [place] [address] Flower Torre MD Thyroid nodule (Primary Dx)03/02/2025amboo flowsheet [facility] [address] [place] [address] Flower Torre MD 03/02/2025Travelfrom Last 3 Months Family History Medical HistoryRelationNameCommentsNo Known ProblemsFatherCancerMaternal GrandfatherskinDiabetesMaternal GrandmotherNo Known ProblemsMotherPsoriasisNeg HxRelationNameStatusCommentsFatherAliveMaternal GrandfatherMaternal Grandmother MotherAlive Social History Tobacco UseTypesPacks/DayYears UsedDateSmoking Tobacco: NeverSmokeless Tobacco: Never Tobacco Cessation:Counseling Given: Not Answered Alcohol UseStandard Drinks/WeekCommentsNot Currently0 (1 standard drink = 0.6 oz pure alcohol)caffeine intake: 1-2 cups per dayAUDIT-CAnswerDate RecordedQ1: How often do you have a drink containing alcohol?Monthly or less08/27/2023Q2: How many drinks containing alcohol do you have on a typical day when you are drinking?1 or Q3: How often do you have six or more drinks on one occasion?Never08/27/2023CommentsNoSex and Gender InformationValueDate RecordedSex Assigned at BirthNot on fileLegal PrvApovrf20/15/2023 11:33 PM EDT Gender IdentityNot on fileSexual OrientationNot on file Last Filed Vital Signs Vital SignReadingTime TakenCommentsBlood Jlltrhdg362/85003/02/2025 3:29 PM EDT Sqlnp423303/02/2025 3:29 PM EDTTemperature--Respiratory Rate--Oxygen Saturation-- Inhaled Oxygen Concentration--Cosleu761 kg (234 lb)03/02/2025 3:29 PM EDTHeight 162.6 cm (5' 4 )03/02/2025 3:29 PM EDTBody Mass Index40.1709 3:29 PM EDT Plan of Treatment DateTypeDepartmentCare Team (Latest Contact Info)Akxxrnggggj21/07/2026 3:30 PM ESTOffice Visit [facility] [address] [facility] [address] [place] [address] Flower Torre MD [address] [facility] [address] [place] [address] Insurance Care Teams Team MemberRelationshipSpecialtyStart DateEnd Date Vinny Schwab MD [address] [facility], [place] [address] PCP - GeneralFamily Medicine01/11/23
--- OUTSIDE RECORDS SUMMARY | 2025-05-31 12:40 | XMS_ITS | Clinical Summary ---
Author Organization [facility] [employer] Address [id number] [address] [place] [address] Care Team Providers Care Manager Simulation Name Role Phone Vinny Schwab DO Primary Care Provider [phone]- [phone] Allergies Active AllergyReactionsCriticalityNoted DateCommentsCiprofloxacinHeadache 04/25/2022 Other reaction(s): headaches Medications MedicationSigDispense QuantityRefillsLast FilledStart DateEnd DateStatus triamcinolone (KENALOG) 0.1 % cream APPLY TO AFFECTED AREAS TOPICALLY TWICE DAILY NEEDED FOR URTCVEC0303/25/2022 Active calcipotriene (DOVONEX) 0.005 % cream Indications:PsoriasisApply 1 application topically in the morning and 1 application before bedtime. 60 g ctive omeprazole (PriLOSEC) 20 mg capsule Indications:Gastroesophageal reflux disease without esophagitisTake 1 capsule (20 mg total) by mouth in the morning. 30 capsule ctive Active Problems ProblemNoted DateDiagnosed IpirLalsujgeg22/08/2023Nontoxic single thyroid nodule 04/25/2022besity with body mass index 30 or hqdhjyb0904/25/20227692Abamytg27/06/2022 Biliary colic17836Pagxhmijxcdtao83/06/2022hronic cholecystitis with wjtpsiwm94/06/9993Gkudegm10/06/2022train of neck rlrsff8503/08/2022Thyroid nodule 03/08/2022 Immunizations ImmunizationAdministration DatesNext DueInfluenza High Dose Preservative Free IM 03/15/2021,04/14/2020Influenza, Im Trivalent Tlobqxgmzrex45/13/2019 Family History Medical HistoryRelationNameCommentsNo Known ProblemsBrother 1No Known Problems Brother 2No Known ProblemsDaughterNo Known ProblemsFatherNo Known ProblemsMother No Known ProblemsSonRelationNameStatusCommentsBrother 1AliveBrother 2Alive DaughterAliveFatherAliveMotherAliveSonAlive Social History Tobacco UseTypesPacks/DayYears UsedDateSmoking Tobacco: NeverSmokeless Tobacco: Never Tobacco Cessation:Counseling Given: No Alcohol UseStandard Drinks/WeekCommentsNot Currently0 (1 standard drink = 0.6 oz pure alcohol)PHQ-2AnswerDate RecordedTotal Okkec3293ChildcareAnswerDate BumnkjwcSdprcuzieRxgfaow11/08/2020EmploymentAnswerDate RecordedEmploymentUnknown 05/10/2020Hunger ScreeningAnswerDate RecordedWithin the past 12 months we worried whether our food would run out before we got money to buy more.Never True07/11/2022Within the past 12 months the food we bought just didn't last and we didn't have money to get more.Never True3Purpose - LifeAnswerDate RecordedPurpose and direction in kbwySbvdjbh84/11/2021CommentsNoSex and Gender InformationValueDate RecordedSex Assigned at BirthNot on fileLegal Sex [place]3801/06/2015 12:12 PM EDTGender IdentityNot on fileSexual OrientationNot on file Last Filed Vital Signs Vital SignReadingTime TakenCommentsBlood Wjkttzcj730/70007/11/2022 3:14 PM EST Fwamh284607/11/2022 3:14 PM KAHNwtpoarpeyd85.8 ??C (98.2 ??F)07/11/2022 3:14 PM ESTRespiratory Nrwq616107/11/2022 3:14 PM ESTOxygen Bzcbtgkaxf25%07/11/2022 3:14 PM ESTInhaled Oxygen Concentration--Ltqayx225.8 kg (231 lb)07/11/2022 3:14 PM WHICoyclw071.6 cm (5' 4 )07/11/2022 3:14 PM ESTBody Mass Index39.65007/11/2022 3:14 PM EST Plan of Treatment Health MaintenanceDue DateLast DoneCommentsTobacco Nbhtgbkjc37/20/1996DTaP,Tdap and Td Vaccines (1 - Tdap)12/20/2002Adult BMI Ineqjabih36 Depression Oqdqnszlv57/01/2023Influenza Ngltfau56/, 04/14/2020, 05/15/2019Pap Smear/05/2023, 05/03/2022 Medical Devices Not on file Insurance Care Teams Team MemberRelationshipSpecialtyStart DateEnd Date Vinny Schwab DO [address] [place] [address] PCP - GeneralFamily Medicine07/26/20
--- NOTE | 2025-05-31 12:41 | US_ITS ---
The [address] [address] Patient Name: HAYES MENCHACA MRN: [id number] date: 1985 Sex: F Assigned Patient Location: [place] Current Patient Location: Accession/Order Number: [id number] Exam Date: 05/31/2025 12:47 Report Date: 06/01/2025 00:24 At the request of: SUZIE ZEPEDA MD Procedure: US thyroid US thyroid 05/31/2025 1:14 PM SIGNS AND SYMPTOMS: ^thyroid nodule EO4.1 COMPARISON: None. FINDINGS: Right and left thyroid lobes are normal in size and echotexture. The right thyroid lobe measures 4.8 x 1.7 x 1.7 cm and the left thyroid lobe measures 4.4 x 0.9 x 1.1 cm cm. The isthmus measures 1.4 cm in thickness. Along the inferior pole on the right there is a 2.7 x 1.7 x 2.4 cm predominantly solid slightly hypoechoic well-circumscribed wider than tall nodule lacking calcifications. No cervical lymphadenopathy is noted. US/US thyroid IMPRESSION: TIRADS: 4 (moderately suspicious) Recommendation: Follow-up with ultrasound-guided fine-needle aspiration of the right thyroid nodule is recommended. Impression dictated by: Randy Ervin M.D. 06/01/2025 12:24 AM Dictation Location: [facility] Molecular Electronically authenticated by: [id number] Y Date: 06/01/2025 00:24
--- OUTSIDE RECORDS SUMMARY | 2025-05-31 12:42 | XMS_ITS | CCD ---
Author Organization [facility] CliniSyga Care Team Providers Care Tower Hand Name Role Phone Sofia Salazar Unavailable ANA ., DR DIEGO Attending Unavailable ANA ., DR DIEGO Admitting Unavailable FURLONG, DR VINNY Garrett Primary Care Unavailable ANA ., DR DIEGO Consulting Unavailable TIMMIS, DR LARSEN Admitting Unavailable TIMMIS, DR LARSEN Consulting Unavailable TIMMIS, DR LARSEN Attending Unavailable FURLONG, DR VINNY Garrett Primary Care Unavailable THICKET, DR DIVYA Tatum Consulting Unavailable KUNS, DR [...] Unavailable Furlong, DO Casillas Primary Care Provider [phone] KATEY Prakash Attending Provider Vinny Jones MD Primary Care Provider Vinny Jones DO Primary Care Provider Harry Perez DO Attending Provider [phone] Vinny Jones DO Primary Care Provider [phone] Harry Perez Admitting Unavailable Harry Perez Attending Unavailable Josselin, Vinny Primary Care Unavailable Harry Perez Admitting Unavailable Harry Perez Attending Unavailable Vinny Jones Primary Care Unavailable Shelli Prakash Admitting Unavailable Shelli Prakash Attending Unavailable Vinny Jones DO Primary Care Provider Harry Perez DO Attending Provider HARRY PEREZ Attending Unavailable BROOKE SIMPSON Attending Unavailable HARRY PEREZ Attending Unavailable SUZIE ZEPEDA Attending Unavailable Vinny Jones MD Primary Care Provider Allergies Allergy ClassificationReported Allergen(s)Allergy TypeDate of OnsetReaction(s) Facility (20 sources)CiprofloxacinDrug Tctagqy20-93-9350TapxygtkWYVO Healthcare Work Phone: Medications Current Medications MedicationDrug Class(es)DatesSig (Normalized)Sig (Original)acetaminophen 325 mg / HYDROcodone bitartrate 5 mg oral tablet (6 sources)Opioid AgonistStart: 79-75-0933lods 1 tablet by mouth every four hoursHYDROcodone-acetaminophen ([place]) 5-325 MG tablet TAKE 1 TABLET BY MOUTH EVERY 4 HOURS 08/07/2024 Activecalcipotriene 0.05 mg/ml topical cream (2 sources)Vitamin D AnalogStart: 26-51-2208fdbcdxxnpodpw (DOVONEX) 0.005 % cream Indications: Psoriasis Apply 1 application topically in the morning and 1 application before bedtime. 60 g 1 04/25/2022 ActivecycloSPORINE (Restasis) 0.05 % ophthalmic emulsion (6 sources)Start: 37-22-4210mdqbuUQJSROH (Restasis) 0.05 % ophthalmic emulsion 07/31/2024 ActiveStart: 18-36-2010widz 1 drop(s) into the eye(s) twice daily cycloSPORINE (Restasis) 0.05 % ophthalmic emulsion instill 1 DROP IN BOTH EYES TWICE DAILY 07/31/2024 Activeibuprofen 800 mg oral tablet (9 sources)Nonsteroidal Anti-inflammatory DrugStart: 38-68-4903oemp 1 tablet by mouth every eight hoursibuprofen 800 MG tablet Take 800 mg by mouth every 8 (eight) hours 08/07/2024 ActiveMiebo 1.338 GM/ML solution (6 sources)Start: 85-55-1553Qalaa 1.338 GM/ML solution 08/02/2024 Active omeprazole 20 mg delayed release oral capsule (20 sources)Proton Pump InhibitorStart: 70-14-2266ktak 1 capsule by mouth in the morningomeprazole (PriLOSEC) [address] capsule Take 20 mg by mouth in the morning. 07/11/2022 ActivePerfluorohexyloctane (Pf) (3 sources)Start: 10-50-8385Ffqxypxzgwiffucsbtey (Pf) (Miebo) 100 % drops Active DROPS OPHTHALMIC December 22, 2023 11:00pmStart: 70-35-2995Rnofowatgglqoiyoozbf (Pf) (Miebo) 100 % drops Active DROPS OPHTHALMIC December 23, 2023 12:00am prednisoLONE acetate 10 mg/ml ophthalmic suspension (2 sources)CorticosteroidStart: 64-76-9449jzko 1 drop(s) into the eye(s) four times daily, then take 1 drop(s) into the eye(s) three times daily, then take 1 drop(s) into the eye(s) twice daily, then take 1 drop(s) into the eye(s) once dailyprednisoLONE acetate (Pred-Forte) 1 % ophthalmic suspension instill 1 DROP IN BOTH EYES FOUR TIMES DAILY FOR 7 DAYS then instill 1 DROP IN BOTH EYES THREE TIMES DAILY FOR 7 DAYS then instill 1 DROP IN BOTH EYES TWICE DAILY FOR 7 DAYS then instill 1 DROP IN BOTH EYES EVERY DAY FOR 7 DAYS 06/23/2024 Active Completed/Discontinued Medications MedicationDrug Class(es)DatesSig (Normalized)Sig (Original)amoxicillin 875 mg / clavulanate 125 mg oral tablet (3 sources)Penicillin-class AntibacterialStart: 08-20-2023 End: 32-87-9843qish 1 tablet by mouth twice dailyAmoxicillin-Pot Clavulanate 875-125 mg tablet Discontinued 1 TAB PO Twice daily 22 03August 20, 2023 12:00am December 23, 2023 11:53amEthinyl Estradiol / Ferrous fumarate / Norethindrone (6 sources)EstrogenStart: 05-14-2023 End: 45-05-8389ifmednvxekdlj-ethinyl estradiol (06/22) 1-20 MG-MCG tablet Indications: control counseling Take 1 tablet by mouth in the morning. 28 tablet 11 05/14/2023 05/18/2024 DiscontinuedStart: 05-14-2023 norethindrone-ethinyl estradiol (06/22) 1-20 MG-MCG tablet Indications: control counseling Take 1 tablet by mouth in the morning. 28 tablet 11 05/14/2023 ActiveStart: 05-14-2023 End: 67-70-1817hrlzzzdpbkmph-ethinyl estradiol (06/22) 1-20 MG-MCG tablet Indications: control counseling Take 1 tablet by mouth in the morning. 28 tablet 05/14/2023 05/13/2024 Activetriamcinolone acetonide 1 mg/ml topical cream (8 sources)CorticosteroidStart: 07-02-2022 End: 24-35-9632tiowysvkmlgaj (Kenalog) 0.1 % cream Apply 1 application topically in the morning and 1 application before bedtime. 07/02/2022 05/18/2024 DiscontinuedStart: 36-91-7020foatsjdbhhlmh (KENALOG) 0.1 % cream APPLY TO AFFECTED AREAS TOPICALLY TWICE DAILY NEEDED FOR ITCHING 03/25/2022 Active Problems Active Problems Problem ClassificationProblemDateDocumented DateEpisodic/ChronicAnxiety disorders (9 sources)Anxiety; Translations: [Anxiety disorder, unspecified]Onset: 527588-71-1236ZtarhwsHdyeladxxdhhi symptoms and ill-defined conditions (3 sources)Dysuria; Translations: [Dysuria]09-58-5030DlwvbqvrPspzgibddwzmw and screening for infectious disease (1 source)Encounter for screening for human papillomavirus (HPV); Translations: [ENC SCREENING HUMAN PAPILLOMAVIRUS]Onset: 39-83-9235YenevuxeVusgfvqxx disorders (15 sources)Menorrhagia; Translations: [Excessive and frequent menstruation with regular cycle]Onset: 371540-18-1067WqswvgnAruju aftercare (2 sources)Postoperative visit; Translations: [Encounter for other specified surgical aftercare]28-34-1562EwidcwroCikhf connective tissue disease (3 sources)Foot pain; Translations: [Pain in left foot]63-66-1108KpnuzhxeSddmu endocrine disorders (2 sources)Polycystic ovary syndrome; Translations: [Polycystic ovarian syndrome]84-44-7317QgcfnedRebrw endocrine disorders (2 sources)Disorder of endocrine system; Translations: [Endocrine disorder, unspecified]21-08-9201MlvopxfuEtici female genital disorders (13 sources)Abnormal uterine bleeding; Translations: [Abnormal uterine and vaginal bleeding, unspecified]Onset: 722472-15-7541CwccghlVvtms inflammatory condition of skin (20 sources)Guttate psoriasis; 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]Onset: 850169-78-8120YjlmekxPwgkg inflammatory condition of skin (2 sources)Psoriasis; Translations: [Psoriasis, unspecified]Onset: 07-11-2022 78-05-4441VdxcqcxLglqq nutritional; endocrine; and metabolic disorders (2 sources)Obesity; Translations: [Obesity, unspecified]Onset: 03-08-2022 43-96-9673QsilyqoFydfj nutritional; endocrine; and metabolic disorders (9 sources)Body mass index 30+ - obesity; Translations: [Obesity, unspecified] Onset: 099069-11-9442SwmhdtwDfzen screening for suspected conditions (not mental disorders or infectious disease) (6 sources)Encounter for screening for malignant neoplasm of cervix; Translations: [Patient encounter status]Onset: 11-97-9724TyglrkxtSpmgyso disorders (20 sources)Nontoxic single thyroid nodule; Translations: [Non-toxic uninodular goiter]Onset: 69-58-6583ChfpszeVfhopum tract infections (1 source)Lower urinary tract infectious disease; Translations: [UTI (lower urinary tract infection)]Episodic Past or Other Problems Problem ClassificationProblemDateDocumented DateEpisodic/ChronicAbdominal pain (13 sources)Pain in female pelvis; Translations: [Pelvic and perineal pain] Onset: 117185-39-6355MqtoeuafKggvrnv tract disease (20 sources)Biliary colic; Translations: [Calculus of bile duct without cholangitis or cholecystitis without obstruction]Onset: EpisodicContraceptive and procreative management (15 sources)Sterilization requested; Translations: [Encounter for sterilization] Onset: 898758-16-0620MhsdkwybKgdk disorders (2 sources)Mood disordersOnset: 079542-43-3406Okovl connective tissue disease (2 sources)Pain in left foot; Translations: [Pain in limb]Onset: 12-23-2023 68-89-7163XdrmnmhmWmldv skin disorders (20 sources)Eruption; Translations: [Rash and other nonspecific skin eruption] Onset: 254134-90-8813UjetmtadJsqbc upper respiratory infections (2 sources)Acute pharyngitis, unspecified; Translations: [Acute upper respiratory infection, unspecified]Onset: 10-31-2021 Resolved: 71-88-0196NwqnozqnUaeahbw and strains (2 sources)Strain of neck muscle; Translations: [Strain of muscle, fascia and tendon at neck level, initial encounter]Onset: 865698-36-8983Bdshalvt Results Test NameValueInterpretationReference RangeFacilityUS Thyroid glandon 02-20-2025 [place] [address] Ultrasound Report Signed Patient: STEPH MENCHACA MR#: [id number] : 1985 Acct:[id number] Age/Sex: 39 / F ADM Date: 02/20/25 Loc: Attending Dr: Suzie Zepeda M.D. Ordering Physician: Suzie Zepeda M.D. Date of Service: 02/20/25 Procedure(s): US thyroid Accession Number(s): [id number] cc: VINNY JONES Hilary M.D. [address] [address] Patient Name: STEPH MENCHACA MRN: [id number] date: 1985 Sex: F Assigned Patient Location: US Current Patient Location: US Accession/Order Number: [id number] Exam Date: 02/20/2025 13:08 Report Date: 02/20/2025 15:35 At the request of: SUZIE ZEPEDA MD Procedure: US thyroid Ultrasound thyroid gland INDICATION: Follow-up nodule Comparison 02/20/2024 FINDINGS: Right thyroid lobe 4.2 x 1.7 x 1.7 cm. Left thyroid lobe 4.4 x 1.0 x 1.2 cm in size. Thyroid isthmus measures 1.3 cm. Redemonstration of the dominant nodule within the right thyroid lobe there is 3.0 x 1.5 x 2.4 cm size with TI-RADS score of 4 US/US thyroid IMPRESSION: Stable appearance of the moderately suspicious TI-RADS 4 nodule right lower lobe 3 cm in size. Impression dictated by: Bolivar Workman M.D. 02/20/2025 3:35 PM Dictation Location: [place] [address] Electronically authenticated by: [id number] Y Date: 02/20/2025 15:35 Dictated By: Bolivar Workman M.D. Signed By: 02/20/25 1538 DD/ 34 TD/TT: Communications And Signals Supervisor:TBHRadiology, Radiologist, - 02/20/2025 [place] [address] Ultrasound Report Signed Patient: STEPH MENCHACA MR#: [id number] : 1985 Acct:[id number] Age/Sex: 39 / F ADM Date: 02/20/25 Loc: US Attending Dr: Suzie Zepeda M.D. Ordering Physician: Suzie Zepeda M.D. Date of Service: 02/20/25 Procedure(s): US thyroid Accession Number(s): [id number] cc: VINNY JONES Hilary M.D. The [address] [address] Patient Name: STEPH MENCHACA MRN: [id number] date: 1985 Sex: F Assigned Patient Location: US Current Patient Location: US Accession/Order Number: [id number] Exam Date: 02/20/2025 13:08 Report Date: 02/20/2025 15:35 At the request of: SUZIE ZEPEDA MD Procedure: US thyroid Ultrasound thyroid gland INDICATION: Follow-up nodule Comparison 02/20/2024 FINDINGS: Right thyroid lobe 4.2 x 1.7 x 1.7 cm. Left thyroid lobe 4.4 x 1.0 x 1.2 cm in size. Thyroid isthmus measures 1.3 cm. Redemonstration of the dominant nodule within the right thyroid lobe there is 3.0 x 1.5 x 2.4 cm size with TI-RADS score of 4 US/US thyroid IMPRESSION: Stable appearance of the moderately suspicious TI-RADS 4 nodule right lower lobe 3 cm in size. Impression dictated by: Bolivar Workman M.D. 02/20/2025 3:35 PM Dictation Location: [place] [address] Electronically authenticated by: [id number] Y Date: 02/20/2025 15:35 Dictated By: Bolivar Workman M.D. Signed By: 02/20/258 DD/ 34 TD/TT: Communications And Signals Supervisor: EUN HealthcareRadiology Study observation (narrative)EUN FerrisUS Thyroid glandOrdered By: Radiologist Radiology on 27-87-5257BQAS [facility] Work Phone: Pathology study report documentOrdered By: Zahira Landry on 31-97-4578Mttzajwkw studySt. Mary'S Medical Center Other Loq 08-07-2024L Specimen: [id number] Received: 08/07/24 Status: LAURA Fernandes Num: [id number] Spec Type: Surgical Subm Dr: Harry Perez Tissues: A Fallopian Tube - Sterilization (BILATERAL FALLOPIAN TUBES) Procedures: HE/2, Gross/Micro L2 Age/ Patient Sex Location Account Attending Physician Steph Menchaca 38/F LABE[place] [id number] Harry Perez SPEC NUM: [id number] RECD: 08/07/24 STATUS: LAURA FERNANDES NUM: [id number] AYSE: 08/07/24- [facility] DR: Harry Perez ENTERED: 08/07/24-1309 [facility] DR: Nitin Fields SPEC TYPE: Surgical DEPT: BRENDAN MURCIA ORDERED: [...] Cassettes: A1 Longitudinally bisected distal end and customer engagement representative cross-sections from shorter tube (to include paratubal cysts) A2 Longitudinally bisected distal end and customer engagement representative cross-sections from longer tube (to include paratubal cysts) (2, , BO62-725 A)LENNY Specimen: [id number] Received: 08/07/24 Status: LAURA Fernandes Num: [id number] Spec Type: Surgical Subm Dr: Harry Perez Tissues: A Fallopian Tube - Sterilization (BILATERAL FALLOPIAN TUBES) Procedures: HE/2, Gross/Soto L2 Patient: Steph Menchaca [id number] (Continued) Specimen: [id number] Received: 08/07/24 (Continued) Signed (signature on file) Zahira Landry MD 08/10/24 1606 Specimen: [id number] Received: 08/07/24 Status: LAURA Fernandes Num: [id number] Spec Type: Surgical Subm Dr: Harry Perez Tissues: A Fallopian Tube - Sterilization (BILATERAL FALLOPIAN TUBES) Procedures: HE/Marco, Yasmin/Micro L2 Patient: Steph Menchaca [id number] (Continued) Specimen: [id number] Received: 08/07/24 (Continued) Microscopic Description Microscopic examinations are performed supporting the above interpretation CPT Codes 40614 Specimen: [id number] Received: 08/07/24 Status: LAURA Fernandes Num: [id number] Spec Type: Surgical Subm Dr: Harry Perez Tissues: A Fallopian Tube - Sterilization (BILATERAL FALLOPIAN TUBES) Procedures: HE/2, Yasmin/Soto L2 Patient: Steph Menchaca [id number] (Continued) Signed (signature on file) Zahira Landry MD 08/10/[address] [place] [address] Physician GroupHCG ( test) Ql (U)on 06-24-2024 Interpretation and review of laboratory resultsNormalNOMS HealthcarePreg Test, UrNegativeNegativeNOMS HealthcareNOMS HealthcareLon 06-24-2024L Specimen: [id number] Received: 06/25/24 Status: LAURA Fernandes Num: [id number] Spec Type: Surgical Subm Dr: Harry Perez Tissues: A Endometrium - Biopsy (ENDOMETRIAL) Procedures: Yasmin HAMILTON/Soto L4 Age/ Patient Sex Location Account Attending Physician Steph Menchaca 38/F LABE[place] [id number] Harry Perez SPEC NUM: [id number] RECD: 06/25/24 STATUS: LAURA FERNANDES NUM: [id number] AYSE: 06/24/24-[address]: Harry Perez ENTERED: 06/25/24 ALDEN BASSETT: SPEC TYPE: Surgical DEPT: S ENTERED BY: [id number] RECV BY: [id number] ORDERED: HE/2, Gross/Micro L4 ORDERED: ALFONSO Gross/Micro L4 Pathological Diagnosis Endometrial biopsy: = [...] submitted in a single cassette. (1, ns, S29- 013 A) Microscopic Description Microscopic examinations are performed supporting the above interpretation Specimen: [id number] Received: 06/25/24 Status: LAURA Lory Num: [id number] Spec Type: Surgical Subm Dr: Harry Perez Tissues: A Endometrium - Biopsy (ENDOMETRIAL) Procedures: ALFONSO, Gross/Micro L4 Patient: Steph Menchaca [id number] (Continued) Specimen: [id number] Received: 06/25/24 (Continued) Signed (signature on file) Zahira Landry MD 06/27/24 1429 Specimen: [id number] Received: 06/25/24 Status: LAURA Fernandes Num: [id number] Spec Type: Surgical Subm Dr: Harry Perez Tissues: A Endometrium - Biopsy (ENDOMETRIAL) Procedures: Yasmin HAMILTON/Soto L4 Patient: Steph Menchaca [id number] (Continued) Specimen: [id number] Received: 06/25/24 (Continued) CPT Codes 20108 Specimen: [id number] Received: 06/25/24 Status: LAURA Fernandes Num: [id number] Spec Type: Surgical Subm Dr: Harry Perez Tissues: A Endometrium - Biopsy (ENDOMETRIAL) Procedures: HE/2, Gross/Micro L4 Patient: Steph Menchaca [id number] (Continued) Signed (signature on file) Zahira Landry MD 06/27/[address] [place] [address] Physician GroupALL DEHYDROEPIANDROSTERONEon 06-22-2024 DHEA, LCUAL097 ng/dL31 - 701 ng/dLSTEWARD HEALTH CARE SYSTEM HealthcareComment on above:This test was developed and its performance characteristics determined by [facility]. It has not been cleared or approved by the Food and Drug Administration. Performed at: [place] [id number] [employer] Machinist: Meliza Catherine MD, Phone: [phone] CLINISYNCNOMS HealthcareALL DHEA SULFATEon 15-61-7812WUGU-ZLMPNPI612.0 ug/dL57.3 - 279.2 ug/dLNOMS HealthcareALL FOLLICLE STIMULATING HORMONEon 39-60-2168HGZ6.9. mIU/mLNOMS HealthcareComment on above:Adult Female Range Follicular phase 3.5 - 12.5 Ovulation phase 4.7 - 21.5 Luteal phase 1.7 - 7.7 Postmenopausal 25.8 - 134.8 Performed at: [address] [id number] [employer]ist: Venu Moscoso PhD, Phone: [phone] ALL LUTEINIZING HORMONEon 40-07-4361YAMBEDCCCKD HORMONE(LH)6.6. mIU/mLNOMS HealthcareComment on above:Adult Female Range Follicular phase 2.4 - 12.6 Ovulation phase 14.0 - 95.6 Luteal phase 1.0 - 11.4 Postmenopausal 7.7 - 58.5 No Panel Informationon 20-61-6538YRHPRBONWXNVF HealthcareALL CBC WITH AUTO DIFF on 71-84-0716SFCUKOIUO ABSOLUTE DICU3ONND HealthcareBasophils/100 WBC (Bld)0.7 % 0.2 - 2.0 %NOMS HealthcareEosinophils/100 WBC (Bld)1.7 %0.9 - 7.0 %NOMS HealthcareErythrocyte distribution width (RBC) [Ratio]12.4 %11.0 - 15.0 %NOMS HealthcareHematocrit (Bld) [Volume fraction]40.2 %36.0 - 48.0 %[facility] Hemoglobin (Bld) [Mass/Vol]13.2 g/dL12.0 - 16.0 g/dLNOMS HealthcareIMMATURE GRANULOCYTES ABS CQKL5GSAW HealthcareImmature granulocytes/100 WBC (Bld)0 %0.0 - 0.5 %NOMS HealthcareInterpretation and review of laboratory resultsAbnormalNOMS HealthcareLYMPHOCYTES ABSOLUTE AUTO2.6NOMS HealthcareLymphocytes/100 WBC (Bld) 47.4 %20.5 - 60.0 %NOMS [facility] HospitalMCH (RBC) [Entitic mass]29.1 pg26.7 - 34.0 pg [facility] HospitalHC (RBC) [Mass/Vol]32.8 g/dL29.9 - 35.2 g/dLMercy McCune-Brooks HospitalV (RBC) [Entitic vol]88.5 fL81.0 - 99.0 fLSTEWARD HEALTH CARE SYSTEM HealthcareMONOCYTES ABSOLUTE AUTO 0.2LowNOMS HealthcareMonocytes/100 WBC (Bld)4.4 %1.7 - 12.0 %[facility] NEUTROPHILS ABSOLUTE AUTO2.5NOMS HealthcareNeutrophils/100 WBC (Bld)45.8 %43.0 - 75.0 %[facility] HospitalPlatelet mean volume (Bld) [Entitic vol]9 fLLow9.5 - 13.5 fLMS HealthcareTBH EO #0.1NOMS HealthcareTBH [id number] [facility] HospitalTB RBC4.54 NOMS [facility] HospitalTB WBC5.4NOMS HealthcareCLINISYNCNOMS HealthcareMM TOMOSYNTHESIS SCREENING BIon 31-46-3817[place] [address] Mammography Report Signed Patient: STEPH MENCHACA MR#: [id number] : 1985 Acct:[id number] Age/Sex: 38 / F ADM Date: 06/17/24 Loc: MAMMO Attending Dr: Harry Perez D.O. Ordering Physician: Harry Perez D.O. Results: Date of Service: 06/17/24 Follow Up: Procedure(s): MM tomosynthesis screening BI Accession Number(s): [id number] cc: Harry Perez D.O.; Physician,Non-Staff Mehnaz Patient Name: STEPH MENCHACA MR#: [id number] : 1985 Exam Date: 06/17/2024 Ordering Doctor: DR Harry Perez . RADIOLOGY REPORT PROCEDURE: MM TOMOSYNTHESIS SCREENING BI COMPARISON: None. INDICATIONS: Screening Calculator Name NCI Breast Cancer Risk Assessment Tool 5 Year Breast Cancer Risk 0.80% Lifetime Breast Cancer Risk 13.60% Personal Breast Cancer No Personal Ovarian Cancer No Treatments None Family Cancers None LOCATION: [facility] BREAST COMPOSITION: There are scattered areas of fibroglandular density. FINDINGS: DIAGNOSTIC CATEGORY 1--NEGATIVE. Scattered benign-appearing lymph nodes are present. RIGHT BREAST: No significant suspicious finding. LEFT BREAST: No significant suspicious finding. RECOMMENDATIONS: ROUTINE MAMMOGRAM AND CLINICAL EVALUATION IN 12 MONTHS. PLEASE NOTE: A NORMAL MAMMOGRAM DOES NOT EXCLUDE THE POSSIBILITY OF BREAST CANCER. A CLINICALLY SUSPICIOUS PALPABLE LUMP SHOULD BE BIOPSIED. Dictated by: Divya Mckee MD on 06/17/2024 at 11:15 Approved by: Divya Mckee MD on 06/17/2024 at 11:16 Dictated By: Divya Mckee M.D. Signed By: 06/17/24 1117 DD/ 1116 TD/TT: Communications And Signals Supervisor:TBHRadiology, Radiologist, - 06/17/2024 [place] [address] Mammography Report Signed Patient: STEPH MENCHACA MR#: [id number] : 1985 Acct:[id number] Age/Sex: 38 / F ADM Date: 06/17/24 Loc: MAMMO Attending Dr: Harry Perez D.O. Ordering Physician: Harry Perez D.O. Results: Date of Service: 06/17/24 Follow Up: Procedure(s): MM tomosynthesis screening BI Accession Number(s): [id number] cc: Harry Perez D.O.; Physician,Non-Staff Mehnaz Patient Name: STEPH MENCHACA MR#: [id number] : 1985 Exam Date: 06/17/2024 Ordering Doctor: DR Harry Perez . RADIOLOGY REPORT PROCEDURE: MM TOMOSYNTHESIS SCREENING BI COMPARISON: None. INDICATIONS: Screening Calculator Name NCI Breast Cancer Risk Assessment Tool 5 Year Breast Cancer Risk 0.80% Lifetime Breast Cancer Risk 13.60% Personal Breast Cancer No Personal Ovarian Cancer No Treatments None Family Cancers None LOCATION: [facility] BREAST COMPOSITION: There are scattered areas of fibroglandular density. FINDINGS: DIAGNOSTIC CATEGORY 1--NEGATIVE. Scattered benign-appearing lymph nodes are present. RIGHT BREAST: No significant suspicious finding. LEFT BREAST: No significant suspicious finding. RECOMMENDATIONS: ROUTINE MAMMOGRAM AND CLINICAL EVALUATION IN 12 MONTHS. PLEASE NOTE: A NORMAL MAMMOGRAM DOES NOT EXCLUDE THE POSSIBILITY OF BREAST CANCER. A CLINICALLY SUSPICIOUS PALPABLE LUMP SHOULD BE BIOPSIED. Dictated by: Divya Mckee MD on 06/17/2024 at 11:15 Approved by: Divya Mckee MD on 06/17/2024 at 11:16 Dictated By: Divya Mckee M.D. Signed By: 06/17/24 1117 DD/ 1116 TD/TT: Communications And Signals Supervisor: [facility] HospitalRadiology Study observation (narrative)[facility] TOMOSYNTHESIS SCREENING BIOrdered By: Radiologist Radiology on 94-05-1246LKMR [employer] Work Phone: US PELVIS W/ TRANSVAGINALon 26-71-1610[place]xiG[place] [address] Ultrasound Report Signed Patient: STEPH MENCHACA MR#: [id number] : 1985 Acct:[id number] Age/Sex: 38 / F ADM Date: 06/17/24 Loc: MAMMO Attending Dr: Harry Perez D.O. Ordering Physician: Harry Perez D.O. Date of Service: 06/17/24 Procedure(s): US pelvis w/ transvaginal Accession Number(s): [id number] cc: Harry Perez D.O.; Physician,Non-Staff MEdilson The [address] [address] Patient Name: STEPH MENCHACA MRN: [id number] date: 1985 Sex: F Assigned Patient Location: MAMMO Current Patient Location: MAMMO Accession/Order Number: [id number] Exam Date: 06/17/2024 09:08 Report Date: 06/17/2024 11:08 At the request of: HARRY PEREZ Procedure: US pelvis w/ transvaginal EXAMINATION: US pelvis w/ transvaginal HISTORY: Pelvic Pain, Menorrhagia COMPARISON: No relevant comparison available. FINDINGS: Transabdominal and transvaginal images The uterus is normal in size, contour and echotexture measuring 8.2 x 5.4 x 4.3 cm. Anteverted. No focal myometrial mass. Endometrium measures 8.1 mm, normal The right ovary is normal measuring 3.6 x 2.2 x 2.4 cm. Normal color Doppler flow The left ovary is normal measuring 3.3 x 2.0 x 2.0 cm. Normal color Doppler flow No free fluid US/US pelvis w/ transvaginal IMPRESSION: No acute abnormality Electronically authenticated by: DIVYA MCKEE Date: 06/17/2024 11:08 Dictated By: Divya Mckee M.D. Signed By: 06/17/24 1111 DD/ 1108 TD/TT: Communications And Signals Supervisor:TBHRadiology, Radiologist, MD - 06/17/2024 [place] [address] Ultrasound Report Signed Patient: STEPH MENCHACA MR#: [id number] : 1985 Acct:[id number] Age/Sex: 38 / F ADM Date: 06/17/24 Loc: MAMMO Attending Dr: Harry Perez D.O. Ordering Physician: Harry Perez D.O. Date of Service: 06/17/24 Procedure(s): US pelvis w/ transvaginal Accession Number(s): [id number] cc: Harry Perez D.O.; Physician,Non-Staff Mehnaz The [place] [id number] Patient Name: STEPH MENCHACA MRN: [id number] date: 1985 Sex: F Assigned Patient Location: MAMMO [facility] Accession/Order Number: [id number] Exam Date: 06/17/2024 09:08 Report Date: 06/17/2024 11:08 At the request of: HARRY PEREZ Procedure: US pelvis w/ transvaginal EXAMINATION: US pelvis w/ transvaginal HISTORY: Pelvic Pain, Menorrhagia COMPARISON: No relevant comparison available. FINDINGS: Transabdominal and transvaginal images The uterus is normal in size, contour and echotexture measuring 8.2 x 5.4 x 4.3 cm. Anteverted. No focal myometrial mass. Endometrium measures 8.1 mm, normal The right ovary is normal measuring 3.6 x 2.2 x 2.4 cm. Normal color Doppler flow The left ovary is normal measuring 3.3 x 2.0 x 2.0 cm. Normal color Doppler flow No free fluid US/US pelvis w/ transvaginal IMPRESSION: No acute abnormality Electronically authenticated by: DIVYA MCKEE Date: 06/17/2024 11:08 Dictated By: Divya Mckee M.D. Signed By: 06/17/24 1111 DD/ 1108 TD/TT: Communications And Signals Supervisor: [facility] HospitalRadiology Study observation (narrative)[facility] HospitalUS PELVIS W/ TRANSVAGINALOrdered By: Radiologist Radiology on 45-77-9344IZLW [facility] Work Phone: IGP,APTIMA HPV,AGE GDLNon 61-62-5577ZFT GDLN ACOG TESTINGNote.I-70 Community HospitalComment on above:TESTS RESULT FLAG UNITS REF RANGE LAB Clinician Provided Cytology Information Source.............Cervix;Endocervix No. of containers..01 ThinPrep Vial Age Algo ACOG Olivia... 30-65 01 FLAG LEGEND: L-Low Normal,H-High Normal,LL-Alert Low,HH-Alert High <-Panic Low,>-Panic High,A-Abnormal,AA-Critical Abnormal Performed at: 01 =G [facility] [place] [address] Shanita Iqbal MD, HPV APTIMANegativeNegativeNOMS HealthcareComment on above:This nucleic acid amplification test detects fourteen high- risk HPV types (16,18,31,33,35,39,45,51,52,56,58,59,66,68) without differentiation. Performed at: =G - [address] [id number] Lithographic Printing Machinist: Shanita Iqbal MD, Phone: [phone] Performed at: - [address], [place] [id number] Lithographic Printing Machinist: Shanita Iqbal MD, Phone: [phone] IGP, APTIMA HPV, RFX 16/18,45Note.NOMS HealthcareComment on above:TESTS RESULT FLAG UNITS REF RANGE LAB DIAGNOSIS: 02 UNSATISFACTORY FOR EVALUATION. SPECIMEN REPROCESSED FOR INTERPRETATION USING GLACIAL ACETIC ACID (GAA). MENSTRUAL SMEAR PATTERN IS PRESENT. Recommendation: 02 Suggest follow up as clinically appropriate. Specimen adequacy: 02 Specimen processed and examined but unsatisfactory for evaluation of epithelial abnormality because of obscuring blood. Performed by: 02 Dakota Salazar, Soil Specialist (ASC) QC reviewed by: 02 Meenu Rodriguez, Supervisory Soil Specialist (ASCP) . 02 Note: Note 02 [...] High,A-Abnormal,AA-Critical Abnormal Performed at: 02 WB [facility] [address] [address] Shanita Iqbal MD, BRUSH-SPATULA CERVIX ENDOCERVIX CLINISYNCNOMS HealthcareUrinalysis macro (dipstick) panel (U)on 05-18-2024 Bilirubin, UANegativeNegative - 4(70) +++ mg/dLNOMS HealthcareBlood, UAPositive Negative - 50 Darin/mcLNOMS HealthcareComment on above:largeClarity, UAClearNOMS HealthcareColor, UAYellowNOMS HealthcareGlucose, UANegativeNegative - 2000(110) ++++ mg/dLNOMS HealthcareInterpretation and review of laboratory resultsAbnormal NOMS HealthcareKetones, UANegativeNegative - 160(16) ++++ mg/dLNOMS Healthcare Leukocytes, UANegativeNegative - 500+++ Ok/mcLNOMS HealthcareNitrite, UA NegativeNegative - PositiveNOMS HealthcarepH, UA65 - 9NOMS HealthcareProtein, UA NegativeNegative - 2000(20) ++++ mg/dLNOMS HealthcareSpec Grav, UA1.021 - 1.03 NOMS HealthcareUrobilinogen, UA0.20.2 - 12 mg/dLNOMS HealthcareNOMS HealthcareUS Thyroid glandon 29-95-7970[address] [address] Ultrasound Report Signed Patient: STEPH MENCHACA MR#: [id number] : 1985 Acct:[id number] Age/Sex: 38 / F ADM Date: 02/20/24 Loc: US Attending Dr: Suzie Zepeda M.D. Ordering Physician: Suzie Zepeda M.D. Date of Service: 02/20/24 Procedure(s): US thyroid Accession Number(s): [id number] cc: Physician,Non-Staff Mehnza; Suzie Zepeda M.D. [place] [id number] Patient Name: STEPH MENCHACA MRN: [facility]:[id number] date: 1985 Sex: F Assigned Patient Location: US Current Patient Location: Accession/Order Number: [id number] Exam Date: 02/20/2024 20:45 Report Date: 02/24/2024 07:42 At the request of: SUZIE ZEPEDA Procedure: US thyroid EXAMINATION: US thyroid HISTORY: THYROID NODULE E04.1 COMPARISON: 08/19/2023, 01/11/2022 TECHNIQUE: Sonographic images of the thyroid gland were obtained. FINDINGS: The right thyroid lobe measures 4.7 x 2.0 x 2.1 cm. Single dominant nodule. Nodule 1:3.0 x 1.7 x 1.9 cm. Solid, hypoechoic, wide, smooth margins, no calcifications. TR 4 The thyroid isthmus measures 1.4 mm. No focal nodule. The left thyroid lobe measures 4.6 x 1.2 x 1.4 cm. Normal size, contour and echotexture with no focal nodules US/US thyroid IMPRESSION: Stable 3 cm right thyroid TR 4 nodule TI-RADS: The [employer] TI-RADS committee's white paper recommendations for thyroid lesions classified as TR4 (moderately suspicious) are listed below: > 1.0 cm. Follow-up ultrasound in 1, 2, 3, and 5 years. > 1.5 cm. FNA. J. Am Ayse Radiol 2017;14:587-595. Electronically authenticated by: DIVYA MCKEE Date: 02/24/2024 07:42 Dictated By: Divya Mckee M.D. Signed By: 02/24/24 0744 DD/ 0742 TD/TT: Communications And Signals Supervisor:TBHRadiology, Radiologist, - 02/24/[address] [address] Ultrasound Report Signed Patient: STEPH MENCHACA MR#: [id number] : 1985 Acct:[id number] Age/Sex: 38 / F ADM Date: 02/20/24 Loc: US Attending Dr: Suzie Zepeda M.D. Ordering Physician: Suzie Zepeda M.D. Date of Service: 02/20/24 Procedure(s): US thyroid Accession Number(s): [id number] cc: Physician,Non-Staff Mehnaz; Suzie Zepeda M.D. The [address] [address] Patient Name: STEPH MENCHACA MRN: [id number] date: 1985 Sex: F Assigned Patient Location: US Current Patient Location: Accession/Order Number: [id number] Exam Date: 02/20/2024 20:45 Report Date: 02/24/2024 07:42 At the request of: SUZIE ZEPEDA Procedure: US thyroid EXAMINATION: US thyroid HISTORY: THYROID NODULE E04.1 COMPARISON: 08/19/2023, 01/11/2022 TECHNIQUE: Sonographic images of the thyroid gland were obtained. FINDINGS: The right thyroid lobe measures 4.7 x 2.0 x 2.1 cm. Single dominant nodule. Nodule 1:3.0 x 1.7 x 1.9 cm. Solid, hypoechoic, wide, smooth margins, no calcifications. TR 4 The thyroid isthmus measures 1.4 mm. No focal nodule. The left thyroid lobe measures 4.6 x 1.2 x 1.4 cm. Normal size, contour and echotexture with no focal nodules US/US thyroid IMPRESSION: Stable 3 cm right thyroid TR 4 nodule TI-RADS: The [employer] TI-RADS committee's white paper recommendations for thyroid lesions classified as TR4 (moderately suspicious) are listed below: > 1.0 cm. Follow-up ultrasound in 1, 2, 3, and 5 years. > 1.5 cm. FNA. J. Am Ayse Radiol 2017;14:587-595. Electronically authenticated by: DIVYA MCKEE Date: 02/24/2024 07:42 Dictated By: Divya Mckee M.D. Signed By: 02/24/2444 DD/ TD/TT: Communications And Signals Supervisor: EUN HealthcareRadiology Study observation (narrative)EUN Bender Thyroid glandOrdered By: Radiologist Radiology on 74-41-2345[facility] Work Phone: XR foot LT min 3V*on 88-69-6699PW foot LT min 3V* [facility] Main [place] [address] [place] [address] XRay Report Signed Patient: Steph Menchaca MR#: [id number] : 1985 Acct:[id number] Age/Sex: 38 / F ADM Date: 12/23/23 Loc: [facility] Room: Type: [facility] Attending Dr: Shelli Prakash APRN Copies [...] SPURRING. Impression dictated by: Miguel Valdez Jr., DDelon12/23/2023 12:27 PM Dictation Location: [facility]--15 Transcribed By: [facility] 12/23/23 1227 Dictated By: Miguel Valdez Jr, DO 12/23/23 1225 Signed By: 12/23/23 1227[facility] Physician GroupUS Thyroid glandon 23-04-[address] [address] Ultrasound Report Signed Patient: STEPH MENCHACA MR#: [id number] : 1985 Acct:[id number] Age/Sex: 37 / F ADM Date: 08/19/23 Loc: US Attending Dr: Suzie Zepeda M.D. Ordering Physician: Suzie Zepeda M.D. Date of Service: 08/19/23 Procedure(s): US thyroid Accession Number(s): [id number] cc: Physician,Non-Staff Mehnaz; Suzie Zepeda M.D. [place] [phone] Patient Name: STEPH MENCHACA MRN: [facility]:[id number] date: 1985 Sex: F Assigned Patient Location: US Current Patient Location: US Accession/Order Number: [id number] Exam Date: 08/19/2023 19:00 Report Date: 08/19/2023 19:42 At the request of: SUZIE ZEPEDA Procedure: US thyroid EXAM: US thyroid HISTORY: THYROID NODULE E04.1 . Follow-up study. COMPARISON: 02/14/2023 TECHNIQUE: Multiple sonographic images of the thyroid gland were obtained, supplemented with Doppler. FINDINGS: The right lobe measures 4.9 x 2.1 x 1.9 cm. In the mid aspect there is a solid slightly hypoechoic lobulated nodule. This remains unchanged. No other nodule is identified on the right side. The left lobe measures 4.7 x 1.2 x 1.6 cm. No focal nodule is identified within. The isthmus measures 2 mm in thickness. There is no evidence of a focal mass or abnormal fluid collection surrounding the gland. Incidentally noted are nodules along the right side of the soft tissues of the neck, typical of lymph nodes, the largest measuring 2.3 x 0.9 x 1.6 cm. US/US thyroid IMPRESSION: The thyroid gland is not significantly enlarged. There is a stable appearance of the nodule seen in the mid right lobe. This nodule was biopsied on 07/17/2021. No new nodule is identified. TI RADS 4. Biopsy is not recommended at this time. A follow-up study in 2 years is recommended. Electronically authenticated by: KIM MANN Date: 08/19/2023 19:42 Dictated By: Kim Mann M.D. Signed By: 08/19/231944 DD/ 41 TD/TT: Communications And Signals Supervisor:TAMMYHRadiology, Radiologist, - 08/19/[address] [address] Ultrasound Report Signed Patient: STEPH MENCHACA MR#: [id number] : 1985 Acct:[id number] Age/Sex: 37 / F ADM Date: 08/19/23 Loc: US Attending Dr: Suzie Zepeda M.D. Ordering Physician: Suzie Zepeda M.D. Date of Service: 08/19/23 Procedure(s): US thyroid Accession Number(s): [id number] cc: Physician,Non-Staff Mehnaz; Suzie Zepeda M.D. [address] [address] Patient Name: STEPH MENCHACA MRN: [id number] date: 1985 Sex: F Assigned Patient Location: US Current Patient Location: US Accession/Order Number: [id number] Exam Date: 08/19/2023 19:00 Report Date: 08/19/2023 19:42 At the request of: USZIE ZEPEDA Procedure: US thyroid EXAM: US thyroid HISTORY: THYROID NODULE E04.1 . Follow-up study. COMPARISON: 02/14/2023 TECHNIQUE: Multiple sonographic images of the thyroid gland were obtained, supplemented with Doppler. FINDINGS: The right lobe measures 4.9 x 2.1 x 1.9 cm. In the mid aspect there is a solid slightly hypoechoic lobulated nodule. This remains unchanged. No other nodule is identified on the right side. The left lobe measures 4.7 x 1.2 x 1.6 cm. No focal nodule is identified within. The isthmus measures 2 mm in thickness. There is no evidence of a focal mass or abnormal fluid collection surrounding the gland. Incidentally noted are nodules along the right side of the soft tissues of the neck, typical of lymph nodes, the largest measuring 2.3 x 0.9 x 1.6 cm. US/US thyroid IMPRESSION: The thyroid gland is not significantly enlarged. There is a stable appearance of the nodule seen in the mid right lobe. This nodule was biopsied on 07/17/2021. No new nodule is identified. TI RADS 4. Biopsy is not recommended at this time. A follow-up study in 2 years is recommended. Electronically authenticated by: KIM MANN Date: 08/19/2023 19:42 Dictated By: Kim Mann M.D. Signed By: 08/19/231944 DD/ 41 TD/TT: Communications And Signals Supervisor: EUN HealthcareRadiology Study observation (narrative)[facility] [employer]US Thyroid glandOrdered By: Radiologist Radiology on 85-01-6533GGOU [employer] Work Phone: cytology Cervical or vaginal smear or scraping study Ordered By: Carmela Vogel on 39-69-4292XBDBI-70 Community HospitalLIPID PROFILEon 41-28-0113LCBT-HDL RATIO NORMSEE Pike Community HospitalComment on above:Result Comment: 3.3 - 4.4 LOW RISK 4.4 - 7.1 AVERAGE RISK 7.1 - 11.0 MODERATE RISK >11.0 HIGH RISKPerformed By: #### LIPID, CMP #### [facility] [address] [place] [address] [address] Kiarra Alonzoesterol [Mass/Vol]184 mg/dLNormal<=200[facility] Comment on above:Performed By: #### LIPID, CMP #### [facility] [address] [address] [address] Kiarra LandryCholesterol in HDL [Mass/Vol]44 mg/zKSlmegj78-66XfkFirelands Regional Medical CenterComment on above:Performed By: #### LIPID, CMP #### [facility] [address] [address] [address] Kiarra LandryCholesterol in LDL [Mass/Vol]115.0 mg/dLWhite HospitalComhenry ford wy[facility] hospital on above:Performed By: #### LIPID, CMP #### [facility] [address] [address] [address] Kiarra Harmon.total/Cholesterol in HDL [Mass ratio]4.2 {ratio} NormalThe [facility]'S HospitalComment on above:Performed By: #### LIPID, CMP #### [facility] [address] [address] [address] Kiarra Whitfield NORMAL> or = 60 mg/dl - LOW CARDIOVASCULAR RISK <40 mg/dl - HIGH CARDIOVASCULAR RISKWhite HospitalComment on above:Performed By: #### LIPID, CMP #### [facility] [address] [place] [address] Dr. Kiarra LandryLDL CALC NORMALSEE BELOWNoGreen Cross HospitalComment on above:Result Comment: <100 mg/dl OPTIMAL 100 - 129 mg/dl NEAR OR ABOVE OPTIMAL 130 - 159 mg/dl BORDERLINE HIGH 160 - 189 mg/dl HIGH >190 mg/dl VERY HIGH Performed By: #### LIPID, CMP #### [facility] [address] [place] [address] Dr. Kiarra LandryTriglyceride [Mass/Vol]125 mg/dLNormal<=150The [facility] Comment on above:Performed By: #### LIPID, CMP #### [facility] [address] [place] [address] Dr. Kiarar SamsLDL CALC25.0 mg/dLNoGreen Cross HospitalComment on above: Performed By: #### LIPID, CMP #### [facility] [address] [place] [address] Dr. Kiarra LandryPROF 14(COMP METB)on 77-67-6752Uviduqu [Mass/Vol]4.0 g/dLNormal 3.4-5.0The [facility]S HospitalComment on above:Performed By: #### LIPID, CMP #### [facility] [address] [place] [address] Dr. Kiarra LandryAlbumin/Globulin [Mass ratio]1.2 {ratio}NormalThe [facility]S HospitalComhenry ford [facility] hospital on above:Performed By: #### LIPID, CMP #### [facility] [address] [place] [address] Dr. Kiarra BallardP [Catalytic activity/Vol]68 U/MQdprbs67-630Xeq Donnie HospitalComment on above:Performed By: #### LIPID, CMP #### [facility] [address] [address] [address] Kiarra Taylor [Catalytic activity/Vol]61 U/LCritically vbgh51-27Fvy [facility] HospitalComment on above:Performed By: #### LIPID, CMP #### [facility] [address] [address] [address] Kiarra Vásquezon gap [Moles/Vol]10.6 mmol/LNormalThe [facility] Comment on above:Performed By: #### LIPID, CMP #### [facility] [address] [address] [address] Kiarra LandryAST [Catalytic activity/Vol]28 U/ZHjbotq10-83Kns [facility] HospitalComment on above:Performed By: #### LIPID, CMP #### [facility] [address] [address] [address] Kiarra LandryBilirubin [Mass/Vol]0.4 mg/dLNormal0.2-1.0The [facility] Comment on above:Performed By: #### LIPID, CMP #### [facility] [address] [address] [address] Kiarra LandryCalcium [Mass/Vol]8.6 mg/dLNormal8.5-10.1The [facility] Comment on above:Performed By: #### LIPID, CMP #### [facility] [address] [address] [address] Kiarra LandryChloride [Moles/Vol]101 mmol/FPjgjrm18-437Scv [facility] Comment on above:Performed By: #### LIPID, CMP #### [facility] [address] [address] [address] Kiarra LandryCO2 [Moles/Vol]27.9 mmol/SAinncf82.0-32.0The [facility] Comment on above:Performed By: #### LIPID, CMP #### [facility] [address] [address] [address] Kiarra LandryCreatinine [Mass/Vol]0.80 mg/dLNormal0.55-1.02The [facility]S HospitalComment on above:Performed By: #### LIPID, CMP #### [facility] [address] [address] [address] Kiarra De La FuenteGFR-AF MAURITIAN>60Normal>=60The [facility]'S HospitalComment on above:Performed By: #### LIPID, CMP #### [facility] [address] [address] [address] Kiarra De La FuenteGFR-NON AF MAURITIAN>60Normal>=60The [facility]'S HospitalComment on above:Performed By: #### LIPID, CMP #### [facility] [address] [address] [address] Kiarra LandryGlobulin (S) [Mass/Vol]3.3 g/dLNormalThe [facility]S HospitalComment on above:Performed By: #### LIPID, CMP #### [facility] [address] [address] [address] Kiarra LandryGlucose [Mass/Vol]81 mg/nVRejnhg86-020YadFirelands Regional Medical Center Comment on above:Performed By: #### LIPID, CMP #### [facility] [address] [address] [address] Kiarra LandryPotassium [Moles/Vol]3.5 mmol/LNormal3.5-5.1The [facility] Comment on above:Performed By: #### LIPID, CMP #### [facility] [address] [address] [address] Kiarra LandryProtein [Mass/Vol]7.3 g/dLNormal6.4-8.2The [facility] Comment on above:Performed By: #### LIPID, CMP #### [facility] [address] [address] [address] Kiarra LandrySodium [Moles/Vol]136 mmol/LLfgawo121-013LnaFirelands Regional Medical Center Comment on above:Performed By: #### LIPID, CMP #### [facility] [address] [address] [address] Kiarra LandryUrea nitrogen [Mass/Vol]14.0 mg/dLNormal7.0-18.0The [facility]S HospitalComment on above:Performed By: #### LIPID, CMP #### [facility] [address] [address] [address] Kiarra LandryUrea nitrogen/Creatinine [Mass ratio]17.5 mg/mgNoGreen Cross HospitalComment on above:Performed By: #### LIPID, CMP #### [facility] [address] [address] [address] Kiarra Brock THYROIDon 01-72-8620QM THYROIDEXAM: US THYROID HISTORY: Non-toxic uninodular goiter . [...] 12 months recommended. Electronically authenticated by: KIM MANN Date: 2022-07-26 19:43[facility] ACOG PANEL 2: 30 to 65on 05-21-2022..NormalThe [facility]S HospitalComhenry ford [facility] on above:Result Comment: Performed at: WBPerformed By: #### [id number] #### [facility] [address] [place] [address] Dr. Kiarra Thapa Gdln ACOG Fpdsbsm39-13ZjtmopHbbGreen Cross HospitalComment on above:Performed By: #### [id number] #### [facility] [address] [address] [address] Kiarra LandryDIAGNOSIS:CommentNoRegency Hospital [facility]edo on above: Result Comment: NEGATIVE FOR INTRAEPITHELIAL LESION OR MALIGNANCY. Performed at: WBPerformed By: #### [id number] #### [facility] [address] [place] [address] Dr. Kiarra PerezV AptimaNegativeNormalNegativeThe [facility] on above:Result Comment: This nucleic acid amplification test detects fourteen high-risk HPV types (16,18,31,33,35,39,45,51,52,56,58,59,66,68) without differentiation. Performed at: =GPerformed By: #### [id number] #### [facility] [address] [place] [address] Dr. Kiarra Goodman Genotype ReflexCommentNoRegency Hospital Toledo on above:Result Comment: Criteria not met, HPV Genotype not performed. Performed at: WBPerformed By: #### [id number] #### [facility] [address] [place] [address] Dr. Kiarra LandryMethodology:CommentNoRegency Hospital [facility]edo on above: Result Comment: This liquid based ThinPrep(R) pap test was screened with the use of an image guided system. Performed at: WBPerformed By: #### [id number] #### [place] [address] Dr[address] Kiarra LandryNote:CommentOhioHealth Shelby Hospital on above:Result Comment: The Pap smear is a screening test designed to aid in the detection of premalignant and malignant conditions of the uterine cervix. It is not a diagnostic procedure and should not be used as the sole means of detecting cervical cancer. Both false-positive and false-negative reports do occur. . Performed at: WBPerformed By: #### [id number] #### [facility] [address] [place] [address] Dr. Kiarra LandryPerformed by:CommentOhioHealth Shelby Hospital on above: Result Comment: Denis Smith, Soil Specialist (ASCP) Performed at: WBPerformed By: #### [id number] #### [facility] [address] [address] [address] Kiarra LandrySpecimen adequacy:CommentNoGreen Cross HospitalComment on above:Result Comment: Satisfactory for evaluation. Endocervical and/or squamous metaplastic cells (endocervical component) are present. Performed at: WBPerformed By: #### [id number] #### [facility] [address] [address] [address] Kiarra LandryUS THYROIDon 10-36-7686MH THYROIDEXAMINATION: US THYROID HISTORY: Non-toxic uninodular goiter COMPARISON: [...] TR 4 nodule, previously biopsied TI-RADS: [employer] TI-RADS committee's white paper recommendations for thyroid lesions classified as TR4 (moderately suspicious) are listed below: > 1.0 cm. Follow-up ultrasound in 1, 2, 3, and 5 years. > 1.5 cm. FNA. J. Am Ayse Radiol 2017;14:587-595. Electronically authenticated by: DIVYA MCKEE Date: 2022-01-12 07:11NormAccess Hospital DaytonQuick Strepon 10-31-2021. pyogenes Org specific cx Ql (Throat) NegativeNoUmweltech Other Quick StrepNoUmweltech Other COMPREHENSIVE METABOLIC PANELon 26-46-3878Uvohmnf [Mass/Vol]4.5 g/dLNormal3.6-5.1Quest DiagnosticsComment on above:Performed By: #### 7600, 83069, 02887 #### [facility] of [address], [address] [place] [address] Ssis Etl Developer: Goyo Ivory MDAlbumin/Globulin [Mass ratio]1.8 {ratio}Normal 1.0-2.5Quest DiagnosticsComment on above:Performed By: #### 7600, 34579, 98081 #### [facility] of [address], [address] [place] [address] Ssis Etl Developer: Goyo Ivory MDALP [Catalytic activity/Vol]76 U/QYtcyby56-892 [facility] DiagnosticsComment on above:Performed By: #### 7600, 06004, 55152 #### [facility] of [address], [address] [place] [address] Ssis Etl Developer: Goyo Ivory MDALT [Catalytic activity/Vol]41 U/LHigh6-29 Quest DiagnosticsComment on above:Performed By: #### 7600, 08392, 74099 #### [facility] of [address], [address] [place] [address] Ssis Etl Developer: Goyo Ivory MDAST [Catalytic activity/Vol]24 U/OBzcpea18-25 [facility] DiagnosticsComment on above:Performed By: #### 7600, 00147, 66340 #### [facility] of [address], [address] [place] [address] Ssis Etl Developer: Goyo Ivory MDBilirubin [Mass/Vol]0.3 mg/dLNormal0.2-1.2 Quest DiagnosticsComment on above:Performed By: #### 7600, 84637, 40809 #### [facility] of [address], [address] [place] [address] Ssis Etl Developer: Goyo Ivory MDBUN/CREATININE RATIONOT APPLICABLENormal6-22 [facility] DiagnosticsComment on above:Performed By: #### 7600, 78135, 24220 #### [facility] of [address], [address] [place] [address] Ssis Etl Developer: Goyo Ivory MDCalcium [Mass/Vol]9.0 mg/dLNormal8.6-10.2Quest DiagnosticsComment on above:Performed By: #### 4910, 70350, 03581 #### [facility] of [address], [address] [place], [place] [address] Ssis Etl Developer: Goyo Ivory MDChloride [Moles/Vol]105 mmol/ZUkabey42-872 Quest DiagnosticsComment on above:Performed By: #### 7600, 33199, 16852 #### [facility] of [address], [address] [place] [address] Ssis Etl Developer: Goyo Ivory MDCO2 [Moles/Vol]25 mmol/EAwkevz55-18Jtxov DiagnosticsComment on above:Performed By: #### 8350, 40694, 55300 #### [facility] of [address], [address] [place] [address] Ssis Etl Developer: Goyo Ivory MDCreatinine [Mass/Vol]0.89 mg/dLNormal0.50-1.10 Quest DiagnosticsComment on above:Performed By: #### 0060, 52027, 87178 #### [facility] of [place] [address] Ssis Etl Developer: Goyo Ivory MDeGFR NON-AFR. FELEFKXY62 mL/min/1.65i7Qjfoxj> OR = 60Quest DiagnosticsComment on above:Performed By: #### 7600, 53323, 18007 #### [facility] of [address], [address] [place] [address] Ssis Etl Developer: Goyo Ivory MDGFR/1.73 sq M.predicted among blacks MDRD (S/P/Bld) [Vol rate/Area]96 mL/min/{1.73_m2}Normal> OR = 60[facility] Comment on above:Performed By: #### 1720, 53109, 69360 #### [facility] of [address], [address] [place] [address] Ssis Etl Developer: Goyo Ivory MDGlobulin (S) [Mass/Vol]2.5 g/dLNormal1.9-3.7 Quest DiagnosticsComment on above:Performed By: #### 7600, 19659, 14997 #### [facility] [place] [address] Ssis Etl Developer: Goyo Ivory MDGlucose [Mass/Vol]77 mg/fQJugamw58-05Xweex DiagnosticsComment on above:Result Comment: Fasting reference intervalPerformed By: #### 7600, 04243, 19430 #### [facility] [place] [address] Ssis Etl Developer: Goyo Ivory MDPotassium [Moles/Vol]4.0 mmol/LNormal3.5-5.3 Quest DiagnosticsComment on above:Performed By: #### 7600, 47044, 28895 #### [facility] of [place] [address] Ssis Etl Developer: Goyo Ivory MDProtein [Mass/Vol]7.0 g/dLNormal6.1-8.1Quest DiagnosticsComment on above:Performed By: #### 7600, 31027, 83699 #### [facility] [place] [address] Ssis Etl Developer: Goyo Ivory MDSodium [Moles/Vol]139 mmol/JWbhydf349-394Ulnrt DiagnosticsComment on above:Performed By: #### 7600, 47579, 57620 #### [facility] of [place] [address] Ssis Etl Developer: Goyo Ivory MDUrea nitrogen [Mass/Vol]18 mg/dLNormal7-25 Quest DiagnosticsComment on above:Performed By: #### 7600, 11211, 11466 #### [facility] of [place] [address] Ssis Etl Developer: Goyo Ivory MDLIPID PANEL, STANDARDon 43-46-0106Pymxuuezbua [Mass/Vol]206 mg/dLHigh<200Quest DiagnosticsComment on above:Order Comment: FASTING:YES FASTING: YESPerformed By: #### 7600, 24767, 71698 #### [facility] [address], [address] [place] [address] Ssis Etl Developer: Goyo Ivory MDCholesterol in HDL [Mass/Vol]45 mg/dLLow> OR = 50Quest DiagnosticsComment on above:Order Comment: FASTING:YES FASTING: YESPerformed By: #### 7600, 23045, 40923 #### [facility] [address], [address] [place] [address] Ssis Etl Developer: Goyo FLOREZholesterol in LDL [Mass/Vol]130 mg/dLHigh [facility] DiagnosticsComment on above:Order Comment: FASTING:YES FASTING: YESResult Comment: Reference range: <100 Desirable range <100 mg/dL for primary prevention; <70 mg/dL for patients with CHD or diabetic patients with > or = 2 CHD risk factors. LDL-C is now calculated using the Milton-Uma calculation, which is a validated novel method providing better accuracy than the Friedewald equation in the estimation of LDL-C. Milton INMAN et al. CLARA. 2013;310(19): 7506-1793 (http://education.[employer]faq/BSL569)Performed By: #### 7600, 82890, 74470 #### [facility] [address], [address] [place] [address] Ssis Etl Developer: Goyo FLOREZholesterojett.total/Cholesterol in HDL [Mass ratio]4.6 {ratio}Normal<5.0Quest DiagnosticsComment on above:Order Comment: FASTING:YES FASTING: YESPerformed By: #### 9410, 04884, 30022 #### [facility] [address], [address] [place] [address] Ssis Etl Developer: Goyo ALY HDL AMISYNMNTZT163 mg/dL (calc)High<130 Quest DiagnosticsComment on above:Order Comment: FASTING:YES FASTING: YESResult Comment: For patients with diabetes plus 1 major ASCVD risk factor, treating to a non-HDL-C goal of <100 mg/dL (LDL-C of <70 mg/dL) is considered a therapeutic option.Performed By: #### 7600, 47349, 46971 #### [facility] [place] [address] Ssis Etl Developer: Goyo Ivory MDTriglyceride [Mass/Vol]170 mg/dLHigh<150Quest DiagnosticsComment on above:Order Comment: FASTING:YES FASTING: YESPerformed By: #### 7600, 90480, 13085 #### [facility] [place] [address] Ssis Etl Developer: Goyo BARONE+FREE T4on 25-68-4283Fiqo T4 [Mass/Vol]0.9 ng/dLNormal0.8-1.8Quest DiagnosticsComment on above:Performed By: #### 7600, 82158, 07770 #### [facility] [place] [address] Ssis Etl Developer: Goyo Ivory MDDOCTORS HOS[facility] Qn1.38 m[IU]/LNormalQuest [facility] Comment on above:Result Comment: Reference Range > or = 20 Years 0.40-4.50 Ranges First trimester 0.26-2.66 Second trimester 0.55-2.73 Third trimester 0.43-2.91Performed By: #### 7600, 72152, 17458 #### [facility] [place] [address] Ssis Etl Developer: Goyo Ivory MDMercy Hospital St. [facility] 92-47-8258Gkjqm [id number]#1.00CD:127NormalBer[facility] [id number]#1.00CD:127 [facility] CenterOperative Reporton 86-28-1562Msonbqtpz Report [id number]#1.00CD:127[facility] CenterAmbulatory Clinical Summaryon 15-39-1999Mjbqicegvc Clinical Summary {m0-ck-83-71-93-t6-6r-tz-jj-i8-70-2t-c7-52-c9-b1}CD:[id number] North Health CenterGeneral Surgery Office/Clinic Noteon 42-36-2035Spddxzw Surgery Office/Clinic NoteChief Complaint post operative follow up HPI Staff [...] Chris Brown, DIVINA Only if needed [address] [place] [address]- Additional Instructions: Problem List/Past Medical History Ongoing [...] Use:., 03/28/2021 Family History Family history is negativeUniversity Hospitals Geauga Medical CenterComment on above: Result Comment: Electronically Signed By: Chris VELAZQUEZ MD\.br\Date and Time Signed: 05/03/21 21:19 ESTPathology Noteon 11-72-3453Gqcxuffnc Note [id number]#1.00CD:127[facility] Reportson 44-51-2675Mri Reports [id number]#1.00CD:127[facility] Reportson 93-93-5086Dwr Reports [id number]#1.00CD:[address] [place], [place] [address]Consent for Procedure/Surgeryon 50-66-5150Jdzktjd for Procedure/Surgery [id number]#1.00CD:127[facility] CenterGeneral Surgery Office/Clinic Noteon 52-81-0444Bmkehce Surgery Office/Clinic NoteChief Complaint re-evaluate RUQ pain HPI Staff Presents [...] or bowel changes; no fevers or jaundice; onlyabdominal operations bilateral inguinal hernia repairs; no asa [...] Use:., 03/28/2021 Family History Family history is negativeUniversity Hospitals Geauga Medical CenterComment on above: Result Comment: Electronically Signed By: Chris VELAZQUEZ MD\Date and Time Signed: 04/02/21 20:40 EDTPatient Educationon 09-25-3043Bgpeuqa Education Gastroenterology Laparoscopic Cholecystectomy Laparoscopic cholecystectomy is surgery to remove the gallbladder. The gallbladder is a pear-shapedorgan that lies beneath the liver on the right side of the body. The gallbladder stores bile, whichis a fluid that helps the body to [...] through one incision. Thin surgical instruments are insertedthrough the other incisions. In some cases, a laparoscopic procedure may be turned into a type of surgery that is done through a larger incision (open surgery). Tell a health care provider about: ? Any allergies you have. ? All medicines you are taking, including vitamins, herbs, eye drops, creams, and fjuz-ihd-slxoqfl medicines. ? Any problems you or family [...] common bile duct carries bile from the gallbladderinto the small intestine. ? A bile leak [...] operating room. This lets your surgeon see insideyour abdomen. ? Air-like gas will be pumped [...] needed to control your (more content not included)...[facility] CenterRAD - Ultrasound Reporton 86-24-0054VGH - Ultrasound Report [id number]#1.00CD:[address] [place], [place] [address]Ambulatory Clinical Summaryon 56-91-0264Quqqvtlgfm Clinical Summary {7l-nn-r8-93-b8-qc-87-26-5u-pu-u7-44-65-3c-24-5c}CD:197939QbuimhPkpqosGerman Hospital Note-Physicianon 34-40-4235DJ Note-Physician [id number]#1.00CD:[address] [place] [address] Vital Signs Date TimeVital SignValuePerforming PltrikoehKvijbgzu99-92-0440 15:29-0400Body hfpujt211.6 cmSuzie Zepeda MD Work Phone: [phone] HospitalIsuszbntld33-25-4229 15:29-0400Body mass index (BMI) [Ratio]40.17 kg/b9OsmbjoSuzie Zepeda MD Work Phone: [phone] HospitalKewpoyuhtp83-49-5233 15:29-0400Body riqlfw239.14 kgSuzie Zepeda MD Work Phone: [phone] HospitalGnpycknkwi61-57-8932 15:29-0400Diastolic blood wzfbatfn33 mm[Hg]Suzie Zepeda MD Work Phone: [phone] HospitalZkbefefzxr65-00-7076 15:29-0400Heart rate92 /min Suzie Zepeda MD Work Phone: [facility] HospitalAxtllhtypb88-23-7152 15:29-0400Systolic blood ovcpvuhe525 mm[Hg]Suzie Zepeda MD Work Phone: [facility] HospitalSliuoytyym44-56-4176 09:13-0400Body mass index (BMI) [Ratio]40.51 kg/m2Brooke Hillsilvia MARTIN Work Phone: [facility] HospitalTrivajkzkd75-50-2702 09:13-0400Body veoxgc157.05 kgBrooke Hilley PA Work Phone: [facility] HospitalPlasbwzzbu89-35-4523 09:13-0400Diastolic blood mm[Hg]Brooke Calvin MARTIN Work Phone: [facility] HospitalWvvhghsxpo61-40-9620 09:13-0400Systolic blood birmcayp744 mm[Hg]Brooke Hillsilvia MARTIN Work Phone: [facility] HospitalEqobcjjbqt35-36-6902 16:32-0500Body mass index (BMI) [Ratio]41.02 kg/j2Sjnnh Ana DO Work Phone: [facility] HospitalVdtwzytnel23-46-3411 16:32-0500Body qkkfyv874.41 kgCorey Ana DO Work Phone: [phone] [place], [place] [address]Mbbjcbvcxb34-75-3968 16:32-0500Diastolic blood vzdfyxpc61 mm[Hg]Harry Ana DO Work Phone: [facility] HospitalHvikvloinr41-29-9394 16:32-0500Systolic blood oejsgokk904 mm[Hg]Harry Ana DO Work Phone: [phone] [place], [place] [address]Jupowjwcxr07-39-4741 08:48-0500Body mass index (BMI) [Ratio]41.26 kg/c1Jsfby Ana DO Work Phone: [phone] [place], [place] [address]Hrleebssjw64-83-4715 08:48-0500Body oaqmog549.05 kgCorey Ana DO Work Phone: [phone] [place], [place] [address]Rhrjmrkflq42-23-2330 08:48-0500Diastolic blood ijpanylo10 mm[Hg]Harry Ana DO Work Phone: [phone]-90[address] HospitalNghiawhnyy40-44-4034 08:48-0500Systolic blood pfqvojyi270 mm[Hg]Harry Ana DO Work Phone: [phone] [place], [place] [address]09-25-2024 16:00-0400Body naqijd032.6 cmSuzie Zepeda MD Work Phone: [facility] HospitalUoqnnhrghl97-30-5954 16:00-0400Body mass index (BMI) [Ratio]41.71 kg/d1BmscbjSuzie Zepeda MD Work Phone: [facility] HospitalDbvqeliqav27-15-4870 16:00-0400Body arrojh490.22 kgSuzie Zepeda MD Work Phone: [facility] HospitalNnklzeiech29-47-0262 16:00-0400Diastolic blood tymxixxf91 mm[Hg]Suzie Zepeda MD Work Phone: [facility] HospitalGlxldlnxtk11-69-9721 16:00-0400Systolic blood pijyqjmm495 mm[Hg]Suzie Zepeda MD Work Phone: [facility] HospitalLaasoshhbi44-09-9771 11:55-0400Body neuuzw642.56 cmDO Flimper Work Phone: [facility]07-22-2024 11:55-0400 Body mass index (BMI) [Ratio]41 kg/m2DO Flimper Work Phone: [facility]07-22-2024 11:55-0400 Body bdgiaqirrdb24 [degF]DO Pounceng Work Phone: [facility]07-22-2024 11:55-0400 Body uduygu626.4 kgDO VinnyAtlas GeneticsloVG Life Sciences Work Phone: [facility]07-22-2024 11:55-0400 Diastolic blood mm[Hg]DO Vinny ConelumloVG Life Sciences Work Phone: [facility]07-22-2024 11:55-0400 Heart rate84 /minDO Vinny Conelumlong Work Phone: [facility]07-22-2024 11:55-0400 Respiratory rate18 /minDO Vinny Conelumlong Work Phone: [facility]07-22-2024 11:55-0400 SaO2% (BldA) [Mass fraction]97 %DO Vinny DupreeVerdex Technologiesstewart Work Phone: [facility]07-22-2024 11:55-0400 Systolic blood nntnuqqd346 mm[Hg]DO Vniny Jones Work Phone: [facility]05-31-2022 18:40-0400 Body teufke657.56 cmPameltrini Salazar Other noCrowdly [employer] Other 05-31-2022 18:40-0400Body mass index (BMI) [Ratio] 39.48 kg/o7Rchiaz Marie Other [employer]Umwel[employer] Other 05-31-2022 18:40-0400Body fjunwxzznwv88.2 [degF]Sofia Marie Other [place] Other 05-31-2022 18:40-0400Body skomnp301.33 kgSofia Salazar Other [place] Other 05-31-2022 18:40-0400Respiratory rate18 /minSofia Salazar Other [place] [employer] Other 05-31-2022 18:40-1752GaI9% (BldA) [Mass fraction]97 % Sofia Marie Other [place] Other Encounters Encounter DateEncounter TypeCare ProviderFacilityStart: 03-02-2025 End: 75-57-7817xszucmlftcONPWXB Dalila Henderson AvailableStart: 03-02-2025 End: 85-17-2073Kwmokm outpatient visit 15 minutesHivadim Zepeda MD Work Phone: [facility] [place] OtolaryngologyComment on above:Thyroid nodule (Primary Dx)Start: 03-02-2025 End: 51-99-5796Vxnila Ariella Zepeda MD Work Phone: [facility] [place] OtolaryngologyStart: 03-02-2025 End: 47-42-0862Cltaic Ariella Zepeda MD Work Phone: [facility] [place] OtolaryngologyStart: 02-20-2025 End: 31-22-5836Fvjdwinpt Result EncounterSuzie Zepeda MD Work Phone: noms External Department UnsolicitedStart: 02-20-2025 End: 48-32-1328Ozmcwraye Result EncounterSuzie Zepeda MD Work Phone: noms External Department UnsolicitedStart: 08-13-2024 End: 40-61-2770Rkqnjw Nae MARTIN Work Phone: NONJ BCP OBStart: 08-13-2024 End: 73-33-2657Dnotde Nae MARTIN Work Phone: NOPB BCP OBStart: 08-13-2024 End: 43-17-3290Gxwmni follow up visit related to original Lin MARTIN Work Phone: noms BCP OBComment on above:Postoperative visit; Status post bilateral salpingectomyStart: 08-13-2024 End: 99-70-7338nzpgmqjucfDZR RAMEYNot AvailableStart: 08-07-2024 End: 83-92-2717tyclthsdwnKksol FazioFacility:[facility] Start: 08-07-2024 End: 94-55-6189Cwnqizcn ReferredDennis Furlong DO Work Phone: [facility]-LAB Path Spec Donnie HospStart: 06-24-2024 End: 70-68-6520Oiylfixt ReferredDennis Furlong DO Work Phone: [facility]-LAB Path Spec Donnie HospStart: 06-24-2024 End: 76-80-0716jaxvvpiesqDlfsbn Furlong DO Work Phone: [facility] Work Phone: Start: 06-24-2024 End: 43-21-2082Wdjjjyx encounter procedureCorey Ana DO Work Phone: [facility] OBComment on above:Pre-op examination; Request for sterilization; Menorrhagia with regular cycle; Abnormal uterine bleeding; Pelvic pain in femaleStart: 06-24-2024 End: 10-89-2341Uwjanldqzyyoi examination doneCorey Ana DO Work Phone: noms HealthcareStart: 06-17-2024 End: 65-23-2563Lezwnwncq Result EncounterCorey Ana DO Work Phone: noms External Department UnsolicitedStart: 06-17-2024 End: 35-33-3775Iqvrfpgyl Result EncounterCorey Ana DO Work Phone: noms External Department UnsolicitedStart: 05-18-2024 End: 23-80-3100Ybiiez flowsheetCorey Ana DO Work Phone: [facility] OBStart: 05-18-2024 End: 71-62-9992Ayqawi flowsheetCorey Ana DO Work Phone: n[facility] BCP OBStart: 05-18-2024 End: 44-02-4372Mqnzedanu Result EncounterCorey Ana DO Work Phone: noms External Department UnsolicitedStart: 05-18-2024 End: 70-09-7073Xqkrzdh encounter procedureCorey Ana DO Work Phone: [facility] Work Phone: Start: 05-18-2024 End: 99-07-2654Kmyhgthy preventive med est patient 40-64yrsCorey Ana DO Work Phone: [facility] BCP OBComment on above:Well woman exam with routine gynecological exam; Breast cancer screening by mammogram; UTI symptoms; Menorrhagia with regular cycle; Request for sterilization; PCOS (polycystic ovarian syndrome); Hormone imbalanceStart: 05-18-2024 End: 80-01-1516mdupwsnnpyXUGWC FAZIONot AvailableStart: 02-26-2024 End: 41-58-3781Cwefou outpatient visit 15 minutesSuzie Zepeda MD Work Phone: noms CI ENTComment on above:Nontoxic single thyroid nodule (CMS/HCC) (Primary Dx)Start: 02-26-2024 End: 11-82-4756Uwrswf flowsHomero Zepeda MD Work Phone: [facility] CI ENTStart: 02-26-2024 End: 93-94-7084Ggzbma Ariella Zepeda MD Work Phone: n[facility] CI ENTStart: 02-24-2024 End: 99-63-9065Axlzcexlu Result EncounterSuzie Zepeda MD Work Phone: noms External Department UnsolicitedStart: 02-24-2024 End: 64-85-7227Etgkwxfad Result EncounterSuzie Zepeda MD Work Phone: noms External Department UnsolicitedStart: 12-23-2023 End: 38-98-2822obiqvbyrbtWE Vinny Jones Work Phone: [facility] Work Phone: Start: 12-23-2023 End: 67-30-7016Gwdusqy encounter procedureDO Vinny Jones Work Phone: [facility] [place] Work Phone: Start: 12-02-2023 End: 68-49-6142Xyxhufrct encounterDengaetano Jones DO Work Phone: [facility] - Family MedicineStart: 51-94-2662Raawnuimm encounterDesgaetano Gerry Jones DO Work Phone: [facility] - [facility] MedicineStart: 08-19-2023 End: 06-69-2034Bruvejfwa Result EncounterSuzie Zepeda MD Work Phone: noms External Department UnsolicitedStart: 08-19-2023 End: 43-87-5410Udvspqucd Result EncounterSuzie Zepeda MD Work Phone: noms External Department UnsolicitedStart: 08-05-2022 Encounter for general adult medical examination with abnormal findingsDR MELO Flores [facility]Start: 08-01-2022 End: 02-00-2633etzwdccazsIV MELO YEFacility:T4Pcvsj: 08-01-2022 End: 71-08-7131Bpegjmkws for general adult medical examination with abnormal findingsDR MELO YEFacility:K5Jwkli: 07-26-2022 End: 88-03-8907zhjtcotlczOK SUZIE TIMMISFacility:N4Ttctf: 05-14-2022 End: 73-87-3528qjohdrceywRE VINNY JONESFacility:N9Xvtpz: 05-10-2022 End: 69-59-1325koravidttrKO HARRY PEREZ .Facility:B9Peedo: 84-00-0190clivnliqtg MANUEL RAUCHFacility:F1Aqwpu: 01-11-2022 End: 60-56-8252keodfdsollQM SUZIE TIMMISFacility:M2Enron: 10-31-2021 End: 02-69-1970ouupnunytyLzceot Dymond Other [employer] Other Start: 52-59-7761Qqyllp outpatient visit 25 minutes Sofia SalazarFPGerry [facility] [place] Procedures DateProcedureProcedure DetailPerforming ClinicianStart: 61-84-2203Bw soft tissue head & neck real time imge docmHsuad Zepeda MD Work Phone: Start: 08-13-2024H/O: surgeryStatus post bilateral salpingectomyBrooke MARTIN Work Phone: Start: 76-32-9679Sdrzw test visual color cmprsn methsCorey Ana DO Work Phone: Start: 99-65-3531GD TOMOSYNTHESIS SCREENING BICorey Ana DO Work Phone: Start: 07-68-0884AI PELVIS W/ TRANSVAGINALCorey Ana DO Work Phone: Start: 28-39-9418JSU CBC WITH AUTO DIFFCorey Ana DO Work Phone: Start: 82-71-2948TJD DEHYDROEPIANDROSTERONECorey Ana DO Work Phone: Start: 91-71-7089WGX DHEA SULFATECorey Ana DO Work Phone: Start: 16-54-2872LJG FOLLICLE STIMULATING HORMONECorey Ana DO Work Phone: Start: 95-87-3955GWE LUTEINIZING HORMONECorey Ana DO Work Phone: Start: 09-90-7127Oujsm dip stick/tablet rgnt non-auto w/o micrscpCorey Ana DO Work Phone: Start: 77-63-0496MJA,APTIMA HPV,AGE GDLNCorey Ana DO Work Phone: Start: 96-94-5905Dy soft tissue head & neck real time imge Mario Zepeda MD Work Phone: Start: 80-51-2964X-ray of left footDO Vinny Furlong Work Phone: Start: 10-96-0496Bf soft tissue head & neck real time imge Mario Zepeda MD Work Phone: Start: 80-66-5307Ihfi cerv/vag auto thin layer prep mnl screenAmy Calvin MARTIN Work Phone: Start: 60-85-9200Uadiq depression screening assessment Vinny Jones DO Work Phone: Start: 51-74-9486Pzsxbaggmll observation [Identifier] in Cervix by Cyto stainVinny Jones DO Work Phone: Plan of Treatment DateCare ActivityDetailAuthorStart: 06-09-2025 End: 38-37-0627Yjglgbw encounter dwiosugss95/07/2026 3:30 PM EST Office Visit [facility] [place] [facility] [address] [facility] [address] [place] [address] Suzie Zepeda MD [address] [facility] [address] [place] [address] [facility] [place] OtolaryngologyStart: 05-03-2025 Screening for malignant neoplasm of cervixPap SmearUniversity Of Vermont Medical CenterGuangzhou Youboy Networkca [facility] SystemStart: 03-02-2025 End: 00-55-7845Jdfvofv encounter dfyqbyews15/30/2025 3:20 PM EDT Office Visit [facility] [facility] [address] [facility] [address] [place] [address] Suzie Zepeda MD [address] [facility] [address] [place] [address] [facility] [place] OtolaryngologyStart: 08-13-2024 End: 10-86-4079Rtdhfnz encounter ynxunffks15/13/2025 9:20 AM EDT Office Visit [facility] [address] [id number] Brooke Simpson PA [address] [place] [address] ArrivedNOMS BCP OBComment on above:ArrivedStart: 06-24-2024 End: 73-94-0854Izelhxl encounter tmmkdxmaz73/22/2025 3:30 PM EST Procedure Visit [facility] [address] [phone] Harry Perez, DO [address] [place] [address] [facility] BCP OBStart: 05-18-2024 End: 53-73-6788lGIN in Blood by Coagulation assayAPTT Lab Routine Menorrhagia with regular cycle Expected: 05/18/2024 (Approximate), Expires: 05/18/2025NOMS HealthcareComment on above:Expected: 05/18/2024 (Approximate), Expires: 05/18/2025Start: 05-18-2024 End: 96-80-1441MZYAICUV Lab Routine PCOS (polycystic ovarian syndrome) Expected: 05/18/2024 (Approximate), Expires: 05/18/2025NOMS HealthcareComment on above: Expected: 05/18/2024 (Approximate), Expires: 05/18/2025Start: 05-18-2024 End: 22-45-1318BO Breast - bilateral ScreeningBilateral screening mammogram Imaging Routine Breast cancer screening by mammogram Expected: 05/18/2024 (Approximate), Expires: 07/19/2025[facility] Work Phone: comment on above:Expected: 05/18/2024 (Approximate), Expires: 07/19/2025Start: 05-18-2024 End: 72-71-7905PM for pregnancyUS PELVIS-TRANSVAG IF INDICATED Imaging Routine Menorrhagia with regular cycle Expected: 05/18/2024(Approximate), Expires: 05/18/2025[facility] HealthcareComment on above:Expected: 05/18/2024 (Approximate), Expires: 05/18/2025Start: 05-18-2024 End: 72-08-8991Vlrktip encounter procedureNOMS BCP OBComment on above:Arrived Start: 51-32-2213Yfagthuvg vaccinationInfluenza VaccineMarietta Osteopathic Clinic System Start: 89-00-7912Vibyg BMI ScreeningAdult BMI ScreeningMarietta Osteopathic Clinic System Start: 60-97-3968Bhbcxbxoqx ScreeningDepression ScreeningWright-Patterson Medical Center Start: 54-71-6238Qkocxmj ScreeningTobacco ScreeningCone Healthtart: 75-84-1659GAmA,Tdap and Td Vaccines (1 - Tdap)DTaP,Tdap and Td Vaccines (1 - Tdap)[facility] Medical CenterCBC W Auto Differential panel - BloodCBC and differential Lab Routine Menorrhagia with regular cycle Ordered: 05/18/2024[facility] HealthcareComment on above:Ordered: 05/18/20242607NCVD-ycloizaVHRF-jdztsrg Lab Routine PCOS (polycystic ovarian syndrome) Ordered: 05/18/2024[facility] Healthcare Comment on above:Ordered: 05/18/2024EstradiolEstradiol Lab Routine Menorrhagia with regular cycle Hormone imbalance Ordered: 05/18/2024[facility] HealthcareComment on above:Ordered: 05/18/2024Follicle stimulating hormoneFollicle stimulating hormone Lab Routine PCOS (polycystic ovarian syndrome) Ordered: 05/18/2024[facility] HealthcareComment on above:Ordered: 05/18/2024hCG, quantitative, pregnancyhCG, quantitative, Lab Routine Menorrhagia with regular cycle Ordered: 05/18/2024[facility] HealthcareComment on above:Ordered: 05/18/2024Hemoglobin A1c/Hemoglobin.total in BloodHemoglobin A1c Lab Routine Menorrhagia with regular cycle Ordered: 05/18/2024[facility] HealthcareComment on above:Ordered: 05/18/2024 Luteinizing hormoneLuteinizing hormone Lab Routine PCOS (polycystic ovarian syndrome) Ordered: 05/18/2024[facility] HealthcareComment on above:Ordered: 05/18/2024 ProgesteroneProgesterone Lab Routine Menorrhagia with regular cycle Hormone imbalance Ordered: 05/18/2024[facility] HealthcareComment on above:Ordered: 05/18/2024 Prothrombin time (PT) in Blood by Coagulation assayProtime-INR Lab Routine Menorrhagia with regular cycle Ordered: 05/18/2024[facility] HealthcareComment on above:Ordered: 05/18/2024THIN PREP TIS PAP AND HR HPV DNATHIN PREP TIS PAP AND HR HPV DNA Pathology and Cytology Routine Well woman exam with routine gynecol ogical exam Ordered: 05/18/2024[facility] HealthcareComment on above:Ordered: 05/18/2024Thyrotropin [Units/volume] in Serum or PlasmaTSH Lab Routine Menorrhagia with regular cycle Ordered: 05/18/2024[facility] HealthcareComment on above:Ordered: 05/18/2024Thyroxine (T4) free [Mass/volume] in Serum or PlasmaT4, free Lab Routine Menorrhagia with regular cycle Ordered: 05/18/2024[facility] HealthcareComment on above:Ordered: 05/18/2024Tissue examTissue exam Pathology and Cytology Routine Menorrhagia with regular cycle Ordered: 06/24/2024[facility] Work Phone: comment on above:Ordered: 06/24/2024 Immunizations Immunization DateImmunizationNotesCare ObwwhkioSpelkjka73-77-0401vlgyjymza, high dose seasonal, preservative-freeDennis Furlong DO Work Phone: [facility] CenterIbuzii58-12-0163xdgfcckeh virus vaccine, unspecified formulationDennis Furlong DO Work Phone: [facility] CenterJluofb88-10-2341hiohynhma, high dose seasonal, preservative-freeDennis Furlong DO Work Phone: [facility] CenterTrthps49-97-4618yxfkkchnm, seasonal, injectableDennis Furlong DO Work Phone: [facility] Payers DatePayer CategoryPayerPolicy [id number] Health InsuranceMEDICAL MUTUAL [id number] [id number] 2.840.1.113151.3.57[id number] 2.840.1.266834.3.57[id number] 2.840.1.827723.3.57[id number] 2.0.1.425974.3.57[id number] 2.0.1.110310.3.57[id number] 2..1.065391.3.57[id number] 2.0.1.003286.3.57[id number] 2..1.060700.3.57[id number] 2.0.1.677797.3.57[id number] 2.0.1.997902.3.579.2.883555-02-3173Duig-[id number] [id number] 2.840.1.0[id number] 2.840.1.3[id number] 2.840.1.170525.3.579.2.531 Social History DateTypeDetailFacilityUnknown if ever smokedNorth H[employer] Other Start: 08-27-2023 End: 59-90-2158Isq Assigned At [facility]Start: 02-11-2023 End: 51-74-5268Zjjlzpw smoking status NHISNever smoked tobacco (finding) [facility]: 89-98-7097Ilr Assigned At [facility]: 04-25-2022 End: 26-07-9899Xtlvuhr use and exposureSmokeless tobacco non-userMarietta Osteopathic Clinic SystemStart: 05-14-2023 End: 26-06-5026Fcipyfmfv beverage intakeEx-drinker (finding)[facility] SystemStart: 08-27-2023 End: 83-32-4921Faxackh of Social functionNOIL HealthcareHow often to you have a drink containing alcohol?Monthly or lessNOIL HealthcareHow many standard drinks containing alcohol do you have on a typical day?1 or 2NOMS HealthcareHow often do you have 6 or more drinks on 1 occasion?NeverI-70 Community HospitalStart: 08-27-2023 Alcohol Commentcaffeine intake: 1-2 cups per dayI-70 Community HospitalStart: 1983 Sex assigned at birthNot on fileMarietta Osteopathic Clinic SystemStart: 06-41-4134Btp Patient sex unknown (finding)[facility]art: 08-15-2022 Adolescent depression screening uekzvlpqlm6AmcSpxpdpCone Healthtart: 35-56-5303XqfIdksjx (finding)[facility] Functional Status QwcyWgshsbovseIouyjzIgpokxir40-56-2977Ddspy score [AUDIT-C]1 08/27/2023 8:39 PM EDT Kylee ShahMilwaukee [facility][note 3] Clinical Notes 03-17-2021 to 03-02-2025 Note Date & GnrrZrziSimxkuzq00-46-9258 History of Present illness Narrative* Suzie Zepeda MD - 03/02/2025 3:20 PM EDT Subjective Patient ID: Steph Menchaca is a 39 y.o. 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 02/11/2023 Rash 02/11/2023 Thyroid nodule 02/11/2023 Pre-op examination 06/24/2024 Request for sterilization 06/24/2024 Abnormal uterine bleeding 06/24/2024 Menorrhagia with regular cycle 06/24/2024 Pelvic pain in female 06/24/2024 Status post bilateral salpingectomy 08/13/2024 Anxiety 03/08/2022 Biliary colic 03/08/2022 Cholelithiasis 03/08/2022 Chronic cholecystitis with calculus 03/08/2022 Obesity with body mass index 30 or greater 03/01/2025 Resolved Ambulatory Problems Diagnosis Date Noted No Resolved Ambulatory Problems Past Medical History: Diagnosis Date COVID-19 PCOS (polycystic ovarian syndrome) Psoriasis Past Surgical History: Procedure Laterality Date ADENOIDECTOMY DILATION AND CURETTAGE OF UTERUS 2019 FNA W IMAGING GUIDANCE 07/17/2021 thyroid HERNIA REPAIR 1999 SALPINGECTOMY Bilateral 08/07/2024 bilateral fallopian tubes, bilateral salpingectomy TONSILLECTOMY Allergies Allergen Reactions Ciprofloxacin Headache Other reaction(s): headaches Current Outpatient Medications on File Prior to Visit Medication Sig Dispense Refill cycloSPORINE (Restasis) 0.05 % ophthalmic emulsion ibuprofen 800 MG tablet Take 800 mg by mouth every 8 (eight) hours [place]iebo 1.338 GM/ML solution omeprazole (PriLOSEC) [address] capsule Take 20 mg by mouth in the morning. prednisoLONE acetate (Pred-Forte) 1 % ophthalmic suspension instill 1 DROP IN BOTH EYES FOUR TIMES DAILY FOR 7 DAYS then instill 1 DROP IN BOTH EYES THREE TIMES DAILY FOR 7 DAYS then instill 1 DROP IN BOTH EYES TWICE DAILY FOR 7 DAYS then instill 1 DROP IN BOTH EYES EVERY DAY FOR 7 DAYS HYDROcodone-acetaminophen ([place]) 5-325 MG tablet TAKE 1 TABLET BY MOUTH EVERY 4 HOURS (Patient nottaking: Reported on 03/02/2025) No current facility-administered medications on file prior to visit. Objective Last Recorded Vitals Vitals: 03/02/25 1529 BP: 114/85 Pulse: 92 ENT Physical Exam Constitutional Appearance: patient appears well-developed, well-nourished and well-groomed, Communication/Voice: communication appropriate for developmental age; vocal quality normal; Assessment/Plan Diagnoses and all orders for this visit: Thyroid nodule There may be growth in one dimension of pt's thyroid nodule. Repeat US in 3 mo. I growth continues I will repeat FNA documented in this encounterI-70 Community HospitalTokckhqsld98-26-1217 History of Present illness Narrative* VERONICA Dillon - 08/13/2024 9:20 AM EDT Reason for Appointment: Patient ID: Steph Menchaca is a 38 y.o. female who presents for Post-op Visit (Patient present today for a post operative visit. Pt had a bilateral salpingectomy/bilateral fallopian tubes removed on 08/07/2024.) Patient presents today for 1 Week Post Op Follow Up appointment. MEDICATIONS Current Outpatient Medications Medication Instructions cycloSPORINE (Restasis) 0.05 % ophthalmic emulsion instill 1 DROP IN BOTH EYES TWICE DAILY HYDROcodone-acetaminophen ([place]) 5-325 MG tablet TAKE 1 TABLET BY [...] a Bilateral Laparoscopic Salpingectomy performed at [facility] with Dr. Perez. Patient is healing well and shows no signs or symptoms of infection. Pathology results was reviewed with the patient in great detail and all restrictions have been lifted. Follow Up: Patient is to return to the office for annual exam unless needed otherwise. Documented by Carmela Vogel MA on behalf of: VERONICA Dillon documented in this encounterI-70 Community HospitalNyrkopzbsx25-31-7564 History of Present illness Narrative* Laney Lamar - 06/24/2024 3:30 PM EST Reason for Appointment: Patient ID: Steph Menchaca is a 38 y.o. female who presents for Pre-op Visit and EMBX Patient presents today for Pre Op/Endometrial Biopsy appointment. Patient is scheduled to undergo Da Kadie assisted Bilateral Laparoscopic Salpingectomy and Endometrial Ablation with Liana on 07/24/[address] Perez at [facility]. MEDICATIONS Current Outpatient Medications Medication Instructions [...] nursing note reviewed. Exam conducted with a starch factory laborer present. Vitals: Estimated body mass index is [...] conservative management vs. surgical management with the patientin detail and patient desires surgical management at this time. Patient has voiced understanding that a Bilateral Salpingectomy is considered to be permanent and patient will undergo Da Kadie assisted Bilateral Laparoscopic Salpingectomy & Endometrial Ablation with Liana on 07/24/2024. Surgical consents were signed, mmc was reviewed, and patient is to proceed to [facility] OR. Follow Up: Patient is to follow up between 1-2 weeks post op to assess proper healing and recovery from procedure. Documented by Laney Lamar on behalf of: Harry Perez DO documented in this encounterI-70 Community HospitalRvflfltwxu97-44-1314 History of Present illness Narrative* Dolores Mobley LPN - 05/18/2024 8:30 AM EST Reason for Appointment: Patient ID: Steph Menchaca is a 38 y.o. female who presents [...] nursing note reviewed. Exam conducted with a starch factory laborer present. Vitals: Estimated body mass index is [...] labs and ultrasound orders to have obtained. Pthas shoulder pain and indentations from bra from large breasts. Pap was obtained without difficultyand patient given mammogram order to have scheduled/obtained. Orders Placed This Encounter Procedures Bilateral screening mammogram POCT urinalysis dipstick manually resulted Follow Up: Patient is to return in one year for annual. Pt to return for preop/embx for endometrial ablation with bilateral salpingectomy. Documented by Dolores Mobley LPN on behalf of: Harry Perez DO documented in this encounterI-70 Community HospitalNfrnkbchuj03-01-7756 History of Present illness Narrative* Suzie Zepeda MD - 02/26/2024 3:50 PM EDT Subjective Patient ID: Steph Menchaca is a 38 y.o. 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 Vinny Jones DO sent at 11/29/2023 7:48 PM EDT ----- Regarding: FW: wellness ----- Message ----- From: Vinny Jones DO Sent: 11/27/2023 12:00 AM EDT To: Vinny Jones DO Subject: wellness Please set up at her convenience after age 38 * Telephone Encounter - Priscila Lainez - 12/02/2023 3:31 PM EDT Lm on VM * Telephone Encounter - Priscila Lainez - 12/02/2023 3:31 PM EDT LM on VM * Telephone Encounter - Priscila Lainez - 12/02/2023 3:31 PM EDT Sending letter documented in [facility] encounterW[facility] Tele[facility] encounter Note* [facility] - [facility] 3[facility]31 PM EDT ----- Message from Dr. Vinny Jones DO sent at 11/29/2023 7:48 PM EDT ----- Regarding: FW: wellness ----- Message ----- From: Vinny Jones DO Sent: 11/27/2023 12:00 AM EDT To: Vinny Jones DO Subject: wellness Please set up at her convenience after age 38 [facility]07-01-2024 Telephone encounter Note* Telephone Encounter - [facility] Fatou - 12/02/2023 3:31 PM EDT Lm on VM [facility]07-01-2024 Telephone encounter Note* Telephone Encounter - [facility] Fatou - 12/02/2023 3:31 PM EDT LM on VM [facility]07-01-2024 Telephone encounter Note* Telephone Encounter - [facility] Fatou - 12/02/2023 3:31 PM EDT Sending letter [facility]03-25-2024 Miscellaneous Notes* Telephone Encounter - Sue Alves - 08/26/2023 11:11 AM EDT ----- Message from Vinny Jones DO sent at 08/22/2023 12:36 PM EDT ----- Regarding: Wellness Please set up. She usually sees V/[employer] SIGNAL OFFICER documented in this encounterUniversity Of Vermont Medical CenterMicroelectronics Assembly Technologies03-25-2024 Telephone encounter Note* Telephone Encounter - Sue Alves - 08/26/2023 11:11 AM EDT ----- Message from Vinny Jones DO sent at 08/22/2023 12:36 PM EDT ----- Regarding: Wellness Please set up. She usually sees V/[employer] SIGNAL OFFICER [facility] Evaluation note* Encounter Date Diagnosis Assessment Notes Treatment Notes Treatment Clinical Notes October, Sore throat (ICD-10 - J02.9) October,Viral upper respiratory infection (ICD-10 - J06.9)Drink plenty fluids, get plenty of rest. Take Tylenol or Motrin for aches pains or fevers. Considertaking Mucinex or Sudafed for your drainage. Follow-up with your family physician if no improvementin 2 to 3 days [place] Other 10-15-2021 NoteChief Complaint consultation for abdominal pain HPI Staff 35 year old female presents on consultation from [facility] for abdominal pain. History of Present Illness 35 yo female, 9 weeks ; referred from ED for episode of upper abd pain; seen 2 days ago in ED at [facility] for sudden onset of upper abdominal [...] data available Patient Education Laparoscopic Cholecystectomy Cholelithiasis, Cuaa-ny-Dfsm Problem List/Past Medical History Ongoing Biliary colic [...] Use:., 02/07/2021 Family History Family history is negativeThe [facility] Hospital At SouthwoodsComment on above:Result Comment: Electronically Signed By: MARCUS FOSS, Chris Olguin\Date and Time Signed: 03/17/21 15:37 EDTEvaluation note* Diagnosis Onset Date Resolution Status Left foot pain [facility] Work Phone: Evaluation note* Diagnosis Well [...] this encounter [facility] HealthcareEvaluation noteNo assessment information availableMarion Hospital Work Phone: Evaluation note* Diagnosis Pre-op examination Request for sterilization Menorrhagia with regular cycle Abnormal uterine bleeding Unspecified disorder of menstruation and other abnormal bleeding from female genital tract Pelvic pain in female Unspecified symptom associated with female genital organs documented in this encounter [facility] HealthcareEvaluation note* Diagnosis Postoperative visit Status post bilateral salpingectomy documented in this encounter [facility] HealthcareEvaluation note* Diagnosis Thyroid nodule- Primary Nontoxic uninodular goiter documented in this encounter [facility] HealthcareHistory general Narrative - Reported* Type Description Date Surgical History hernia repair Surgical Historyt and aSurgical HistoryD&CSurgical Csfohzfyfdnpdvltjqfyim42/21 Hospitalization Tnzsotacwltbjnzjf8407 [place] Other InstructionsNot on filedocumented in this encounter ProMTrove SystemInstructionsNot on filedocumented in this encounter [employer] Summary Purpose Family History No Family [...] from 1month M79.672 - Pain in left footReason for VisitLeft foot pain Chief Complaint Admit Date Unknown June 24, 2024 4 :06pm Chief Complaint Admit Date Unknown June 24, 2024 4 :06pm Unknown August 07, 2024 9:36 am Additional Source Comments INFORMATION SOURCE (unrecogn ized section and content) DATE CREATED AUTHOR 07/05/2021 [facility] DATE CREATED AUTHOR AUTHOR'S ORGANIZ ATION 07/28/2021 [facility] DATE CREATED AUTHOR AUTHOR'S ORGANIZ ATION 08/07/2022 [facility] DATE CREATED AUTHOR AUTHOR'S ORGANIZ ATION 08/12/2024 [facility] DATE CREATED AUTHOR AUTHOR'S ORGANIZ ATION 03/08/2025 [facility] EPIC REASON FOR VISIT (unrecogniz ed section and content) ReasonCommentsWell Women VisitReasonCommentsThyroid Nodule6 mo follow up with ultrasound, [facility] 02/20/24ReasonCommentsPre-op VisitEMBXReasonCommentsPost-op Visit Patient present today for a post operative visit. Pt had a bilateral salpingectomy/bilateral fallopian tubes removed on 08/07/2024.ReasonComments Thyroid Nodule1 yr US [facility] 02/20/25 Care Teams (unrecognized sec tion and content) Team Status: Active Member Role Status Dates Vinny Jones DO Primary Care Provider Active Team Status: Inactive Member Role Status Dates Vinny Jones DO Primary Care Provider Active Start: December 23, 2023 End: December 22Nacho Mcgrath ProviderActiveStart: December 23, 2023 End: December 23, 2023Team MemberRelationshipSpecialtyStart DateEnd Date Vinny Jones MD [address], [place] [address] PCP - [facility]01/11/23Team MemberRelationshipSpecialtyStart DateEnd Date Vinny Jones MD [address] [place] [address] PCP - [facility]01/11/23Team MemberRelationshipSpecialtyStart DateEnd Date Vinny Jones MD [address], [place] [address] PCP - [facility]01/11/23Team MemberRelationshipSpecialtyStart DateEnd Date Vinny Jones MD [address] [place] [address] PCP - [facility]01/11/23 Team Status: Inactive Member Role Status Dates Vinny Jones DO Primary Care Provider Active Start: June 24, 2024 End: June 24john Perez DOAttending ProviderActiveStart: June 24, 2024 End: June 24, 2024Team MemberRelationshipSpecialtyStart DateEnd Date Vinny Jones MD [address], [place] [address] [facility]01/11/23Team MemberRelationshipSpecialtyStart DateEnd Date Vinny Jones DO [address], [place] [address] PCP - [facility]07/26/20Team MemberRelationshipSpecialtyStart DateEnd Date Vinny Jones DO [address], [place] [address] PCP - [facility]07/26/20 Team Status: Inactive Member Role Status Vaishali Perez DO Attending Provider Active Start : August 07, 2024 End: August 07, 2024Team MemberRelationshipSpecialtyStart DateEnd Date Vinny Jones MD [address], [place] [address] PCP - [facility]01/11/23Team MemberRelationshipSpecialtyStart DateEnd Date Vinny Jones MD [address], [place] [address] [facility]CP - [facility]01/11/23Team MemberRelationshipSpecialtyStart DateEnd Date Vinny Jones MD [address], [place] [address] [facility]01/11/23Team MemberRelationshipSpecialtyStart DateEnd Date Vinny Jones MD [address], [place] [address] PCP - [facility]01/11/23Team MemberRelationshipSpecialtyStart DateEnd Date Vinny Jones MD [address], [place] [address] PCP - [facility]01/11/23 Goals (unrecognized section and content) Goals may [...] BE BASED ON THE PRIMARY CLINICAL RECORDS. [employer] [facility]. provides no warranty or guarantee of the accuracy or completeness of information in this document.
== END 2025-05-31 12:38 | disposition home or self-care (01) ==
LOC: US 12:37
PROVIDERS: PCP Family Medicine; Visit Provider Otolaryngology
DX: E04.1 Nontoxic single thyroid nodule (principal)
CPT/HCPCS: 76536